=== PATIENT | male | born 1945 | race Caucasian/White ===

== ENCOUNTER → 2016-09-20 | Outpatient (CLI) | payer MEDICARE ==
--- NOTE | 2016-09-20 07:45 | US ---
EXAMINATION TYPE: US duplex aorta DATE OF EXAM: 09/20/2016 7:27 AM COMPARISON: NONE CLINICAL HISTORY: 70-year-old male Z13.6 Screening for Cardiovascular disease. TECHNIQUE: Multiple sonographic images of the abdominal aorta were obtained. FINDINGS: Abdominal Aorta: Proximal: 2.6cm transverse Mid: 2.3cm transverse Distal: 2.8cm transverse Right and left common iliac arteries: 1.2cm right transverse and 2.0 left transverse, respectively. Moderate to severe atherosclerotic calcifications throughout. IMPRESSION: 1. 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 Moderate to severe atherosclerotic calcifications throughout. 2. 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
[2016-09-20 08:18] LABS: Basophils % (A) 0 %; CHCM 33.6; Eosinophils # (A) 0.1 k/uL (0-0.7); Eosinophils % (A) 1 %; HCT 47.7 % (39.0-53.0); HDW 2.35; HGB 16.2 gm/dL (13.0-17.5); Luc # (Auto) 0.26; Luc % (Auto) 3; Lymphocytes # (A) 2.4 k/uL (1.0-4.8); Lymphocytes % (A) 29 %; MCH 35.5 pg (25.0-35.0); MCV 104.4 fL (80.0-100.0); Macrocytosis Slight; Mean Platelet Volume 6.8; Monocytes # (A) 0.6 k/uL (0-1.0); Monocytes % (A) 7 %; Neutrophils % (A) 60 %; RBC 4.57 m/uL (4.30-5.90); RDW 12.8 % (11.5-15.5); WBC 8.3 k/uL (3.8-10.6); WBC (Perox) 8.11
[2016-09-20 10:57] LABS: ALT 36 U/L (21-72); AST 40 U/L (17-59); Alkaline Phosphatase 68 U/L (38-126); Anion Gap 8 mmol/L; Blood Urea Nitrogen 18 mg/dL (9-20); Calcium 9.7 mg/dL (8.4-10.2); Carbon Dioxide 25 mmol/L (22-30); Chloride 108 mmol/L (98-107); Cholesterol 108 mg/dL (<200); Glucose 98 mg/dL (74-99); HDL Cholesterol 53 mg/dL (40-60); Non-African American GFR(MDRD) >60 (>60 ml/min/1.73 sqM); Potassium 4.4 mmol/L (3.5-5.1); Sodium 141 mmol/L (137-145); Total Bilirubin 0.8 mg/dL (0.2-1.3); Total Protein 7.5 g/dL (6.3-8.2); Triglycerides 48 mg/dL (<150)
[2016-09-20 11:45] LABS: Hepatitis C Virus IgG Index 0.05
[2016-09-20 13:33] LABS: Hepatitis C Virus IgG Ab Negative (Negative)
[2016-09-21 08:34] LABS: Free Kappa Lt Chain Qnt, Serum 2.84 mg/dL (0.33 - 1.94); Kappa/Lambda Light Chain Ratio 1.62 (0.26 - 1.65)
== END | disposition home or self-care (01) ==
LOC: RADUSWWP 07:10
PROVIDERS: ATTEND Internal Medicine
DX: I77.811 Abdominal aortic ectasia (principal); I70.0 Atherosclerosis of aorta; I72.3 Aneurysm of iliac artery; I10 Essential (primary) hypertension; R76.9 Abnormal immunological finding in serum, unspecified; E55.9 Vitamin D deficiency, unspecified; Z13.9 Encounter for screening, unspecified; Z12.5 Encounter for screening for malignant neoplasm of prostate
CPT/HCPCS: 80053; 80061; 82306; 83883; 84153; 84165; 85025; 86334; 86803; 93979

== ENCOUNTER → 2017-05-31 | Outpatient (CLI) | payer MEDICARE ==
[2017-05-31 09:51] LABS: Basophils # (A) 0.1 k/uL (0-0.2); Basophils % (A) 2 %; CH 33.7; CHCM 33.2; Eosinophils # (A) 0.1 k/uL (0-0.7); Eosinophils % (A) 2 %; HCT 48.2 % (39.0-53.0); HDW 2.28; HGB 16.1 gm/dL (13.0-17.5); Luc # (Auto) 0.19; Luc % (Auto) 3; Lymphocytes # (A) 1.9 k/uL (1.0-4.8); Lymphocytes % (A) 32 %; MCH 34.1 pg (25.0-35.0); MCHC 33.5 g/dL (31.0-37.0); MCV 101.9 fL (80.0-100.0); Macrocytosis Slight; Monocytes # (A) 0.6 k/uL (0-1.0); Monocytes % (A) 9 %; Neutrophils # (A) 3.1 k/uL (1.3-7.7); Neutrophils % (A) 51 %; RBC 4.73 m/uL (4.30-5.90); RDW 13.8 % (11.5-15.5); WBC (Perox) 5.61
[2017-05-31 10:04] LABS: ALT 32 U/L (21-72); AST 30 U/L (17-59); Alkaline Phosphatase 76 U/L (38-126); Anion Gap 7 mmol/L; Blood Urea Nitrogen 12 mg/dL (9-20); Calcium 9.7 mg/dL (8.4-10.2); Carbon Dioxide 28 mmol/L (22-30); Chloride 103 mmol/L (98-107); Cholesterol 118 mg/dL (<200); Glucose 106 mg/dL (74-99); HDL Cholesterol 55 mg/dL (40-60); Non-African American GFR(MDRD) >60 (>60 ml/min/1.73 sqM); Potassium 4.4 mmol/L (3.5-5.1); Sodium 138 mmol/L (137-145); Total Bilirubin 0.7 mg/dL (0.2-1.3); Total Protein 7.6 g/dL (6.3-8.2)
== END | disposition home or self-care (01) ==
LOC: LABWHC1 09:17
PROVIDERS: ATTEND Internal Medicine
DX: I10 Essential (primary) hypertension (principal)
CPT/HCPCS: 36415; 80053; 80061; 85025

== ENCOUNTER → 2018-08-10 | Outpatient (CLI) | payer MEDICARE ==
[2018-08-10 11:16] LABS: Basophils % (A) 0 %; Eosinophils # (A) 0.1 k/uL (0-0.7); Eosinophils % (A) 2 %; HCT 47.2 % (39.0-53.0); HGB 15.6 gm/dL (13.0-17.5); Lymphocytes # (A) 1.8 k/uL (1.0-4.8); Lymphocytes % (A) 26 %; MCH 34.2 pg (25.0-35.0); MCV 103.7 fL (80.0-100.0); Macrocytosis Slight; Mean Platelet Volume 6.5; Monocytes # (A) 0.5 k/uL (0-1.0); Monocytes % (A) 7 %; Neutrophils # (A) 4.1 k/uL (1.3-7.7); Neutrophils % (A) 61 %; Platelet Count 261 k/uL (150-450); RBC 4.55 m/uL (4.30-5.90); RDW 12.7 % (11.5-15.5); WBC 6.8 k/uL (3.8-10.6)
[2018-08-10 11:30] LABS: Appearance,Urine Clear (Clear); Bilirubin,Urine Negative (Negative); Blood,Urine Trace (Negative); Color,Urine Light Yellow; Glucose,Urine (UA) Negative (Negative); Ketones,Urine Negative (Negative); Leukocyte Esterase,Urine Negative (Negative); Mucus,Urine Rare /hpf; Nitrite,Urine Negative (Negative); Protein,Urine Negative (Negative); RBC,Urine 1 /hpf (0-5); Specific Gravity,Urine 1.006 (1.001-1.035); Squamous Epithelial Cell,Urine <1 /hpf (0-4); Urobilinogen,Urine <2.0 mg/dL (<2.0); WBC,Urine 2 /hpf (0-5)
[2018-08-10 17:13] LABS: ALT 25 U/L (10-49); AST 33 U/L (14-35); Albumin/Globulin Ratio 1.44 (1.60-3.17); Alkaline Phosphatase 74 U/L (41-126); Calcium 9.5 mg/dL (8.7-10.3); Carbon Dioxide 26.8 mmol/L (21.6-31.8); Chloride 104 mmol/L (96-109); Cholesterol 115 mg/dL (0-200); Globulin 2.7 g/dL (1.6-3.3); Glucose 91 mg/dL (70-110); Potassium 4.9 mmol/L (3.5-5.5); Sodium 139 mmol/L (135-145); Total Bilirubin 0.7 mg/dL (0.2-1.2); Total Protein 6.6 g/dL (6.2-8.2); Triglycerides <50.0 mg/dL (0.0-149.0); VLDL Calculation 9.98 mg/dL (5.00-40.00)
== END ==
LOC: LABWHC1 10:15
PROVIDERS: ATTEND Internal Medicine
DX: I10 Essential (primary) hypertension (principal); Z12.5 Encounter for screening for malignant neoplasm of prostate
CPT/HCPCS: 80061; 80053; 85025; 81001; 36415; G0103

== ENCOUNTER 2023-01-19 00:26 | Inpatient (IN) | payer MEDICARE ==
[2023-01-19] MEDS ORDERED: SODIUM CHLORIDE 0.9% 500 ML 500 ML IV STA (00:40)
[2023-01-19] MEDS ORDERED: MORPHINE SULFATE 4 MG/ML SYRINGE IVP STA (00:41)
--- NOTE | 2023-01-19 01:00 | ED ---
General Adult HPI - General Chief complaint: Abdominal Pain Stated complaint: Kidney Stone Time Seen by Provider: 01/19/23 00:28 Source: patient, RN notes reviewed, old records reviewed Mode of arrival: ambulatory Limitations: no limitations - History of Present Illness Initial comments: 77-year-old male with history of kidney stones presents for evaluation of bilateral flank pain and lower abdominal pain. Patient states he's had difficulty urinating and increased urinary frequency. He states she's had hematuria throughout the day today. No fever. No vomiting. No upper abdominal pain. His pain is all in the lower abdomen and bilateral flanks. - Related Data Home Medications Medication Instructions Recorded Confirmed Losartan-Hctz 50-12.5 mg [Hyzaar 1 tab PO DAILY 03/23/14 04/26/15 50-12.5] Montelukast [Singulair] 10 mg PO DAILY 03/23/14 04/26/15 Cholecalciferol [Vitamin D3 (25 1,000 unit PO DAILY 03/11/15 04/26/15 Mcg = 1000 Iu)] Cyanocobalamin [Vitamin B-12] 1,000 mcg PO DAILY 03/11/15 04/26/15 Multivitamin [Men's Multi-Vitamin] 1 tab PO DAILY 03/11/15 04/26/15 Clopidogrel [Plavix] 75 mg PO DAILY 04/26/15 04/26/15 Previous Rx's Medication Instructions Recorded Aspirin EC [Ecotrin] 325 mg PO DAILY #30 tablet. 03/12/15 Atorvastatin [Lipitor] 40 mg PO DAILY #30 tab 03/12/15 Metoprolol Tartrate [Lopressor] 12.5 mg PO BID #60 tab 03/12/15 Nicotine 21Mg/24Hr Patch [Habitrol] 1 patch TRANSDERM DAILY #30 patch 03/12/15 Nitroglycerin Sl Tabs [Nitrostat] 0.4 mg SUBLINGUAL Q5M PRN #25 tab 03/12/15 Tiotropium 18 Mcg/Puff [Spiriva] 1 puff INHALATION RT-DAILY #1 03/12/15 inhaler Allergies Allergy/AdvReac Type Severity Reaction Status Date / Time sulfamethoxazole Allergy Unknown Verified 01/19/23 00:31 [From Bactrim] trimethoprim [From Bactrim] Allergy Unknown Verified 01/19/23 00:31 Review of Systems ROS Statement: Those systems with pertinent positive or pertinent negative responses have been documented in the HPI. ROS Other: All systems not noted in ROS Statement are negative. Past Medical History Past Medical History: COPD, Hypertension Additional Past Medical History / Comment(s): scoliosis History of Any Multi-Drug Resistant Organisms: None Reported Past Surgical History: Appendectomy Additional Past Surgical History / Comment(s): eye surgery Past Psychological History: No Psychological Hx Reported Smoking Status: Heavy tobacco smoker Past Alcohol Use History: None Reported Past Drug Use History: Marijuana General Exam Limitations: no limitations General appearance: alert, in no apparent distress Head exam: Present: atraumatic, normocephalic Eye exam: Present: normal appearance, PERRL ENT exam: Present: normal exam Neck exam: Present: normal inspection. Absent: tenderness Respiratory exam: Present: decreased breath sounds. Absent: respiratory distress, rhonchi Cardiovascular Exam: Present: regular rate, normal rhythm GI/Abdominal exam: Present: soft, distended, tenderness. Absent: guarding, rebound Extremities exam: Present: normal inspection Neurological exam: Present: alert, oriented X3, CN II-XII intact. Absent: motor sensory deficit Skin exam: Present: warm, dry, intact. Absent: cyanosis, diaphoretic Course Vital Signs 01/19/23 01/19/23 01/19/23 00:28 02:12 02:21 Temperature 97.7 F Pulse Rate 95 79 82 Respiratory 34 H 18 Rate Blood Pressure 229/132 143/83 O2 Sat by Pulse 80 L 97 Oximetry 01/19/23 02:42 Temperature Pulse Rate 81 Respiratory Rate Blood Pressure O2 Sat by Pulse Oximetry Medical Decision Making - Medical Decision Making Was pt. sent in by a medical professional or institution (, PA, REACH LIFT TRUCK DRIVER, urgent care, hospital, or custodial...) When possible be specific @ -No Did you speak to anyone other than the patient for history (EMS, parent, family, police, friend...)? What history was obtained from this source @ -No Did you review nursing and triage notes (agree or disagree)? Why? @ -I reviewed and agree with nursing and triage notes Were old charts reviewed (outside hosp., previous admission, EMS record, old EKG, old radiological studies, urgent care reports/EKG's, custodial records)? Report findings @ -No old charts were reviewed Differential Diagnosis (chest pain, altered mental status, abdominal pain women, abdominal pain men, vaginal bleeding, weakness, fever, dyspnea, syncope, headache, dizziness, GI bleed, back pain, seizure, CVA, palpatations, mental health, musculoskeletal)? @ Differential Abdominal Pain Women: Appendicitis, Cholecystitis, diverticulosis, ischemic bowel, pancreatitis, hepatitis, UTI, gastroenteritis, AAA, incarcerated hernia, bowel obstruction, constipation, inflammatory bowel, hepatitis, peptic ulcer disease, splenic infarction, perforated viscus, vulvitis, ovarian torsion, PID, kidney stone, placenta abruption, this is not meant to be an all-inclusive list EKG interpreted by me (3pts min.). @ -As above X-rays interpreted by me (1pt min.). @ -None done CT interpreted by me (1pt min.). @ CT showing a distended bladder, severe right-sided hydronephrosis with likely bladder mass. U/S interpreted by me (1pt. min.). @ -None done What testing was considered but not performed or refused? (CT, X-rays, U/S, labs)? Why? @ -None What meds were considered but not given or refused? Why? @ -None Did you discuss the management of the patient with other professionals (professionals i.e. , PA, REACH LIFT TRUCK DRIVER, lab, RT, psych nurse, social work faculty member, dubbing machine operator, teacher, space officer, rn case management)? Give summary @ Sound Was smoking cessation discussed for >3mins.? @ -No Was critical care preformed (if so, how long)? @ -No Were there social determinants of health that impacted care today? How? (Homelessness, low income, unemployed, alcoholism, drug addiction, transportation, low edu. Level, literacy, decrease access to med. care, [facility], rehab)? @ -No Was there de-escalation of care discussed even if they declined (Discuss DNR or withdrawal of care, Hospice)? DNR status @ -No What co-morbidities impacted this encounter? (DM, HTN, Smoking, COPD, CAD, Cancer, CVA, ARF, Chemo, Hep., AIDS, mental health diagnosis, sleep apnea, morbid obesity)? @ -[COPD Was patient admitted / discharged? Hospital course, mention meds given and route, prescriptions, significant lab abnormalities, going to OR and other pertinent info. @ -[37-year-old male presenting with lower abdominal pain and bilateral flank pain. Patient has had the urge to urinate and has had hematuria throughout the day. He does report he's had intermittent hematuria for the past 3 years. Patient is unable to completely void and does have distended bladder on CT as well as severe hydronephrosis. Mackay catheter. Urinalysis is hemorrhagic with gross hematuria. He has a anemia of 9.7 with no recent for comparison but does has had significant drop in hemoglobin over the past several years. He has a mildly elevated BUN and creatinine. He will be placed in observation for hydration and urology consultation. Undiagnosed new problem with uncertain prognosis? @ -No Drug Therapy requiring intensive monitoring for toxicity (Heparin, Nitro, Insulin, Cardizem)? @ -No Were any procedures done? @ -No Diagnosis/symptom? @ -Hematuria, urinary retention, ANH Acute, or Chronic, or Acute on Chronic? @ Acute Uncomplicated (without systemic symptoms) or Complicated (systemic symptoms)? @ -default Side effects of treatment? @ -No Exacerbation, Progression, or Severe Exacerbation? @ -No Poses a threat to life or bodily function? How? (Chest pain, USA, ME, pneumonia, PE, COPD, DKA, ARF, appy, cholecystitis, CVA, Diverticulitis, Homicidal, Suicidal, threat to staff... and all critical care pts) @ -[Yes, bladder mass - Lab Data Result diagrams: 01/19/23 01:10 01/19/23 01:10 Lab Results 01/19/23 01/19/23 01/19/23 Range/Units 01:10 01:10 01:10 WBC 9.3 (3.8-10.6) k/uL RBC 3.86 L (4.30-5.90) m/uL Hgb 9.7 L (13.0-17.5) gm/dL Hct 31.0 L (39.0-53.0) % MCV 80.4 (80.0-100.0) fL MCH 25.1 (25.0-35.0) pg MCHC 31.2 (31.0-37.0) g/dL RDW 18.1 H (11.5-15.5) % Plt Count 342 (150-450) k/uL MPV 7.3 Neutrophils % 80 % Lymphocytes % 13 % Monocytes % 5 % Eosinophils % 1 % Basophils % 1 % Neutrophils # 7.4 (1.3-7.7) k/uL Lymphocytes # 1.2 (1.0-4.8) k/uL Monocytes # 0.4 (0-1.0) k/uL Eosinophils # 0.1 (0-0.7) k/uL Basophils # 0.1 (0-0.2) k/uL Hypochromasia Marked Anisocytosis Slight Microcytosis Slight PT 10.0 (9.0-12.0) sec INR 0.9 (<1.2) APTT 23.7 (22.0-30.0) sec Sodium 134 L (137-145) mmol/L Potassium 4.3 (3.5-5.1) mmol/L Chloride 102 (98-107) mmol/L Carbon Dioxide 21 L (22-30) mmol/L Anion Gap 11 mmol/L BUN 34 H (9-20) mg/dL Creatinine 1.49 H (0.66-1.25) mg/dL Est GFR (CKD-EPI)AfAm 53 (>60 ml/min/1.73 sqM) Est GFR (CKD-EPI)NonAf 45 (>60 ml/min/1.73 sqM) Glucose 129 H (74-99) mg/dL Plasma Lactic Acid Tera (0.7-2.0) mmol/L Calcium 9.3 (8.4-10.2) mg/dL Total Bilirubin 0.5 (0.2-1.3) mg/dL AST 33 (17-59) U/L ALT 21 (4-49) U/L Alkaline Phosphatase 89 (38-126) U/L Total Protein 8.1 (6.3-8.2) g/dL Albumin 4.2 (3.5-5.0) g/dL Amylase 91 (30-110) U/L Lipase 200 (23-300) U/L Urine Color Urine Appearance (Clear) Urine pH (5.0-8.0) Ur Specific [place] (1.001-1.035) Urine Protein (Negative) Urine Glucose (UA) (Negative) Urine Ketones (Negative) Urine Blood (Negative) Urine Nitrite (Negative) Urine Bilirubin (Negative) Urine Urobilinogen (<2.0) mg/dL Ur Leukocyte Esterase (Negative) Urine RBC (0-5) /hpf Urine WBC (0-5) /hpf 01/19/23 01/19/23 Range/Units 01:10 02:01 WBC (3.8-10.6) k/uL RBC (4.30-5.90) m/uL Hgb (13.0-17.5) gm/dL Hct (39.0-53.0) % MCV (80.0-100.0) fL MCH (25.0-35.0) pg MCHC (31.0-37.0) g/dL RDW (11.5-15.5) % Plt Count (150-450) k/uL MPV Neutrophils % % Lymphocytes % % Monocytes % % Eosinophils % % Basophils % % Neutrophils # (1.3-7.7) k/uL Lymphocytes # (1.0-4.8) k/uL Monocytes # (0-1.0) k/uL Eosinophils # (0-0.7) k/uL Basophils # (0-0.2) k/uL Hypochromasia Anisocytosis Microcytosis PT (9.0-12.0) sec INR (<1.2) APTT (22.0-30.0) sec Sodium (137-145) mmol/L Potassium (3.5-5.1) mmol/L Chloride (98-107) mmol/L Carbon Dioxide (22-30) mmol/L Anion Gap mmol/L BUN (9-20) mg/dL Creatinine (0.66-1.25) mg/dL Est GFR (CKD-EPI)AfAm (>60 ml/min/1.73 sqM) Est GFR (CKD-EPI)NonAf (>60 ml/min/1.73 sqM) Glucose (74-99) mg/dL Plasma Lactic Acid Tera 1.5 (0.7-2.0) mmol/L Calcium (8.4-10.2) mg/dL Total Bilirubin (0.2-1.3) mg/dL AST (17-59) U/L ALT (4-49) U/L Alkaline Phosphatase (38-126) U/L Total Protein (6.3-8.2) g/dL Albumin (3.5-5.0) g/dL Amylase (30-110) U/L Lipase (23-300) U/L Urine Color Red Urine Appearance Turbid (Clear) Urine pH 7.0 (5.0-8.0) Ur Specific [place] 1.020 (1.001-1.035) Urine Protein 2+ H (Negative) Urine Glucose (UA) Negative (Negative) Urine Ketones Negative (Negative) Urine Blood Large H (Negative) Urine Nitrite Negative (Negative) Urine Bilirubin Negative (Negative) Urine Urobilinogen <2.0 (<2.0) mg/dL Ur Leukocyte Esterase Small H (Negative) Urine RBC >182 H (0-5) /hpf Urine WBC 35 H (0-5) /hpf Disposition Clinical Impression: Urinary retention, Bladder mass, ANH (acute kidney injury), Hematuria Disposition: ADMITTED IP TO THIS HOSP Condition: Stable Is patient prescribed a controlled substance at d/c from ED?: No Referrals: None,Stated [REFERRING] - 1-2 days Time of Disposition: 03:34
[2023-01-19 01:25] LABS: Anisocytosis Slight; Basophils # (A) 0.1 k/uL (0-0.2); Basophils % (A) 1 %; Eosinophils # (A) 0.1 k/uL (0-0.7); Eosinophils % (A) 1 %; HGB 9.7 gm/dL (13.0-17.5); Hypochromasia Marked; Lymphocytes # (A) 1.2 k/uL (1.0-4.8); Lymphocytes % (A) 13 %; MCH 25.1 pg (25.0-35.0); MCHC 31.2 g/dL (31.0-37.0); MCV 80.4 fL (80.0-100.0); Mean Platelet Volume 7.3; Microcytosis Slight; Monocytes # (A) 0.4 k/uL (0-1.0); Monocytes % (A) 5 %; Neutrophils # (A) 7.4 k/uL (1.3-7.7); Neutrophils % (A) 80 %; Platelet Count 342 k/uL (150-450); RBC 3.86 m/uL (4.30-5.90); RDW 18.1 % (11.5-15.5); WBC 9.3 k/uL (3.8-10.6)
--- NOTE | 2023-01-19 01:29 | CT ---
EXAM: CT Abdomen and Pelvis Without Intravenous Contrast CLINICAL HISTORY: ITS.REASON CT Reason: abdominal pain TECHNIQUE: Axial computed tomography images of the abdomen and pelvis without intravenous contrast. CTDI is 6.5 mGy and DLP is 358.7 mGy-cm. This CT exam was performed using one or more of the following dose reduction techniques: automated exposure control, adjustment of the mA and/or kV according to patient size, and/or use of iterative reconstruction technique. COMPARISON: No relevant prior studies available. FINDINGS: Lung bases: Emphysema and scarring at the lung bases. ABDOMEN: Liver: Unremarkable. Gallbladder and bile ducts: Unremarkable. No calcified stones. No ductal dilation. Pancreas: Unremarkable. No ductal dilation. Spleen: Unremarkable. No splenomegaly. Adrenals: Unremarkable. No mass. Kidneys and ureters: Severe right-sided hydroureteronephrosis. This is secondary to an obstructing mass in the right side of the urinary bladder measuring 1.8 x 5.2 cm, highly concerning for bladder neoplasm. Urology evaluation required. Stomach and bowel: Unremarkable. No obstruction. No mucosal thickening. PELVIS: Appendix: No findings to suggest acute appendicitis. Bladder: Unremarkable. No stones. Reproductive: Unremarkable as visualized. ABDOMEN and PELVIS: Intraperitoneal space: Unremarkable. No free air. No significant fluid collection. Bones/joints: Degenerative changes of the spine. No acute fracture. No dislocation. Soft tissues: Unremarkable. Vasculature: Tortuous aorta which is aneurysmal measuring up to 4.2 cm. Atherosclerotic changes of the aorta. Lymph nodes: Unremarkable. No enlarged lymph nodes. IMPRESSION: Severe right-sided hydroureteronephrosis, secondary to an obstructing mass in the right side of the urinary bladder measuring 1.8 x 5.2 cm, highly concerning for bladder neoplasm. Urology evaluation required.
[2023-01-19 01:33] LABS: ALT 21 U/L (4-49); AST 33 U/L (17-59); African American GFR (CKD) 53 (>60 ml/min/1.73 sqM); Albumin 4.2 g/dL (3.5-5.0); Alkaline Phosphatase 89 U/L (38-126); Amylase 91 U/L (30-110); Anion Gap 11 mmol/L; Blood Urea Nitrogen 34 mg/dL (9-20); Calcium 9.3 mg/dL (8.4-10.2); Carbon Dioxide 21 mmol/L (22-30); Chloride 102 mmol/L (98-107); Glucose 129 mg/dL (74-99); INR 0.9 (<1.2); Lipase 200 U/L (23-300); Non-African American GFR(CKD) 45 (>60 ml/min/1.73 sqM); Partial Thromboplastin Time 23.7 sec (22.0-30.0); Potassium 4.3 mmol/L (3.5-5.1); Sodium 134 mmol/L (137-145); Total Bilirubin 0.5 mg/dL (0.2-1.3); Total Protein 8.1 g/dL (6.3-8.2)
[2023-01-19] MEDS ORDERED: IPRATROPIUM-ALBUTEROL 3 ML NEB INHALATION STA (02:05)
[2023-01-19] MEDS ORDERED: ALBUTEROL NEBULIZED 2.5 MG/3 ML INHALATION STA (02:05)
[2023-01-19] MEDS: SODIUM CHLORIDE 0.9% 1,000 ML IV SCH ×2 (02:53→17:13)
[2023-01-19 02:57] LABS: Appearance,Urine Turbid (Clear); Bilirubin,Urine Negative (Negative); Blood,Urine Large (Negative); Color,Urine Red; Glucose,Urine (UA) Negative (Negative); Ketones,Urine Negative (Negative); Leukocyte Esterase,Urine Small (Negative); Nitrite,Urine Negative (Negative); Protein,Urine 2+ (Negative); RBC,Urine >182 /hpf (0-5); Urobilinogen,Urine <2.0 mg/dL (<2.0); WBC,Urine 35 /hpf (0-5)
[2023-01-19] MEDS ORDERED: NALOXONE 0.4 MG/ML 1 ML VIAL IV PRN (03:44)
[2023-01-19] MEDS ORDERED: ACETAMINOPHEN TAB 325 MG TAB PO PRN (03:44)
[2023-01-19] MEDS ORDERED: HYDROmorphone 0.5 MG/0.5 ML SYRINGE IVP PRN (03:44)
--- NOTE | 2023-01-19 05:21 | P.HPIM ---
History of Present Illness H&P Date: 01/19/23 Chief Complaint: lower abd pain 77 year old male with PMHx of COPD , hypertension patient drove himself to the ED today. patient coming in with severe lower abd pain sudden onset, he also reports no urine output for the whole day, he also reports hematuria for the past 3 years off and on. patient seems to be indifferent for the fact he has been having hematuria for the past 3 years, he claims its occasional and never felt the need to see a doctor for it. he denies any fever, chills, nausea or vomiting, his pain was relieved after inserting a archer cath in in the ED he denies any GI bleeding , denies being on blood thinners. denies any recent urologic interventions she denies any fever, chills, cough, sore throat, chest pain , trouble breathing , nausea , vomiting, abd pain , changes in urinary or bowel habits. 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 admits to smoking , denies illicit drugs or heavy alcohol review of systems Pertinent positives as noted in HPI. All other systems were reviewed and are negative on exam Constitutional: No acute distress, conversant, pleasant Eyes: Anicteric sclerae, moist conjunctiva, Pupils equal round reactive to light ENMT: NC/AT Oropharynx clear, no erythema, or exudates Neck: Supple, no masses, or JVD No carotid bruits No thyromegaly Lungs: Clear to auscultation Clear to percussion Normal respiratory effort, no accessory muscle use Cardiovascular: Heart regular in rate and rhythm, No murmurs, gallops, or rubs No peripheral edema Abdominal: Soft Nontender, no guarding, rebound or rigidity Abdomen moving with respiration Normoactive bowel sounds No hepatomegaly, No splenomegaly No palpable mass No abdominal wall hernia noted archer cath in with gabby hematuria Extremities: No digital cyanosis No clubbing Pedal pulses intact and symmetrical Radial pulses intact and symmetrical No calf tenderness Psychiatric: Alert and oriented to person, place and time Appropriate affect fair judgement Neuro Muscles Strength 5/5 in all 4 extremities Sensation to light touch grossly present throughout Cranial nerves II-XII grossly intact Lymphatics: no palpable cervical or supraclavicular lymph nodes Past Medical History Past Medical History: COPD, Hypertension Additional Past Medical History / Comment(s): scoliosis History of Any Multi-Drug Resistant Organisms: None Reported Past Surgical History: Appendectomy Additional Past Surgical History / Comment(s): eye surgery Past Psychological History: No Psychological Hx Reported Smoking Status: Heavy tobacco smoker Past Alcohol Use History: None Reported Past Drug Use History: Marijuana Medications and Allergies Home Medications Medication Instructions Recorded Confirmed Type Losartan-Hctz 50-12.5 mg [Hyzaar 1 tab PO DAILY 03/23/14 04/26/15 History 50-12.5] Montelukast [Singulair] 10 mg PO DAILY 03/23/14 04/26/15 History Cholecalciferol [Vitamin D3 (25 1,000 unit PO DAILY 03/11/15 04/26/15 History Mcg = 1000 Iu)] Cyanocobalamin [Vitamin B-12] 1,000 mcg PO DAILY 03/11/15 04/26/15 History Multivitamin [Men's Multi-Vitamin] 1 tab PO DAILY 03/11/15 04/26/15 History Aspirin EC [Ecotrin] 325 mg PO DAILY #30 tablet.dr 03/12/15 04/26/15 Rx Atorvastatin [Lipitor] 40 mg PO DAILY #30 tab 03/12/15 04/26/15 Rx Metoprolol Tartrate [Lopressor] 12.5 mg PO BID #60 tab 03/12/15 04/26/15 Rx Nicotine 21Mg/24Hr Patch [Habitrol] 1 patch TRANSDERM DAILY #30 patch 03/12/15 04/26/15 Rx Nitroglycerin Sl Tabs [Nitrostat] 0.4 mg SUBLINGUAL Q5M PRN #25 tab 03/12/15 04/26/15 Rx Tiotropium 18 Mcg/Puff [Spiriva] 1 puff INHALATION RT-DAILY #1 03/12/15 04/26/15 Rx inhaler Clopidogrel [Plavix] 75 mg PO DAILY 04/26/15 04/26/15 History Allergies Allergy/AdvReac Type Severity Reaction Status Date / Time sulfamethoxazole Allergy Unknown Verified 01/19/23 00:31 [From Bactrim] trimethoprim [From Bactrim] Allergy Unknown Verified 01/19/23 00:31 Physical Exam Vitals: Vital Signs Temp Pulse Resp BP Pulse Ox 01/19/23 02:42 81 01/19/23 02:21 82 01/19/23 02:12 79 18 143/83 97 01/19/23 00:28 97.7 F 95 34 H 229/132 80 L Intake and Output 01/18/23 01/18/23 01/19/23 14:59 22:59 06:59 Output Total 800 Balance -800 Output: Urine 800 Coude 800 Other: Weight 65.771 kg Results CBC & Chem 7: 01/19/23 01:10 01/19/23 01:10 Labs: Abnormal Lab Results - Last 24 Hours (Table) 01/19/23 01/19/23 01/19/23 Range/Units 01:10 01:10 02:01 RBC 3.86 L (4.30-5.90) m/uL Hgb 9.7 L (13.0-17.5) gm/dL Hct 31.0 L (39.0-53.0) % RDW 18.1 H (11.5-15.5) % Sodium 134 L (137-145) mmol/L Carbon Dioxide 21 L (22-30) mmol/L BUN 34 H (9-20) mg/dL Creatinine 1.49 H (0.66-1.25) mg/dL Glucose 129 H (74-99) mg/dL Urine Protein 2+ H (Negative) Urine Blood Large H (Negative) Ur Leukocyte Esterase Small H (Negative) Urine RBC >182 H (0-5) /hpf Urine WBC 35 H (0-5) /hpf Assessment and Plan Assessment: 77 year old male with COPD , coming in for urinary retention , abd pain and he maturia , I discussed the case with ED doc , and I accepted the admission for hematuria with acute urinary retention , imaging showed bladder mass , await urlogy eval with anticipated length of stay > 2 midnights urinary retention , with gabby hematuria obstructive uropathy ANH anemia (compared to 2019 ) CT abd / pelvis showed large urinary bladder mass resulting in severe right hydronephrosis avoid nephrotoxic meds archer cath care gabby hematuria , monitor h&h transfuse if hgb <7 urology consult pain control with opiates IVF hydration with normal saline 100 cc per hour Hgb 9.7 BUN 34, Cr 1.49 chronic conditions COPD compensated , resume inhalers PRN duoneb Hypertension continue home meds full code DVT PPX mecahnical secondary to hematuria
[2023-01-19] MEDS: ATORVASTATIN 40 MG TAB PO SCH (08:12)
[2023-01-19] MEDS: METOPROLOL TARTRATE 12.5 MG TAB PO SCH ×2 (08:12→20:43)
[2023-01-19] MEDS ORDERED: MONTELUKAST 10 MG TAB PO SCH (09:00)
--- NOTE | 2023-01-19 10:38 | P.PN ---
Subjective Progress Note Date: 01/19/23 Hospital course: Patient is a very pleasant 77-year-old male with a past medical history of known coronary artery disease, COPD and continued nicotine dependence, hypertension, and cannabinoid use. He presented to the emergency department with a chief complaint of severe abdominal pain and urinary retention. Patient reported episodes of hematuria occurring over the past 3 years intermittently but reports sudden onset suprapubic lower abdominal pain and difficulty urinating and came to the emergency department for evaluation. Patient underwent full evaluation and was found to have urinary retention and a Mackay catheter was inserted resulting in resolution of urinary retention and return of dark red colored urine. Patient was found to have red turbid urine positive for protein, blood, and greater than 182 RBCs. Labs were completed and reviewed. CBC showing hemoglobin of 9.7. BMP revealing mild hyponatremia with sodium 134, hypocarbia with bicarb of 21, and acute kidney injury with BUN of 34, creatinine 1.49, and GFR 45. Liver profile was unremarkable. Amylase normal findings at 200. CT abdomen and pelvis reviewed showing severe right-sided hydronephrosis secondary to obstructing mass in the right side of the urinary bladder measuring 1.8 x 5.2 cm highly concerning for bladder neoplasm. Patient admitted under our services with consultation to urology. Physical exam: Vital signs reviewed and stable. General: Nontoxic, no distress and appears stated age. Derm: Skin warm and dry, normal coloration for ethnicity. Head: Atraumatic, normocephalic and symmetric. Eyes: EOMs intact, no lid lag, and anicteric sclera Mouth: no lip lesions, mucus membranes moist Cardiovascular: regular rate and rhythm with normal S1S2, no murmur, positive posterior tibial pulses bilaterally, and cap refill < 2 seconds. Lungs: Respirations even, regular, and unlabored on room air. Lungs CTA bilaterally, no rhonchi, no rales, no wheezing, and no accessory muscle usage. Abdominal: soft, nontender to palpation, no guarding, no appreciable organomegaly. Mackay catheter in place with continued return of dark red bloody urine. No suprapubic tenderness noted upon examination. Ext: ROM intact. No gross muscle atrophy, no edema, no contractures Neuro: Speech clear, face symmetrical and CN II-XII grossly intact with no noted focal neuro deficits Psych: Alert and oriented to person, place, time, and situation. Appropriate and pleasant affect. Assessment and Plan of Care: Urinary retention with hematuria Obstructing Bladder mass resulting in right-sided hydronephrosis Acute blood loss anemia secondary to hematuria Acute kidney injury -Continue Mackay catheter management. -CT abdomen and pelvis reviewed showing severe right-sided hydronephrosis secondary to obstructing mass in the right side of the urinary bladder measuring 1.8 x 5.2 cm highly concerning for bladder neoplasm. -Labs completed and reviewed. Hemoglobin 9.7. BMP showing acute kidney injury with Patient's last lab for comparison in system was drawn in 2019 and resulted at 15.6 at that time. -Will repeat morning CBC and BMP to monitor hemoglobin closely as well as renal function. -Hold aspirin and Plavix secondary to hematuria and likely need for surgical intervention secondary to obstructing bladder mass -Patient to remain nothing by mouth until cleared by urology, once urology c lears with no plans for surgical procedures patient's diet may be advanced to heart healthy diet. Hypertensive urgency -Patient presented with hypertensive urgency with blood pressure 229/132, heart rate 95, and respiratory rate of 34. Hypertensive urgency and tachypnea resolved after placement of Mackay catheter and resolution of urinary retention resulting and also resolution of suprapubic/abdominal pain. -Patient with history of hypertension and to continue daily medication regimen with metoprolol 12.5 mg twice daily. -Losartan/hydrochlorothiazide to be held secondary to acute kidney injury. COPD with continued nicotine dependence Coronary artery disease Hyperlipidemia -Recommend smoking cessation. Order placed for nicotine patch 21 mg daily. -Patient to continue with Ventolin inhaler as needed for shortness of breath and/or wheezing. -Order placed for scheduled nebulizers treatment with DuoNeb 4 times daily -Patient to continue cardiac medication regimen with atorvastatin 40 mg daily metoprolol 12.5 mg twice daily. -Aspirin to be held secondary to hematuria. -Losartan/hydrochlorothiazide to be held secondary to acute kidney injury. CODE STATUS: Full code DVT prophylaxis: SCDs Discussed with: Patient and RN Anticipated discharge date: Clinical course to determine Anticipated discharge place: Home Patient was seen independently by Nurse Pracitioner. This document was prepared using [employer] dictation software. Please allow for errors in tare worker, while rare they do occur. Miguel A Ziegler NP rendered care for this patient independently, reviewed the findings and plan as documented in the note above. I did not physically speak with or examine the patient on this date. Objective - Vital Signs Vital signs: Vital Signs Temp 97 F L 01/19/23 07:17 Pulse 85 01/19/23 08:00 Resp 18 01/19/23 08:00 BP 129/82 01/19/23 08:00 Pulse Ox 95 01/19/23 08:00 FiO2 Intake & Output 01/18/23 01/19/23 01/19/23 18:59 06:59 18:59 Output Total 800 900 Balance -800 -900 Weight 65.771 kg Output: Urine 800 900 Coude 800 900 - Labs CBC & Chem 7: 01/21/23 05:38 01/21/23 05:38 Labs: Abnormal Lab Results - Last 24 Hours (Table) 01/19/23 01/19/23 01/19/23 Range/Units 01:10 01:10 02:01 RBC 3.86 L (4.30-5.90) m/uL Hgb 9.7 L (13.0-17.5) gm/dL Hct 31.0 L (39.0-53.0) % RDW 18.1 H (11.5-15.5) % Sodium 134 L (137-145) mmol/L Carbon Dioxide 21 L (22-30) mmol/L BUN 34 H (9-20) mg/dL Creatinine 1.49 H (0.66-1.25) mg/dL Glucose 129 H (74-99) mg/dL Urine Protein 2+ H (Negative) Urine Blood Large H (Negative) Ur Leukocyte Esterase Small H (Negative) Urine RBC >182 H (0-5) /hpf Urine WBC 35 H (0-5) /hpf
[2023-01-19] MEDS: IPRATROPIUM 0.5 MG/2.5 ML NEBU INHALATION SCH ×4 (12:57→20:50)
[2023-01-19 16:00] LABS: Glucose,Whole Blood 87 mg/dL (70-110)
--- NOTE | 2023-01-19 17:33 | P.GSCN ---
History of Present Illness Consult date: 01/19/23 Reason for Consult: Gross hematuria, bladder mass, right-sided hydronephrosis History of present illness: This is a 77-year-old male that presented to the hospital with gross hematuria and urinary retention. He indicated he's been having ongoing gross hematuria intermittently for the past 3 years, has not seen anybody for his gross hematuri a. He noticed last night that he had worsening of his gross hematuria with clots, additionally his been having abdominal pain with difficulty voiding and that what promated him to present to the ER. In the ER he underwent a CT abdomen and pelvis that showed evidence of a bladder mass and evidence of right- sided hydronephrosis. Subsequently a Mackay catheter has been placed. Denies any previous surgeries. No family history of malignancies. His catheter is draining light red urine. He indicates that his abdominal pain has resolved. Patient is on Plavix and aspirin, he took his last Plavix dose yesterday. In the ER his hemoglobin was 9.7, he is hemodynamically stable. Review of Systems - Constitutional Denies fever, Denies weight loss - EENT Ears, nose, mouth and throat: Denies dysphagia - Cardiovascular Denies chest pain, Denies shortness of breath - Respiratory Denies cough, Denies 7 - Gastrointestinal Reports abdominal pain - Genitourinary Reports hematuria - Integumentary Denies rash, Denies unusual bruising - Neurological Denies headaches, Denies syncope Past Medical History Past Medical History: COPD, Hypertension Additional Past Medical History / Comment(s): scoliosis History of Any Multi-Drug Resistant Organisms: None Reported Past Surgical History: Appendectomy Additional Past Surgical History / Comment(s): eye surgery Past Psychological History: No Psychological Hx Reported Smoking Status: Heavy tobacco smoker Past Alcohol Use History: None Reported Past Drug Use History: Marijuana Medications and Allergies Home Medications Medication Instructions Recorded Confirmed Type Losartan-Hctz 50-12.5 mg [Hyzaar 1 tab PO DAILY 03/23/14 01/19/23 History 50-12.5] Atorvastatin [Lipitor] 40 mg PO DAILY #30 tab 03/12/15 01/19/23 Rx Metoprolol Tartrate [Lopressor] 12.5 mg PO BID #60 tab 03/12/15 01/19/23 Rx Albuterol Sulfate [Ventolin HFA] 2 puff INHALATION RT-Q4H PRN 01/19/23 01/19/23 History Aspirin EC [Ecotrin Low Dose] 81 mg PO DAILY 01/19/23 01/19/23 History Cholecalciferol [Vitamin D3 (25 25 mcg PO DAILY 01/19/23 01/19/23 History Mcg = 1000 Iu)] Cyanocobalamin (Vitamin B-12) 2,500 mcg PO DAILY 01/19/23 01/19/23 History [Vitamin B-12] Ipratropium-Albuterol Nebulize 3 ml INHALATION RT-QID 01/19/23 01/19/23 History [Duoneb 0.5 mg-3 mg/3 ml Soln] Multivit-Min/FA/Lycopen/Lutein 1 tab PO DAILY 01/19/23 01/19/23 History [Centrum Silver Tablet] traMADol HCl [Ultram] 50 mg PO Q6HR PRN 01/19/23 01/19/23 History Allergies Allergy/AdvReac Type Severity Reaction Status Date / Time sulfamethoxazole Allergy Rash/Hives Verified 01/19/23 07:15 [From Bactrim] trimethoprim [From Bactrim] Allergy Rash/Hives Verified 01/19/23 07:15 Surgical - Exam Vital Signs Temp Pulse Resp BP Pulse Ox 97.7 F 95 34 H 229/132 80 L 01/19/23 00:28 01/19/23 00:28 01/19/23 00:28 01/19/23 00:28 01/19/23 00:28 - General no distress, no pain - Eyes normal ocular movement, no pale - ENT normal nares, normal mucosa - Respiratory normal expansion, normal respiratory effort - Abdomen Abdomen: soft, non tender, no distended - Psychiatric oriented to time, oriented to person, oriented to place Results - Labs 01/19/23 01:10 01/19/23 01:10 Abnormal Lab Results - Last 24 Hours (Table) 01/19/23 01/19/23 01/19/23 Range/Units 01:10 01:10 02:01 RBC 3.86 L (4.30-5.90) m/uL Hgb 9.7 L (13.0-17.5) gm/dL Hct 31.0 L (39.0-53.0) % RDW 18.1 H (11.5-15.5) % Sodium 134 L (137-145) mmol/L Carbon Dioxide 21 L (22-30) mmol/L BUN 34 H (9-20) mg/dL Creatinine 1.49 H (0.66-1.25) mg/dL Glucose 129 H (74-99) mg/dL Urine Protein 2+ H (Negative) Urine Blood Large H (Negative) Ur Leukocyte Esterase Small H (Negative) Urine RBC >182 H (0-5) /hpf Urine WBC 35 H (0-5) /hpf Diabetes panel 01/19/23 Range/Units 01:10 Sodium 134 L (137-145) mmol/L Potassium 4.3 (3.5-5.1) mmol/L Chloride 102 (98-107) mmol/L Carbon Dioxide 21 L (22-30) mmol/L BUN 34 H (9-20) mg/dL Creatinine 1.49 H (0.66-1.25) mg/dL Glucose 129 H (74-99) mg/dL Calcium 9.3 (8.4-10.2) mg/dL AST 33 (17-59) U/L ALT 21 (4-49) U/L Alkaline Phosphatase 89 (38-126) U/L Total Protein 8.1 (6.3-8.2) g/dL Albumin 4.2 (3.5-5.0) g/dL Calcium panel 01/19/23 Range/Units 01:10 Calcium 9.3 (8.4-10.2) mg/dL Albumin 4.2 (3.5-5.0) g/dL Pituitary panel 01/19/23 Range/Units 01:10 Sodium 134 L (137-145) mmol/L Potassium 4.3 (3.5-5.1) mmol/L Chloride 102 (98-107) mmol/L Carbon Dioxide 21 L (22-30) mmol/L BUN 34 H (9-20) mg/dL Creatinine 1.49 H (0.66-1.25) mg/dL Glucose 129 H (74-99) mg/dL Calcium 9.3 (8.4-10.2) mg/dL Adrenal panel 01/19/23 Range/Units 01:10 Sodium 134 L (137-145) mmol/L Potassium 4.3 (3.5-5.1) mmol/L Chloride 102 (98-107) mmol/L Carbon Dioxide 21 L (22-30) mmol/L BUN 34 H (9-20) mg/dL Creatinine 1.49 H (0.66-1.25) mg/dL Glucose 129 H (74-99) mg/dL Calcium 9.3 (8.4-10.2) mg/dL Total Bilirubin 0.5 (0.2-1.3) mg/dL AST 33 (17-59) U/L ALT 21 (4-49) U/L Alkaline Phosphatase 89 (38-126) U/L Total Protein 8.1 (6.3-8.2) g/dL Albumin 4.2 (3.5-5.0) g/dL - Imaging CT scan - abdomen: image reviewed (Bladder mass along the right lateral wall, with evidence of hydronephrosis dilated ureter down to the bladder at the level of the mass) Assessment and Plan Assessment: 77-year-old male admitted with gross hematuria, hydronephrosis and a bladder mass. Discussed with him the finding s is highly concerning for bladder cancer, and his hydronephrosis secondary to the bladder mass. Discussed with him the next step would be to proceed with a transuretheral a resection of a bladder tumor. But given that he took his Plavix yesterday we will hold off on any resection at this time. His gross hematuria has been improving with the Mackay catheter. At this time he will be reassessed tomorrow, if hemoglobin continues to be stable and catheter is draining without any clots then we'll plan on arranging a transurethral resection of bladder tumor as an outpatient in 5-7 days. -Continue to hold aspirin and Plavix -We'll reassess tomorrow.
[2023-01-19] MEDS ORDERED: ALBUTEROL NEBULIZED 2.5 MG/3 ML INHALATION PRN (18:28)
[2023-01-19] MEDS: NICOTINE 21MG/24HR PATCH TRANSDERM SCH (20:43)
[2023-01-19] MEDS: IPRATROPIUM-ALBUTEROL 3 ML NEB INHALATION SCH (20:50)
[2023-01-20] MEDS: traMADol 50 MG TAB PO PRN ×2 (04:12→22:43)
[2023-01-20] MEDS: SODIUM CHLORIDE 0.9% 1,000 ML IV SCH ×2 (05:51→19:49)
[2023-01-20] MEDS: IPRATROPIUM-ALBUTEROL 3 ML NEB INHALATION SCH ×4 (08:03→20:50)
[2023-01-20] MEDS: IPRATROPIUM 0.5 MG/2.5 ML NEBU INHALATION SCH (08:03)
--- NOTE | 2023-01-20 08:56 | P.PN ---
Subjective Progress Note Date: 01/20/23 No acute overnight event, urine is light red this am, no issues with catheter clogging, denies any abdominal pain Objective - Vital Signs Vital signs: Vital Signs Temp 98.8 F 01/20/23 01:48 Pulse 79 01/20/23 01:48 Resp 20 01/20/23 01:48 BP 125/74 01/20/23 01:48 Pulse Ox 94 L 01/20/23 01:48 FiO2 Intake & Output 01/19/23 01/20/23 01/20/23 18:59 06:59 18:59 Output Total 1600 725 Balance -1600 -725 Weight 65.771 kg Output: Urine 1600 725 Coude 900 Other: Voiding Method Indwelling Catheter - Constitutional General appearance: Present: no acute distress - EENT Eyes: Present: normal appearance - Gastrointestinal General gastrointestinal: Present: soft. Absent: distended, tenderness - Labs CBC & Chem 7: 01/19/23 01:10 01/19/23 01:10 Assessment and Plan Assessment: 77-year-old male admitted with gross hematuria, hydronephrosis and a bladder mass. Discussed with him the finding s is highly concerning for bladder cancer, and his hydronephrosis secondary to the bladder mass. Discussed with him the next step would be to proceed with a transuretheral a resection of a bladder tumor. But given that he took his Plavix 01/18/23 we will hold off on any resection at this time. His gross hematuria has been improving with the Archer catheter. -Continue to hold aspirin and Plavix -Medical clearance for TURBT -Ok for discharge with the archer catheter , we will arrange for outpatient TURBT for next week, once patient has been off plavix for one week.
[2023-01-20] MEDS: METOPROLOL TARTRATE 12.5 MG TAB PO SCH ×2 (09:28→19:52)
[2023-01-20] MEDS: NICOTINE 21MG/24HR PATCH TRANSDERM SCH (09:28)
[2023-01-20] MEDS: ATORVASTATIN 40 MG TAB PO SCH (09:28)
[2023-01-20 10:57] LABS: HCT 27.4 % (39.6-50.0); HGB 8.3 d/dL (13.0-17.0); MCH 24.2 pg (27.0-32.0); MCHC 30.3 d/dL (32.0-37.0); MCV 79.9 FL (80.0-97.0); Mean Platelet Volume 9.8 FL (9.5-12.2); NRBC Per 100 WBC 0 X 10*3/uL (0.00-0.01); Platelet Count 343 X 10*3/uL (140-440); RBC 3.43 X 10*6/uL (4.40-5.60); WBC 12.22 X 10*3/uL (4.50-10.00)
[2023-01-20 11:02] LABS: ALT 15 U/L (10-49); AST 29 U/L (14-35); Albumin 3.5 d/dL (3.8-4.9); Albumin/Globulin Ratio 1.21 Ratio (1.60-3.17); Alkaline Phosphatase 69 U/L (41-126); BUN/Creat Ratio 19.58 Ratio (12.00-20.00); Blood Urea Nitrogen 23.5 mg/dL (9.0-27.0); Carbon Dioxide 23.3 mmol/L (21.6-31.8); Chloride 102 mmol/L (96-109); Globulin 2.9 d/dL (1.6-3.3); Glucose 109 mg/dL (70-110); Potassium 4.1 mmol/L (3.5-5.5); Sodium 133 mmol/L (135-145); Total Bilirubin 0.4 mg/dL (0.3-1.2); Total Protein 6.4 d/dL (6.2-8.2)
--- NOTE | 2023-01-20 17:48 | P.PN ---
Subjective Progress Note Date: 01/20/23 Hospital course: Patient is a very pleasant 77-year-old male with a past medical history of previously known nonobstructive coronary artery disease, COPD and continued nicotine dependence, hypertension, and cannabinoid use. He presented to the emergency department with a chief complaint of severe abdominal pain and urinary retention. Patient reported episodes of hematuria occurring over the past 3 years intermittently but reports sudden onset suprapubic lower abdominal pain and difficulty urinating and came to the emergency department for evaluation. Patient underwent full evaluation and was found to have urinary retention and a Mackay catheter was inserted resulting in resolution of urinary retention and return of dark red colored urine. Urinalysis showing red turbid urine positive for protein, blood, and greater than 182 RBCs. Labs were completed and reviewed. CBC showing hemoglobin of 9.7. BMP revealing mild hyponatremia with sodium 134, hypocarbia with bicarb of 21, and acute kidney injury with BUN of 34, creatinine 1.49, and GFR 45. Liver profile was unremarkable. Amylase normal findings at 200. 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 Patient was admitted under our services with consultation to urology. He underwent evaluation by urologist, recommending patient undergo TURP for bladder resection secondary to obstructing bladder mass. Patient last took aspirin on 01/18/23 but states he has not taken Plavix since 2020. Urologist recommending holding off on surgery until 5-7 days after last taking dual antiplatelet therapy. Physical exam: Patient seen and fully evaluated at bedside this morning. He again denies having any suprapubic pain or discomfort, nausea, or any other complaints at th is time. Vital signs reviewed and stable. General: Nontoxic, no distress and appears stated age. Derm: Skin warm and dry, normal coloration for ethnicity. Head: Atraumatic, normocephalic and symmetric. Eyes: EOMs intact, no lid lag, and anicteric sclera Mouth: no lip lesions, mucus membranes moist Cardiovascular: regular rate and rhythm with normal S1S2, no murmur, positive posterior tibial pulses bilaterally, and cap refill < 2 seconds. Lungs: Respirations even, regular, and unlabored on room air. Lungs CTA bilaterally, no rhonchi, no rales, no wheezing, and no accessory muscle usage. Abdominal: soft, nontender to palpation, no guarding, no appreciable organomegaly. Mackay catheter in place with light tan-colored urine and tubing in collection bag. No suprapubic tenderness noted upon examination. Ext: ROM intact. No gross muscle atrophy, no edema, no contractures Neuro: Speech clear, face symmetrical and CN II-XII grossly intact with no noted focal neuro deficits Psych: Alert and oriented to person, place, time, and situation. Appropriate and pleasant affect. Assessment and Plan of Care: Urinary retention with hematuria Obstructing Bladder mass resulting in right-sided hydronephrosis Acute blood loss anemia secondary to hematuria Acute kidney injury, resolved -Continue Mackay catheter management. Color of urinary output improving from dark red to light tan-colored. -Patient with worsening hemoglobin dropping down to 8.3. Bleeding has improved, No indication for transfusion at this time. -Will repeat morning CBC and BMP for continued close monitoring of hemoglobin and renal function. Will plan to transfuse if hemoglobin drops below 7. -Continue to Hold aspirin for planned TURP next week. Patient reports he has been off of Plavix since 2020. Presurgical clearance for TURP -METS score is > 4. Patient reports being active and denies any difficulties walking up stairs or greater than 2 blocks at a time. He reports previously undergoing anesthesia and denied having any complications and denies any known family history of complications from anesthesia. -NSQIP surgical risk calculator was completed. Patient is at an average risk of serious complications at 5.5% with average risk of 5.5%. Patient at average risk for cardiac complications with a 0.2% risk with average risk of 0.2% also. Patient is at an above average risk of renal failure of 0.3% with average risk of 0.2%. Patient had an above average risk of development of postsurgical pneumonia at 0.7% risk with the average risk being only 0.3%. Patient also at increased risk of at 0.3% with average risk of 0.2%. -Patient is at a slightly increased risk of overall surgical complications with biggest risk being development of postsurgical pneumonia secondary to COPD and daily bronchodilator dependent. . -Patient is at elevated risk for surgical complications, there are no absolute contraindications to undergo surgery at this time. Recommend obtaining presurgical EKG for baseline reference and we will review and if normal findings, from medical standpoint patient may proceed with planned TURP without further testing. Hypertensive urgency, resolved. Secondary to uncontrolled pain and urinary retention. -Patient presented with hypertensive urgency with blood pressure 229/132, heart rate 95, and respiratory rate of 34. Hypertensive urgency and tachypnea resolved shortly after placement of Mackay catheter and resolution of urinary retention and suprapubic/abdominal pain. -Patient does have history of hypertension but appears to be controlled on current medication regimen. Patient to continue daily medication regimen with metoprolol 12.5 mg twice daily. -Losartan/hydrochlorothiazide to continue to be held secondary to acute kidney injury. COPD with continued nicotine dependence Coronary artery disease Hyperlipidemia -Recommend smoking cessation. Order placed for nicotine patch 21 mg daily. -Patient to continue with Ventolin inhaler as needed for shortness of breath and/or wheezing. -Order placed for scheduled nebulizers treatment with DuoNeb 4 times daily -Patient to continue cardiac medication regimen with atorvastatin 40 mg daily metoprolol 12.5 mg twice daily. -Aspirin to be held secondary to hematuria. -Losartan/hydrochlorothiazide to be held secondary to acute kidney injury. CODE STATUS: Full code DVT prophylaxis: SCDs Discussed with: Patient, urologist and RN Anticipated discharge date: Clinical course to determine Anticipated discharge place: Home Patient was seen independently by Nurse Pracitioner. This document was prepared using [employer] dictation software. Please allow for errors in sizing end bander, while rare they do occur. Miguel A Ziegler NP rendered care for this patient independently, reviewed the findings and plan as documented in the note above. I did not physically speak with or examine the patient on this date. Objective - Vital Signs Vital signs: Vital Signs Temp 99.0 F 01/20/23 07:49 Pulse 83 01/20/23 08:17 Resp 19 01/20/23 07:49 BP 132/73 01/20/23 07:49 Pulse Ox 93 L 01/20/23 08:04 FiO2 Intake & Output 01/19/23 01/20/23 01/20/23 18:59 06:59 18:59 Output Total 1600 725 Balance -1600 -725 Weight 65.771 kg Output: Urine 1600 725 Coude 900 Other: Voiding Method Indwelling Catheter Indwelling Catheter - Labs CBC & Chem 7: 01/21/23 05:38 01/21/23 05:38
[2023-01-21 08:11] VITALS: BP 116/70; RESP 18; TEMP 98.5
[2023-01-21 08:33] LABS: HGB 8.2 d/dL (13.0-17.0); MCH 24.2 pg (27.0-32.0); MCHC 29.3 d/dL (32.0-37.0); MCV 82.6 FL (80.0-97.0); Mean Platelet Volume 10.1 FL (9.5-12.2); NRBC Per 100 WBC 0 X 10*3/uL (0.00-0.01); Platelet Count 343 X 10*3/uL (140-440); RBC 3.39 X 10*6/uL (4.40-5.60); RDW 19.2 % (11.5-14.5); WBC 10.51 X 10*3/uL (4.50-10.00)
[2023-01-21 08:38] LABS: ALT 14 U/L (10-49); AST 25 U/L (14-35); Albumin 3.3 d/dL (3.8-4.9); Albumin/Globulin Ratio 1.18 Ratio (1.60-3.17); Alkaline Phosphatase 63 U/L (41-126); BUN/Creat Ratio 15.15 Ratio (12.00-20.00); Blood Urea Nitrogen 19.7 mg/dL (9.0-27.0); Calcium 8.9 mg/dL (8.7-10.3); Carbon Dioxide 23.6 mmol/L (21.6-31.8); Chloride 106 mmol/L (96-109); Globulin 2.8 d/dL (1.6-3.3); Glucose 87 mg/dL (70-110); Magnesium 1.9 mg/dL (1.5-2.4); Potassium 4.2 mmol/L (3.5-5.5); Sodium 138 mmol/L (135-145); Total Bilirubin 0.3 mg/dL (0.3-1.2); Total Protein 6.1 d/dL (6.2-8.2)
[2023-01-21] MEDS: IPRATROPIUM-ALBUTEROL 3 ML NEB INHALATION SCH ×3 (08:38→15:10)
[2023-01-21] MEDS: NICOTINE 21MG/24HR PATCH TRANSDERM SCH (08:52)
[2023-01-21] MEDS: ATORVASTATIN 40 MG TAB PO SCH (08:52)
[2023-01-21] MEDS: METOPROLOL TARTRATE 12.5 MG TAB PO SCH (08:52)
[2023-01-21] MEDS: SODIUM CHLORIDE 0.9% 1,000 ML IV SCH (08:53)
[2023-01-21 10:27] VITALS: PULSE 88
[2023-01-21] MEDS: traMADol 50 MG TAB PO PRN (11:08)
--- NOTE | 2023-01-21 11:41 | P.DS ---
Providers Date of admission: 01/19/23 18:45 Expected date of discharge: 01/21/23 Attending physician: Myrtle Mckinney MD Consults: 01/19/23 03:44 Consult Physician Routine Consulting Provider: Keny Borrego Consult Reason/Comments: Hematuria, bladder mass Do you want consulting provider notified?: Yes Primary care physician: Maik Goss [facility] Hospital Course: Discharge Diagnosis: Urinary retention with hematuria Obstructing Bladder mass resulting in right-sided hydronephrosis Acute blood loss anemia secondary to hematuria Acute kidney injury, resolved Hypertensive urgency, resolved. Secondary to uncontrolled pain and urinary retention. COPD with continued nicotine dependence. Patient was found to be significantly hypoxic with ambulation. He was discharged home on home oxygen 3 L at all times. Patient pulse ox on room air at rest was 84% and with ambulation with 74%. Patient requires 3 L O2 to maintain SpO2 greater than 90%. Patient instructed it is of utmost importance to follow up outpatient with oyster shucker for PFTs and that he must wear oxygen at all times. Coronary artery disease Hyperlipidemia Hospital Course: Patient is a very pleasant 77-year-old male with a past medical history of previously known nonobstructive coronary artery disease, COPD and continued nicotine dependence, hypertension, and cannabinoid use. He presented to the emergency department with a chief complaint of severe abdominal pain and urinary retention. Patient reported episodes of hematuria occurring over the past 3 years intermittently but reports sudden onset suprapubic lower abdominal pain and difficulty urinating and came to the emergency department for evaluation. Patient underwent full evaluation and was found to have urinary retention and a Mackay catheter was inserted resulting in resolution of urinary retention and return of dark red colored urine. Urinalysis showing red turbid urine positive for protein, blood, and greater than 182 RBCs. Labs were completed and reviewed. CBC showing hemoglobin of 9.7. BMP revealing mild hyponatremia with sodium 134, hypocarbia with bicarb of 21, and acute kidney injury with BUN of 34, creatinine 1.49, and GFR 45. Liver profile was unremarkable. Amylase normal findings at 200. 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 Patient was admitted under our services with consultation to urology. He underwent evaluation by urologist, recommending patient undergo TURP for bladder resection secondary to obstructing bladder mass. Patient last took aspirin on 01/18/23 but states he has not taken Plavix since 2020. Patient monitored overnight. Hemoglobin stable at 8.2. Urine is becoming more clear daily and is a light tan-colored with no noted clots in collection bag her tubing this morning. Patient is free from any pain or complaints at this time. Urology recommending patient be discharged home with Mackay catheter and is scheduled for TURBT on 02/01/23. Medically, patient is stable at this time. He was found to be hypoxic on room air requiring oxygen supplementation. Patient reports he is known he has needed oxygen for a long time secondary to his COPD and continued nicotine use. Patient strongly encouraged on the importance of smoking cessation and risks associated with continued use. Patient was evaluated for oxygen and found to require 3 L to maintain SpO2 greater than 90%. Patient discharged home on 3 L O2 and will need to follow up outpatient with oyster shucker as we discussed.. Discharge instructions were reviewed with both patient and granddaughter at bedside. All questions answered at this time. Patient medically stable for discharge home. Physical exam: Vital signs reviewed and stable. General: Nontoxic, no distress and appears stated age. Derm: Skin warm and dry, normal coloration for ethnicity. Head: Atraumatic, normocephalic and symmetric. Eyes: EOMs intact, no lid lag, and anicteric sclera Mouth: no lip lesions, mucus membranes moist Cardiovascular: regular rate and rhythm with normal S1S2, no murmur, positive posterior tibial pulses bilaterally, and cap refill < 2 seconds. Lungs: Respirations even, regular, and unlabored on room air. Lungs CTA bilaterally, no rhonchi, no rales, no wheezing, and no accessory muscle usage. Abdominal: soft, nontender to palpation, no guarding, no appreciable organomegaly. Mackay catheter in place with light tan-colored urine and tubing in collection bag. No suprapubic tenderness noted upon examination. Ext: ROM intact. No gross muscle atrophy, no edema, no contractures Neuro: Speech clear, face symmetrical and CN II-XII grossly intact with no noted focal neuro deficits Psych: Alert and oriented to person, place, time, and situation. Appropriate and pleasant affect. A total of 35 minutes of time were spent preparing this complex discharge summary. Pt was discharged on 01/21/23. Patient was seen independently by Nurse Practitioner. This document was prepared using [employer] dictation software. Please allow for errors in auto body shop manager while rare they do occur. Miguel A Ziegler LOCAL SALES ASSOCIATE rendered care for this patient independently, reviewed the findings and plan as documented in the note above. I did not physically speak with or examine the patient on this date. Patient Condition at Discharge: Stable Plan - Discharge Summary Discharge Rx Participant: No New Discharge Prescriptions: New Nicotine 21Mg/24Hr Patch [Habitrol] 1 patch TRANSDERM DAILY 30 Days #30 patch Continue Losartan-Hctz 50-12.5 mg [Hyzaar 50-12.5] 1 tab PO DAILY Atorvastatin [Lipitor] 40 mg PO DAILY #30 tab Metoprolol Tartrate [Lopressor] 12.5 mg PO BID #60 tab Cyanocobalamin (Vitamin B-12) [Vitamin B-12] 2,500 mcg PO DAILY Ipratropium-Albuterol Nebulize [Duoneb 0.5 mg-3 mg/3 ml Soln] 3 ml INHALATION RT-QID traMADol HCl [Ultram] 50 mg PO Q6HR PRN PRN Reason: Pain Cholecalciferol [Vitamin D3 (25 Mcg = 1000 Iu)] 25 mcg PO DAILY Albuterol Sulfate [Ventolin HFA] 2 puff INHALATION RT-Q4H PRN PRN Reason: Shortness Of Breath Multivit-Min/FA/Lycopen/Lutein [Centrum Silver Tablet] 1 tab PO DAILY No Action Aspirin EC [Ecotrin Low Dose] 81 mg PO DAILY Discharge Medication List Losartan-Hctz 50-12.5 mg [Hyzaar 50-12.5] 1 tab PO DAILY 03/23/14 [History] Atorvastatin [Lipitor] 40 mg PO DAILY #30 tab 03/12/15 [Rx] Metoprolol Tartrate [Lopressor] 12.5 mg PO BID #60 tab 03/12/15 [Rx] Albuterol Sulfate [Ventolin HFA] 2 puff INHALATION RT-Q4H PRN 01/19/23 [History] Aspirin EC [Ecotrin Low Dose] 81 mg PO DAILY 01/19/23 [History] Cholecalciferol [Vitamin D3 (25 Mcg = 1000 Iu)] 25 mcg PO DAILY 01/19/23 [History] Cyanocobalamin (Vitamin B-12) [Vitamin B-12] 2,500 mcg PO DAILY 01/19/23 [History] Ipratropium-Albuterol Nebulize [Duoneb 0.5 mg-3 mg/3 ml Soln] 3 ml INHALATION RT-QID 01/19/23 [History] Multivit-Min/FA/Lycopen/Lutein [Centrum Silver Tablet] 1 tab PO DAILY 01/19/23 [History] traMADol HCl [Ultram] 50 mg PO Q6HR PRN 01/19/23 [History] Nicotine 21Mg/24Hr Patch [Habitrol] 1 patch TRANSDERM DAILY 30 Days #30 patch 01/21/23 [Rx] Follow up Appointment(s)/Referral(s): Damir Hernández [NON-STAFF] - 1 Week Keny Borrego MD [STAFF PHYSICIAN] - 1 Week (patient being scheduled for surgery) Maik Miranda MD [Primary Care Provider] - 02/03/23 9:00 am Nomi Mata DO [Doctor of Osteopathic Medicine] - 03/08/23 9:45 am Patient Instructions/Handouts: Mackay Catheter Placement and Care (DC), Using Oxygen at Home (DC), Urinary Leg Bag (GEN) Activity/Diet/Wound Care/Special Instructions: Activity: As tolerated. Take breaks as needed. Diet: Heart healthy and carb consistent diet. Avoid salts, or foods with hidden salts such as canned or boxed foods and frozen dinners. Extra salt makes your heart work harder and traps the fluid in your body for longer. Special Instructions: Take all of your medications as directed and remember to keep all of your doctor's appointments and follow-up as needed. As discussed, you are being discharged home on home oxygen secondary to your COPD. You will need to wear this oxygen as we discussed 24-7 until further evaluated by a oyster shucker. It is important and very strongly recommended that you stop smoking. You will need to follow up outpatient with Dr. Borrego next week to further discuss planned surgical intervention. Thank you for allowing us to participate in your care, it was truly a pleasure having you for our patient!!! Discharge Disposition: HOME SELF-CARE
--- NOTE | 2023-01-21 13:45 | P.PN ---
Subjective Progress Note Date: 01/21/23 urine is clearing up this morning, hemoglobin stable at 8.2 Objective - Vital Signs Vital signs: Vital Signs Temp 98.5 F 01/21/23 07:48 Pulse 88 01/21/23 10:10 Resp 18 01/21/23 07:48 BP 116/70 01/21/23 07:48 Pulse Ox 74 L 01/21/23 10:10 FiO2 Intake & Output 01/20/23 01/21/23 01/21/23 18:59 06:59 18:59 Intake Total 1800 Output Total 1500 1700 Balance -1500 100 Intake: Intake, IV Titration 1800 Amount Sodium Chloride 0.9% 1, 1800 000 ml @ 75 mls/hr IV . [id number] VISH Rx#:[id number] Output: Urine 1500 1700 Other: Voiding Method Indwelling Catheter Indwelling Catheter Indwelling Catheter # Bowel Movements 1 - Labs CBC & Chem 7: 01/21/23 05:38 01/21/23 05:38 Labs: Abnormal Lab Results - Last 24 Hours (Table) 01/21/23 01/21/23 Range/Units 05:38 05:38 WBC 10.51 H (4.50-10.00) X 10*3/uL RBC 3.39 L (4.40-5.60) X 10*6/uL Hgb 8.2 L (13.0-17.0) d/dL Hct 28.0 L (39.6-50.0) % MCH 24.2 L (27.0-32.0) pg MCHC 29.3 L (32.0-37.0) d/dL RDW 19.2 H (11.5-14.5) % Est GFR (CKD-EPI) 57 L (>=60) Total Protein 6.1 L (6.2-8.2) d/dL Albumin 3.3 L (3.8-4.9) d/dL Albumin/Globulin Ratio 1.18 L (1.60-3.17) Ratio Assessment and Plan Assessment: 77-year-old male admitted with gross hematuria, hydronephrosis and a bladder mass. gross hematuria, Hgb in stable -Medical clearance for TURBT -Ok for discharge with the archer catheter , he is scheduled for TURBT, on February 01
--- NOTE | 2023-01-26 11:30 | CDI ---
Documentation Clarification Form Date: 01/26/2023 11:13:19 AM From: Nora Love RN, CCDS Email: [email or web address] Admit Date: 01/19/2023 06:45:00 PM Patient Name: Nomi Peng Visit Number: [id number] Discharge Date: 01/21/2023 04:43:00 PM ATTENTION: The Clinical Documentation Specialists (CDI) and [facility] Coding Staff appreciate your assistance in clarifying documentation. Please respond to the clarification below the line at the bottom and electronically sign. The CDI & [facility] Coding staff will review the response and follow-up if needed. Please note: Queries are made part of the Legal Health Record. If you have any questions, please contact the author of this message via ITS. Dr. Sher Diggs The discharge summary indicates your patient was significantly hypoxic. Based on this information and the findings below, is there an additional diagnosis that is clinically appropriate for this patient? History/Risk Factors: COPD with nicotine dependence, HLD, HTN, hematuria. Admitted with urinary retention with gabby hematuria. Tobacco use: heavy tobacco smoker Home oxygen: discharged home on O2 3LNC Clinical Indicators: 01/20 IM: "Patient is at a slightly increased risk of overall surgical complications with biggest risk being development of postsurgical pneumonia secondary to COPD and daily bronchodilator dependence. Discharge summary: "Patient was found to be significantly hypoxic with ambulation. He was discharged home on home oxygen 3L at all times. Patients pox on room air at rest was 84% and with ambulation 74%. Patient requires 3 L O2 to maintain SpO2 greater than 90%. Patient instructed it is of utmost importance to follow up outpatient with physical science aide for PFTs and that he must wear oxygen at all times." Vital signs: 01/19 RR 34 Pulse oximetry: 01/19 80-96%; 01/20 93%; 01/21 at rest on room air 84%; 01/21 with exercise on room air 74% Lung/Breathing assessment: decreased breath sounds in the ED. Treatment: discharged home on home oxygen. Breathing tx: A/A 3ml QID during admission O2: room air to 1-3LNC Is there an additional diagnosis that is clinically appropriate for this patient? [ x ] Acute Hypoxic Respiratory Failure (pO2 <60 mm Hg or SpO2 <91% on room air) [ ] Acute on Chronic Respiratory Failure [ ] Other Diagnosis, please specify [ ] Unable to determine MTDD
== END 2023-01-21 16:43 | disposition home or self-care (01) | DRG 693 ==
LOC: EC 00:26 → 6NMEDSUR 03:44 → 5NMEDONC 06:43 → OBSVTOIN 18:45
PROVIDERS: ADMIT Internal Medicine; ATTEND Internal Medicine
DX: N13.39 Other hydronephrosis (principal); J96.01 Acute respiratory failure with hypoxia; D62 Acute posthemorrhagic anemia; R19.09 Other intra-abdominal and pelvic swelling, mass and lump; E78.5 Hyperlipidemia, unspecified; I16.0 Hypertensive urgency; I10 Essential (primary) hypertension; F17.210 Nicotine dependence, cigarettes, uncomplicated; J44.9 Chronic obstructive pulmonary disease, unspecified; I25.10 Atherosclerotic heart disease of native coronary artery without angina pectoris; M41.9 Scoliosis, unspecified; N17.9 Acute kidney failure, unspecified; N32.9 Bladder disorder, unspecified; R31.0 Gross hematuria; Z79.02 Long term (current) use of antithrombotics/antiplatelets; Z79.82 Long term (current) use of aspirin; Z79.899 Other long term (current) drug therapy; Z87.442 Personal history of urinary calculi; Z99.81 Dependence on supplemental oxygen; Z88.2 Allergy status to sulfonamides
CPT/HCPCS: 36415; 51702; 74176; 80053; 81001; 82150; 83605; 83690; 83735; 85025; 85027; 85610; 85730; 86850; 86870; 86880; 86900; 86901; 93005; 94640; 94760; 96374; 99285

== ENCOUNTER 2023-02-01 06:02 | Day surgery (SDC) | payer MEDICARE ==
--- NOTE | 2023-01-31 09:00 | P.HPIHPCON ---
History of Present Illness H&P Date: 01/31/23 Chief Complaint: Bladder mass, hydronephrosis This is a 77-year-old male with history of gross hematuria underwent a CT abdomen and pelvis that showed evidence of a large bladder mass, with evidence of right-sided hydronephrosis. Discussed with him given this finding I sagar mmend proceeding with a transurethral resection of bladder tumor, with a possible right-sided stent insertion. Discussed also do a left retrograde at the same setting to evaluate the left kidney. Discussed risk benefit of surgery detail. Aware of the risk which includes but not limited to bleeding, infection, bladder perforation. Discussed also with him the potential of not to be able to see the right ureteral orifice, and at that point, I will no be able to place a stent, and he might require nephrostomy tube if hydronephrosis persists postoperatively. He understood all the risk and agreed to proceed Consent for Procedure: I have explained the operation/procedure to the patient, including the risks, benefits, side effects, alternative therapies (including not receiving the proposed treatment or service), the likelihood of the patient achieving his/her goals, and potential recuperation problems for the procedure/sedation/analgesia, as well as any blood products, if indicated. I also explained to the patient the risks, benefits and side effects of the alternatives, as well as the risks related to not receiving the proposed procedure, care, treatment, or services. Past Medical History Past Medical History: COPD, Hyperlipidemia, Hypertension Additional Past Medical History / Comment(s): scoliosis, bloody urine ,admissinion for urine retention, mass in bladder, at time of assessment pt has archer catheter in place for urinary retention History of Any Multi-Drug Resistant Organisms: None Reported Past Surgical History: Appendectomy, Heart Catheterization With Stent Additional Past Surgical History / Comment(s): eye surgeryx5, Past Anesthesia/Blood Transfusion Reactions: Blood Transfusion Reaction Additional Past Anesthesia/Blood Transfusion Reaction / Comment(s): pt states he does not remeber what the raction was, only that they had to take a lot of samples. Date of Last Stent Placement:: [facility] Smoking Status: Current every day smoker Medications and Allergies Home Medications Medication Instructions Recorded Confirmed Type Losartan-Hctz 50-12.5 mg [Hyzaar 1 tab PO DAILY 03/23/14 01/25/23 History 50-12.5] Atorvastatin [Lipitor] 40 mg PO DAILY #30 tab 03/12/15 01/25/23 Rx Metoprolol Tartrate [Lopressor] 12.5 mg PO BID #60 tab 03/12/15 01/25/23 Rx Albuterol Sulfate [Ventolin HFA] 2 puff INHALATION RT-Q4H PRN 01/19/23 01/25/23 History Aspirin EC [Ecotrin Low Dose] 81 mg PO DAILY 01/19/23 01/25/23 History Cholecalciferol [Vitamin D3 (25 25 mcg PO DAILY 01/19/23 01/25/23 History Mcg = 1000 Iu)] Cyanocobalamin (Vitamin B-12) 2,500 mcg PO DAILY 01/19/23 01/25/23 History [Vitamin B-12] Ipratropium-Albuterol Nebulize 3 ml INHALATION RT-QID 01/19/23 01/25/23 History [Duoneb 0.5 mg-3 mg/3 ml Soln] Multivit-Min/FA/Lycopen/Lutein 1 tab PO DAILY 01/19/23 01/25/23 History [Centrum Silver Tablet] traMADol HCl [Ultram] 50 mg PO Q6HR PRN 01/19/23 01/25/23 History Nicotine 21Mg/24Hr Patch [Habitrol] 1 patch TRANSDERM DAILY 30 Days 01/21/23 01/25/23 Rx #30 patch Allergies Allergy/AdvReac Type Severity Reaction Status Date / Time sulfamethoxazole Allergy Rash/Hives Verified 01/25/23 10:18 [From Bactrim] trimethoprim [From Bactrim] Allergy Rash/Hives Verified 01/25/23 10:18 Surgical - Exam - General no distress, no pain - Eyes normal ocular movement, no pale - ENT normal nares, normal mucosa - Respiratory normal expansion, normal respiratory effort Assessment and Plan Assessment: OR for TURBT and bilateral retrograde, possible right stent insertion
[2023-02-01] MEDS ORDERED: ONDANSETRON 4 MG/2 ML VIAL IVP ONE (06:38)
[2023-02-01] MEDS ORDERED: LACTATED RINGERS 1,000 ML IV SCH (06:38)
[2023-02-01] MEDS ORDERED: DEXAMETHASONE SOD PHOSPHATE 4 MG/ML 1 ML VIAL IV ONE (06:38)
[2023-02-01] MEDS ORDERED: HYDROmorphone 0.5 MG/0.5 ML SYRINGE IVP PRN (06:38)
[2023-02-01 07:07] LABS: Anisocytosis Slight; Basophils % (A) 0 %; Eosinophils # (A) 0.4 k/uL (0-0.7); Eosinophils % (A) 3 %; HCT 31.3 % (39.0-53.0); HGB 9.4 gm/dL (13.0-17.5); Hypochromasia Marked; Lymphocytes # (A) 2.5 k/uL (1.0-4.8); Lymphocytes % (A) 23 %; MCH 24.9 pg (25.0-35.0); MCHC 30.2 g/dL (31.0-37.0); MCV 82.3 fL (80.0-100.0); Mean Platelet Volume 7.3; Microcytosis Slight; Monocytes # (A) 0.7 k/uL (0-1.0); Monocytes % (A) 6 %; Neutrophils % (A) 64 %; Platelet Count 424 k/uL (150-450); RDW 18.7 % (11.5-15.5); WBC 10.9 k/uL (3.8-10.6)
[2023-02-01] MEDS ORDERED: fentaNYL (PF) 50 MCG/ML 2 ML AMP ONE (07:28)
[2023-02-01] MEDS ORDERED: MIDAZOLAM 2 MG/2 ML VIAL ONE (07:28)
[2023-02-01] MEDS ORDERED: IOPAMIDOL-370 100ML BTL MISCELLANE ONE ×3 (08:05→08:26)
[2023-02-01 09:11] VITALS: TEMP 97.2
--- NOTE | 2023-02-01 09:17 | P.OP ---
Date of Procedure: 02/01/23 Preoperative Diagnosis: Bladder mass, hydronephrosis on the right Postoperative Diagnosis: Same Procedure(s) Performed: Cystoscopy, bilateral retrograde, right ureteral stent insertion Implants: 6-Emirati by 28 cm stent in the right ureter Anesthesia: YULIANA Surgeon: Keny Borrego Estimated Blood Loss (ml): 50 Pathology: other (Bladder mass) Condition: stable Disposition: PACU Indications for Procedure: This is a 77-year-old male with history of gross hematuria underwent a CT abdomen and pelvis that showed evidence of a large bladder mass, with evidence of right-sided hydronephrosis. Discussed with him given this finding I recommend proceeding with a transurethral resection of bladder tumor, with a possible right-sided stent insertion. Discussed also do a left retrograde at the same setting to evaluate the left kidney. Discussed risk benefit of surgery detail. Aware of the risk which includes but not limited to bleeding, infection, bladder perforation. Discussed also with him the potential of not to be able to see the right ureteral orifice, and at that point, I will no be able to place a stent, and he might require nephrostomy tube if hydronephrosis persists postoperatively. He understood all the risk and agreed to proceed Operative Findings: Large bladder mass involving the right side of the trigone extending into the lateral wall, total area of resection was 8 cm. Significant right hydroureteronephrosis, with a tortuous right ureter Description of Procedure: Patient brought to the operating room, spinal anesthesia was induced. He was prepped and draped in sterile fashion and placed in dorsal lithotomy position. Resectoscope fitted with 25-Emirati sheath was inserted per urethra, cystoscopy was performed which showed a large mass involving the right lateral wall, e xtending into the trigone, and was in close proximity to the left ureteral orifice but did not involve left ureteral orifice. Using the bipolar resectoscope loop the tumor was resected down to muscle, area of resection was fulgurated, total resection was 8 cm After resection the right ureteral orifice could be visualized and it was resected, given that tumor was covering the ureteral orifice. Fulguration was not used at the site of the ureteral orifice. At this time the tumor chips was irrigated out, there was no evidence of bleeding or bladder perforation. At this time a rigid cystoscope fitted with 22-Emirati sheath was inserted per urethra, left ureteral orifice was intubated with an open-ended catheter, retrograde pyelogram was performed on the left side which showed no filling defect or hydronephrosis, at this time the right ureteral orifice was intubated with an open-ended catheter, retrograde pyelogram was performed showed a significant tortuosity of the right ureter along the proximal and the distal portion of the ureter with significant hydroureteronephrosis all the way down to the UVJ, initially attempted to advance a sensor wire into the kidney but resistance was met at the proximal ureter at the point of tortuosity, at this point a an I switched to an angled glide I was able to direct the Glidewire into the kidney. At this time ureteral stent was passed over the wire, the proximal curl was visualized on fluoroscopy and the distal curl was visualized using cystoscope. The bladder was emptied at end of the case, 20-Emirati Mackay was placed with return of clear urine. Patient tolerated procedure well was taken to recovery in stable condition
--- NOTE | 2023-02-01 10:54 | FL ---
EXAMINATION TYPE: FL urography retrograde DATE OF EXAM: 02/01/2023 COMPARISON: NONE HISTORY: Bladder tumor TECHNIQUE: Fluoroscopy. FINDINGS: Fluoroscopic guidance was provided during procedure performed by Dr. Harrison. A total of 9 7 seconds of fluoroscopic time was utilized during the procedure and spot images was acquired. Total dose area product (DAP) in uGy*m?, mGy*cm? (or similar): 0.10398 . IMPRESSION: As Above.
[2023-02-01 13:12] VITALS: BP 130/77; PULSE 79; RESP 14
== END 2023-02-01 13:00 | disposition home or self-care (01) ==
LOC: OR 06:02
PROVIDERS: ATTEND Urology
DX: N13.30 Unspecified hydronephrosis (principal); I10 Essential (primary) hypertension; E78.5 Hyperlipidemia, unspecified; J44.9 Chronic obstructive pulmonary disease, unspecified; F17.200 Nicotine dependence, unspecified, uncomplicated; Z79.899 Other long term (current) drug therapy; Z79.51 Long term (current) use of inhaled steroids
CPT/HCPCS: 86900; 86901; 85025; 86850; 86870; 86880; 88307; 74420; 52332; C2625; C1758; C1769; J2250; J1100; J0690; J2405; J3010; Q9967

== ENCOUNTER → 2023-04-28 | Outpatient (CLI) | payer MEDICARE ==
[2023-04-28 16:25] LABS: BUN/Creat Ratio 28.69 Ratio (12.00-20.00); Blood Urea Nitrogen 37.3 mg/dL (9.0-27.0); Calcium 9.7 mg/dL (8.7-10.3); Carbon Dioxide 26.5 mmol/L (21.6-31.8); Chloride 102 mmol/L (96-109); Glucose 92 mg/dL (70-110); Potassium 3.9 mmol/L (3.5-5.5); Sodium 141 mmol/L (135-145); Total Protein 7.2 g/dL (6.2-8.2)
[2023-04-28 16:26] LABS: ALT 19 U/L (10-49); AST 28 U/L (14-35); Albumin 3.6 g/dL (3.8-4.9); Alkaline Phosphatase 72 U/L (41-126); Globulin 3.6 g/dL (1.6-3.3); Prealbumin 14.4 mg/dL (18.0-42.0); Total Bilirubin <0.2 mg/dL (0.3-1.2)
[2023-04-28 16:35] LABS: Basophils # (A) 0.06 X 10*3/uL (0.00-0.10); Basophils % (A) 0.7 %; Eosinophils # (A) 0.16 X 10*3/uL (0.04-0.35); Eosinophils % (A) 1.9 %; HGB 9.1 g/dL (13.0-17.0); Lymphocytes # (A) 1.81 X 10*3/uL (0.90-5.00); Lymphocytes % (A) 21.9 %; MCH 24.9 pg (27.0-32.0); MCHC 29.4 g/dL (32.0-37.0); MCV 84.9 FL (80.0-97.0); Mean Platelet Volume 9.5 FL (9.5-12.2); Monocytes # (A) 0.92 X 10*3/uL (0.20-1.00); Monocytes % (A) 11.1 %; NRBC Per 100 WBC 0 X 10*3/uL (0.00-0.01); Platelet Count 376 X 10*3/uL (140-440); RBC 3.65 X 10*6/uL (4.40-5.60); RDW 20.1 % (11.5-14.5); WBC 8.28 X 10*3/uL (4.50-10.00)
[2023-04-28 16:59] LABS: Erythrocyte Sedimentation Rate 54 mm/Hr (0-20)
== END | disposition home or self-care (01) ==
LOC: LABWHC1 10:02
PROVIDERS: ATTEND Family Medicine
DX: T31.0 Burns involving less than 10% of body surface (principal); T20.29XA Burn of second degree of multiple sites of head, face, and neck, initial encounter; T20.24XA Burn of second degree of nose (septum), initial encounter
CPT/HCPCS: 36415; 80053; 84134; 85025; 85652; 86140

== ENCOUNTER 2023-05-17 19:44 | Emergency (ER) | payer MEDICARE ==
--- NOTE | 2023-05-17 20:14 | ED ---
Male Urogenital HPI - General Chief complaint: Urogenital Stated complaint: Difficulty Urinating Time Seen by Provider: 05/17/23 19:57 Source: patient, RN notes reviewed Mode of arrival: ambulatory Limitations: no limitations - History of Present Illness Initial comments: This is a 77-year-old male who presents to the emergency department for urinary retention. States that yesterday he had a urinary stent removed with Dr. Borrego. Earlier this year he had gone through a long process of urinary symptoms and had been diagnosed with bladder cancer. All of this eventually lead to the stent. States that since having the stent removed yesterday, he has had blood mixed in with his urine and is also producing blood clots. Since about 1 PM today, he has been unable to produce any more urine. He does have mild abdominal discomfort associated with this. Triage did note that he had some shortness of breath, however he believes that this is related to the abdominal pressure from being unable to urinate. Patient does wear oxygen at baseline and his saturation is 100%. MD Complaint: other (Urinary retention) - Related Data Home Medications Medication Instructions Recorded Confirmed Losartan-Hctz 50-12.5 mg [Hyzaar 1 tab PO DAILY 03/23/14 01/25/23 50-12.5] Albuterol Sulfate [Ventolin HFA] 2 puff INHALATION RT-Q4H PRN 01/19/23 01/25/23 Aspirin EC [Ecotrin Low Dose] 81 mg PO DAILY 01/19/23 02/01/23 Cholecalciferol [Vitamin D3 (25 25 mcg PO DAILY 01/19/23 01/25/23 Mcg = 1000 Iu)] Cyanocobalamin (Vitamin B-12) 2,500 mcg PO DAILY 01/19/23 01/25/23 [Vitamin B-12] Ipratropium-Albuterol Nebulize 3 ml INHALATION RT-QID 01/19/23 01/25/23 [Duoneb 0.5 mg-3 mg/3 ml Soln] Multivit-Min/FA/Lycopen/Lutein 1 tab PO DAILY 01/19/23 02/01/23 [Centrum Silver Tablet] traMADol HCl [Ultram] 50 mg PO Q6HR PRN 01/19/23 01/25/23 Previous Rx's Medication Instructions Recorded Atorvastatin [Lipitor] 40 mg PO DAILY #30 tab 03/12/15 Metoprolol Tartrate [Lopressor] 12.5 mg PO BID #60 tab 03/12/15 Nicotine 21Mg/24Hr Patch [Habitrol] 1 patch TRANSDERM DAILY 30 Days 01/21/23 #30 patch Cephalexin [Keflex] 500 mg PO Q8HR #15 cap 02/01/23 Levofloxacin [Levaquin] 750 mg PO DAILY 5 Days #5 tab 05/17/23 Allergies Allergy/AdvReac Type Severity Reaction Status Date / Time sulfamethoxazole Allergy Rash/Hives Verified 05/17/23 19:50 [From Bactrim] trimethoprim [From Bactrim] Allergy Rash/Hives Verified 05/17/23 19:50 Review of Systems ROS Statement: Those systems with pertinent positive or pertinent negative responses have been documented in the HPI. ROS Other: All systems not noted in ROS Statement are negative. Past Medical History Past Medical History: COPD, Hyperlipidemia, Hypertension Additional Past Medical History / Comment(s): scoliosis, bloody urine ,admissinion for urine retention, mass in bladder, at time of assessment pt has archer catheter in place for urinary retention History of Any Multi-Drug Resistant Organisms: None Reported Past Surgical History: Appendectomy, Heart Catheterization With Stent Additional Past Surgical History / Comment(s): eye surgeryx5, Past Anesthesia/Blood Transfusion Reactions: Blood Transfusion Reaction Additional Past Anesthesia/Blood Transfusion Reaction / Comment(s): pt states he does not remeber what the raction was, only that they had to take a lot of samples. Date of Last Stent Placement:: [facility] Past Psychological History: No Psychological Hx Reported Smoking Status: Current every day smoker Past Alcohol Use History: None Reported Past Drug Use History: Marijuana General Exam Limitations: no limitations General appearance: alert, in no apparent distress Head exam: Present: atraumatic, normocephalic, normal inspection Respiratory exam: Present: normal lung sounds bilaterally, decreased breath sounds, prolonged expiratory. Absent: respiratory distress, wheezes, rales, rhonchi Cardiovascular Exam: Present: regular rate, normal rhythm, normal heart sounds. Absent: systolic murmur, diastolic murmur, rubs, gallop, clicks GI/Abdominal exam: Present: soft, tenderness (suprapubic), normal bowel sounds. Absent: distended, guarding, rebound, rigid Neurological exam: Present: alert, oriented X3, CN II-XII intact Psychiatric exam: Present: normal affect, normal mood Skin exam: Present: warm, dry, intact, normal color. Absent: rash Course Vital Signs 05/17/23 05/17/23 19:46 21:45 Temperature 98.0 F 98 F Pulse Rate 92 98 Respiratory 17 20 Rate Blood Pressure 173/85 140/95 O2 Sat by Pulse 95 100 Oximetry Medical Decision Making - Medical Decision Making This is a 77-year-old male who presents to the emergency department for urinary retention. Was pt. sent in by a medical professional or institution? @ -No Did you speak to anyone other than the patient for history? @ -No Did you review nursing and triage notes? @ -Yes, and I agree, it is accurate with regards to the patient's symptoms. Were old charts reviewed? @ -No Differential Diagnosis? @ -Differential Urinary Retention: Blood clot, UTI, ureteral calculus, neurological dysufnction, this is not meant to be an all-inclusive list. EKG interpreted by me (3pts min.)? @ -Not obtained X-rays interpreted by me (1pt min.)? @ -Not obtained CT interpreted by me (1pt min.)? @ -Not obtained U/S interpreted by me (1pt. min.)? @ -Not obtained What testing was considered but not performed? (CT, X-rays, U/S, labs)? Why? @ -None What meds were considered but not given? Why? @ -None Did you discuss the management of the patient with other professionals? @ -No Did you reconcile home meds? @ -No Was smoking cessation discussed for >3mins.? @ -No Was critical care preformed (if so, how long)? @ -No Were there social determinants of health that impacted care today? How? (Homelessness, low income, unemployed, alcoholism, drug addiction, transportation, low edu. Level, literacy, decrease access to med. care, [facility], rehab)? @ -No Was there de-escalation of care discussed even if they declined? (Discuss DNR or withdrawal of care, Hospice)? @ -No What co-morbidities impacted this encounter? (DM, HTN, Smoking, COPD, CAD, Cancer, CVA, Hep., AIDS, mental health diagnosis, sleep apnea, morbid obesity)? @ -COPD, bladder cancer Was patient admitted / discharged? @ -Discharged. Archer catheter inserted and 200 mL of urine was produced initially. Patient had significant symptomatic improvement afterwards. Urinalysis demonstrates a large amount of blood and could not be further characterized for evidence of infection. Urine sent for culture. Patient was likely unable to urinate due to blockage from a blood clot. Given the questionable infection, will start the patient on a course of antibiotics. Rx for Levofloxacin provided with dosing instructions reviewed. Initial dose a dministered in the emergency department. Patient discharged home with the Archer catheter in place. He is instructed to contact urology tomorrow morning for a follow-up appointment. Undiagnosed new problem with uncertain prognosis? @ -None Drug Therapy requiring intensive monitoring for toxicity (Heparin, Nitro, Insulin, Cardizem)? @ -None Were any procedures done? @ -None Diagnosis/symptom? @ -Urinary retention, hematuria Acute, or Chronic, or Acute on Chronic? @ -Acute Uncomplicated (without systemic symptoms) or Complicated (systemic symptoms)? @ -Uncomplicated Side effects of treatment? @ -None Exacerbation, Progression, or Severe Exacerbation] @ -Not applicable Poses a threat to life or bodily function? @ -No Return precautions reviewed in depth, the patient is instructed to return to the emergency department with any new, worsening, or concerning symptoms. Patient verbalized understanding. This case was discussed in detail with the attending ED physician, Dr. Guillaume. Presentation, findings, and treatment plan discussed in detail as well. - Lab Data Lab Results 05/17/23 Range/Units 20:43 Urine Color Dark Red Urine Appearance Turbid (Clear) Urine RBC >182 H (0-5) /hpf Disposition Clinical Impression: Urinary retention, Hematuria Disposition: HOME SELF-CARE Instructions (If sedation given, give patient instructions): Urinary Retention in Men (ED), Archer Catheter Placement and Care (ED), How to Change a Catheter Drainage Bag (DC) Additional Instructions: Return to the emergency department with any new, worsening, or concerning symptoms. Take the antibiotic as prescribed for [address] Borrego's office in the morning for a follow-up appointment and let them know that you were seen here for urinary retention and had a Archer catheter placed. Prescriptions: Levofloxacin [Levaquin] 750 mg PO DAILY 5 Days #5 tab Is patient prescribed a controlled substance at d/c from ED?: No Referrals: Maik Miranda MD [Primary Care Provider] - 1-2 days
[2023-05-17 21:08] LABS: RBC,Urine >182 /hpf (0-5)
[2023-05-17 21:11] LABS: Appearance,Urine Turbid (Clear); Color,Urine Dark Red
[2023-05-17] MEDS ORDERED: LEVOFLOXACIN 750 MG TAB PO STA (21:21)
[2023-05-17 21:53] VITALS: BP 140/95; PULSE 98; RESP 20; TEMP 98
== END 2023-05-17 21:50 | disposition home or self-care (01) ==
LOC: EC 19:44
DX: R33.9 Retention of urine, unspecified (principal); R31.9 Hematuria, unspecified; R10.30 Lower abdominal pain, unspecified; I10 Essential (primary) hypertension; J44.9 Chronic obstructive pulmonary disease, unspecified; F17.200 Nicotine dependence, unspecified, uncomplicated; F12.90 Cannabis use, unspecified, uncomplicated; Z88.1 Allergy status to other antibiotic agents; Z88.2 Allergy status to sulfonamides; Z90.49 Acquired absence of other specified parts of digestive tract; Z79.899 Other long term (current) drug therapy
CPT/HCPCS: 51702; 81001; 99283

== ENCOUNTER 2023-05-18 16:43 | Emergency (ER) | payer MEDICARE ==
[2023-05-18 17:01] VITALS: TEMP 97.6
--- NOTE | 2023-05-18 17:54 | ED ---
General Adult HPI - General Source: patient Mode of arrival: ambulatory Limitations: no limitations <Pardeep Bee - Last Filed: 05/18/23 17:57> - General Source: patient, RN notes reviewed, old records reviewed - History of Present Illness -: hour(s) (5) Location: pelvis (bladder fullness) Severity scale (1-10): 8 Quality: constant, other (pressure) Consistency: constant Improves with: none Associated Symptoms: other (hematuria in catheter and lege bag, urinating around catheter) <Gerry Carr - Last Filed: 05/19/23 00:03> <Christiano Guillaume - Last Filed: 05/19/23 03:11> - General Chief complaint: Urogenital Stated complaint: Cath Issues Time Seen by Provider: 05/18/23 17:54 - History of Present Illness Initial comments: 77-year-old male presenting to the ED with a chief complaint of urinary retention. Patient had a catheter placed yesterday. States initially was draining well however today reports it is no longer draining. Also notes that he is having some lower abdominal pain with this as well. (Pardeep Bee) 77-year-old male, alert and oriented 4 presents to the emergency room ambulatory with complaints of hematuria and inability to urinate/retention despite Archer catheter. was seen yesterday for the same. Last time he seen urine in the Archer catheter was around 1:00pm today. He did call urology this morning and is waiting a callback. Has had increased bladder fullness without drainage which is what brought him back to the ER today. Denies any fevers. No nausea vomiting or diarrhea. Did have a normal bowel movement today no blood. Patient is still smoking. 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 (Gerry Carr) - Related Data Home Medications Medication Instructions Recorded Confirmed Losartan-Hctz 50-12.5 mg [Hyzaar 1 tab PO DAILY 03/23/14 01/25/23 50-12.5] Albuterol Sulfate [Ventolin HFA] 2 puff INHALATION RT-Q4H PRN 01/19/23 01/25/23 Aspirin EC [Ecotrin Low Dose] 81 mg PO DAILY 01/19/23 02/01/23 Cholecalciferol [Vitamin D3 (25 25 mcg PO DAILY 01/19/23 01/25/23 Mcg = 1000 Iu)] Cyanocobalamin (Vitamin B-12) 2,500 mcg PO DAILY 01/19/23 01/25/23 [Vitamin B-12] Ipratropium-Albuterol Nebulize 3 ml INHALATION RT-QID 01/19/23 01/25/23 [Duoneb 0.5 mg-3 mg/3 ml Soln] Multivit-Min/FA/Lycopen/Lutein 1 tab PO DAILY 01/19/23 02/01/23 [Centrum Silver Tablet] traMADol HCl [Ultram] 50 mg PO Q6HR PRN 01/19/23 01/25/23 Previous Rx's Medication Instructions Recorded Atorvastatin [Lipitor] 40 mg PO DAILY #30 tab 03/12/15 Metoprolol Tartrate [Lopressor] 12.5 mg PO BID #60 tab 03/12/15 Nicotine 21Mg/24Hr Patch [Habitrol] 1 patch TRANSDERM DAILY 30 Days 01/21/23 #30 patch Cephalexin [Keflex] 500 mg PO Q8HR #15 cap 02/01/23 Levofloxacin [Levaquin] 750 mg PO DAILY 5 Days #5 tab 05/17/23 Allergies Allergy/AdvReac Type Severity Reaction Status Date / Time sulfamethoxazole Allergy Rash/Hives Verified 05/18/23 16:48 [From Bactrim] trimethoprim [From Bactrim] Allergy Rash/Hives Verified 05/18/23 16:48 Review of Systems ROS Other: All systems not noted in ROS Statement are negative. <Pardeep Bee - Last Filed: 05/18/23 17:57> ROS Other: All systems not noted in ROS Statement are negative. <Gerry Carr - Last Filed: 05/19/23 00:03> ROS Other: All systems not noted in ROS Statement are negative. <Christiano Guillaume - Last Filed: 05/19/23 03:11> ROS Statement: Those systems with pertinent positive or pertinent negative responses have been documented in the HPI. Past Medical History Past Medical History: COPD, Hyperlipidemia, Hypertension Additional Past Medical History / Comment(s): scoliosis, bloody urine ,a dmissinion for urine retention, mass in bladder, at time of assessment pt has archer catheter in place for urinary retention History of Any Multi-Drug Resistant Organisms: None Reported Past Surgical History: Appendectomy, Heart Catheterization With Stent Additional Past Surgical History / Comment(s): eye surgeryx5, Past Anesthesia/Blood Transfusion Reactions: Blood Transfusion Reaction Additional Past Anesthesia/Blood Transfusion Reaction / Comment(s): pt states he does not remeber what the raction was, only that they had to take a lot of samples. Date of Last Stent Placement:: [facility] Past Psychological History: No Psychological Hx Reported Smoking Status: Current every day smoker Past Alcohol Use History: None Reported Past Drug Use History: Marijuana <Pardeep Bee - Last Filed: 05/18/23 17:57> General Exam Limitations: no limitations General appearance: alert, in no apparent distress Eye exam: Present: normal appearance Extremities exam: Present: normal inspection Back exam: Present: normal inspection Neurological exam: Present: alert <Pardeep Bee - Last Filed: 05/18/23 17:57> Limitations: no limitations General appearance: alert, in no apparent distress Head exam: Present: atraumatic, normocephalic Eye exam: Present: normal appearance. Absent: scleral icterus, conjunctival injection, periorbital swelling Respiratory exam: Absent: respiratory distress, accessory muscle use Cardiovascular Exam: Present: regular rate, normal rhythm GI/Abdominal exam: Present: soft, other (bladder distention). Absent: distended, tenderness exam: Present: urethral discharge (hematuria), circumcision. Absent: testicular tenderness, scrotal swelling Extremities exam: Present: full ROM. Absent: tenderness, pedal edema Neurological exam: Present: alert, oriented X3 Psychiatric exam: Present: normal affect, normal mood Skin exam: Present: warm, dry, normal color. Absent: cyanosis, diaphoretic, petechiae, pallor <Gerry Carr - Last Filed: 05/19/23 00:03> Course Vital Signs 05/18/23 05/18/23 16:45 19:30 Temperature 97.6 F Pulse Rate 94 83 Respiratory 26 H 18 Rate Blood Pressure 184/97 157/96 O2 Sat by Pulse 92 L 94 L Oximetry Medical Decision Making <Pardeep Bee - Last Filed: 05/18/23 17:57> <Gerry Carr - Last Filed: 05/19/23 00:03> - Lab Data Result diagrams: 05/19/23 00:17 05/19/23 00:17 <Christiano Guillaume - Last Filed: 05/19/23 03:11> - Medical Decision Making Quicknote portion performed. Signed Pardeep Bee PA-C (Pardeep Bee) Was pt. sent in by a medical professional or institution (, PA, ORNAMENTAL IRON WORKER, urgent care, hospital, or long term...) When possible be specific @ -[No] Did you speak to anyone other than the patient for history (EMS, parent, family, police, friend...)? What history was obtained from this source @ -[No] Did you review nursing and triage notes (agree or disagree)? Why? @ -[I reviewed and agree with nursing and triage notes] Were old charts reviewed (outside hosp., previous admission, EMS record, old EKG, old radiological studies, urgent care reports/EKG's, long term records)? Report findings @ -Yes ER visit from yesterday was reviewed patient was prescribed antibiotics and directed to follow up with urology, PET scan was reviewed from 02/2023 showi ng no bladder mass Differential Diagnosis (chest pain, altered mental status, abdominal pain women, abdominal pain men, vaginal bleeding, weakness, fever, dyspnea, syncope, headache, dizziness, GI bleed, back pain, seizure, CVA, palpatations, mental health, musculoskeletal)? @ -Hematuria, urinary retention, urinary tract infection, catheter malfunction EKG interpreted by me (3pts min.). @ -n/a X-rays interpreted by me (1pt min.). @ -[None done] CT interpreted by me (1pt min.). @ -[None done] U/S interpreted by me (1pt. min.). @ -[None done] What testing was considered but not performed or refused? (CT, X-rays, U/S, labs)? Why? @ -[None] What meds were considered but not given or refused? Why? @ -[None] Did you discuss the management of the patient with other professionals (professionals i.e. , PA, ORNAMENTAL IRON WORKER, lab, RT, psych nurse, social service agency director, balcony worker, teacher, tax revenue officer, social work case manager)? Give summary @ -[No] Was smoking cessation discussed for >3mins.? @ -[No] Was critical care preformed (if so, how long)? @ -[No] Were there social determinants of health that impacted care today? How? (Homelessness, low income, unemployed, alcoholism, drug addiction, transportation, low edu. Level, literacy, decrease access to med. care, [place] [facility], rehab)? @ -[No] Was there de-escalation of care discussed even if they declined (Discuss DNR or withdrawal of care, Hospice)? DNR status @ -[No] What co-morbidities impacted this encounter? (DM, HTN, Smoking, COPD, CAD, Cancer, CVA, ARF, Chemo, Hep., AIDS, mental health diagnosis, sleep apnea, morbid obesity)? @ -Smoker, COPD, hypertension, Was patient admitted / discharged? Hospital course, mention meds given and route, prescriptions, significant lab abnormalities, going to OR and other pertinent info. @ - 77-year-old male, alert and oriented 4 presents to the emergency room ambulatory with complaints of hematuria and inability to urinate/retention despite Archer catheter. States was seen yesterday for the same. Last time he seen urine in the Archer catheter was around 1:00pm today. He did call urology this morning and is waiting a callback. Has had increased bladder fullness without drainage which is what brought him back to the ER today. Denies any fevers. No nausea vomiting or diarrhea. Did have a normal bowel movement today no blood. Patient is still smoking. 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 Upon arrival, bladder scan shows 668ml, nursing staff attempted irrigation without success therefore, catheter was changed and continuous irrigation performed. Labs were drawn and are pending at this time. Patient resting comfortably after Archer catheter was changed. Bladder irrigation being performed at this time continues with small clots. Case was signed out to Dr. Guillaume Undiagnosed new problem with uncertain prognosis? @ -[No] Drug Therapy requiring intensive monitoring for toxicity (Heparin, Nitro, Insulin, Cardizem)? @ -[No] Were any procedures done? @ -Continuous bladder irrigation Diagnosis/symptom? @ -Hematuria with urinary retention Acute, or Chronic, or Acute on Chronic? @ -Acute Uncomplicated (without systemic symptoms) or Complicated (systemic symptoms)? @ -Uncomplicated Side effects of treatment? @ -[No] Exacerbation, Progression, or Severe Exacerbation? @ -[No] Poses a threat to life or bodily function? How? (Chest pain, [place], [place], pneumonia, PE, COPD, DKA, ARF, appy, cholecystitis, CVA, Diverticulitis, Homicidal, Suicidal, threat to staff... and all critical care pts) @ -[No] (Gerry Carr) - Lab Data Lab Results 05/18/23 05/19/23 05/19/23 Range/Units 22:43 00:17 00:17 WBC 12.1 H (3.8-10.6) k/uL RBC 3.52 L (4.30-5.90) m/uL Hgb 9.3 L (13.0-17.5) gm/dL Hct 29.4 L (39.0-53.0) % MCV 83.6 (80.0-100.0) fL MCH 26.4 (25.0-35.0) pg MCHC 31.6 (31.0-37.0) g/dL RDW 18.7 H (11.5-15.5) % Plt Count 319 (150-450) k/uL MPV 8.1 Neutrophils % 84 % Lymphocytes % 8 % Monocytes % 6 % Eosinophils % 0 % Basophils % 0 % Neutrophils # 10.2 H (1.3-7.7) k/uL Lymphocytes # 0.9 L (1.0-4.8) k/uL Monocytes # 0.7 (0-1.0) k/uL Eosinophils # 0.0 (0-0.7) k/uL Basophils # 0.0 (0-0.2) k/uL Hypochromasia Marked Anisocytosis Slight Microcytosis Slight Sodium 136 L (137-145) mmol/L Potassium 4.2 (3.5-5.1) mmol/L Chloride 101 (98-107) mmol/L Carbon Dioxide 27 (22-30) mmol/L Anion Gap 8 mmol/L BUN 33 H (9-20) mg/dL Creatinine 1.66 H (0.66-1.25) mg/dL Est GFR (CKD-EPI)AfAm 46 (>60 ml/min/1.73 sqM) Est GFR (CKD-EPI)NonAf 40 (>60 ml/min/1.73 sqM) Glucose 118 H (74-99) mg/dL Calcium 9.6 (8.4-10.2) mg/dL Urine Color Red Urine Appearance Turbid (Clear) Urine RBC >182 H (0-5) /hpf Urine WBC 57 H (0-5) /hpf Disposition <Pardeep Bee - Last Filed: 05/18/23 17:57> Is patient prescribed a controlled substance at d/c from ED?: No <Gerry Carr - Last Filed: 05/19/23 00:03> Is patient prescribed a controlled substance at d/c from ED?: No <Christiano Guillaume - Last Filed: 05/19/23 03:11> Clinical Impression: Urinary retention, Hematuria Disposition: HOME SELF-CARE Condition: Fair Instructions (If sedation given, give patient instructions): Urinary Retention in Men (ED), Hematuria (ED) Referrals: Maik Miranda MD [Primary Care Provider] - 1-2 days
[2023-05-18] MEDS ORDERED: SODIUM CHLORIDE 0.9% IRRIGATIO 3,000 ML IRRIGATION ONE (21:30)
[2023-05-18 23:08] LABS: Appearance,Urine Turbid (Clear); Color,Urine Red
[2023-05-18 23:16] LABS: RBC,Urine >182 /hpf (0-5); WBC,Urine 57 /hpf (0-5)
[2023-05-19 00:23] LABS: Anisocytosis Slight; Basophils % (A) 0 %; Eosinophils % (A) 0 %; HCT 29.4 % (39.0-53.0); HGB 9.3 gm/dL (13.0-17.5); Hypochromasia Marked; Lymphocytes # (A) 0.9 k/uL (1.0-4.8); Lymphocytes % (A) 8 %; MCH 26.4 pg (25.0-35.0); MCHC 31.6 g/dL (31.0-37.0); MCV 83.6 fL (80.0-100.0); Mean Platelet Volume 8.1; Microcytosis Slight; Monocytes # (A) 0.7 k/uL (0-1.0); Monocytes % (A) 6 %; Neutrophils # (A) 10.2 k/uL (1.3-7.7); Neutrophils % (A) 84 %; Platelet Count 319 k/uL (150-450); RBC 3.52 m/uL (4.30-5.90); RDW 18.7 % (11.5-15.5); WBC 12.1 k/uL (3.8-10.6)
[2023-05-19 00:43] LABS: African American GFR (CKD) 46 (>60 ml/min/1.73 sqM); Anion Gap 8 mmol/L; Blood Urea Nitrogen 33 mg/dL (9-20); Calcium 9.6 mg/dL (8.4-10.2); Carbon Dioxide 27 mmol/L (22-30); Chloride 101 mmol/L (98-107); Glucose 118 mg/dL (74-99); Non-African American GFR(CKD) 40 (>60 ml/min/1.73 sqM); Potassium 4.2 mmol/L (3.5-5.1); Sodium 136 mmol/L (137-145)
[2023-05-19 04:40] VITALS: BP 131/71; PULSE 82; RESP 20
== END 2023-05-19 04:00 | disposition home or self-care (01) ==
LOC: EC 16:43
DX: R33.9 Retention of urine, unspecified (principal); R31.9 Hematuria, unspecified; J44.9 Chronic obstructive pulmonary disease, unspecified; I10 Essential (primary) hypertension; F17.200 Nicotine dependence, unspecified, uncomplicated; F12.90 Cannabis use, unspecified, uncomplicated; Z79.82 Long term (current) use of aspirin; Z79.899 Other long term (current) drug therapy; Z88.2 Allergy status to sulfonamides; Z88.8 Allergy status to other drugs, medicaments and biological substances
CPT/HCPCS: 36415; 51702; 51798; 80048; 81001; 85025; 99284

== ENCOUNTER 2023-05-25 23:13 | Inpatient (IN) | payer MEDICARE ==
[2023-05-25] MEDS ORDERED: DILTIAZEM DRIP BOLUS FROM BAG 1 MG SOLN IV ONE (23:36)
[2023-05-25] MEDS ORDERED: SODIUM CHLORIDE 0.9% 500 ML 500 ML IV ONE (23:36)
--- NOTE | 2023-05-25 23:40 | ED ---
General Adult HPI - General Chief complaint: Urogenital Stated complaint: Difficulty Breathing, Difficulty urinating Time Seen by Provider: 05/25/23 23:27 Source: patient, RN notes reviewed, old records reviewed Mode of arrival: wheelchair Limitations: no limitations - History of Present Illness Initial comments: 77 yo male history of COPD on 4 as of oxygen chronically presenting with increased dyspnea. Patient states he's had symptoms throughout the day today. He denies chest pain. Denies fever. Upon arrival the patient is noted to be in atrial fibrillation with RVR without prior history. Patient also had Archer catheter removed and has been unable to urinate since his catheter was removed earlier today. He has lower abdominal discomfort. - Related Data Home Medications Medication Instructions Recorded Confirmed Losartan-Hctz 50-12.5 mg [Hyzaar 1 tab PO DAILY 03/23/14 01/25/23 50-12.5] Albuterol Sulfate [Ventolin HFA] 2 puff INHALATION RT-Q4H PRN 01/19/23 01/25/23 Aspirin EC [Ecotrin Low Dose] 81 mg PO DAILY 01/19/23 02/01/23 Cholecalciferol [Vitamin D3 (25 25 mcg PO DAILY 01/19/23 01/25/23 Mcg = 1000 Iu)] Cyanocobalamin (Vitamin B-12) 2,500 mcg PO DAILY 01/19/23 01/25/23 [Vitamin B-12] Ipratropium-Albuterol Nebulize 3 ml INHALATION RT-QID 01/19/23 01/25/23 [Duoneb 0.5 mg-3 mg/3 ml Soln] Multivit-Min/FA/Lycopen/Lutein 1 tab PO DAILY 01/19/23 02/01/23 [Centrum Silver Tablet] traMADol HCl [Ultram] 50 mg PO Q6HR PRN 01/19/23 01/25/23 Previous Rx's Medication Instructions Recorded Atorvastatin [Lipitor] 40 mg PO DAILY #30 tab 03/12/15 Metoprolol Tartrate [Lopressor] 12.5 mg PO BID #60 tab 03/12/15 Nicotine 21Mg/24Hr Patch [Habitrol] 1 patch TRANSDERM DAILY 30 Days 01/21/23 #30 patch Cephalexin [Keflex] 500 mg PO Q8HR #15 cap 02/01/23 Levofloxacin [Levaquin] 750 mg PO DAILY 5 Days #5 tab 05/17/23 Allergies Allergy/AdvReac Type Severity Reaction Status Date / Time sulfamethoxazole Allergy Rash/Hives Verified 05/18/23 16:48 [From Bactrim] trimethoprim [From Bactrim] Allergy Rash/Hives Verified 05/18/23 16:48 Review of Systems ROS Statement: Those systems with pertinent positive or pertinent negative responses have been documented in the HPI. ROS Other: All systems not noted in ROS Statement are negative. Past Medical History Past Medical History: COPD, Hyperlipidemia, Hypertension Additional Past Medical History / Comment(s): scoliosis, bloody urine ,admissinion for urine retention, mass in bladder, at time of assessment pt has archer catheter in place for urinary retention History of Any Multi-Drug Resistant Organisms: None Reported Past Surgical History: Appendectomy, Heart Catheterization With Stent Additional Past Surgical History / Comment(s): eye surgeryx5, Past Anesthesia/Blood Transfusion Reactions: Blood Transfusion Reaction Additional Past Anesthesia/Blood Transfusion Reaction / Comment(s): pt states he does not remeber what the raction was, only that they had to take a lot of samples. Date of Last Stent Placement:: [facility] Past Psychological History: No Psychological Hx Reported Smoking Status: Current every day smoker Past Alcohol Use History: None Reported Past Drug Use History: Marijuana General Exam Limitations: no limitations General appearance: alert, in no apparent distress Head exam: Present: atraumatic, normocephalic Eye exam: Present: normal appearance, PERRL ENT exam: Present: normal exam Neck exam: Present: normal inspection Respiratory exam: Present: respiratory distress, decreased breath sounds Cardiovascular Exam: Present: tachycardia, irregular rhythm GI/Abdominal exam: Present: soft, distended. Absent: tenderness Extremities exam: Present: pedal edema Course Vital Signs 05/25/23 23:14 Temperature 99.2 F Pulse Rate 66 Respiratory 26 H Rate Blood Pressure 91/52 O2 Sat by Pulse 91 L Oximetry Medical Decision Making - Medical Decision Making Was pt. sent in by a medical professional or institution (, PA, BUFFING [employer] SET UP WORKER, urgent care, hospital, or care home...) When possible be specific @ -No Did you speak to anyone other than the patient for history (EMS, parent, family, police, friend...)? What history was obtained from this source @ -No Did you review nursing and triage notes (agree or disagree)? Why? @ -I reviewed and agree with nursing and triage notes Were old charts reviewed (outside hosp., previous admission, EMS record, old EKG, old radiological studies, urgent care reports/EKG's, care home records)? Report findings @ -No old charts were reviewed Differential Diagnosis (chest pain, altered mental status, abdominal pain women, abdominal pain men, vaginal bleeding, weakness, fever, dyspnea, syncope, headache, dizziness, GI bleed, back pain, seizure, CVA, palpatations, mental health, musculoskeletal)? @ -Differential Dyspnea: Coronary syndrome, arrhythmia, tamponade, asthma, COPD, pulmonary embolism, pneumonia, pneumothorax, pulmonary effusion, anaphylaxis, diabetic ketoacidosis, flailed chest, pulmonary contusion, diaphragmatic rupture, anemia, neuromuscular, this is not meant to be an all-inclusive list. EKG interpreted by me (3pts min.). @ -[Atrial fibrillation with RVR, right bundle branch block, rate of 143, QRS duration 122, QTC 371 X-rays interpreted by me (1pt min.). @ -6 x-ray negative for pneumothorax, showing hyperinflation consistent with COPD CT interpreted by me (1pt min.). @ -None done U/S interpreted by me (1pt. min.). @ -None done What testing was considered but not performed or refused? (CT, X-rays, U/S, labs)? Why? @ -None What meds were considered but not given or refused? Why? @ -None Did you discuss the management of the patient with other professionals (professionals i.e. , PA, BUFFING [employer] SET UP WORKER, lab, RT, psych nurse, social insurance specialist, mental health social worker, teacher, house officer, case checker)? Give summary @ -Dr. Mckinney Was smoking cessation discussed for >3mins.? @ -No Was critical care preformed (if so, how long)? @ Yes 35 minutes Were there social determinants of health that impacted care today? How? (Homelessness, low income, unemployed, alcoholism, drug addiction, transportation, low edu. Level, literacy, decrease access to med. care, fci, rehab)? @ -No Was there de-escalation of care discussed even if they declined (Discuss DNR or withdrawal of care, Hospice)? DNR status @ -No What co-morbidities impacted this encounter? (DM, HTN, Smoking, COPD, CAD, Cancer, CVA, ARF, Chemo, Hep., AIDS, mental health diagnosis, sleep apnea, morbid obesity)? @ -[Hypertension, COPD Was patient admitted / discharged? Hospital course, mention meds given and route, prescriptions, significant lab abnormalities, going to OR and other pertinent info. @ -[Patient admitted for new onset atrial fibrillation with RVR. He is started on Cardizem in the emergency department with improvement and rate. He has and elevated troponin which is likely related to demand. This will be treated with heparin awaiting serial cardiac enzymes. Patient will be continued on heparin and Cardizem. He's admitted to internal medicine with cardiology on consultation. Regarding urinary retention, Archer catheter is placed in the emergency department, urinalysis pending. Undiagnosed new problem with uncertain prognosis? @ -No Drug Therapy requiring intensive monitoring for toxicity (Heparin, Nitro, Insulin, Cardizem)? @ -No Were any procedures done? @ -No Diagnosis/symptom? @ New-onset atrial fibrillation with RVR Acute, or Chronic, or Acute on Chronic? @ -acute Uncomplicated (without systemic symptoms) or Complicated (systemic symptoms)? @ -Complicated Side effects of treatment? @ -No Exacerbation, Progression, or Severe Exacerbation? @ -No Poses a threat to life or bodily function? How? (Chest pain, USA, HI, pneumonia, PE, COPD, DKA, ARF, appy, cholecystitis, CVA, Diverticulitis, Homicidal, Suicidal, threat to staff... and all critical care pts) @ -Yes, ACS, arrhythmia - Lab Data Result diagrams: 05/25/23 23:25 05/25/23 23:25 Lab Results 05/25/23 05/25/23 05/25/23 Range/Units 23:25 23:25 23:25 WBC 20.2 H (3.8-10.6) k/uL RBC 3.15 L (4.30-5.90) m/uL Hgb 8.3 L (13.0-17.5) gm/dL Hct 26.7 L (39.0-53.0) % MCV 84.7 (80.0-100.0) fL MCH 26.3 (25.0-35.0) pg MCHC 31.0 (31.0-37.0) g/dL RDW 18.4 H (11.5-15.5) % Plt Count 385 (150-450) k/uL MPV 7.9 Neutrophils % 94 % Lymphocytes % 3 % Monocytes % 3 % Eosinophils % 0 % Basophils % 0 % Neutrophils # 19.0 H (1.3-7.7) k/uL Lymphocytes # 0.5 L (1.0-4.8) k/uL Monocytes # 0.5 (0-1.0) k/uL Eosinophils # 0.0 (0-0.7) k/uL Basophils # 0.0 (0-0.2) k/uL Hypochromasia Marked Anisocytosis Slight PT 10.9 (10.0-12.5) sec INR 1.0 (<1.2) APTT 22.3 (22.0-30.0) sec Sodium 136 L (137-145) mmol/L Potassium 4.2 (3.5-5.1) mmol/L Chloride 104 (98-107) mmol/L Carbon Dioxide 20 L (22-30) mmol/L Anion Gap 12 mmol/L BUN 32 H (9-20) mg/dL Creatinine 1.58 H (0.66-1.25) mg/dL Est GFR (CKD-EPI)AfAm 49 (>60 ml/min/1.73 sqM) Est GFR (CKD-EPI)NonAf 42 (>60 ml/min/1.73 sqM) Glucose 133 H (74-99) mg/dL Calcium 8.9 (8.4-10.2) mg/dL Magnesium 1.6 (1.6-2.3) mg/dL Total Bilirubin 0.6 (0.2-1.3) mg/dL AST 28 (17-59) U/L ALT 20 (4-49) U/L Alkaline Phosphatase 84 (38-126) U/L Troponin I (0.000-0.034) ng/mL NT-Pro-B Natriuret Pep 2380 pg/mL Total Protein 7.1 (6.3-8.2) g/dL Albumin 3.4 L (3.5-5.0) g/dL TSH 1.180 (0.465-4.680) mIU/L 05/25/ Range/Units 23:25 WBC (3.8-10.6) k/uL RBC (4.30-5.90) m/uL Hgb (13.0-17.5) gm/dL Hct (39.0-53.0) % MCV (80.0-100.0) fL MCH (25.0-35.0) pg MCHC (31.0-37.0) g/dL RDW (11.5-15.5) % Plt Count (150-450) k/uL MPV Neutrophils % % Lymphocytes % % Monocytes % % Eosinophils % % Basophils % % Neutrophils # (1.3-7.7) k/uL Lymphocytes # (1.0-4.8) k/uL Monocytes # (0-1.0) k/uL Eosinophils # (0-0.7) k/uL Basophils # (0-0.2) k/uL Hypochromasia Anisocytosis PT (10.0-12.5) sec INR (<1.2) APTT (22.0-30.0) sec Sodium (137-145) mmol/L Potassium (3.5-5.1) mmol/L Chloride (98-107) mmol/L Carbon Dioxide (22-30) mmol/L Anion Gap mmol/L BUN (9-20) mg/dL Creatinine (0.66-1.25) mg/dL Est GFR (CKD-EPI)AfAm (>60 ml/min/1.73 sqM) Est GFR (CKD-EPI)NonAf (>60 ml/min/1.73 sqM) Glucose (74-99) mg/dL Calcium (8.4-10.2) mg/dL Magnesium (1.6-2.3) mg/dL Total Bilirubin (0.2-1.3) mg/dL AST (17-59) U/L ALT (4-49) U/L Alkaline Phosphatase (38-126) U/L Troponin I 0.379 H* (0.000-0.034) ng/mL NT-Pro-B Natriuret Pep pg/mL Total Protein (6.3-8.2) g/dL Albumin (3.5-5.0) g/dL TSH (0.465-4.680) mIU/L Critical Care Time Critical Care Time: Yes Total Critical Care Time: 35 Disposition Clinical Impression: COPD (chronic obstructive pulmonary disease), Elevated troponin, Atrial fibrillation with RVR Disposition: ADMITTED IP TO THIS HOSP Condition: Stable Is patient prescribed a controlled substance at d/c from ED?: No Referrals: Maik Miranda MD [Primary Care Provider] - 1-2 days Time of Disposition: 01:48
[2023-05-25] MEDS ORDERED: DILTIAZEM 125 MG in SODIUM CHLORIDE 0.9% 100 ML IV SCH (23:45)
[2023-05-26 00:01] LABS: Anisocytosis Slight; Basophils % (A) 0 %; Eosinophils % (A) 0 %; HCT 26.7 % (39.0-53.0); HGB 8.3 gm/dL (13.0-17.5); Hypochromasia Marked; Lymphocytes # (A) 0.5 k/uL (1.0-4.8); Lymphocytes % (A) 3 %; MCH 26.3 pg (25.0-35.0); MCV 84.7 fL (80.0-100.0); Mean Platelet Volume 7.9; Monocytes # (A) 0.5 k/uL (0-1.0); Monocytes % (A) 3 %; Neutrophils % (A) 94 %; Platelet Count 385 k/uL (150-450); RBC 3.15 m/uL (4.30-5.90); RDW 18.4 % (11.5-15.5); WBC 20.2 k/uL (3.8-10.6)
[2023-05-26 00:28] LABS: Partial Thromboplastin Time 22.3 sec (22.0-30.0); Prothrombin Time 10.9 sec (10.0-12.5)
[2023-05-26] MEDS ORDERED: SODIUM CHLORIDE 0.9% 500 ML 500 ML IV ONE (00:49)
[2023-05-26 00:58] LABS: ALT 20 U/L (4-49); AST 28 U/L (17-59); African American GFR (CKD) 49 (>60 ml/min/1.73 sqM); Albumin 3.4 g/dL (3.5-5.0); Alkaline Phosphatase 84 U/L (38-126); Anion Gap 12 mmol/L; Blood Urea Nitrogen 32 mg/dL (9-20); Calcium 8.9 mg/dL (8.4-10.2); Carbon Dioxide 20 mmol/L (22-30); Chloride 104 mmol/L (98-107); Glucose 133 mg/dL (74-99); Magnesium 1.6 mg/dL (1.6-2.3); Non-African American GFR(CKD) 42 (>60 ml/min/1.73 sqM); Potassium 4.2 mmol/L (3.5-5.1); Sodium 136 mmol/L (137-145); Total Bilirubin 0.6 mg/dL (0.2-1.3); Total Protein 7.1 g/dL (6.3-8.2)
[2023-05-26 01:05] LABS: NT-Pro-B-Type Natriuretic Pept 2380 pg/mL
--- NOTE | 2023-05-26 01:36 | XR ---
EXAM: XR Chest, 2 Views CLINICAL HISTORY: dysrhythmia TECHNIQUE: Frontal and lateral views of the chest. COMPARISON: Chest 2 views dated 04/26/2015 FINDINGS: Lungs: The lungs are hyperexpanded, more prominent from the previous examination, with flattening of the hemidiaphragms. There are curvilinear changes at the left lung base. No definite focal airspace consolidation. Pleural space: Mild blunting the costophrenic margins is noted. No large pleural effusion or pneumothorax. Heart: The cardiac silhouette is stable and thought to be within normal limits, accounting for AP technique. Mediastinum: The mediastinal contours are appreciably altered. The trachea is midline. Bones/joints: Unremarkable. No acute fracture. IMPRESSION: The lungs are hyperexpanded, more prominent from the previous examination, with flattening of the hemidiaphragms. There are curvilinear changes at the left lung base, presumed subsegmental atelectasis or scarring. No definite focal airspace consolidation.
[2023-05-26] MEDS ORDERED: HEPARIN SODIUM 1,000 UN/ML (10ML VL) IV PRN (01:42)
[2023-05-26] MEDS ORDERED: HEPARIN SODIUM 1,000 UN/ML (10ML VL) IV ONE (01:42)
[2023-05-26] MEDS ORDERED: NALOXONE 0.4 MG/ML 1 ML VIAL IV PRN (01:43)
[2023-05-26] MEDS ORDERED: HEPARIN SOD,PORK IN 0.45% NACL 25,000 UNIT in 0.45% NACL 1 250ML.BAG IV SCH (01:45)
[2023-05-26 04:12] LABS: Appearance,Urine Cloudy (Clear); Color,Urine Dark Brown; Mucus,Urine Few /hpf; PH, Urine 6.5 (5.0-8.0); Protein,Urine 3+ (Negative); RBC,Urine >182 /hpf (0-5); WBC,Urine >182 /hpf (0-5)
[2023-05-26 04:13] LABS: Bilirubin,Urine 1+ (Negative); Blood,Urine Large (Negative); Glucose,Urine (UA) Negative (Negative); Ketones,Urine 3+ (Negative); Leukocyte Esterase,Urine Moderate (Negative); Nitrite,Urine Negative (Negative); Urobilinogen,Urine <2.0 mg/dL (<2.0)
[2023-05-26] MEDS: SODIUM CHLORIDE 0.9% 1,000 ML IV SCH ×2 (05:09→16:52)
--- NOTE | 2023-05-26 05:25 | P.HPIM ---
History of Present Illness H&P Date: 05/26/23 Chief Complaint: Urinary retention 77-year-old male with bladder cancer recurrent COPD on 4 L home oxygen Patient coming in due to urinary retention. He had removed his Archer catheter today at his doctor's office after which she felt urinate. He had a Archer catheter in since January 18 of this year after a diagnosis of bladder cancer and having blood clots in his urine he felt multiple attempts of discontinuing his Archer catheter however today it is doctor's office his doctor wanted to give it a try Archer catheter was discontinued however he was unable to urinate after which he decided to come the hospital for evaluation denies any fevers or chills he reports no more hematuria since last week. Denies any abdominal pain denies any nausea vomiting denies any fevers or chills He also reported associated shortness of breath with the urinary retention without any chest pain no changes in the character of his chronic cough. Denies any history of blood clots. Denies any cardiac history. However upon arrival to the ED was noted to be in A. fib with RVR Patient does admit to tobacco smoking denies any illicit drugs or heavy alcohol He was diagnosed with recurrent bladder cancer with plans for chemotherapy next week review of systems Pertinent positives as noted in HPI. All other systems were reviewed and are negative on exam Constitutional: No acute distress, conversant, pleasant Eyes: Anicteric sclerae, moist conjunctiva, Pupils equal round reactive to light ENMT: NC/AT Oropharynx clear, no erythema, or exudates Neck: Supple, no masses, or JVD No carotid bruits No thyromegaly Lungs: Clear to auscultation Clear to percussion Normal respiratory effort, no accessory muscle use Cardiovascular: Heart irregular in rate and rhythm, No murmurs, gallops, or rubs No peripheral edema Abdominal: Soft Nontender, no guarding, rebound or rigidity Abdomen moving with respiration Normoactive bowel sounds No hepatomegaly, No splenomegaly No palpable mass No abdominal wall hernia noted Archer cath in place with T-colored urine Extremities: No digital cyanosis No clubbing Pedal pulses intact and symmetrical Radial pulses intact and symmetrical No calf tenderness Psychiatric: Alert and oriented to person, place and time Appropriate affect fair judgement Neuro Muscles Strength 5/5 in all 4 extremities Sensation to light touch grossly present throughout Cranial nerves II-XII grossly intact Lymphatics: no palpable cervical or supraclavicular lymph nodes Past Medical History Past Medical History: COPD, Hyperlipidemia, Hypertension Additional Past Medical History / Comment(s): scoliosis, bloody urine ,admissinion for urine retention, mass in bladder, at time of assessment pt has archer catheter in place for urinary retention History of Any Multi-Drug Resistant Organisms: None Reported Past Surgical History: Appendectomy, Heart Catheterization With Stent Additional Past Surgical History / Comment(s): eye surgeryx5, Past Anesthesia/Blood Transfusion Reactions: Blood Transfusion Reaction Additional Past Anesthesia/Blood Transfusion Reaction / Comment(s): pt states he does not remeber what the raction was, only that they had to take a lot of samples. Date of Last Stent Placement:: [facility] Past Psychological History: No Psychological Hx Reported Smoking Status: Current every day smoker Past Alcohol Use History: None Reported Past Drug Use History: Marijuana Medications and Allergies Home Medications Medication Instructions Recorded Confirmed Type Losartan-Hctz 50-12.5 mg [Hyzaar 1 tab PO DAILY 03/23/14 01/25/23 History 50-12.5] Atorvastatin [Lipitor] 40 mg PO DAILY #30 tab 03/12/15 01/25/23 Rx Metoprolol Tartrate [Lopressor] 12.5 mg PO BID #60 tab 03/12/15 02/01/23 Rx Albuterol Sulfate [Ventolin HFA] 2 puff INHALATION RT-Q4H PRN 01/19/23 01/25/23 History Aspirin EC [Ecotrin Low Dose] 81 mg PO DAILY 01/19/23 02/01/23 History Cholecalciferol [Vitamin D3 (25 25 mcg PO DAILY 01/19/23 01/25/23 History Mcg = 1000 Iu)] Cyanocobalamin (Vitamin B-12) 2,500 mcg PO DAILY 01/19/23 01/25/23 History [Vitamin B-12] Ipratropium-Albuterol Nebulize 3 ml INHALATION RT-QID 01/19/23 01/25/23 History [Duoneb 0.5 mg-3 mg/3 ml Soln] Multivit-Min/FA/Lycopen/Lutein 1 tab PO DAILY 01/19/23 02/01/23 History [Centrum Silver Tablet] traMADol HCl [Ultram] 50 mg PO Q6HR PRN 01/19/23 01/25/23 History Nicotine 21Mg/24Hr Patch [Habitrol] 1 patch TRANSDERM DAILY 30 Days 01/21/23 02/01/23 Rx #30 patch Cephalexin [Keflex] 500 mg PO Q8HR #15 cap 02/01/23 Rx Levofloxacin [Levaquin] 750 mg PO DAILY 5 Days #5 tab 05/17/23 Rx Allergies Allergy/AdvReac Type Severity Reaction Status Date / Time sulfamethoxazole Allergy Rash/Hives Verified 05/18/23 16:48 [From Bactrim] trimethoprim [From Bactrim] Allergy Rash/Hives Verified 05/18/23 16:48 Physical Exam Vitals: Vital Signs Temp Pulse Resp BP Pulse Ox 05/26/23 03:18 92 05/26/23 03:00 104 H 19 112/72 05/26/23 02:00 116 H 32 H 95/60 05/26/23 01:00 117 H 25 H 86/61 05/26/23 00:30 114 H 9 L 86/61 05/25/23 23:14 99.2 F 66 26 H 91/52 91 L Intake and Output 05/25/23 05/25/23 05/26/23 14:59 22:59 06:59 Output Total 575 Balance -575 Output: Urine 575 Uretheral (Archer) 575 Other: Weight 64.41 kg Results CBC & Chem 7: 05/25/23 23:25 05/25/23 23:25 Labs: Abnormal Lab Results - Last 24 Hours (Table) 05/25/23 05/25/23 05/25/23 Range/Units 00:37 23:25 23:25 WBC 20.2 H (3.8-10.6) k/uL RBC 3.15 L (4.30-5.90) m/uL Hgb 8.3 L (13.0-17.5) gm/dL Hct 26.7 L (39.0-53.0) % RDW 18.4 H (11.5-15.5) % Neutrophils # 19.0 H (1.3-7.7) k/uL Lymphocytes # 0.5 L (1.0-4.8) k/uL Sodium 136 L (137-145) mmol/L Carbon Dioxide 20 L (22-30) mmol/L BUN 32 H (9-20) mg/dL Creatinine 1.58 H (0.66-1.25) mg/dL Glucose 133 H (74-99) mg/dL Troponin I (0.000-0.034) ng/mL Albumin 3.4 L (3.5-5.0) g/dL Urine Protein 3+ H (Negative) Urine Ketones 3+ H (Negative) Urine Blood Large H (Negative) Urine Bilirubin 1+ H (Negative) Ur Leukocyte Esterase Moderate H (Negative) Urine RBC >182 H (0-5) /hpf Urine WBC >182 H (0-5) /hpf Urine Mucus Few H (None) /hpf 05/25/23 Range/Units 23:25 WBC (3.8-10.6) k/uL RBC (4.30-5.90) m/uL Hgb (13.0-17.5) gm/dL Hct (39.0-53.0) % RDW (11.5-15.5) % Neutrophils # (1.3-7.7) k/uL Lymphocytes # (1.0-4.8) k/uL Sodium (137-145) mmol/L Carbon Dioxide (22-30) mmol/L BUN (9-20) mg/dL Creatinine (0.66-1.25) mg/dL Glucose (74-99) mg/dL Troponin I 0.379 H* (0.000-0.034) ng/mL Albumin (3.5-5.0) g/dL Urine Protein (Negative) Urine Ketones (Negative) Urine Blood (Negative) Urine Bilirubin (Negative) Ur Leukocyte Esterase (Negative) Urine RBC (0-5) /hpf Urine WBC (0-5) /hpf Urine Mucus (None) /hpf Assessment and Plan Assessment: 77-year-old male with recurrent bladder cancer, COPD on 4 L oxygen at home coming in with urinary retention and worsening shortness of breath denies any fevers or chills I discussed the case with the ED doctor and accepted the admission for A. fib with RVR and urinary retention with recurrent bladder cancer for urology evaluation with anticipated length of stay more than 2 midnights New onset A. fib with RVR Patient started on Cardizem drip Continue Heparin drip Echocardiogram TSH unremarkable 1.1 Cardiology consult Electrolytes magnesium 1.6 sodium 136 potassium 4.2 Replace magnesium follow-up levels ProBNP 2380 Elevated troponin 0.379 most likely type II, secondary to demand ischemia from A. fib with RVR Heparin drip for A. fib with RVR Check Echocardiogram Gentle IV fluid hydration normal saline 75 mL per hour Continue metoprolol 12.5 mg twice a day by mouth Acute kidney injury 32 creatinine 1.[address] with T-colored urine Negative nitrite positive for leukocyte esterase Urology consult Archer catheter reinserted Rocephin 1 g IV piggyback daily Leukocytosis white count of 20 no fever Check retroperitoneal ultrasound Hold losartan and diuretics secondary to a I Chronic anemia hemoglobin 8.3 stable around its baseline Denies GI bleeding Reports recurrent hematuria COPD compensated Chronic hypoxic respiratory failure Continue supplemental oxygen at home dose 4 L DuoNeb's when necessary and scheduled every 4 hours Continue home inhalers Hyperlipidemia Continue simvastatin 40 mg daily at bedtime Full code DVT prophylaxis on heparin drip for A. fib monitor for any overt bleeding monitor hemoglobin closely will discontinue if hemoglobin drops
[2023-05-26] MEDS ORDERED: IPRATROPIUM-ALBUTEROL 3 ML NEB INHALATION PRN (05:27)
[2023-05-26] MEDS: MAGNESIUM SULFATE-D5W PMX 1 GM in DEXTROSE/WATER 1 100ML.BAG IVPB SCH ×2 (05:46→06:47)
[2023-05-26] MEDS: IPRATROPIUM-ALBUTEROL 3 ML NEB INHALATION SCH ×4 (08:12→20:38)
--- NOTE | 2023-05-26 08:36 | US ---
EXAMINATION TYPE: US renals and bladder DATE OF EXAM: 05/26/2023 COMPARISON: CLINICAL INDICATION: Male, 77 years old with history of Obstructive uropathy; Hx right hydronephrosis with stent removal x 1 week ago. Hx bladder cancer with removal Jan 2023. Right flank pain. Bladd er Archer. Portable EC exam EXAM MEASUREMENTS: Right Kidney: 11.2 x 5.3 x 6.1 cm Left Kidney: 9.6 x 4.9 x 5.5 cm Right Kidney: Severe hydronephrosis with dilated ureter seen. Internal echoes were visualized in por tion of the hydronephrosis with the renal and ureter. Trace fluid seen adjacent to liver and right k idney. Left Kidney: Limited visualization due to bowel gas. 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 No masses are identified. The urinary bladder is anechoic. Bilateral u reteral jets are seen. IMPRESSION: 1. Severe right-sided hydronephrosis.
[2023-05-26 08:39] LABS: African American GFR (CKD) >90 (>60 ml/min/1.73 sqM); Anion Gap 6 mmol/L; Blood Urea Nitrogen 19 mg/dL (9-20); Carbon Dioxide 14 mmol/L (22-30); Chloride 106 mmol/L (98-107); Glucose 416 mg/dL (74-99); Non-African American GFR(CKD) >90 (>60 ml/min/1.73 sqM); Potassium 2.6 mmol/L (3.5-5.1); Sodium 126 mmol/L (137-145)
[2023-05-26] MEDS: METOPROLOL TARTRATE 25 MG TAB PO SCH ×2 (08:51→20:17)
[2023-05-26] MEDS: ATORVASTATIN 40 MG TAB PO SCH (08:51)
[2023-05-26] MEDS ORDERED: METOPROLOL TARTRATE 12.5 MG TAB PO SCH (09:00)
[2023-05-26] MEDS ORDERED: HEPARIN SODIUM 1,000 UN/ML (10ML VL) IV STA (09:07)
[2023-05-26 09:18] LABS: Anisocytosis Slight; Basophils % (A) 0 %; Eosinophils % (A) 0 %; HCT 20.6 % (39.0-53.0); Hypochromasia Marked; Lymphocytes # (A) 0.5 k/uL (1.0-4.8); Lymphocytes % (A) 4 %; MCH 26.5 pg (25.0-35.0); MCHC 29.9 g/dL (31.0-37.0); MCV 88.7 fL (80.0-100.0); Mean Platelet Volume 7.6; Monocytes # (A) 0.5 k/uL (0-1.0); Monocytes % (A) 3 %; Neutrophils # (A) 12.9 k/uL (1.3-7.7); Neutrophils % (A) 92 %; Platelet Count 297 k/uL (150-450); RBC 2.32 m/uL (4.30-5.90); RDW 18.5 % (11.5-15.5); WBC 14.1 k/uL (3.8-10.6)
[2023-05-26] MEDS ORDERED: POTASSIUM CHLORIDE ER 20 MEQ TAB.ER PO STA (09:22)
[2023-05-26 09:24] LABS: HGB 6.1 gm/dL (13.0-17.5)
[2023-05-26] MEDS ORDERED: CALCIUM GLUCONATE IN NACL 1 GM in SALINE 1 100ML.BAG IVPB ONE (09:24)
[2023-05-26] MEDS ORDERED: MAGNESIUM SULFATE-D5W PMX 1 GM in DEXTROSE/WATER 1 100ML.BAG IVPB SCH (09:30)
[2023-05-26 09:39] LABS: African American GFR (CKD) 89 (>60 ml/min/1.73 sqM); Anion Gap 8 mmol/L; Blood Urea Nitrogen 26 mg/dL (9-20); Calcium 6.6 mg/dL (8.4-10.2); Carbon Dioxide 18 mmol/L (22-30); Chloride 109 mmol/L (98-107); Glucose 120 mg/dL (74-99); Non-African American GFR(CKD) 77 (>60 ml/min/1.73 sqM); Sodium 135 mmol/L (137-145)
[2023-05-26] MEDS ORDERED: NITROGLYCERIN SL TABS 0.4 MG TAB SUBLINGUAL PRN (09:56)
[2023-05-26] MEDS ORDERED: POTASSIUM CHLORIDE 10 MEQ in WATER FOR INJECTION 1 100ML.BAG IVPB SCH (10:00)
[2023-05-26 10:01] LABS: Potassium 3.9 mmol/L (3.5-5.1)
[2023-05-26] MEDS ORDERED: FUROSEMIDE 10 MG/ML 4 ML VIAL IV STA (10:52)
[2023-05-26 11:03] LABS: Anisocytosis Slight; Basophils # (A) 0.1 k/uL (0-0.2); Basophils % (A) 1 %; Eosinophils % (A) 0 %; HCT 24.4 % (39.0-53.0); HGB 7.3 gm/dL (13.0-17.5); Hypochromasia Marked; Lymphocytes # (A) 0.4 k/uL (1.0-4.8); Lymphocytes % (A) 3 %; MCH 26.5 pg (25.0-35.0); MCV 88.5 fL (80.0-100.0); Mean Platelet Volume 7.6; Monocytes # (A) 0.4 k/uL (0-1.0); Monocytes % (A) 3 %; Neutrophils # (A) 13.4 k/uL (1.3-7.7); Neutrophils % (A) 93 %; Platelet Count 323 k/uL (150-450); RBC 2.75 m/uL (4.30-5.90); RDW 18.4 % (11.5-15.5); WBC 14.4 k/uL (3.8-10.6)
--- NOTE | 2023-05-26 11:53 | P.GSCN ---
History of Present Illness Consult date: 05/26/23 Reason for Consult: Bladder cancer, urinary retention History of present illness: This is a 77-year-old male that presented to the hosptial with Dyspnea and urinary retention. 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 Tumor involved the right posterior bladder wall and involved the ureteral orifice he also underwent stent placement at that time. Patient was recommended to undergo radiation therapy, he declined any further treatment for his bladder cancer. Stent was subsequently removed last week, developed urinary retention post-stent removal, at time of stent removal there was also evidence of tumor recurrence he refuses any further intervention for that. Archer catheter was removed yesterday, patient developed urinary retention subsequently a Archer catheter was placed in the ER. Ultrasound also showed evidence of right-sided hydronephrosis. He has been complaining of right flank pain, denies any gross hematuria dysuria. After Archer catheter removal he was unable to be. His creatinine is at 0.97 which is his baseline. He underwent a PET scan in February that showed no evidence of metastatic disease. At this time he is agreeable to proceed with radiation therapy Review of Systems - Constitutional Denies chills, Denies fever - EENT Ears, nose, mouth and throat: Denies dysphagia - Cardiovascular Reports dyspnea on exertion, Reports edema - Respiratory Reports cough, Reports dyspnea - Gastrointestinal Denies nausea, Denies vomiting - Genitourinary Reports flank pain Past Medical History Past Medical History: COPD, Hyperlipidemia, Hypertension Additional Past Medical History / Comment(s): scoliosis, bloody urine ,admissinion for urine retention, mass in bladder, at time of assessment pt has archer catheter in place for urinary retention History of Any Multi-Drug Resistant Organisms: None Reported Past Surgical History: Appendectomy, Heart Catheterization With Stent Additional Past Surgical History / Comment(s): eye surgeryx5, Past Anesthesia/Blood Transfusion Reactions: Blood Transfusion Reaction Additional Past Anesthesia/Blood Transfusion Reaction / Comm: pt states he does not remeber what the raction was, only that they had to take a lot of samples. Date of Last Stent Placement:: [facility] Past Psychological History: No Psychological Hx Reported Smoking Status: Current every day smoker Past Alcohol Use History: None Reported Past Drug Use History: Marijuana Medications and Allergies Home Medications Medication Instructions Recorded Confirmed Type Losartan-Hctz 50-12.5 mg [Hyzaar 1 tab PO DAILY 03/23/14 05/26/23 History 50-12.5] Atorvastatin [Lipitor] 40 mg PO DAILY #30 tab 03/12/15 05/26/23 Rx Metoprolol Tartrate [Lopressor] 12.5 mg PO BID #60 tab 03/12/15 05/26/23 Rx Albuterol Sulfate [Ventolin HFA] 2 puff INHALATION RT-Q4H PRN 01/19/23 05/26/23 History Aspirin EC [Ecotrin Low Dose] 81 mg PO DAILY 01/19/23 05/26/23 History Cholecalciferol [Vitamin D3 (25 25 mcg PO DAILY 01/19/23 05/26/23 History Mcg = 1000 Iu)] Cyanocobalamin (Vitamin B-12) 2,500 mcg PO DAILY 01/19/23 05/26/23 History [Vitamin B-12] Ipratropium-Albuterol Nebulize 3 ml INHALATION RT-QID 01/19/23 05/26/23 History [Duoneb 0.5 mg-3 mg/3 ml Soln] Multivit-Min/FA/Lycopen/Lutein 1 tab PO DAILY 01/19/23 05/26/23 History [Centrum Silver Tablet] traMADol HCl [Ultram] 50 mg PO Q6HR PRN 01/19/23 05/26/23 History Fluticasone/Umeclidin/Vilanter 1 puff INHALATION RT-DAILY 05/26/23 05/26/23 History [Trelegy Ellipta 100-62.5-25] Nicotine 21Mg/24Hr Patch [Habitrol] 1 patch TRANSDERM DAILY PRN 05/26/23 05/26/23 History Allergies Allergy/AdvReac Type Severity Reaction Status Date / Time sulfamethoxazole Allergy Rash/Hives Verified 05/26/23 07:34 [From Bactrim] trimethoprim [From Bactrim] Allergy Rash/Hives Verified 05/26/23 07:34 Surgical - Exam Vital Signs Temp Pulse Resp BP Pulse Ox 99.2 F 66 26 H 91/52 91 L 05/25/23 23:14 05/25/23 23:14 05/25/23 23:14 05/25/23 23:14 05/25/23 23:14 - General no distress, no pain - Eyes normal ocular movement, pale - ENT normal pinna, normal nares - Respiratory Labored breathing, normal respiratory rate - Abdomen Abdomen: soft, non tender, no distended - Psychiatric oriented to time, oriented to person, oriented to place Results - Labs 05/26/23 10:30 05/26/23 09:06 Abnormal Lab Results - Last 24 Hours (Table) 05/25/23 05/25/23 05/25/23 Range/Units 00:37 23:25 23:25 WBC 20.2 H (3.8-10.6) k/uL RBC 3.15 L (4.30-5.90) m/uL Hgb 8.3 L (13.0-17.5) gm/dL Hct 26.7 L (39.0-53.0) % MCHC (31.0-37.0) g/dL RDW 18.4 H (11.5-15.5) % Neutrophils # 19.0 H (1.3-7.7) k/uL Lymphocytes # 0.5 L (1.0-4.8) k/uL APTT (22.0-30.0) sec Sodium 136 L (137-145) mmol/L Potassium (3.5-5.1) mmol/L Chloride (98-107) mmol/L Carbon Dioxide 20 L (22-30) mmol/L BUN 32 H (9-20) mg/dL Creatinine 1.58 H (0.66-1.25) mg/dL Glucose 133 H (74-99) mg/dL Calcium (8.4-10.2) mg/dL Troponin I (0.000-0.034) ng/mL Albumin 3.4 L (3.5-5.0) g/dL Urine Protein 3+ H (Negative) Urine Ketones 3+ H (Negative) Urine Blood Large H (Negative) Urine Bilirubin 1+ H (Negative) Ur Leukocyte Esterase Moderate H (Negative) Urine RBC >182 H (0-5) /hpf Urine WBC >182 H (0-5) /hpf Urine Mucus Few H (None) /hpf 05/25/23 05/26/23 05/26/23 Range/Units 23:25 02:39 07:58 WBC (3.8-10.6) k/uL RBC (4.30-5.90) m/uL Hgb (13.0-17.5) gm/dL Hct (39.0-53.0) % MCHC (31.0-37.0) g/dL RDW (11.5-15.5) % Neutrophils # (1.3-7.7) k/uL Lymphocytes # (1.0-4.8) k/uL APTT 32.8 H (22.0-30.0) sec Sodium (137-145) mmol/L Potassium (3.5-5.1) mmol/L Chloride (98-107) mmol/L Carbon Dioxide (22-30) mmol/L BUN (9-20) mg/dL Creatinine (0.66-1.25) mg/dL Glucose (74-99) mg/dL Calcium (8.4-10.2) mg/dL Troponin I 0.379 H* 1.200 H* (0.000-0.034) ng/mL Albumin (3.5-5.0) g/dL Urine Protein (Negative) Urine Ketones (Negative) Urine Blood (Negative) Urine Bilirubin (Negative) Ur Leukocyte Esterase (Negative) Urine RBC (0-5) /hpf Urine WBC (0-5) /hpf Urine Mucus (None) /hpf 05/26/23 05/26/23 05/26/23 Range/Units 07:58 07:58 09:06 WBC 14.1 H (3.8-10.6) k/uL RBC 2.32 L (4.30-5.90) m/uL Hgb 6.1 L* D (13.0-17.5) gm/dL Hct 20.6 L (39.0-53.0) % MCHC 29.9 L (31.0-37.0) g/dL RDW 18.5 H (11.5-15.5) % Neutrophils # 12.9 H (1.3-7.7) k/uL Lymphocytes # 0.5 L (1.0-4.8) k/uL APTT (22.0-30.0) sec Sodium 126 L (137-145) mmol/L Potassium 2.6 L* (3.5-5.1) mmol/L Chloride (98-107) mmol/L Carbon Dioxide 14 L (22-30) mmol/L BUN (9-20) mg/dL Creatinine (0.66-1.25) mg/dL Glucose 416 H (74-99) mg/dL Calcium 5.0 L* (8.4-10.2) mg/dL Troponin I 1.670 H* (0.000-0.034) ng/mL Albumin (3.5-5.0) g/dL Urine Protein (Negative) Urine Ketones (Negative) Urine Blood (Negative) Urine Bilirubin (Negative) Ur Leukocyte Esterase (Negative) Urine RBC (0-5) /hpf Urine WBC (0-5) /hpf Urine Mucus (None) /hpf 05/26/23 05/26/23 Range/Units 09:06 10:30 WBC 14.4 H (3.8-10.6) k/uL RBC 2.75 L (4.30-5.90) m/uL Hgb 7.3 L (13.0-17.5) gm/dL Hct 24.4 L (39.0-53.0) % MCHC 30.0 L (31.0-37.0) g/dL RDW 18.4 H (11.5-15.5) % Neutrophils # 13.4 H (1.3-7.7) k/uL Lymphocytes # 0.4 L (1.0-4.8) k/uL APTT (22.0-30.0) sec Sodium 135 L (137-145) mmol/L Potassium (3.5-5.1) mmol/L Chloride 109 H (98-107) mmol/L Carbon Dioxide 18 L (22-30) mmol/L BUN 26 H (9-20) mg/dL Creatinine (0.66-1.25) mg/dL Glucose 120 H (74-99) mg/dL Calcium 6.6 L (8.4-10.2) mg/dL Troponin I (0.000-0.034) ng/mL Albumin (3.5-5.0) g/dL Urine Protein (Negative) Urine Ketones (Negative) Urine Blood (Negative) Urine Bilirubin (Negative) Ur Leukocyte Esterase (Negative) Urine RBC (0-5) /hpf Urine WBC (0-5) /hpf Urine Mucus (None) /hpf Diabetes panel 05/25/23 05/26/23 05/26/23 Range/Units 23:25 07:58 09:06 Sodium 136 L 126 L 135 L (137-145) mmol/L Potassium 4.2 2.6 L* 3.9 (3.5-5.1) mmol/L Chloride 104 106 109 H (98-107) mmol/L Carbon Dioxide 20 L 14 L 18 L (22-30) mmol/L BUN 32 H 19 26 H (9-20) mg/dL Creatinine 1.58 H 0.74 0.97 (0.66-1.25) mg/dL Glucose 133 H 416 H 120 H (74-99) mg/dL Calcium 8.9 5.0 L* 6.6 L (8.4-10.2) mg/dL AST 28 (17-59) U/L ALT 20 (4-49) U/L Alkaline Phosphatase 84 (38-126) U/L Total Protein 7.1 (6.3-8.2) g/dL Albumin 3.4 L (3.5-5.0) g/dL Thyroid panel 05/25/23 Range/Units 23:25 TSH 1.180 (0.465-4.680) mIU/L Calcium panel 05/25/23 05/26/23 05/26/23 Range/Units 23:25 07:58 09:06 Calcium 8.9 5.0 L* 6.6 L (8.4-10.2) mg/dL Albumin 3.4 L (3.5-5.0) g/dL Pituitary panel 05/25/23 05/26/23 05/26/23 Range/Units 23:25 07:58 09:06 Sodium 136 L 126 L 135 L (137-145) mmol/L Potassium 4.2 2.6 L* 3.9 (3.5-5.1) mmol/L Chloride 104 106 109 H (98-107) mmol/L Carbon Dioxide 20 L 14 L 18 L (22-30) mmol/L BUN 32 H 19 26 H (9-20) mg/dL Creatinine 1.58 H 0.74 0.97 (0.66-1.25) mg/dL Glucose 133 H 416 H 120 H (74-99) mg/dL Calcium 8.9 5.0 L* 6.6 L (8.4-10.2) mg/dL TSH 1.180 (0.465-4.680) mIU/L Adrenal panel 05/25/23 05/26/23 05/26/23 Range/Units 23:25 07:58 09:06 Sodium 136 L 126 L 135 L (137-145) mmol/L Potassium 4.2 2.6 L* 3.9 (3.5-5.1) mmol/L Chloride 104 106 109 H (98-107) mmol/L Carbon Dioxide 20 L 14 L 18 L (22-30) mmol/L BUN 32 H 19 26 H (9-20) mg/dL Creatinine 1.58 H 0.74 0.97 (0.66-1.25) mg/dL Glucose 133 H 416 H 120 H (74-99) mg/dL Calcium 8.9 5.0 L* 6.6 L (8.4-10.2) mg/dL Total Bilirubin 0.6 (0.2-1.3) mg/dL AST 28 (17-59) U/L ALT 20 (4-49) U/L Alkaline Phosphatase 84 (38-126) U/L Total Protein 7.1 (6.3-8.2) g/dL Albumin 3.4 L (3.5-5.0) g/dL Assessment and Plan Assessment: 77-year-old male with history of muscle invasive bladder cancer, multiple comorbidities oxygen-dependent not a surgical candidate. Was recommended to undergo radiation therapy which he declined but he is agreeable in proceeding at this evelia. Tumor involved the right posterior bladder wall. Initially had a stent at time of TURBT in January and subsequently was removed approximately a week ago. At time of stent removal there was evidence of tumor recurrence within the bladder. He has refused to undergo any further surgical intervention for that. His hydronephrosis is most likely secondary to obstruction of the ureter secondary to bladder tumor. He developed urinary retention post-stent removal, and has failed two trial of voids. Of note his troponins are trending upward. 1. Bladder Cancer -He has a follow-up set up with radiation oncology and she was advised to keep, 2. Urinary retention -continue flomax -Repeat trial of void prior to discharge 3.Hydronephrosis -Secondary to obstruction from bladder tumor, his creatinine is at baseline. might Require stent, But given the troponin elevation and dyspnea at this point we'll hold off any surgical intervention at this time. Given that he is minimally symptomatic from the hydronephrosis and his creatinine is at baseline
--- NOTE | 2023-05-26 13:50 | P.CRDCN ---
History of Present Illness History of present illness: HISTORY OF PRESENT ILLNESS: This is a 77-year-old male with a past medical history significant for bladder cancer, coronary artery disease with previous stenting, hypertension, hyperlipidemia, and nicotine dependence. Patient used to follow in the office with Dr. Stewart but has not been seen since 2019. We have been asked to see the patient in consultation for atrial fibrillation and elevated troponin. Patient examined at the bedside. Patient states he has been dealing with urinary retention and has had a catheter on a few separate occasions since having surge ry in February. He states that about a week ago his Archer catheter was removed. He was unable to urinate yesterday which prompted him to come to the emergency room. The patient reports right-sided chest pain this morning that is worse with deep inspiration and chest wall palpation. He reports shortness of breath with exertion. He states last night his shortness of breath got worse. The patient was found to be in A. fib with RVR. He was started on IV heparin and IV Cardizem. He subsequently converted to sinus mechanism. His hemoglobin on admission was 8.3 with subsequent lab draws of 6.1 and 7.3. * EKG reveals atrial fibrillation with RVR. Right bundle branch block. * Chest xray: The lungs are hyperexpanded. No definite focal airspace consolidation. * Laboratory data: WBC 20.2. BUN 32. Creatinine 1.58. ProBNP 2380. Troponin 0.379. 1.200. TSH 1.180. * Current home cardiac medications include metoprolol tartrate 12.5 milligrams twice a day, losartanhydrochlorothiazide 50 mg12.5 mg daily, aspirin 81 mg daily, and Lipitor 40 mg daily * Most recent echocardiogram obtained in 2015 revealed ejection fraction 55% with concentric LVH * Cardiac catheterization history: April 2015 with PCI of totally occluded RCA performed at [facility] [place] * Patient underwent Lexiscan stress test in March 2016 revealing ejection fraction 55%, small apical fixed defect, no reversible ischemia REVIEW OF SYSTEMS: At the time of my exam: CONSTITUTIONAL: Denies fever or chills. HEENT: Denies blurred vision, vision changes, or eye pain. Denies hemoptysis CARDIOVASCULAR: Denies chest pain. Denies orthopnea. Denies PND. Denies palpitations RESPIRATORY: Denies shortness of breath. GASTROINTESTINAL: Denies abdominal pain. Denies nausea or vomiting. HEMATOLOGIC: Denies bleeding disorders. GENITOURINARY: Denies any blood in urine. SKIN: Denies pruitis. Denies rash. PHYSICAL EXAM: VITAL SIGNS: Reviewed. GENERAL: Well-developed in no acute distress. HEENT: Head is normocephalic. Pupils are equal, round. Sclerae anicteric. Mucous membranes of the mouth are moist. Neck supple. No JVD or thyromegaly LUNGS: Respirations even and unlabored. Lungs essentially clear to auscultation bilaterally. HEART: Regular rate and rhythm. S1 and S2 heard. ABDOMEN: Soft. Nondistended. Nontender. EXTREMITIES: Normal range of motion. No clubbing or cyanosis. Peripheral pulses intact. No lower extremity edema NEUROLOGIC: Awake and alert. Oriented x 3. ASSESSMENT: Shortness of breath New onset atrial fibrillation with RVR, currently maintaining sinus mechanism Leukocytosis Non-STEMI Urinary retention Right-sided hydronephrosis Hematuria Acute anemia Acute kidney injury History of bladder cancer with previous stent placement in January Coronary artery disease with previous stenting COPD on home oxygen Hypertension Hyperlipidemia Nicotine dependence PLAN: Obtain 2-D echo to assess cardiac structure and function Discontinue IV heparin secondary to acute anemia Will add aspirin when anemia is stable Continue metoprolol and atorvastatin Urology has been consulted. Await recommendations Further recommend recognitions any patient's course Nurse practitioner note has been reviewed by physician. Signing provider agrees with the documented findings, assessment, and plan of care. Past Medical History Past Medical History: COPD, Hyperlipidemia, Hypertension Additional Past Medical History / Comment(s): scoliosis, bloody urine ,admissinion for urine retention, mass in bladder, at time of assessment pt has archer catheter in place for urinary retention History of Any Multi-Drug Resistant Organisms: None Reported Past Surgical History: Appendectomy, Heart Catheterization With Stent Additional Past Surgical History / Comment(s): eye surgeryx5, Past Anesthesia/Blood Transfusion Reactions: Blood Transfusion Reaction Additional Past Anesthesia/Blood Transfusion Reaction / Comment(s): pt states he does not remeber what the raction was, only that they had to take a lot of maikel ples. Date of Last Stent Placement:: [facility] Past Psychological History: No Psychological Hx Reported Smoking Status: Current every day smoker Past Alcohol Use History: None Reported Past Drug Use History: Marijuana Medications and Allergies Home Medications Medication Instructions Recorded Confirmed Type Losartan-Hctz 50-12.5 mg [Hyzaar 1 tab PO DAILY 03/23/14 05/26/23 History 50-12.5] Atorvastatin [Lipitor] 40 mg PO DAILY #30 tab 03/12/15 05/26/23 Rx Metoprolol Tartrate [Lopressor] 12.5 mg PO BID #60 tab 03/12/15 05/26/23 Rx Albuterol Sulfate [Ventolin HFA] 2 puff INHALATION RT-Q4H PRN 01/19/23 05/26/23 History Aspirin EC [Ecotrin Low Dose] 81 mg PO DAILY 01/19/23 05/26/23 History Cholecalciferol [Vitamin D3 (25 25 mcg PO DAILY 01/19/23 05/26/23 History Mcg = 1000 Iu)] Cyanocobalamin (Vitamin B-12) 2,500 mcg PO DAILY 01/19/23 05/26/23 History [Vitamin B-12] Ipratropium-Albuterol Nebulize 3 ml INHALATION RT-QID 01/19/23 05/26/23 History [Duoneb 0.5 mg-3 mg/3 ml Soln] Multivit-Min/FA/Lycopen/Lutein 1 tab PO DAILY 01/19/23 05/26/23 History [Centrum Silver Tablet] traMADol HCl [Ultram] 50 mg PO Q6HR PRN 01/19/23 05/26/23 History Fluticasone/Umeclidin/Vilanter 1 puff INHALATION RT-DAILY 05/26/23 05/26/23 History [Trelegy Ellipta 100-62.5-25] Nicotine 21Mg/24Hr Patch [Habitrol] 1 patch TRANSDERM DAILY PRN 05/26/23 05/26/23 History Allergies Allergy/AdvReac Type Severity Reaction Status Date / Time sulfamethoxazole Allergy Rash/Hives Verified 05/26/23 07:34 [From Bactrim] trimethoprim [From Bactrim] Allergy Rash/Hives Verified 05/26/23 07:34 Physical Exam Vitals: Vital Signs Temp Pulse Resp BP Pulse Ox 05/26/23 07:53 100 05/26/23 07:00 91 22 133/74 05/26/23 06:00 92 16 120/64 05/26/23 05:00 92 20 115/65 05/26/23 04:00 95 16 117/89 05/26/23 03:18 92 05/26/23 03:00 104 H 19 112/72 05/26/23 02:00 116 H 32 H 95/60 05/26/23 01:00 117 H 25 H 86/61 05/26/23 00:30 114 H 9 L 86/61 05/25/23 23:14 99.2 F 66 26 H 91/52 91 L Intake and Output 05/25/23 05/26/23 05/26/23 22:59 06:59 14:59 Output Total 575 Balance -575 Output: Urine 575 Uretheral (Archer) 575 Other: Weight 64.41 kg Results 05/26/23 10:30 05/26/23 09:06 Cardiac Enzymes 05/25/23 05/25/23 05/26/23 Range/Units 23:25 23:25 02:39 AST 28 (17-59) U/L Troponin I 0.379 H* 1.200 H* (0.000-0.034) ng/mL Coagulation 05/25/23 Range/Units 23:25 PT 10.9 (10.0-12.5) sec APTT 22.3 (22.0-30.0) sec CBC 05/25/23 Range/Units 23:25 WBC 20.2 H (3.8-10.6) k/uL RBC 3.15 L (4.30-5.90) m/uL Hgb 8.3 L (13.0-17.5) gm/dL Hct 26.7 L (39.0-53.0) % Plt Count 385 (150-450) k/uL Comprehensive Metabolic Panel 05/25/23 Range/Units 23:25 Sodium 136 L (137-145) mmol/L Potassium 4.2 (3.5-5.1) mmol/L Chloride 104 (98-107) mmol/L Carbon Dioxide 20 L (22-30) mmol/L BUN 32 H (9-20) mg/dL Creatinine 1.58 H (0.66-1.25) mg/dL Glucose 133 H (74-99) mg/dL Calcium 8.9 (8.4-10.2) mg/dL AST 28 (17-59) U/L ALT 20 (4-49) U/L Alkaline Phosphatase 84 (38-126) U/L Total Protein 7.1 (6.3-8.2) g/dL Albumin 3.4 L (3.5-5.0) g/dL Current Medications Generic Name Dose Route Start Last Admin Trade Name Freq PRN Reason Stop Dose Admin Albuterol/Ipratropium 3 ml 05/26/23 05:27 Ipratropium-Albuterol 3 Ml Neb INHALATION RT-QID PRN Shortness Of Breath Or Wheezing Albuterol/Ipratropium 3 ml 05/26/23 08:00 Ipratropium-Albuterol 3 Ml Neb INHALATION RT-QID VISH Atorvastatin Calcium 40 mg 05/26/23 09:00 Atorvastatin 40 Mg Tab PO DAILY VISH Heparin Sodium (Porcine) 0 unit 05/26/23 01:42 Heparin Sodium 1,000 Un/Ml (10ml Vl) IV PER PROTOCOL PRN Low PTT Protocol Diltiazem HCl 125 mg/ Sodium 125 mls @ 5 mls/hr 05/25/23 23:45 05/25/23 23:57 Chloride IV 5 mg/hr .Q24H VISH 5 mls/hr Administration 5 MG/HR Heparin Sodium/Sodium Chloride 250 mls @ 7.729 mls/hr 05/26/23 01:45 05/26/23 02:55 25,000 unit/ Sodium Chloride IV 12 units/kg/hr .Q24H VISH 7.729 mls/hr Administration Protocol 12 UNITS/KG/HR Sodium Chloride 1,000 mls @ 75 mls/hr 05/26/23 01:45 05/26/23 05:09 Saline 0.9% IV 75 mls/hr .[id number] VISH Administration Metoprolol Tartrate 12.5 mg 05/26/23 09:00 Metoprolol Tartrate 12.5 Mg Tab PO BID VISH Naloxone HCl 0.2 mg 05/26/23 01:43 Naloxone 0.4 Mg/Ml 1 Ml Vial IV Q2M PRN Opioid Reversal Intake and Output 05/25/23 05/26/23 05/26/23 22:59 06:59 14:59 Output Total 575 Balance -575 Output: Urine 575 Uretheral (Archer) 575 Other: Weight 64.41 kg 05/25/23 23:25 05/25/23 23:25
[2023-05-26] MEDS: traMADol 50 MG TAB PO PRN (16:51)
[2023-05-26] MEDS ORDERED: IPRATROPIUM-ALBUTEROL 3 ML NEB INHALATION SCH (20:00)
[2023-05-26 20:06] LABS: Anisocytosis Slight; HCT 24.4 % (39.0-53.0); HGB 7.5 gm/dL (13.0-17.5); Hypochromasia Marked; MCH 26.5 pg (25.0-35.0); MCHC 30.8 g/dL (31.0-37.0); Mean Platelet Volume 7.7; Platelet Count 371 k/uL (150-450); RBC 2.84 m/uL (4.30-5.90); RDW 18.6 % (11.5-15.5); WBC 12.8 k/uL (3.8-10.6)
[2023-05-26] MEDS: NICOTINE 21MG/24HR PATCH TRANSDERM SCH (21:06)
[2023-05-27] MEDS: SODIUM CHLORIDE 0.9% 1,000 ML IV SCH ×2 (04:17→18:52)
[2023-05-27] MEDS: traMADol 50 MG TAB PO PRN ×3 (04:24→19:57)
[2023-05-27] MEDS: IPRATROPIUM-ALBUTEROL 3 ML NEB INHALATION SCH ×4 (07:58→20:54)
[2023-05-27 08:44] LABS: Prothrombin Time 10.7 sec (10.0-12.5)
[2023-05-27] MEDS: METOPROLOL TARTRATE 25 MG TAB PO SCH ×2 (08:46→19:59)
[2023-05-27] MEDS: NICOTINE 21MG/24HR PATCH TRANSDERM SCH (08:46)
[2023-05-27] MEDS: ATORVASTATIN 40 MG TAB PO SCH (08:46)
[2023-05-27] MEDS: TAMSULOSIN 0.4 MG CAP.ER.24H PO SCH (08:46)
[2023-05-27 08:55] LABS: African American GFR (CKD) 62 (>60 ml/min/1.73 sqM); Anion Gap 6 mmol/L; Blood Urea Nitrogen 32 mg/dL (9-20); Carbon Dioxide 26 mmol/L (22-30); Chloride 102 mmol/L (98-107); Glucose 94 mg/dL (74-99); Non-African American GFR(CKD) 54 (>60 ml/min/1.73 sqM); Potassium 4.1 mmol/L (3.5-5.1); Sodium 134 mmol/L (137-145)
[2023-05-27 09:03] LABS: Anisocytosis Slight; Basophils % (A) 0 %; Eosinophils % (A) 0 %; HCT 22.5 % (39.0-53.0); Hypochromasia Marked; Lymphocytes # (A) 0.5 k/uL (1.0-4.8); Lymphocytes % (A) 6 %; MCH 26.3 pg (25.0-35.0); MCHC 30.7 g/dL (31.0-37.0); MCV 85.8 fL (80.0-100.0); Mean Platelet Volume 8.2; Monocytes # (A) 0.5 k/uL (0-1.0); Monocytes % (A) 6 %; Neutrophils % (A) 86 %; Platelet Count 330 k/uL (150-450); RBC 2.63 m/uL (4.30-5.90); RDW 18.3 % (11.5-15.5); WBC 9.3 k/uL (3.8-10.6)
[2023-05-27 09:07] LABS: HGB 6.9 gm/dL (13.0-17.5)
[2023-05-27] MEDS ORDERED: MORPHINE SULFATE 2 MG/ML SYRINGE IVP PRN (10:00)
--- NOTE | 2023-05-27 10:07 | CA ---
Transthoracic Echo Report Name: Nomi Peng Age: 77 Gender: M : 1945 Exam Date: 05/26/2023 11:52 Exam Location: [facility] Ht (in): 71 Wt (lb): 142 Ordering Physician: Nomi Raphael MD Attending/Referring Phys: [id number], [place] [employer] Officer Kieran Reyna Procedure CPT: Indications: A-fib, NSTEMI Cardiac Hx: Technical Quality: Fair Contrast 1: Total Dose (mL): Contrast 2: Total Dose (mL): MEASUREMENTS (Male / Female) Normal Values 2D ECHO LV Diastolic Diameter PLAX 3.4 cm 4.2 - 5.9 / 3.9 - 5.3 cm LV Systolic Diameter PLAX 2.3 cm IVS Diastolic Thickness 1.3 cm 0.6 - 1.0 / 0.6 - 0.9 cm LVPW Diastolic Thickness 1.5 cm 0.6 - 1.0 / 0.6 - 0.9 cm LV Relative Wall Thickness 0.8 RV Internal Dim ED PLAX 3.6 cm LVOT Diameter 2.1 cm Aortic Root Diameter 3.5 cm LA Systolic Diameter LX 3.2 cm 3.0 - 4.0 / 2.7 - 3.8 cm LV Diastolic Volume MOD BP 50.9 cm??? 67 - 155 / 56 - 104 cm??? LV Systolic Volume MOD BP 22.7 cm??? 22 - 58 / 19 - 49 cm??? LV Ejection Fraction MOD BP 55.3 % >= 55 % LV Cardiac Index MOD BP 1292.4 cm???/min???m??? LV Diastolic Volume MOD 4C 61.4 cm??? LV Systolic Volume MOD 4C 22.6 cm??? LV Ejection Fraction MOD 4C 63.2 % LV Cardiac Index MOD 4C 1779.7 cm???/min???m??? LV Diastolic Length 4C 8.0 cm LV Systolic Length 4C 6.4 cm LV Diastolic Volume MOD 2C 39.0 cm??? LV Systolic Volume MOD 2C 21.9 cm??? LV Ejection Fraction MOD 2C 43.7 % LV Cardiac Index MOD 2C 783.0 cm???/min???m??? LV Diastolic Length 2C 7.2 cm LV Systolic Length 2C 6.1 cm LA Volume 43.1 cm??? 18 - 58 / 22 - 52 cm??? LA Volume Index 24.1 cm???/m??? 16 - 28 cm???/m??? DOPPLER AV Peak Velocity 126.7 cm/s AV Peak Gradient 6.4 mmHg LVOT Peak Velocity 107.0 cm/s LVOT Peak Gradient 4.6 mmHg LVOT Velocity Time Integral 23.5 cm LVOT Stroke Volume 82.8 cm??? LVOT Stroke Volume Index 45.4 ml/m??? LVOT Cardiac Index 3799.2 cm???/min???m??? AV Area Cont Eq pk 3.0 cm??? MV Peak Velocity 97.2 cm/s MV Peak Gradient 3.8 mmHg MV Mean Velocity 51.6 cm/s MV Mean Gradient 1.3 mmHg MV Velocity Time Integral 35.5 cm Mitral E Point Velocity 84.8 cm/s Mitral A Point Velocity 64.0 cm/s Mitral E to A Ratio 1.3 MV Deceleration Time 182.1 ms MV E' Velocity 9.2 cm/s Mitral E to MV E' Ratio 9.2 TR Peak Velocity 184.3 cm/s TR Peak Gradient 13.6 mmHg Right Ventricular Systolic Press 21.1 mmHg FINDINGS Left Ventricle Normal LV size. Mild concentric LVH. Left ventricular ejection fraction is estimated at 55-60 %. No obvious regional wall motion abnormality Right Ventricle Mild right ventricular dilatation. RVSP=33mmHg. Right Atrium Mild right atrial dilatation. Left Atrium Normal left atrial size. Mitral Valve Structurally normal mitral valve. No mitral stenosis. No mitral regurgitation. Aortic Valve Aortic valve not well visualized. AV appears mildly calcified. No aortic stenosis. No aortic regurgitation. Tricuspid Valve Structurally normal tricuspid valve. Trace TR. Pulmonic Valve Pulmonic valve not well visualized. No pulmonic regurgitation. Pericardium Normal pericardium. Aorta Normal size aortic root. CONCLUSIONS No obvious regional wall motion abnormality. Left ventricular ejection fraction is estimated at 55-60 %. Mild concentric LVH. RVSP=33mmHg. Aortic sclerosis but no stenosis No other significant valvular dysfunction and no pericardial effusion Dilated IVC which is not collapsible with inspiration Previewed by: Dr Jose M Peng (Electronically Signed) Final Date: 27 May 2023 10:06
--- NOTE | 2023-05-27 12:42 | P.PN ---
Subjective Progress Note Date: 05/27/23 No acute overnight events, flank pain is improving, no gross hematuria this morning Objective - Vital Signs Vital signs: Vital Signs Temp 99.0 F 05/27/23 08:00 Pulse 96 05/27/23 11:26 Resp 18 05/27/23 08:00 BP 139/68 05/27/23 08:00 Pulse Ox 96 05/27/23 08:00 FiO2 Intake & Output 05/26/23 05/27/23 05/27/23 18:59 06:59 18:59 Intake Total 165.215 0 120 Output Total 2700 200 Balance -2534.785 -200 120 Weight 64.41 kg Intake: Intake, IV Titration 45.215 Amount Heparin Sod,Pork in 0.45% 45.215 NaCl 25,000 unit In 0.45 % NaCl 1 250ml.bag @ 12 UNITS/KG/HR 7.729 mls/hr IV .Q24H [facility] Rx#: [id number] Oral 120 0 120 Output: Urine 2700 200 Uretheral (Mackay) 600 - Labs CBC & Chem 7: 05/27/23 07:23 05/27/23 07:23 Labs: Abnormal Lab Results - Last 24 Hours (Table) 05/26/23 05/27/23 05/27/23 Range/Units 19:04 07:23 07:23 WBC 12.8 H (3.8-10.6) k/uL RBC 2.84 L 2.63 L (4.30-5.90) m/uL Hgb 7.5 L 6.9 L* (13.0-17.5) gm/dL Hct 24.4 L 22.5 L (39.0-53.0) % MCHC 30.8 L 30.7 L (31.0-37.0) g/dL RDW 18.6 H 18.3 H (11.5-15.5) % Neutrophils # 8.0 H (1.3-7.7) k/uL Lymphocytes # 0.5 L (1.0-4.8) k/uL Sodium 134 L (137-145) mmol/L BUN 32 H (9-20) mg/dL Creatinine 1.30 H (0.66-1.25) mg/dL Calcium 8.0 L (8.4-10.2) mg/dL Troponin I (0.000-0.034) ng/mL 05/27/23 Range/Units 07:23 WBC (3.8-10.6) k/uL RBC (4.30-5.90) m/uL Hgb (13.0-17.5) gm/dL Hct (39.0-53.0) % MCHC (31.0-37.0) g/dL RDW (11.5-15.5) % Neutrophils # (1.3-7.7) k/uL Lymphocytes # (1.0-4.8) k/uL Sodium (137-145) mmol/L BUN (9-20) mg/dL Creatinine (0.66-1.25) mg/dL Calcium (8.4-10.2) mg/dL Troponin I 1.160 H* (0.000-0.034) ng/mL Assessment and Plan Assessment: 77-year-old male with history of muscle invasive bladder cancer, multiple comorbidities oxygen-dependent not a surgical candidate. Was recommended to undergo radiation therapy which he declined but he is agreeable in proceeding at this time. Tumor involved the right posterior bladder wall. Initially had a stent at time of TURBT in January and subsequently was removed approximately a week ago. At time of stent removal there was evidence of tumor recurrence within the bladder. He has refused to undergo any further surgical intervention for that. His hydronephrosis is most likely secondary to obstruction of the ureter secondary to bladder tumor. He developed urinary retention post-stent r emoval, and has failed two trial of voids. Of note his troponins are trending upward. 1. Bladder Cancer -He has a follow-up set up with radiation oncology and He was advised to keep, -he is okay to continue aspirin from urology standpoint 2. Urinary retention -continue flomax -Repeat trial of void prior to discharge 3.Hydronephrosis -Secondary to obstruction from bladder tumor, his creatinine is at baseline. might Require stent, But given the troponin elevation and dyspnea at this point we'll hold off any surgical intervention at this time. Given that he is minimally symptomatic from the hydronephrosis and his creatinine is at baseline
--- NOTE | 2023-05-27 12:51 | P.PN ---
Subjective HISTORY OF PRESENT ILLNESS: This is a 77-year-old male with a past medical history significant for bladder cancer, coronary artery disease with previous stenting, hypertension, hyperlipidemia, and nicotine dependence. Patient used to follow in the office with Dr. Stewart but has not been seen since 2019. We have been asked to see the patient in consultation for atrial fibrillation and elevated troponin. Patient examined at the bedside. Patient states he has been dealing with urinary retention and has had a catheter on a few separate occasions since having surgery in February. He states that about a week ago his Mackay catheter was removed. He was unable to urinate yesterday which prompted him to come to the emergency room. The patient reports right-sided chest pain this morning that is worse with deep inspiration and chest wall palpation. He reports shortness of breath with exertion. He states last night his shortness of breath got worse. The patient was found to be in A. fib with RVR. He was started on IV heparin and IV Cardizem. He subsequently converted to sinus mechanism. His hemoglobin on admission was 8.3 with subsequent lab draws of 6.1 and 7.3. * EKG reveals atrial fibrillation with RVR. Right bundle branch block. * Chest xray: The lungs are hyperexpanded. No definite focal airspace con solidation. * Laboratory data: WBC 20.2. BUN 32. Creatinine 1.58. ProBNP 2380. Troponin 0.379. 1.200. TSH 1.180. * Current home cardiac medications include metoprolol tartrate 12.5 milligrams twice a day, losartanhydrochlorothiazide 50 mg12.5 mg daily, aspirin 81 mg daily, and Lipitor 40 mg daily * Most recent echocardiogram obtained in 2015 revealed ejection fraction 55% with concentric LVH * Cardiac catheterization history: April 2015 with PCI of totally occluded RCA performed at [facility] * Patient underwent Lexiscan stress test in March 2016 revealing ejection fraction 55%, small apical fixed defect, no reversible ischemia 05/27/2023 Patient examined this morning at the bedside. Patient denies chest pain or pressure. He currently denies shortness of breath. Patient's hemoglobin this morning is 6.9. He is to receive 1 unit RBC transfusion. Echo reveals EF 55-60% PHYSICAL EXAM: VITAL SIGNS: Reviewed. GENERAL: Well-developed in no acute distress. HEENT: Head is normocephalic. Pupils are equal, round. Sclerae anicteric. Mucous membranes of the mouth are moist. Neck supple. No JVD or thyromegaly LUNGS: Respirations even and unlabored. Lungs essentially clear to auscultation bilaterally. HEART: Regular rate and rhythm. S1 and S2 heard. ABDOMEN: Soft. Nondistended. Nontender. EXTREMITIES: Normal range of motion. No clubbing or cyanosis. Peripheral pulses intact. No lower extremity edema NEUROLOGIC: Awake and alert. Oriented x 3. ASSESSMENT: Shortness of breath New onset atrial fibrillation with RVR, currently maintaining sinus mechanism Leukocytosis Non-STEMI Urinary retention Right-sided hydronephrosis Hematuria Acute anemia Acute kidney injury History of bladder cancer with previous stent placement in January Coronary artery disease with previous stenting COPD on home oxygen Hypertension Hyperlipidemia Nicotine dependence PLAN: No anticoagulation at this time due to acute anemia Will add aspirin when anemia is stable Continue metoprolol and atorvastatin No plans for cardiac cath at this time Urology has been consulted. Appreciate recommendations Further recommend recognitions any patient's course Nurse practitioner note has been reviewed by physician. Signing provider agrees with the documented findings, assessment, and plan of care. Objective - Vital Signs Vital signs: Vital Signs Temp 98.3 F 05/26/23 20:00 Pulse 88 05/27/23 08:10 Resp 20 05/27/23 04:00 BP 125/65 05/27/23 04:00 Pulse Ox 97 05/27/23 04:00 FiO2 Intake & Output 05/26/23 05/27/23 05/27/23 18:59 06:59 18:59 Intake Total 165.215 0 Output Total 2700 200 Balance -2534.785 -200 Weight 64.41 kg Intake: Intake, IV Titration 45.215 Amount Heparin Sod,Pork in 0.45% 45.215 NaCl 25,000 unit In 0.45 % NaCl 1 250ml.bag @ 12 UNITS/KG/HR 7.729 mls/hr IV .Q24H [facility] Rx#: [id number] Oral 120 0 Output: Urine 2700 200 Uretheral (Mackay) 600 - Labs CBC & Chem 7: 05/27/23 07:23 05/27/23 07:23 Labs: Abnormal Lab Results - Last 24 Hours (Table) 05/26/23 05/26/23 05/26/23 Range/Units 09:06 09:06 10:30 WBC 14.1 H 14.4 H (3.8-10.6) k/uL RBC 2.32 L 2.75 L (4.30-5.90) m/uL Hgb 6.1 L* D 7.3 L (13.0-17.5) gm/dL Hct 20.6 L 24.4 L (39.0-53.0) % MCHC 29.9 L 30.0 L (31.0-37.0) g/dL RDW 18.5 H 18.4 H (11.5-15.5) % Neutrophils # 12.9 H 13.4 H (1.3-7.7) k/uL Lymphocytes # 0.5 L 0.4 L (1.0-4.8) k/uL Sodium 135 L (137-145) mmol/L Chloride 109 H (98-107) mmol/L Carbon Dioxide 18 L (22-30) mmol/L BUN 26 H (9-20) mg/dL Glucose 120 H (74-99) mg/dL Calcium 6.6 L (8.4-10.2) mg/dL 05/26/23 Range/Units 19:04 WBC 12.8 H (3.8-10.6) k/uL RBC 2.84 L (4.30-5.90) m/uL Hgb 7.5 L (13.0-17.5) gm/dL Hct 24.4 L (39.0-53.0) % MCHC 30.8 L (31.0-37.0) g/dL RDW 18.6 H (11.5-15.5) % Neutrophils # (1.3-7.7) k/uL Lymphocytes # (1.0-4.8) k/uL Sodium (137-145) mmol/L Chloride (98-107) mmol/L Carbon Dioxide (22-30) mmol/L BUN (9-20) mg/dL Glucose (74-99) mg/dL Calcium (8.4-10.2) mg/dL
--- NOTE | 2023-05-27 12:52 | P.PN ---
Subjective Progress Note Date: 05/27/23 77-year-old male with recurrent bladder cancer, COPD on 4 L home oxygen, CAD with stenting presents to he ED for lower abdominal discomfort and urinary retention. Diagnosed with obstructive bladder CA in January 2023, stented by Urology. Stent removed by Urology last week, developed urinary retention requiring Mackay catheter. Mackay catheter was removed by Urology 05/25 outpatient. Patient reports being unable to urinate since then, also complaining of right groin and flank pain which prompted him to come to the ED. In the ED, he underwent extensive evaluation. Found to be in A-Fib with RVR HR 140s, BP as low as 80s/60s. CBC WBC 20.2 Hg 8.3. Coag panel within normal limits. CMP Na 136, bicarb 20, BUN 32, Cr 1.58, glu 133. Troponin 0.379, 1.2, 1.67. Mag 1.6. TSH 1.18. BNP 2380. EKG A-Fib with RVR. UA moderate LE, 3+ protein, 3+ ketones, large blood. CXR findings of hyperinflated lungs. Renal US severe right hydronephrosis. He was started on a Cardizem and Heparin drip, given Rocephin, Mackay catheter inserted and admitted for further management. Initial repeat blood work came back grossly abnormal with WBC 14.1 Hg 6.1 Hct 20.6 and Na 126, K 2.6, bicarb 14, glu 416, Ca 5. Thought to be a lab error, this was repeated, WBC 14.4 Hg 7.3, Hct 24.4, Na 135, Cl 109, bicarb 18, BUN 26, glu 120, Ca 6.6. 05/27 Patient was seen and examined. He reports improved right flank pain but still persistent, rated 7/10. He reports feeling SOB. He is at baseline 4L NC. Currently rate controlled. Cardiology consulted, cardizem drip switched to Metoprolol 25 mg PO BID and heparin drip discontinued due to ongoing anemia. Urology recommends repeating voiding trial, continuing Flomax, holding stent pl acement for now given clinical condition. CBC Hg 6.9, Hct 22.5. BMP Na 134, BUN 32, Cr 1.3, Ca 8. Troponin 1.16. Echo EF 55-60% with mild concentric LVH. General: non toxic, no distress, appears at stated age Derm: warm, dry Head: atraumatic, normocephalic, symmetric Eyes: EOMI, no lid lag, anicteric sclera Cardiovascular: S1S2 reg, no murmur Lungs: Decreased BS bilateral, no rhonchi, no rales , no accessory muscle use Abdominal: soft, nontender to palpation, no guarding, no appreciable organo megaly, R CVA tenderness Ext: no gross muscle atrophy, no edema, no contractures Neuro: no focal neuro deficits Psych: Alert, oriented, appropriate affect Based on my assessment of this patient, this patient meets a high complexity level of care. Patient has an acute diagnosis of urinary retention complicated with sepsis, NSTEMI, A-Fib RVR, acute blood loss anemia that poses a threat to life or bodily function. Acute blood loss anemia: Due to hematuria. Transfuse 1 unit PRBC today. Telemetr y monitoring. Sepsis likely due to UTI: Tachycardia, hypotension, leukocytosis, + source of infection on admission. UA + LE. Obtain BCx and UCx. Obtain lactic acid. Continue Rocephin 1g IV QD. Continue NS at 75 cc/hr. NSTEMI: History of CAD with stenting. Heparin drip discontinued due to anemia. Echocardiogram with no regional wall motion abnormalities. Lipitor 40 mg PO QD. Metoprolol 25 mg PO BID. ASA when Hg stable. Cardiology on board. AFib with RVR: Resolved. Metoprolol as above. Consider anticoagulation when Hg is stable. Urinary retention with ANH due to bladder CA: Obstructive uropathy. Mackay catheter. Urology on board. Chronic respiratory failure due to COPD on 4L NC: Not in acute exacerbation. Supplemental O2 to maintain O2 sat > 92%. DuoNeb scheduled and PRN for SOB/wheezing. CODE STATUS: NO CODE but OK with intubation. DVT Prophylaxis: SCDs GI Prophylaxis: Designated medical POA if patient is not able to make medical decisions for themselves: I have reviewed the following compensation consultant notes: Cardiology, Urology note. I have reviewed the results of the following tests: CBC, BMP, Trop, Echo. I have ordered the following tests: BCx. UCx. Lactic acid. CBC, BMP. I have discussed the care of this patient with the following independent historian: Discussed with RN. I have independently interpreted the following test below: I have discussed the management of this patient with the following physician: Objective - Vital Signs Vital signs: Vital Signs Temp 98.3 F 05/26/23 20:00 Pulse 88 05/27/23 08:10 Resp 20 05/27/23 04:00 BP 125/65 05/27/23 04:00 Pulse Ox 97 05/27/23 04:00 FiO2 Intake & Output 05/26/23 05/27/23 05/27/23 18:59 06:59 18:59 Intake Total 165.215 0 Output Total 2700 200 Balance -2534.785 -200 Weight 64.41 kg Intake: Intake, IV Titration 45.215 Amount Heparin Sod,Pork in 0.45% 45.215 NaCl 25,000 unit In 0.45 % NaCl 1 250ml.bag @ 12 UNITS/KG/HR 7.729 mls/hr IV .Q24H [facility] Rx#: [id number] Oral 120 0 Output: Urine 2700 200 Uretheral (Mackay) 600 - Labs CBC & Chem 7: 05/27/23 07:23 05/27/23 07:23 Labs: Abnormal Lab Results - Last 24 Hours (Table) 05/26/23 05/26/23 05/26/23 Range/Units 09:06 10:30 19:04 WBC 14.4 H 12.8 H (3.8-10.6) k/uL RBC 2.75 L 2.84 L (4.30-5.90) m/uL Hgb 7.3 L 7.5 L (13.0-17.5) gm/dL Hct 24.4 L 24.4 L (39.0-53.0) % MCHC 30.0 L 30.8 L (31.0-37.0) g/dL RDW 18.4 H 18.6 H (11.5-15.5) % Neutrophils # 13.4 H (1.3-7.7) k/uL Lymphocytes # 0.4 L (1.0-4.8) k/uL Sodium 135 L (137-145) mmol/L Chloride 109 H (98-107) mmol/L Carbon Dioxide 18 L (22-30) mmol/L BUN 26 H (9-20) mg/dL Creatinine (0.66-1.25) mg/dL Glucose 120 H (74-99) mg/dL Calcium 6.6 L (8.4-10.2) mg/dL Troponin I (0.000-0.034) ng/mL 05/27/23 05/27/23 05/27/23 Range/Units 07:23 07:23 07:23 WBC (3.8-10.6) k/uL RBC 2.63 L (4.30-5.90) m/uL Hgb 6.9 L* (13.0-17.5) gm/dL Hct 22.5 L (39.0-53.0) % MCHC 30.7 L (31.0-37.0) g/dL RDW 18.3 H (11.5-15.5) % Neutrophils # 8.0 H (1.3-7.7) k/uL Lymphocytes # 0.5 L (1.0-4.8) k/uL Sodium 134 L (137-145) mmol/L Chloride (98-107) mmol/L Carbon Dioxide (22-30) mmol/L BUN 32 H (9-20) mg/dL Creatinine 1.30 H (0.66-1.25) mg/dL Glucose (74-99) mg/dL Calcium 8.0 L (8.4-10.2) mg/dL Troponin I 1.160 H* (0.000-0.034) ng/mL
[2023-05-27] MEDS ORDERED: AMIODARONE 360 MG in DEXTROSE 5% IN WATER 200 ML IV ONE ×2 (18:02)
[2023-05-27] MEDS ORDERED: DEXTROSE 5% IN WATER 100 ML with AMIODARONE 150 MG IV ONE (18:02)
[2023-05-27] MEDS: ACETAMINOPHEN TAB 325 MG TAB PO PRN (19:58)
[2023-05-27] MEDS: AMIODARONE 450 MG in DEXTROSE 5% IN WATER 250 ML IV SCH ×2 (23:33)
[2023-05-28] MEDS: traMADol 50 MG TAB PO PRN ×2 (04:10→16:17)
[2023-05-28] MEDS: SODIUM CHLORIDE 0.9% 1,000 ML IV SCH (06:28)
[2023-05-28] MEDS: TAMSULOSIN 0.4 MG CAP.ER.24H PO SCH (08:37)
[2023-05-28] MEDS: NICOTINE 21MG/24HR PATCH TRANSDERM SCH (08:37)
[2023-05-28] MEDS: ATORVASTATIN 40 MG TAB PO SCH (08:37)
[2023-05-28] MEDS: METOPROLOL TARTRATE 25 MG TAB PO SCH ×2 (08:37→20:04)
[2023-05-28 08:42] LABS: African American GFR (CKD) 79 (>60 ml/min/1.73 sqM); Anion Gap 7 mmol/L; Blood Urea Nitrogen 26 mg/dL (9-20); Calcium 8.1 mg/dL (8.4-10.2); Carbon Dioxide 21 mmol/L (22-30); Chloride 103 mmol/L (98-107); Glucose 108 mg/dL (74-99); Non-African American GFR(CKD) 68 (>60 ml/min/1.73 sqM); Potassium 4.4 mmol/L (3.5-5.1); Sodium 131 mmol/L (137-145)
[2023-05-28] MEDS: IPRATROPIUM-ALBUTEROL 3 ML NEB INHALATION SCH ×4 (08:51→21:38)
[2023-05-28 09:04] LABS: Anisocytosis Slight; HCT 24.1 % (39.0-53.0); HGB 7.2 gm/dL (13.0-17.5); Hypochromasia Marked; MCH 25.9 pg (25.0-35.0); MCHC 29.9 g/dL (31.0-37.0); MCV 86.3 fL (80.0-100.0); Mean Platelet Volume 8.3; Platelet Count 290 k/uL (150-450); RDW 18.3 % (11.5-15.5); WBC 12.1 k/uL (3.8-10.6)
[2023-05-28] MEDS ORDERED: NITROGLYCERIN SL TABS 0.4 MG TAB SUBLINGUAL PRN (10:55)
[2023-05-28] MEDS ORDERED: DILTIAZEM DRIP BOLUS FROM BAG 1 MG SOLN IV STA ×2 (10:57→11:43)
[2023-05-28] MEDS ORDERED: FUROSEMIDE 10 MG/ML 4 ML VIAL IV STA (10:58)
[2023-05-28] MEDS ORDERED: FUROSEMIDE 10 MG/ML 4 ML VIAL ONE (10:58)
[2023-05-28] MEDS ORDERED: DILTIAZEM 125 MG in SODIUM CHLORIDE 0.9% 100 ML IV SCH (11:00)
--- NOTE | 2023-05-28 11:05 | P.PN ---
Subjective HISTORY OF PRESENT ILLNESS: This is a 77-year-old male with a past medical history significant for bladder cancer, coronary artery disease with previous stenting, hypertension, hyperlipidemia, and nicotine dependence. Patient used to follow in the office with Dr. Stewart but has not been seen since 2019. We have been asked to see the patient in consultation for atrial fibrillation and elevated troponin. Patient examined at the bedside. Patient states he has been dealing with urinary retention and has had a catheter on a few separate occasions since having surgery in February. He states that about a week ago his Mackay catheter was removed. He was unable to urinate yesterday which prompted him to come to the emergency room. The patient reports right-sided chest pain this morning that is worse with deep inspiration and chest wall palpation. He reports shortness of breath with exertion. He states last night his shortness of breath got worse. The patient was found to be in A. fib with RVR. He was started on IV heparin and IV Cardizem. He subsequently converted to sinus mechanism. His hemoglobin on admission was 8.3 with subsequent lab draws of 6.1 and 7.3. * EKG reveals atrial fibrillation with RVR. Right bundle branch block. * Chest xray: The lungs are hyperexpanded. No definite focal airspace consolidation. * Laboratory data: WBC 20.2. BUN 32. Creatinine 1.58. ProBNP 2380. Troponin 0.379. 1.200. TSH 1.180. * Current home cardiac medications include metoprolol tartrate 12.5 milligrams twice a day, losartanhydrochlorothiazide 50 mg12.5 mg daily, aspirin 81 mg daily, and Lipitor 40 mg daily * Most recent echocardiogram obtained in 2015 revealed ejection fraction 55% with concentric LVH * Cardiac catheterization history: April 2015 with PCI of totally occluded RCA performed at [facility] * Patient underwent Lexiscan stress test in March 2016 revealing ejection fraction 55%, small apical fixed defect, no reversible ischemia 05/27/2023 Patient examined this morning at the bedside. Patient denies chest pain or pressure. He currently denies shortness of breath. Patient's hemoglobin this morning is 6.9. He is to receive 1 unit RBC transfusion. Echo reveals EF 55-60% 05/28 Patient wanted A. fib yesterday with RVR with heart rates in the 120s to 130s and was started on amiodarone drip. He was somewhat better controlled however over the last 2 hours has had increasing heart rates up to the 120s to 150s. Patient was seen with A team call for increasing respiratory distress, sitting up in bed on nonrebreather. He has not had any significant bleeding, hematochezia or melena. Hemoglobin stable at 7.2. He is off of any anticoagulation. Currently denies any chest pain or pressure however is sig nificantly short of breath with increased work of breathing. He was given nitroglycerin with some improvement in his respiratory distress. Patient tachycardic with heart rates in the 150s to 160s with additional increase in blood pressure 170/90 however also in distress. Overnight blood pressures were more in the 100-120 range systolic. After patient became more comfortable blood pressures down to 130/80. Previous echo shows preserved EF and we will give Cardizem bolus and drip. PHYSICAL EXAM: VITAL SIGNS: Reviewed. GENERAL: Well-developed in acute repsiratory distress HEENT: Head is normocephalic. Pupils are equal, round. Sclerae anicteric. Mucous membranes of the mouth are moist. Neck supple. No JVD or thyromegaly LUNGS: Respirations even and unlabored. Lungs mild crackles at bases HEART: Irrgularly irregular rate and rhythm. S1 and S2 heard. ABDOMEN: Soft. Nondistended. Nontender. EXTREMITIES: Normal range of motion. No clubbing or cyanosis. Peripheral pulses intact. No lower extremity edema NEUROLOGIC: Awake and alert. Oriented x 3. ASSESSMENT: Acute on chronic diastolic heart failure New onset atrial fibrillation with RVR, currently back in Afib with RVR, paroxys mal Leukocytosis Non-STEMI Urinary retention Right-sided hydronephrosis Hematuria Acute anemia Acute kidney injury History of bladder cancer with previous stent placement in January Coronary artery disease with previous stenting COPD on home oxygen Hypertension Hyperlipidemia Nicotine dependence PLAN: Patient with multiple complex medical problems. Unfortunately went into A. fib now with RVR and respiratory distress appears mainly related to heart failure from A. fib with RVR. Check stat chest x-ray and start Cardizem drip. Lasix IV 1. Continue with attempt at rhythm control with amiodarone. Would attempt to avoid any cardioversion given not able to tolerate anticoagulation at this point however may be considered if increasing distress. Not an ideal catheterization candidate with multiple issues including anemia. Continue with current regimen and monitor response. Objective - Vital Signs Vital signs: Vital Signs Temp 98.2 F 05/28/23 03:54 Pulse 136 H 05/28/23 09:08 Resp 16 05/28/23 08:00 BP 132/81 05/28/23 08:00 Pulse Ox 90 L 05/28/23 08:00 FiO2 Intake & Output 05/27/23 05/28/23 05/28/23 18:59 06:59 18:59 Intake Total 120 283 Output Total 300 Balance 120 -17 Intake: Oral 120 Blood Product 283 Rc Pheresis As-3 Unit 283 [id number] Output: Urine 300 - Labs CBC & Chem 7: 05/28/23 06:47 05/28/23 06:47 Labs: Abnormal Lab Results - Last 24 Hours (Table) 05/27/23 05/28/23 05/28/23 Range/Units 09:48 06:47 06:47 WBC 12.1 H (3.8-10.6) k/uL RBC 2.80 L (4.30-5.90) m/uL Hgb 7.2 L (13.0-17.5) gm/dL Hct 24.1 L (39.0-53.0) % MCHC 29.9 L (31.0-37.0) g/dL RDW 18.3 H (11.5-15.5) % Sodium 131 L (137-145) mmol/L Carbon Dioxide 21 L (22-30) mmol/L BUN 26 H (9-20) mg/dL Glucose 108 H (74-99) mg/dL Calcium 8.1 L (8.4-10.2) mg/dL Crossmatch See Detail
--- NOTE | 2023-05-28 11:45 | XR ---
EXAMINATION TYPE: XR chest 1V portable DATE OF EXAM: 05/28/2023 11:25 AM CLINICAL INDICATION:Male, 77 years old with history of re: SOB; [facility] COMPARISON: Chest radiographs from 05/26/2023 TECHNIQUE: XR chest 1V portable Frontal view of the chest. FINDINGS: Lungs/Pleura: Left lower lung airspace opacities are present. There is flattening of the diaphragm wi th increased lucency of the lungs. No evidence of pneumothorax, pleural effusion or focal consolidati on. Pulmonary vascularity: Unremarkable. Heart/mediastinum: Cardiomediastinal silhouette is unremarkable. Musculoskeletal: No acute osseous pathology. IMPRESSION: Left basilar airspace opacities superimposed on COPD.
[2023-05-28] MEDS: ACETAMINOPHEN TAB 325 MG TAB PO PRN (12:43)
--- NOTE | 2023-05-28 13:30 | P.PN ---
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 He presented to the emergency department on 05/25/23 secondary to reports of lower abdominal pain/discomfort radiating into right groin accompanied by urinary retention. Upon arrival to the emergency department patient underwent full evaluation. He was found to be tachycardic with a heart rate of 140s. EKG was completed showing atrial fibrillation with RVR at 143 bpm. Labs completed and reviewed. CBC showing severe leukocytosis with WBC count of 20.2 and normocytic anemia with hemoglobin of 8.3. BMP revealing acute kidney injury with BUN of 32, creatinine 1.58, and GFR 42. Magnesium was low at 1.6. Troponin elevated at 0.379 and proBNP 2380. Urinalysis positive for infection showing protein, ketones, blood, bilirubin, leukocytes and greater than 182 RBCs and greater than 182 WBCs. Patient was started on low intensity heparin infusion for treatment of NSTEMI, Cardizem infusion for treatment of A. fib RVR, and Rocephin for treatment of UTI with sepsis. Patient admitted under services with consultation to cardiology and urology. Troponins were trended resulting in 0.379, 1.200, and 1.670. Cardiology recommending to hold off on anticoagulation at this time secondary to acute on chronic anemia. Echocardiogram completed showing preserved EF of 55-60% with no significant valvular or structural abnormalities. Patient currently remains with uncontrolled A. fib RVR rates ranging between 150s to 200s. Patient currently on amiodarone infusion and Cardizem infusion. Physical exam: Vital signs reviewed and stable. General: Nontoxic, no distress and appears stated age. Derm: Skin warm and dry, normal coloration for ethnicity. Head: Atraumatic, normocephalic and symmetric. Eyes: EOMs intact, no lid lag, and anicteric sclera Mouth: no lip lesions, mucus membranes moist Cardiovascular: Irregularly irregular, no murmur, positive posterior tibial pulses bilaterally, and cap refill < 2 seconds. Lungs: Respirations even, regular, and unlabored on room air. Lungs diminished otherwise no rhonchi, no rales, no wheezing, and no accessory muscle usage. Abdominal: soft, nontender to palpation, no guarding, no appreciable organomegaly. Mackay catheter in place Ext: ROM intact. No gross muscle atrophy, no edema, no contractures Neuro: Speech clear, face symmetrical and CN II-XII grossly intact with no noted focal neuro deficits Psych: Alert and oriented to person, place, time, and situation. Appropriate and pleasant affect. Assessment and Plan of Care: New onset Atrial fibrillation with RVR Complicated UTI with Sepsis Acute on chronic respiratory failure with hypoxia, patient baseline 4 L O2 secondary to advanced COPD currently requiring 6 L O2 NSTEMI Urinary retention, recurrent obstructive bladder cancer Acute blood loss anemia secondary to hematuria, baseline hemoglobin between 8 and 9 -AFib with RVR: Patient currently again in A. fib RVR, with uncontrolled ventricular rates ranging between 150s to 200s. Patient is on amiodarone infusion at 0.5 mg/min in cardiology at bedside ordering for Cardizem bolus followed by infusion in addition to amiodarone. Patient also remains on metoprolol 25 mg twice daily. Anticoagulation remains on hold at this time as recommended by cardiology secondary to acute on chronic anemia. -Acute on chronic respiratory distress, likely multifactorial secondary to COPD and current RVR with possible mild exacerbation of diastolic heart failure. Patient was given sublingual nitro 0.4 mg 1 dose along with Lasix 40 mg IVP 1 dose. Chest x-ray completed revealing left basilar airspace opacities superimposed on COPD. Order placed for Covid PCR, influenza A, influenza B, and RSV. -Cardiology following, discussed plan of care with Dr. Leroy at bedside. -Urology following, reviewed documentation in chart. Urologist recommending repeating voiding trial prior to discharge and stated okay to continue aspirin from urology standpoint. -Sepsis likely due to UTI: Tachycardia, hypotension, leukocytosis, fever + source of infection on admission. Continue IV antibiotics with Rocephin 1 g daily. Blood cultures and urine cultures pending. Tylenol 650 mg every 4 hours as needed for pain/fever. Order placed for Covid PCR, influenza A, influenza B, and RSV. -NSTEMI: History of CAD with stenting. Heparin drip discontinued due to anemia. Echocardiogram with no regional wall motion abnormalities. Lipitor 40 mg PO QD. Metoprolol 25 mg PO BID. ASA when Hg stable. Cardiology on board. -Acute blood loss anemia: Due to hematuria. Status post 1 unit PRBCs. Hemoglobin stable at 7.2. -Urinary retention with ANH due to bladder CA: Obstructive uropathy. Mackay catheter. Urology on board. -Chronic respiratory failure due to COPD on 4L NC: Not in acute exacerbation. Supplemental O2 to maintain O2 sat > 92%. DuoNeb scheduled and PRN for SOB/wheezing. Data reviewed: -Vital signs completed and reviewed. Blood pressure 132/81, heart rate 139, respiratory rate 16, and SpO2 90% on 3 L. Temp 98.2F. -Morning labs reviewed. CBC showing leukocytosis with WBC count of 12.1 and stable anemia with hemoglobin of 7.2. BMP revealing hyponatremia with sodium of 131, hypocarbia with bicarbonate 21, an improvement of renal function with BUN d ecreasing from 32 down to 26 and creatinine decreasing from 1.3 down to 1.07 this morning. Magnesium stable at 1.8. *A-Team called on patient this morning at 10:49 a.m for acute on chronic respiratory failure with hypoxia and persistent uncontrolled RVR with rates up to 200's. Patient went from baseline 3 L of oxygen requiring placement on nonrebreather 15 L and heart rate was noted to be in 170s to 200s. Cardiology also called the bedside and started patient on Cardizem infusion in addition to amiodarone infusion. Ventricular rate decreasing 120s to 140s and patient weaned back off of nonrebreather mask and is now on 6 L O2 via nasal cannula with SpO2 of 93%. CODE STATUS: Full code DVT prophylaxis: SCDs Anticipated discharge date: Clinical course to determine Anticipated discharge place: Clinical course to determine Patient was seen independently by Nurse Pracitioner. This document was prepared using [employer] dictation software. Please allow for errors in supervisor lump room, while rare they do occur. Miguel A Ziegler NP rendered care for this patient independently, reviewed the findings and plan as documented in the note above. I did not physically speak with or examine the patient on this date. Objective - Vital Signs Vital signs: Vital Signs Temp 98.2 F 05/28/23 03:54 Pulse 75 05/28/23 03:54 Resp 20 05/28/23 03:54 BP 121/76 05/28/23 03:54 Pulse Ox 98 05/28/23 03:54 FiO2 Intake & Output 05/27/23 05/28/23 05/28/23 18:59 06:59 18:59 Intake Total 120 283 Output Total 300 Balance 120 -17 Intake: Oral 120 Blood Product 283 Rc Pheresis As-3 Unit 283 [id number] Output: Urine 300 - Labs CBC & Chem 7: 05/31/23 05:43 05/31/23 05:43 Labs: Abnormal Lab Results - Last 24 Hours (Table) 05/27/23 05/27/23 05/27/23 Range/Units 07:23 07:23 07:23 RBC 2.63 L (4.30-5.90) m/uL Hgb 6.9 L* (13.0-17.5) gm/dL Hct 22.5 L (39.0-53.0) % MCHC 30.7 L (31.0-37.0) g/dL RDW 18.3 H (11.5-15.5) % Neutrophils # 8.0 H (1.3-7.7) k/uL Lymphocytes # 0.5 L (1.0-4.8) k/uL Sodium 134 L (137-145) mmol/L BUN 32 H (9-20) mg/dL Creatinine 1.30 H (0.66-1.25) mg/dL Calcium 8.0 L (8.4-10.2) mg/dL Troponin I 1.160 H* (0.000-0.034) ng/mL Crossmatch 05/27/23 Range/Units 09:48 RBC (4.30-5.90) m/uL Hgb (13.0-17.5) gm/dL Hct (39.0-53.0) % MCHC (31.0-37.0) g/dL RDW (11.5-15.5) % Neutrophils # (1.3-7.7) k/uL Lymphocytes # (1.0-4.8) k/uL Sodium (137-145) mmol/L BUN (9-20) mg/dL Creatinine (0.66-1.25) mg/dL Calcium (8.4-10.2) mg/dL Troponin I (0.000-0.034) ng/mL Crossmatch See Detail
[2023-05-28] MEDS: AMIODARONE 450 MG in DEXTROSE 5% IN WATER 250 ML IV SCH ×2 (15:33)
[2023-05-28] MEDS: DILTIAZEM 125 MG in SODIUM CHLORIDE 0.9% 100 ML IV SCH (16:09)
[2023-05-29] MEDS: traMADol 50 MG TAB PO PRN ×3 (01:11→19:54)
[2023-05-29] MEDS: DILTIAZEM 125 MG in SODIUM CHLORIDE 0.9% 100 ML IV SCH ×3 (04:13→15:01)
[2023-05-29] MEDS: AMIODARONE 450 MG in DEXTROSE 5% IN WATER 250 ML IV SCH ×2 (04:17)
[2023-05-29] MEDS: NICOTINE 21MG/24HR PATCH TRANSDERM SCH (08:00)
[2023-05-29] MEDS: ATORVASTATIN 40 MG TAB PO SCH (08:00)
[2023-05-29] MEDS: METOPROLOL TARTRATE 25 MG TAB PO SCH ×2 (08:00→19:55)
[2023-05-29] MEDS: TAMSULOSIN 0.4 MG CAP.ER.24H PO SCH (08:00)
[2023-05-29] MEDS: IPRATROPIUM-ALBUTEROL 3 ML NEB INHALATION SCH ×4 (09:01→21:39)
[2023-05-29 11:53] LABS: Anisocytosis Slight; HCT 23.6 % (39.0-53.0); HGB 7.2 gm/dL (13.0-17.5); Hypochromasia Marked; MCH 26.1 pg (25.0-35.0); MCHC 30.7 g/dL (31.0-37.0); MCV 85.2 fL (80.0-100.0); Mean Platelet Volume 8.3; Platelet Count 260 k/uL (150-450); Poikilocytosis Slight; RBC 2.77 m/uL (4.30-5.90); WBC 12.4 k/uL (3.8-10.6)
[2023-05-29] MEDS: AMIODARONE 200 MG TAB PO SCH ×2 (12:00→19:55)
--- NOTE | 2023-05-29 12:14 | P.PN ---
Subjective Progress Note Date: 05/29/23 No acute overnight events, flank pain resolved, no gross hematuria this morning Objective - Vital Signs Vital signs: Vital Signs Temp 97.9 F 05/29/23 08:00 Pulse 77 05/29/23 12:00 Resp 16 05/29/23 12:00 BP 111/66 05/29/23 12:00 Pulse Ox 93 L 05/29/23 12:00 FiO2 Intake & Output 05/28/23 05/29/23 05/29/23 18:59 06:59 18:59 Intake Total 250 752.226 240 Output Total 1025 420 Balance -775 332.226 240 Intake: Intake, IV Titration 250 212.226 Amount Amiodarone 450 mg In 250 212.226 Dextrose 5% in Water 250 ml @ 0.5 MG/MIN 16.667 mls/hr IV .Q15H [facility] Rx#: [id number] Oral 0 540 240 Output: Urine 1025 420 - Constitutional General appearance: Present: no acute distress - Gastrointestinal General gastrointestinal: Present: soft. Absent: distended, tenderness - Psychiatric Psychiatric: Present: A&O x's 3 - Labs CBC & Chem 7: 05/29/23 11:18 05/28/23 06:47 Labs: Abnormal Lab Results - Last 24 Hours (Table) 05/29/23 Range/Units 11:18 WBC 12.4 H (3.8-10.6) k/uL RBC 2.77 L (4.30-5.90) m/uL Hgb 7.2 L (13.0-17.5) gm/dL Hct 23.6 L (39.0-53.0) % MCHC 30.7 L (31.0-37.0) g/dL RDW 18.0 H (11.5-15.5) % Microbiology - Last 24 Hours (Table) 05/27/23 14:54 Urine Culture - Final Urine,Catheterized 05/27/23 09:48 Blood Culture - Preliminary Blood Assessment and Plan Assessment: 77-year-old male with history of muscle invasive bladder cancer, multiple comorbidities oxygen-dependent not a surgical candidate. Was recommended to undergo radiation therapy which he declined but he is agreeable in proceeding at this time. Tumor involved the right posterior bladder wall. Initially had a stent at time of TURBT in January and subsequently was removed approximately a week ago. At time of stent removal there was evidence of tumor recurrence within the bladder. He has refused to undergo any further surgical intervention for that. His hydronephrosis is most likely secondary to obstruction of the ureter secondary to bladder tumor. He developed urinary retention post-stent removal, and has failed two trial of voids. 1. Bladder Cancer -He has a follow-up set up with radiation oncology and He was advised to keep, -he is okay to continue aspirin from urology standpoint 2. Urinary retention -continue flomax -Repeat trial of void prior to discharge 3.Hydronephrosis -Secondary to obstruction from bladder tumor, his creatinine is at baseline, he is now asymptomatic. Gven the troponin elevation and dyspnea at this point we'll hold off any surgical intervention at this time. Given that he is minimally symptomatic from the hydronephrosis and his creatinine is at baseline
--- NOTE | 2023-05-29 12:17 | P.PN ---
Subjective Progress Note Date: 05/29/23 HISTORY OF PRESENT ILLNESS: This is a 77-year-old male with a past medical history significant for bladder cancer, coronary artery disease with previous stenting, hypertension, hyperlipidemia, and nicotine dependence. Patient used to follow in the office with Dr. Stewart but has not been seen since 2018. We have been asked to see the patient in consultation for atrial fibrillation and elevated troponin. Patient examined at the bedside. Patient states he has been dealing with urinary retention and has had a catheter on a few separate occasions since having surgery in February. He states that about a week ago his Mackay catheter was removed. He was unable to urinate yesterday which prompted him to come to the emergency room. The patient reports right-sided chest pain this morning that is worse with deep inspiration and chest wall palpation. He reports shortness of breath with exertion. He states last night his shortness of breath got worse. The patient was found to be in A. fib with RVR. He was started on IV heparin and IV Cardizem. He subsequently converted to sinus mechanism. His hemoglobin on admission was 8.3 with subsequent lab draws of 6.1 and 7.3. * EKG reveals atrial fibrillation with RVR. Right bundle branch block. * Chest xray: The lungs are hyperexpanded. No definite focal airspace consolidation. * Laboratory data: WBC 20.2. BUN 32. Creatinine 1.58. ProBNP 2380. Troponin 0.379. 1.200. TSH 1.180. * Current home cardiac medications include metoprolol tartrate 12.5 milligrams twice a day, losartanhydrochlorothiazide 50 mg12.5 mg daily, aspirin 81 mg daily, and Lipitor 40 mg daily * Most recent echocardiogram obtained in 2015 revealed ejection fraction 55% with concentric LVH * Cardiac catheterization history: April 2015 with PCI of totally occluded RC A performed at [facility] * Patient underwent Lexiscan stress test in March 2016 revealing ejection fraction 55%, small apical fixed defect, no reversible ischemia 05/27/2023 Patient examined this morning at the bedside. Patient denies chest pain or pressure. He currently denies shortness of breath. Patient's hemoglobin this morning is 6.9. He is to receive 1 unit RBC transfusion. Echo reveals EF 55-60% 05/28 Patient went into A. fib yesterday with RVR with heart rates in the 120s to 130s and was started on amiodarone drip. He was somewhat better controlled however over the last 2 hours has had increasing heart rates up to the 120s to 150s. Patient was seen with A team call for increasing respiratory distress, sitting up in bed on nonrebreather. He has not had any significant bleeding, hematochezia or melena. Hemoglobin stable at 7.2. He is off of any anticoagulation. Currently denies any chest pain or pressure however is significantly short of breath with increased work of breathing. He was given nitroglycerin with some improvement in his respiratory distress. Patient tachyc ardic with heart rates in the 150s to 160s with additional increase in blood pressure 170/90 however also in distress. Overnight blood pressures were more in the 100-120 range systolic. After patient became more comfortable blood pressures down to 130/80. Previous echo shows preserved EF and we will give Cardizem bolus and drip. 05/29 Yesterday heart rate went up to 200 and patient was very symptomatic and atrial fibrillation.Patient converted into sinus rhythm last evening, heart rate 78, b lood pressure 107/63, pulse ox 92% on 6 L nasal cannula. Patient has been afebrile since 05/28 at 1200. Influenza A, influenza B, RSV, Covid 19 not detected. Chest x-ray reveals left basilar airspace opacities superimposed on COPD. EKG obtained on 05/28 at 1430 is sinus rhythm right bundle branch block. Amiodarone drip running. He is status post 1 dose of IV Lasix yesterday. Troponin from yesterday was 1.16. PHYSICAL EXAM: VITAL SIGNS: Reviewed. GENERAL: Well-developed in acute repsiratory distress HEENT: Head is normocephalic. Pupils are equal, round. Sclerae anicteric. Mucous membranes of the mouth are moist. Neck supple. No JVD or thyromegaly LUNGS: Respirations even and unlabored. Lungs mild crackles at bases HEART: Irrgularly irregular rate and rhythm. S1 and S2 heard. ABDOMEN: Soft. Nondistended. Nontender. EXTREMITIES: Normal range of motion. No clubbing or cyanosis. Peripheral pulses intact. No lower extremity edema NEUROLOGIC: Awake and alert. Oriented x 3. ASSESSMENT: Acute on chronic diastolic heart failure New onset atrial fibrillation with RVR, currently back in Afib with RVR, paroxysmal Leukocytosis and fever secondary to urinary tract infection on ceftriaxone Non-STEMI Urinary retention Right-sided hydronephrosis Hematuria Acute anemia Acute kidney injury History of bladder cancer with previous stent placement in January Coronary artery disease with previous stenting COPD on home oxygen Hypertension Hyperlipidemia Nicotine dependence PLAN: Patient with multiple complex medical problems. Unfortunately went into A. fib with RVR, started on amiodarone drip, and subsequently converted to sinus rhythm. Not an ideal catheterization candidate with multiple issues including anemia. Continue with current regimen with medical therapy and monitor response. Discontinue amiodarone drip and start oral amiodarone 400 mg twice daily. Iron studies ordered for anemia. Nurse practitioner note has been reviewed, I agree with the documented findings and plan of care. Patient was seen and examined. Objective - Vital Signs Vital signs: Vital Signs Temp 97.9 F 05/29/23 08:00 Pulse 88 05/29/23 09:15 Resp 28 H 05/29/23 08:00 BP 107/63 05/29/23 08:00 Pulse Ox 92 L 05/29/23 08:00 FiO2 Intake & Output 05/28/23 05/29/23 05/29/23 18:59 06:59 18:59 Intake Total 250 752.226 240 Output Total 1025 420 Balance -775 332.226 240 Intake: Intake, IV Titration 250 212.226 Amount Amiodarone 450 mg In 250 212.226 Dextrose 5% in Water 250 ml @ 0.5 MG/MIN 16.667 mls/hr IV .Q15H [facility] Rx#: [id number] Oral 0 540 240 Output: Urine 1025 420 - Labs CBC & Chem 7: 05/29/23 11:18 05/28/23 06:47 Labs: Microbiology - Last 24 Hours (Table) 05/27/23 14:54 Urine Culture - Final Urine,Catheterized 05/27/23 09:48 Blood Culture - Preliminary Blood
[2023-05-29 12:27] LABS: ALT 23 U/L (4-49); AST 43 U/L (17-59); African American GFR (CKD) 67 (>60 ml/min/1.73 sqM); Albumin 2.5 g/dL (3.5-5.0); Alkaline Phosphatase 67 U/L (38-126); Anion Gap 6 mmol/L; Blood Urea Nitrogen 30 mg/dL (9-20); Calcium 8.3 mg/dL (8.4-10.2); Carbon Dioxide 24 mmol/L (22-30); Chloride 101 mmol/L (98-107); Glucose 112 mg/dL (74-99); Magnesium 1.9 mg/dL (1.6-2.3); Non-African American GFR(CKD) 58 (>60 ml/min/1.73 sqM); Sodium 131 mmol/L (137-145); Total Bilirubin 0.3 mg/dL (0.2-1.3); Total Protein 5.7 g/dL (6.3-8.2)
--- NOTE | 2023-05-29 12:52 | P.PN ---
Subjective Progress Note Date: 05/29/23 Hospital course: Patient is a very pleasant 77-year-old male with a past medical history of recurrent obstructive bladder cancer status post stenting, COPD on 4 L home oxygen with continued nicotine dependence, CAD with stenting, hypertension, and hyperlipidemia. He presented to the emergency department on 05/25/23 secondary to reports of lower abdominal pain/discomfort radiating into right groin accompanied by urinary retention. Upon arrival to the emergency department patient underwent full evaluation. He was found to be tachycardic with a heart rate of 140s. EKG was completed showing atrial fibrillation with RVR at 143 bpm. Labs completed and reviewed. CBC showing severe leukocytosis with WBC count of 20.2 and normocytic anemia with hemoglobin of 8.3. BMP revealing acute kidney injury with BUN of 32, creatinine 1.58, and GFR 42. Magnesium was low at 1.6. Troponin elevated at 0.379 and proBNP 2380. Urinalysis positive for infection showing protein, ketones, blood, bilirubin, leukocytes and greater than 182 RBCs and greater than 182 WBCs. Patient was started on low intensity heparin infusion for treatment of NSTEMI, Cardizem infusion for treatment of A. fib RVR, and Rocephin for treatment of UTI with sepsis. Patient admitted under services with consultation to cardiology and urology. Troponins were trended resulting in 0.379, 1.200, and 1.670. Cardiology recommending to hold off on anticoagulation at this time secondary to acute on chronic anemia. Echocardiogram completed showing preserved EF of 55-60% with no significant valvular or structural abnormalities. Patient currently remains with uncontrolled A. fib RVR rates ranging between 150s to 200s. Patient was maintained on amiodarone infusion and Cardizem infusion. Patient converted and Cardizem infusion was discontinued. Amiodarone infusion and continued throughout the night and this morning patient was transitioned to oral amiodarone 400 mg twice daily. Physical exam: Patient seen and fully evaluated at bedside this morning. Patient reports feeling much better than he did yesterday. He reports continued mild shortness of breath otherwise denies having any chest pain, palpitations, dizziness/lightheadedness, nausea, or experiencing any numbness/tingling/weakness/swelling in his extremities. Patient has remained afebrile since experienced isolated elevated temp of 101.1F yesterday afternoon. He is converted to normal sinus rhythm. Vital signs reviewed and stable. General: Nontoxic, no distress and appears stated age. Derm: Skin warm and dry, normal coloration for ethnicity. Head: Atraumatic, normocephalic and symmetric. Eyes: EOMs intact, no lid lag, and anicteric sclera Mouth: no lip lesions, mucus membranes moist Cardiovascular: Irregularly irregular, no murmur, positive posterior tibial pulses bilaterally, and cap refill < 2 seconds. Lungs: Respirations even, regular, and unlabored on supplemental oxygen. Lungs diminished with soft expiratory wheeze, otherwise no rhonchi, no rales, no crackles. No accessory muscle usage. Abdominal: soft, nontender to palpation, no guarding, no appreciable organomegaly. Mackay catheter in place Ext: ROM intact. No gross muscle atrophy, no edema, no contractures Neuro: Speech clear, face symmetrical and CN II-XII grossly intact with no noted focal neuro deficits Psych: Alert and oriented to person, place, time, and situation. Appropriate and pleasant affect. Assessment and Plan of Care: New onset Atrial fibrillation with RVR Acute on chronic respiratory failure with hypoxia, patient baseline 4 L O2 secondary to advanced COPD currently requiring 6 L O2 NSTEMI -AFib with RVR. Converted and currently maintaining normal sinus rhythm. Patient started on oral amiodarone 400 mg twice a day. Cardiology recommending to continue holding off anticoagulation secondary to acute on chronic anemia. -Acute on chronic respiratory distress, likely multifactorial secondary to COPD and current RVR with possible mild exacerbation of mild exacerbation of orona tolic heart failure. -Influenza A, influenza B, RSV, and Covid PCR negative. -Cardiology following, reviewed documentation in chart. -NSTEMI: with history of CAD status post stenting. Heparin drip was discontinued due to acute blood loss anemia resulting from hematuria. Cardiology evaluating recommending medical managment at this time as patient is not an ideal cardiac catheterization candidate secondary to multiple issues including current acute blood loss anemia. -Echocardiogram completed showing preserved EF of 55-60% with no significant valvular or structural abnormalities. -Patient to continue daily medication regimen with amiodarone 400 mg twice daily, atorvastatin 40 mg daily, and metoprolol 25 mg twice daily. Complicated UTI with Sepsis Urinary retention, secondary to recurrent obstructive bladder cancer Acute blood loss anemia secondary to hematuria, baseline hemoglobin between 8 and 9 Acute kidney injury, resolved Hematuria, resolved -Patient to continue IV antibiotics with Rocephin day 3 of 5 -Urology evaluated in agreement with an cannulation of Mackay catheter at this time and recommending repeating voiding trial prior to discharge -Urine culture pending. -Blood cultures pending. -Acute blood loss anemia secondary to hematuria and patient is status post 1 unit of PRBCs with current hemoglobin stable at 7.2. -Urinary retention with ANH due to bladder CA: Obstructive uropathy. Mackay catheter. Urology on board. -Acute kidney injury resolved (initial renal function showing BUN of 32, creatinine 1.58, and GFR 42). Renal function showing BUN of 26, creatinine 1.07, and GFR of 68. -Continue Flomax 0.4 mg daily. . Lipitor 40 mg PO QD. Metoprolol 25 mg PO BID. ASA when Hg stable. Cardiology on board. -Acute blood loss anemia: Due to hematuria. Status post 1 unit PRBCs. Hemoglobin stable at 7.2. -Urinary retention with ANH due to bladder CA: Obstructive uropathy. Mackay catheter. Urology on board. -Chronic respiratory failure due to COPD on 4L NC: Not in acute exacerbation. Supplemental O2 to maintain O2 sat > 92%. DuoNeb scheduled and PRN for SOB/wheezing. Data and imaging reviewed: -Vital signs completed and reviewed. Blood pressure 107/63, heart rate 103, respiratory rate 28, temperature 97.9F, and SpO2 of 92% on 6 L O2. -Morning labs reviewed. CBC showing leukocytosis with WBC count of 12.4 and stable anemia with hemoglobin of 7.2. -Chest x-ray repeated 05/28/23 and upon following up with results, appears similar with flattening of diaphragm and hyperinflation of lungs consistent with COPD and radiology report also stating left basilar airspace opacities superimposed on COPD. CODE STATUS: Full code DVT prophylaxis: SCDs Anticipated discharge date: Clinical course to determine Anticipated discharge place: Clinical course to determine Patient was seen independently by Nurse Pracitioner. This document was prepared using [employer] dictation software. Please allow for errors in road roller operator, while rare they do occur. Miguel A Ziegler NP rendered care for this patient independently, reviewed the findings and plan as documented in the note above. I did not physically speak with or examine the patient on this date. Objective - Vital Signs Vital signs: Vital Signs Temp 98.8 F 05/29/23 04:00 Pulse 88 05/29/23 04:00 Resp 20 05/29/23 04:00 BP 104/68 05/29/23 04:00 Pulse Ox 97 05/29/23 04:00 FiO2 Intake & Output 05/28/23 05/29/23 05/29/23 18:59 06:59 18:59 Intake Total 250 752.226 Output Total 1025 420 Balance -775 332.226 Intake: Intake, IV Titration 250 212.226 Amount Amiodarone 450 mg In 250 212.226 Dextrose 5% in Water 250 ml @ 0.5 MG/MIN 16.667 mls/hr IV .Q15H [facility] Rx#: [id number] Oral 0 540 Output: Urine 1025 420 - Labs CBC & Chem 7: 05/31/23 05:43 05/31/23 05:43 Labs: Abnormal Lab Results - Last 24 Hours (Table) 05/28/23 05/28/23 Range/Units 06:47 06:47 WBC 12.1 H (3.8-10.6) k/uL RBC 2.80 L (4.30-5.90) m/uL Hgb 7.2 L (13.0-17.5) gm/dL Hct 24.1 L (39.0-53.0) % MCHC 29.9 L (31.0-37.0) g/dL RDW 18.3 H (11.5-15.5) % Sodium 131 L (137-145) mmol/L Carbon Dioxide 21 L (22-30) mmol/L BUN 26 H (9-20) mg/dL Glucose 108 H (74-99) mg/dL Calcium 8.1 L (8.4-10.2) mg/dL Microbiology - Last 24 Hours (Table) 05/27/23 14:54 Urine Culture - Final Urine,Catheterized 05/27/23 09:48 Blood Culture - Preliminary Blood
[2023-05-29 16:08] LABS: % Iron Saturation 2.67 (15.00-50.00); Ferritin 53.1 ng/mL (22.0-322.0)
[2023-05-30 06:52] LABS: Anisocytosis Slight; HGB 7.4 gm/dL (13.0-17.5); Hypochromasia Marked; MCH 25.8 pg (25.0-35.0); MCHC 30.9 g/dL (31.0-37.0); MCV 83.6 fL (80.0-100.0); Mean Platelet Volume 7.5; Platelet Count 299 k/uL (150-450); Poikilocytosis Slight; RBC 2.87 m/uL (4.30-5.90); RDW 18.2 % (11.5-15.5); WBC 14.1 k/uL (3.8-10.6)
[2023-05-30 07:10] LABS: ALT 25 U/L (4-49); AST 39 U/L (17-59); African American GFR (CKD) 68 (>60 ml/min/1.73 sqM); Albumin 2.7 g/dL (3.5-5.0); Alkaline Phosphatase 77 U/L (38-126); Anion Gap 8 mmol/L; Blood Urea Nitrogen 28 mg/dL (9-20); Calcium 8.5 mg/dL (8.4-10.2); Carbon Dioxide 23 mmol/L (22-30); Chloride 102 mmol/L (98-107); Glucose 107 mg/dL (74-99); Magnesium 1.8 mg/dL (1.6-2.3); Non-African American GFR(CKD) 59 (>60 ml/min/1.73 sqM); Potassium 3.9 mmol/L (3.5-5.1); Sodium 133 mmol/L (137-145); Total Bilirubin 0.4 mg/dL (0.2-1.3); Total Protein 6.1 g/dL (6.3-8.2)
[2023-05-30] MEDS: IPRATROPIUM-ALBUTEROL 3 ML NEB INHALATION SCH ×4 (08:30→20:58)
[2023-05-30] MEDS ORDERED: METOPROLOL TARTRATE 25 MG TAB PO STA ×2 (09:02→11:23)
[2023-05-30] MEDS: AMIODARONE 200 MG TAB PO SCH ×2 (09:12→21:00)
[2023-05-30] MEDS: ATORVASTATIN 40 MG TAB PO SCH (09:12)
[2023-05-30] MEDS: TAMSULOSIN 0.4 MG CAP.ER.24H PO SCH (09:12)
[2023-05-30] MEDS: NICOTINE 21MG/24HR PATCH TRANSDERM SCH (09:12)
--- NOTE | 2023-05-30 10:50 | P.PN ---
Subjective Progress Note Date: 05/30/23 Principal diagnosis: Hematuria, bladder cancer The patient is comfortable this morning. He denies hematuria and flank pain. His Mackay catheter is draining clear yellow urine. Objective - Vital Signs Vital signs: Vital Signs Temp 98.7 F 05/30/23 04:00 Pulse 98 05/30/23 04:00 Resp 18 05/30/23 04:00 BP 120/68 05/30/23 04:00 Pulse Ox 91 L 05/30/23 04:00 FiO2 Intake & Output 05/29/23 05/30/23 05/30/23 18:59 06:59 18:59 Intake Total 816 Output Total 300 400 Balance 516 -400 Intake: Intake, IV Titration 100 Amount cefTRIAXone 1 gm In 100 Sodium Chloride 0.9% 50 ml @ 100 mls/hr IVPB Q24HR [facility] Rx#:[id number] Oral 716 Output: Urine 300 400 Other: # Bowel Movements 2 1 - Constitutional General appearance: Present: average body habitus, no acute distress - Psychiatric Psychiatric: Present: A&O x's 3 - Labs CBC & Chem 7: 05/30/23 06:10 05/30/23 06:10 Labs: Abnormal Lab Results - Last 24 Hours (Table) 05/29/23 05/29/23 05/29/23 Range/Units 11:18 11:18 11:18 WBC 12.4 H (3.8-10.6) k/uL RBC 2.77 L (4.30-5.90) m/uL Hgb 7.2 L (13.0-17.5) gm/dL Hct 23.6 L (39.0-53.0) % MCHC 30.7 L (31.0-37.0) g/dL RDW 18.0 H (11.5-15.5) % Sodium 131 L (137-145) mmol/L BUN 30 H (9-20) mg/dL Glucose 112 H (74-99) mg/dL Calcium 8.3 L (8.4-10.2) mg/dL Iron 6 L (65-175) UG/DL TIBC 225 L (228-460) UG/DL % Saturation 2.67 L (15.00-50.00) Transferrin 161.0 L (204.0-354.0) mg/dL Total Protein 5.7 L (6.3-8.2) g/dL Albumin 2.5 L (3.5-5.0) g/dL 05/30/23 05/30/23 Range/Units 06:10 06:10 WBC 14.1 H (3.8-10.6) k/uL RBC 2.87 L (4.30-5.90) m/uL Hgb 7.4 L (13.0-17.5) gm/dL Hct 24.0 L (39.0-53.0) % MCHC 30.9 L (31.0-37.0) g/dL RDW 18.2 H (11.5-15.5) % Sodium 133 L (137-145) mmol/L BUN 28 H (9-20) mg/dL Glucose 107 H (74-99) mg/dL Calcium (8.4-10.2) mg/dL Iron (65-175) UG/DL TIBC (228-460) UG/DL % Saturation (15.00-50.00) Transferrin (204.0-354.0) mg/dL Total Protein 6.1 L (6.3-8.2) g/dL Albumin 2.7 L (3.5-5.0) g/dL Microbiology - Last 24 Hours (Table) 05/27/23 09:48 Blood Culture - Preliminary Blood Assessment and Plan (1) Malignant neoplasm of bladder, unspecified Current Visit: Yes Status: Acute Code(s): C67.9 - MALIGNANT NEOPLASM OF BLADDER, UNSPECIFIED SNOMED Code(s): 357269165 (2) Hematuria Current Visit: No Status: Acute Code(s): R31.9 - HEMATURIA, UNSPECIFIED SNOMED Code(s): 48816120 (3) Urinary retention Current Visit: No Status: Acute Code(s): R33.9 - RETENTION OF URINE, UNSPECIFIED SNOMED Code(s): 188347079 Plan: - Continue tamsulosin - Remove Mackay catheter prior to discharge for voiding trial - Patient to follow-up with Radiation Oncology upon discharge
--- NOTE | 2023-05-30 11:29 | P.PN ---
Subjective Progress Note Date: 05/30/23 HISTORY OF PRESENT ILLNESS: This is a 77-year-old male with a past medical history significant for bladder cancer, coronary artery disease with previous stenting, hypertension, hyperlipidemia, and nicotine dependence. Patient used to follow in the office with Dr. Stewart but has not been seen since 2018. We have been asked to see the patient in consultation for atrial fibrillation and elevated troponin. Patient examined at the bedside. Patient states he has been dealing with urinary retention and has had a catheter on a few separate occasions since having surgery in February. He states that about a week ago his Mackay catheter was removed. He was unable to urinate yesterday which prompted him to come to the emergency room. The patient reports right-sided chest pain this morning that is worse with deep inspiration and chest wall palpation. He reports shortness of breath with exertion. He states last night his shortness of breath got worse. The patient was found to be in A. fib with RVR. He was started on IV heparin and IV Cardizem. He subsequently converted to sinus mechanism. His hemoglobin on admission was 8.3 with subsequent lab draws of 6.1 and 7.3. * EKG reveals atrial fibrillation with RVR. Right bundle branch block. * Chest xray: The lungs are hyperexpanded. No definite focal airspace consolidation. * Laboratory data: WBC 20.2. BUN 32. Creatinine 1.58. ProBNP 2380. Troponin 0.379. 1.200. TSH 1.180. * Current home cardiac medications include metoprolol tartrate 12.5 milligrams twice a day, losartanhydrochlorothiazide 50 mg12.5 mg daily, aspirin 81 mg daily, and Lipitor 40 mg daily * Most recent echocardiogram obtained in 2015 revealed ejection fraction 55% with concentric LVH * Cardiac catheterization history: April 2015 with PCI of totally occluded RC A performed at [facility] * Patient underwent Lexiscan stress test in March 2016 revealing ejection fraction 55%, small apical fixed defect, no reversible ischemia 05/27/2023 Patient examined this morning at the bedside. Patient denies chest pain or pressure. He currently denies shortness of breath. Patient's hemoglobin this morning is 6.9. He is to receive 1 unit RBC transfusion. Echo reveals EF 55-60% 05/28 Patient went into A. fib yesterday with RVR with heart rates in the 120s to 130s and was started on amiodarone drip. He was somewhat better controlled however over the last 2 hours has had increasing heart rates up to the 120s to 150s. Patient was seen with A team call for increasing respiratory distress, sitting up in bed on nonrebreather. He has not had any significant bleeding, hematochezia or melena. Hemoglobin stable at 7.2. He is off of any anticoagulation. Currently denies any chest pain or pressure however is significantly short of breath with increased work of breathing. He was given nitroglycerin with some improvement in his respiratory distress. Patient tachyc ardic with heart rates in the 150s to 160s with additional increase in blood pressure 170/90 however also in distress. Overnight blood pressures were more in the 100-120 range systolic. After patient became more comfortable blood pressures down to 130/80. Previous echo shows preserved EF and we will give Cardizem bolus and drip. 05/29 Yesterday heart rate went up to 200 and patient was very symptomatic and atrial fibrillation.Patient converted into sinus rhythm last evening, heart rate 78, b lood pressure 107/63, pulse ox 92% on 6 L nasal cannula. Patient has been afebrile since 05/28 at 1200. Influenza A, influenza B, RSV, Covid 19 not detected. Chest x-ray reveals left basilar airspace opacities superimposed on COPD. EKG obtained on 05/28 at 1430 is sinus rhythm right bundle branch block. Amiodarone drip running. He is status post 1 dose of IV Lasix yesterday. Troponin from yesterday was 1.16. 05/30 The patient is complaining of increasing shortness of breath today. Heart rate 106, telemetry sinus rhythm, blood pressure 138/78, pulse ox 89% on 3 l nasal cannula increased to 5 L. Repeat blood work reveals WBC 14.1, hemoglobin 7.4. Sodium 133, potassium 3.9, BUN 28 creatinine 1.2. No accurate I&O, weights. Patient had Mackay catheter removed this morning. PHYSICAL EXAM: VITAL SIGNS: Reviewed. HEENT: Head is normocephalic. Pupils are equal, round. Sclerae anicteric. LUNGS: Respirations even and unlabored. Lungs mild crackles at bases HEART: Irrgularly irregular rate and rhythm. S1 and S2 heard. EXTREMITIES: No clubbing or cyanosis. Peripheral pulses intact. No lower extremity edema NEUROLOGIC: Awake and alert. Oriented x 3. ASSESSMENT: Acute on chronic diastolic heart failure New onset atrial fibrillation with RVR, paroxysmal Leukocytosis and fever secondary to urinary tract infection on ceftriaxone Non-STEMI Urinary retention Right-sided hydronephrosis Hematuria Acute anemia Acute kidney injury History of bladder cancer with previous stent placement in January Coronary artery disease with previous stenting COPD on home oxygen Hypertension Hyperlipidemia Nicotine dependence PLAN: Patient with multiple complex medical problems. Unfortunately went into A. fib with RVR, started on amiodarone drip, and subsequently converted to sinus rhyt hm. Not an ideal catheterization candidate with multiple issues including anemia. Continue with current regimen with medical therapy and monitor response. Continue patient on oral amiodarone 400 mg twice daily. Increase Lopressor to 50 mg twice daily Order pro-calcitonin Patient is not a good candidate for anticoagulation due to bladder cancer and anemia. Add consult for pulmonary medicine for COPD and pneumonia At the time of discharge, patient will follow with Dr. Leroy in 1-2 weeks in the office. Nurse practitioner note has been reviewed, I agree with the documented findings and plan of care. Patient was seen and examined. Objective - Vital Signs Vital signs: Vital Signs Temp 98.7 F 05/30/23 04:00 Pulse 98 05/30/23 04:00 Resp 18 05/30/23 04:00 BP 120/68 05/30/23 04:00 Pulse Ox 91 L 05/30/23 04:00 FiO2 Intake & Output 05/29/23 05/30/23 05/30/23 18:59 06:59 18:59 Intake Total 816 358 Output Total 300 400 175 Balance 516 -400 183 Intake: Intake, IV Titration 100 Amount cefTRIAXone 1 gm In 100 Sodium Chloride 0.9% 50 ml @ 100 mls/hr IVPB Q24HR [facility] Rx#:[id number] Oral 716 358 Output: Urine 300 400 175 Other: # Bowel Movements 2 1 1 - Labs CBC & Chem 7: 05/30/23 06:10 05/30/23 06:10 Labs: Abnormal Lab Results - Last 24 Hours (Table) 05/29/23 05/29/23 05/29/23 Range/Units 11:18 11:18 11:18 WBC 12.4 H (3.8-10.6) k/uL RBC 2.77 L (4.30-5.90) m/uL Hgb 7.2 L (13.0-17.5) gm/dL Hct 23.6 L (39.0-53.0) % MCHC 30.7 L (31.0-37.0) g/dL RDW 18.0 H (11.5-15.5) % Sodium 131 L (137-145) mmol/L BUN 30 H (9-20) mg/dL Glucose 112 H (74-99) mg/dL Calcium 8.3 L (8.4-10.2) mg/dL Iron 6 L (65-175) UG/DL TIBC 225 L (228-460) UG/DL % Saturation 2.67 L (15.00-50.00) Transferrin 161.0 L (204.0-354.0) mg/dL Total Protein 5.7 L (6.3-8.2) g/dL Albumin 2.5 L (3.5-5.0) g/dL 05/30/23 05/30/23 Range/Units 06:10 06:10 WBC 14.1 H (3.8-10.6) k/uL RBC 2.87 L (4.30-5.90) m/uL Hgb 7.4 L (13.0-17.5) gm/dL Hct 24.0 L (39.0-53.0) % MCHC 30.9 L (31.0-37.0) g/dL RDW 18.2 H (11.5-15.5) % Sodium 133 L (137-145) mmol/L BUN 28 H (9-20) mg/dL Glucose 107 H (74-99) mg/dL Calcium (8.4-10.2) mg/dL Iron (65-175) UG/DL TIBC (228-460) UG/DL % Saturation (15.00-50.00) Transferrin (204.0-354.0) mg/dL Total Protein 6.1 L (6.3-8.2) g/dL Albumin 2.7 L (3.5-5.0) g/dL Microbiology - Last 24 Hours (Table) 05/27/23 09:48 Blood Culture - Preliminary Blood
--- NOTE | 2023-05-30 12:54 | P.CNPUL ---
History of Present Illness Consult date: 05/30/23 Requesting physician: Sam Stewart Reason for consult: dyspnea, cough, COPD, hypoxemia, other Chief complaint: Shortness of breath. History of present illness: Pulmonary consult dated 05/30/2023. 77-year-old male who presented to the emergency department, on 05/25/2023. He apparently presented with complaints of shortness of breath, and difficulty urinating. The patient apparently was having issues throughout the day, and was seen in the emergency department, where he was found to have atrial fibrillation with RVR. The patient was admitted for that reason. While I was rounding christicharlotte dolan, the water treatment operator mentioned that they put in a consult for us on this patient, because he sees my partner in the office for COPD. The patient is chronically hypoxemic, and is use home O2 at 4 L/m. Currently, he's on 5 L. He's not receiving any IV fluids. His primary care physician is Dr. Miranda. The patient is a no code with instructions. He sitting up in the chair next to his bed. Most recent labs show white count 14.1, hemoglobin 7.4, hematocrit 24, and a platelet count 299,000. Sodium 133, potassium 3.9, chlorides 102, CO2 23, BUN 28, and creatinine 1.20. Albumin is 2.7. His chest x-ray shows some left basilar airspace disease or atelectasis. The patient tested negative for influenza A, and influenza B, RSV, and coronavirus. Review of Systems REVIEW OF SYSTEMS: CONSTITUTIONAL: [Negative.] NEUROLOGIC: [ Negative.] HEENT: [ Negative.] CARDIAC: Shortness of breath, atrial fibrillation. PULMONARY: Shortness of breath. GI: [Negative.] : [Negative.] RHEUMATOLOGIC: [ Negative.] IMMUNOLOGIC: [ Negative.] ENDOCRINE: [Negative. ] DERMATOLOGIC: [Negative.] Past Medical History Past Medical History: COPD, Hyperlipidemia, Hypertension Additional Past Medical History / Comment(s): scoliosis, bloody urine ,admissinion for urine retention, mass in bladder, at time of assessment pt has archer catheter in place for urinary retention History of Any Multi-Drug Resistant Organisms: None Reported Past Surgical History: Appendectomy, Heart Catheterization With Stent Additional Past Surgical History / Comment(s): eye surgeryx5, Past Anesthesia/Blood Transfusion Reactions: Blood Transfusion Reaction Additional Past Anesthesia/Blood Transfusion Reaction / Comment(s): pt states he does not remeber what the raction was, only that they had to take a lot of samples. Date of Last Stent Placement:: ann Smoking Status: Current every day smoker Medications and Allergies Home Medications Medication Instructions Recorded Confirmed Type Losartan-Hctz 50-12.5 mg [Hyzaar 1 tab PO DAILY 03/23/14 05/26/23 History 50-12.5] Atorvastatin [Lipitor] 40 mg PO DAILY #30 tab 03/12/15 05/26/23 Rx Metoprolol Tartrate [Lopressor] 12.5 mg PO BID #60 tab 03/12/15 05/26/23 Rx Albuterol Sulfate [Ventolin HFA] 2 puff INHALATION RT-Q4H PRN 01/19/23 05/26/23 History Aspirin EC [Ecotrin Low Dose] 81 mg PO DAILY 01/19/23 05/26/23 History Cholecalciferol [Vitamin D3 (25 25 mcg PO DAILY 01/19/23 05/26/23 History Mcg = 1000 Iu)] Cyanocobalamin (Vitamin B-12) 2,500 mcg PO DAILY 01/19/23 05/26/23 History [Vitamin B-12] Ipratropium-Albuterol Nebulize 3 ml INHALATION RT-QID 01/19/23 05/26/23 History [Duoneb 0.5 mg-3 mg/3 ml Soln] Multivit-Min/FA/Lycopen/Lutein 1 tab PO DAILY 01/19/23 05/26/23 History [Centrum Silver Tablet] traMADol HCl [Ultram] 50 mg PO Q6HR PRN 01/19/23 05/26/23 History Fluticasone/Umeclidin/Vilanter 1 puff INHALATION RT-DAILY 05/26/23 05/26/23 History [Trelegy Ellipta 100-62.5-25] Nicotine 21Mg/24Hr Patch [Habitrol] 1 patch TRANSDERM DAILY PRN 05/26/23 05/26/23 History Allergies Allergy/AdvReac Type Severity Reaction Status Date / Time sulfamethoxazole Allergy Rash/Hives Verified 05/26/23 07:34 [From Bactrim] trimethoprim [From Bactrim] Allergy Rash/Hives Verified 05/26/23 07:34 Physical Exam Osteopathic Statement: *. No significant issues noted on an osteopathic structural exam other than those noted in the History and Physical/Consult. Vitals: Vital Signs Temp Pulse Pulse Pulse Resp BP Pulse Ox 05/30/23 09:49 93 L 05/30/23 08:00 98.9 F 106 H 22 138/78 89 L 05/30/23 04:00 98.7 F 98 18 120/68 91 L 05/30/23 02:00 90 87 18 05/30/23 00:00 98.4 F 90 18 118/69 90 L 05/29/23 21:54 75 05/29/23 21:41 72 05/29/23 20:00 98.6 F 94 87 18 132/64 92 L 05/29/23 16:24 74 05/29/23 16:09 76 05/29/23 16:00 98.3 F 87 18 122/76 94 L 05/29/23 12:58 82 Intake and Output 05/29/23 05/30/23 05/30/23 22:59 06:59 14:59 Intake Total 118 358 Output Total 300 400 175 Balance -182 -400 183 Intake: Oral 118 358 Output: Urine 300 400 175 Other: # Bowel Movements 2 1 1 No acute distress, oriented 3. 5 L saturation is 93%. HEENT examination is grossly unremarkable. Mucous membranes are moist. No oral lesions. Neck supple. Full range of motion. No adenopathy thyromegaly or neck vein distention. Cardiovascular examination reveals regular rhythm rate. S1-S2 normal. No S3 or S4. No discernible murmur noted. Heart rate is 90 bpm. Lungs reveal mostly clear breath sounds. Minimal rhonchi. No wheezes or crackles. Saturations are 93% on 5 L. The patient uses oxygen at home, between 4 and 5 L. Abdomen soft bowel sounds are heard. No masses or tenderness. Extremities are intact. No cyanosis clubbing or edema. Skin is without rash or lesion. Neurologic examination is brief but nonfocal. Results - Laboratory Findings CBC and BMP: 05/30/23 06:10 05/30/23 06:10 PT/INR, D-dimer PT 10.7 sec (10.0-12.5) 05/27/23 07:23 INR 1.0 (<1.2) 05/27/23 07:23 Abnormal lab findings: Abnormal Labs 05/25/23 05/25/23 05/25/23 00:37 23:25 23:25 WBC 20.2 H RBC 3.15 L Hgb 8.3 L Hct 26.7 L MCHC RDW 18.4 H Neutrophils # 19.0 H Lymphocytes # 0.5 L APTT Sodium 136 L Potassium Chloride Carbon Dioxide 20 L BUN 32 H Creatinine 1.58 H Glucose 133 H Calcium Iron TIBC % Saturation Transferrin Troponin I Total Protein Albumin 3.4 L Urine Protein 3+ H Urine Ketones 3+ H Urine Blood Large H Urine Bilirubin 1+ H Ur Leukocyte Esterase Moderate H Urine RBC >182 H Urine WBC >182 H Urine Mucus Few H Crossmatch 05/25/23 05/26/23 05/26/23 23:25 02:39 07:58 WBC RBC Hgb Hct MCHC RDW Neutrophils # Lymphocytes # APTT 32.8 H Sodium Potassium Chloride Carbon Dioxide BUN Creatinine Glucose Calcium Iron TIBC % Saturation Transferrin Troponin I 0.379 H* 1.200 H* Total Protein Albumin Urine Protein Urine Ketones Urine Blood Urine Bilirubin Ur Leukocyte Esterase Urine RBC Urine WBC Urine Mucus Crossmatch 05/26/23 05/26/23 05/26/23 07:58 07:58 09:06 WBC 14.1 H RBC 2.32 L Hgb 6.1 L* D Hct 20.6 L MCHC 29.9 L RDW 18.5 H Neutrophils # 12.9 H Lymphocytes # 0.5 L APTT Sodium 126 L Potassium 2.6 L* Chloride Carbon Dioxide 14 L BUN Creatinine Glucose 416 H Calcium 5.0 L* Iron TIBC % Saturation Transferrin Troponin I 1.670 H* Total Protein Albumin Urine Protein Urine Ketones Urine Blood Urine Bilirubin Ur Leukocyte Esterase Urine RBC Urine WBC Urine Mucus Crossmatch 05/26/23 05/26/23 05/26/23 09:06 10:30 19:04 WBC 14.4 H 12.8 H RBC 2.75 L 2.84 L Hgb 7.3 L 7.5 L Hct 24.4 L 24.4 L MCHC 30.0 L 30.8 L RDW 18.4 H 18.6 H Neutrophils # 13.4 H Lymphocytes # 0.4 L APTT Sodium 135 L Potassium Chloride 109 H Carbon Dioxide 18 L BUN 26 H Creatinine Glucose 120 H Calcium 6.6 L Iron TIBC % Saturation Transferrin Troponin I Total Protein Albumin Urine Protein Urine Ketones Urine Blood Urine Bilirubin Ur Leukocyte Esterase Urine RBC Urine WBC Urine Mucus Crossmatch 05/27/23 05/27/23 05/27/23 07:23 07:23 07:23 WBC RBC 2.63 L Hgb 6.9 L* Hct 22.5 L MCHC 30.7 L RDW 18.3 H Neutrophils # 8.0 H Lymphocytes # 0.5 L APTT Sodium 134 L Potassium Chloride Carbon Dioxide BUN 32 H Creatinine 1.30 H Glucose Calcium 8.0 L Iron TIBC % Saturation Transferrin Troponin I 1.160 H* Total Protein Albumin Urine Protein Urine Ketones Urine Blood Urine Bilirubin Ur Leukocyte Esterase Urine RBC Urine WBC Urine Mucus Crossmatch 05/27/23 05/28/23 05/28/23 09:48 06:47 06:47 WBC 12.1 H RBC 2.80 L Hgb 7.2 L Hct 24.1 L MCHC 29.9 L RDW 18.3 H Neutrophils # Lymphocytes # APTT Sodium 131 L Potassium Chloride Carbon Dioxide 21 L BUN 26 H Creatinine Glucose 108 H Calcium 8.1 L Iron TIBC % Saturation Transferrin Troponin I Total Protein Albumin Urine Protein Urine Ketones Urine Blood Urine Bilirubin Ur Leukocyte Esterase Urine RBC Urine WBC Urine Mucus Crossmatch See Detail 05/29/23 05/29/23 05/29/23 11:18 11:18 11:18 WBC 12.4 H RBC 2.77 L Hgb 7.2 L Hct 23.6 L MCHC 30.7 L RDW 18.0 H Neutrophils # Lymphocytes # APTT Sodium 131 L Potassium Chloride Carbon Dioxide BUN 30 H Creatinine Glucose 112 H Calcium 8.3 L Iron 6 L TIBC 225 L % Saturation 2.67 L Transferrin 161.0 L Troponin I Total Protein 5.7 L Albumin 2.5 L Urine Protein Urine Ketones Urine Blood Urine Bilirubin Ur Leukocyte Esterase Urine RBC Urine WBC Urine Mucus Crossmatch 05/30/23 05/30/23 06:10 06:10 WBC 14.1 H RBC 2.87 L Hgb 7.4 L Hct 24.0 L MCHC 30.9 L RDW 18.2 H Neutrophils # Lymphocytes # APTT Sodium 133 L Potassium Chloride Carbon Dioxide BUN 28 H Creatinine Glucose 107 H Calcium Iron TIBC % Saturation Transferrin Troponin I Total Protein 6.1 L Albumin 2.7 L Urine Protein Urine Ketones Urine Blood Urine Bilirubin Ur Leukocyte Esterase Urine RBC Urine WBC Urine Mucus Crossmatch - Diagnostic Findings Chest x-ray: image reviewed Assessment and Plan Assessment: Shortness of breath, secondary to atrial fibrillation with rapid ventricular response. History of severe oxygen-dependent COPD. Chronic hypoxemic respiratory failure. History of hypertension. History of hyperlipidemia. Previous heart catheterization with stent placement. Prior history of heavy tobacco use. Multiple other medical problems and comorbidities. Plan: Plan dated 05/30/2023. Currently, patient is on appropriate medications, including updrafts. We did tell the patient, that he could have his home Trelegy inhaler, brought in, that he continues 1 puff once daily. Additional recommendations and suggestions are forthcoming. The patient is currently being followed by cardiology for his atrial fibrillation. Currently, the patient's on amiodarone 400 mg twice a day, and also beta magdalena, prescribed by cardiology for his atrial fibrillation. The patient's also receiving a nicotine patch. We will continue to follow, and make recommendations. Prognosis is guarded. We will continue to follow the patient, and make recommendations along the way. Prognosis is guarded. Time with Patient: Greater than 30
[2023-05-30] MEDS: METOPROLOL TARTRATE 25 MG TAB PO SCH (13:38)
--- NOTE | 2023-05-30 14:08 | P.PN ---
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 He presented to the emergency department on 05/25/23 secondary to reports of lower abdominal pain/discomfort radiating into right groin accompanied by urinary retention. Upon arrival to the emergency department patient underwent full evaluation. He was found to be tachycardic with a heart rate of 140s. EKG was completed showing atrial fibrillation with RVR at 143 bpm. Labs completed and reviewed. CBC showing severe leukocytosis with WBC count of 20.2 and normocytic anemia with hemoglobin of 8.3. BMP revealing acute kidney injury with BUN of 32, creatinine 1.58, and GFR 42. Magnesium was low at 1.6. Troponin elevated at 0.379 and proBNP 2380. Urinalysis positive for infection showing protein, ketones, blood, bilirubin, leukocytes and greater than 182 RBCs and greater than 182 WBCs. Patient was started on low intensity heparin infusion for treatment of NSTEMI, Cardizem infusion for treatment of A. fib RVR, and Rocephin for treatment of UTI with sepsis. Patient admitted under services with consultation to cardiology and urology. Troponins were trended resulting in 0.379, 1.200, and 1.670. Cardiology recommending to hold off on anticoagulation at this time secondary to acute on chronic anemia. Echocardiogram completed showing preserved EF of 55-60% with no significant valvular or structural abnormalities. Patient currently remains with uncontrolled A. fib RVR rates ranging between 150s to 200s. Patient was maintained on amiodarone infusion and Cardizem infusion. Patient converted and Cardizem infusion was discontinued. Amiodarone infusion continued throughout the night and on 05/29/23 patient was transitioned to oral amiodarone 400 mg twice daily. He continues to maintain sinus mechanism. Patient also remains on 6 L O2 via nasal cannula with baseline O2 4 L. Physical exam: Patient seen and fully evaluated at bedside this morning. Patient sitting up in a chair and reports feeling much better this morning. He reports continued shortness of breath worsening with exertion but otherwise denies any chest pain, palpitations, dizziness, lightheadedness, or experiencing any focal numbness/tingling/weakness/swelling. We will attempt to titrate down oxygen, patient otherwise appears to be doing well. Anticipate discharge home with homecare including COPD Navigator program and palliative care likely within the next 48 hours. Vital signs reviewed and stable. General: Nontoxic, no distress and appears stated age. Derm: Skin warm and dry, normal coloration for ethnicity. Head: Atraumatic, normocephalic and symmetric. Eyes: EOMs intact, no lid lag, and anicteric sclera Mouth: no lip lesions, mucus membranes moist Cardiovascular: Irregularly irregular, no murmur, positive posterior tibial pulses bilaterally, and cap refill < 2 seconds. Lungs: Respirations even, regular, and unlabored on supplemental oxygen. Lungs diminished with soft expiratory wheeze, otherwise no rhonchi, no rales, no crac kles. No accessory muscle usage. Abdominal: soft, nontender to palpation, no guarding, no appreciable organomegaly. Mackay catheter in place Ext: ROM intact. No gross muscle atrophy, no edema, no contractures Neuro: Speech clear, face symmetrical and CN II-XII grossly intact with no noted focal neuro deficits Psych: Alert and oriented to person, place, time, and situation. Appropriate and pleasant affect. Assessment and Plan of Care: New onset Atrial fibrillation with RVR Acute on chronic respiratory failure with hypoxia, patient baseline 4 L O2 secondary to advanced COPD currently requiring 6 L O2 NSTEMI -AFib with RVR. Converted and currently maintaining normal sinus rhythm. Patient started on oral amiodarone 400 mg twice a day. Cardiology recommending to continue holding off anticoagulation secondary to acute on chronic anemia. -Acute on chronic respiratory distress, likely multifactorial secondary to COPD and current RVR with possible mild exacerbation of mild exacerbation of diastolic heart failure. Baseline oxygen 4 L at all times currently requiring 6 L. -Influenza A, influenza B, RSV, and Covid PCR negative. -Cardiology following, reviewed documentation in chart. -NSTEMI: with history of CAD status post stenting. Heparin drip was discontinued due to acute blood loss anemia resulting from hematuria. Cardiology evaluated and recommending medical managment at this time stating patient is not an ideal cardiac catheterization candidate secondary to multiple issues including current acute blood loss anemia. -Echocardiogram completed showing preserved EF of 55-60% with no significant valvular or structural abnormalities. -Patient to continue daily medication regimen with amiodarone 400 mg twice daily, atorvastatin 40 mg daily, and metoprolol 25 mg twice daily. UTI with Sepsis Urinary retention, secondary to recurrent obstructive bladder cancer Acute blood loss anemia secondary to hematuria, baseline hemoglobin between 8 and 9 Acute kidney injury, resolved Hematuria, resolved -Patient completed 5 day course of IV antibiotics with Rocephin and on 05/30/23. -Urinary retention with ANH due to bladder CA: Obstructive uropathy. Mackay catheter was placed. Urology following. -Urology evaluated and recommending removing Mackay catheter and repeating voiding trial prior to discharge -Urine culture negative -Blood cultures showing no growth to date -Acute blood loss anemia secondary to hematuria and patient is status post 1 unit of PRBCs with current hemoglobin stable at 7.4. -Urinary retention with ANH due to bladder CA: Obstructive uropathy. Mackay catheter. Urology on board. -Acute kidney injury resolved. Renal function stable with BUN of 28, creatinine 1.20, and GFR 59 -Continue Flomax 0.4 mg daily. Data and imaging reviewed: -Vital signs completed and reviewed. Patient remains on 6 L O2 with SpO2 of 91%, blood pressure 120/68, heart rate 98, respiratory rate 18, and temp 98.7F. -Morning labs reviewed. CBC showing leukocytosis with WBC count of 14.1 and persistent normocytic anemia with hemoglobin of 7.4. BMP revealing hyponatremia with sodium of 133 and elevated BUN of 20 with blood glucose of 107. Magnesium normal findings at 1.8. Liver profile unremarkable. CODE STATUS: Full code DVT prophylaxis: SCDs Anticipated discharge date: Likely within the next [address]: Home with home care and palliative care Patient was seen independently by Nurse Pracitioner. This document was prepared using [employer] dictation software. Please allow for errors in finishing room operator, while rare they do occur. Miguel A Ziegler NP rendered care for this patient independently, reviewed the findings and plan as documented in the note above. I did not physically speak with or examine the patient on this date. Objective - Vital Signs Vital signs: Vital Signs Temp 98.7 F 05/30/23 04:00 Pulse 98 05/30/23 04:00 Resp 18 05/30/23 04:00 BP 120/68 05/30/23 04:00 Pulse Ox 91 L 05/30/23 04:00 FiO2 Intake & Output 05/29/23 05/30/23 05/30/23 18:59 06:59 18:59 Intake Total 816 Output Total 300 400 Balance 516 -400 Intake: Intake, IV Titration 100 Amount cefTRIAXone 1 gm In 100 Sodium Chloride 0.9% 50 ml @ 100 mls/hr IVPB Q24HR VISH Rx#:[id number] Oral 716 Output: Urine 300 400 Other: # Bowel Movements 2 1 - Labs CBC & Chem 7: 05/31/23 05:43 05/31/23 05:43 Labs: Abnormal Lab Results - Last 24 Hours (Table) 05/29/23 05/29/23 05/29/23 Range/Units 11:18 11:18 11:18 WBC 12.4 H (3.8-10.6) k/uL RBC 2.77 L (4.30-5.90) m/uL Hgb 7.2 L (13.0-17.5) gm/dL Hct 23.6 L (39.0-53.0) % MCHC 30.7 L (31.0-37.0) g/dL RDW 18.0 H (11.5-15.5) % Sodium 131 L (137-145) mmol/L BUN 30 H (9-20) mg/dL Glucose 112 H (74-99) mg/dL Calcium 8.3 L (8.4-10.2) mg/dL Iron 6 L (65-175) UG/DL TIBC 225 L (228-460) UG/DL % Saturation 2.67 L (15.00-50.00) Transferrin 161.0 L (204.0-354.0) mg/dL Total Protein 5.7 L (6.3-8.2) g/dL Albumin 2.5 L (3.5-5.0) g/dL 05/30/23 05/30/23 Range/Units 06:10 06:10 WBC 14.1 H (3.8-10.6) k/uL RBC 2.87 L (4.30-5.90) m/uL Hgb 7.4 L (13.0-17.5) gm/dL Hct 24.0 L (39.0-53.0) % MCHC 30.9 L (31.0-37.0) g/dL RDW 18.2 H (11.5-15.5) % Sodium 133 L (137-145) mmol/L BUN 28 H (9-20) mg/dL Glucose 107 H (74-99) mg/dL Calcium (8.4-10.2) mg/dL Iron (65-175) UG/DL TIBC (228-460) UG/DL % Saturation (15.00-50.00) Transferrin (204.0-354.0) mg/dL Total Protein 6.1 L (6.3-8.2) g/dL Albumin 2.7 L (3.5-5.0) g/dL Microbiology - Last 24 Hours (Table) 05/27/23 09:48 Blood Culture - Preliminary Blood
[2023-05-30] MEDS: DILTIAZEM 125 MG in SODIUM CHLORIDE 0.9% 100 ML IV SCH (14:49)
[2023-05-30 18:24] LABS: Glucose,Whole Blood 138 mg/dL (70-110)
[2023-05-30 18:59] LABS: Anisocytosis Slight; HCT 25.4 % (39.0-53.0); HGB 7.8 gm/dL (13.0-17.5); Hypochromasia Marked; MCHC 30.7 g/dL (31.0-37.0); MCV 84.7 fL (80.0-100.0); Mean Platelet Volume 8.4; Platelet Count 316 k/uL (150-450); Poikilocytosis Slight; RDW 18.2 % (11.5-15.5); WBC 15.1 k/uL (3.8-10.6)
[2023-05-30 19:00] LABS: ALT 28 U/L (4-49); AST 45 U/L (17-59); African American GFR (CKD) 68 (>60 ml/min/1.73 sqM); Albumin 2.8 g/dL (3.5-5.0); Alkaline Phosphatase 87 U/L (38-126); Anion Gap 7 mmol/L; Blood Urea Nitrogen 26 mg/dL (9-20); Calcium 8.5 mg/dL (8.4-10.2); Carbon Dioxide 23 mmol/L (22-30); Chloride 104 mmol/L (98-107); Glucose 119 mg/dL (74-99); Magnesium 1.9 mg/dL (1.6-2.3); Non-African American GFR(CKD) 58 (>60 ml/min/1.73 sqM); Potassium 3.8 mmol/L (3.5-5.1); Sodium 134 mmol/L (137-145); Total Bilirubin 0.4 mg/dL (0.2-1.3); Total Protein 6.2 g/dL (6.3-8.2)
[2023-05-30] MEDS: METOPROLOL TARTRATE 50 MG TAB PO SCH (21:00)
[2023-05-30] MEDS: traMADol 50 MG TAB PO PRN (21:03)
[2023-05-30 21:04] LABS: Allen Test Performed? Yes
[2023-05-30 21:05] LABS: ABG PCO2 32 mmHg (35-45); ABG PH 7.52 (7.35-7.45)
[2023-05-30 21:08] LABS: ABG Base Excess 3.2 mmol/L; ABG HCO3 26 mmol/L (21-25); ABG PO2 58 mmHg (83-108); ABG TCO2 27 mmol/L (19-24)
[2023-05-31] MEDS ORDERED: QUEtiapine 50 MG TAB PO STA (01:10)
[2023-05-31] MEDS ORDERED: LORazepam 2 MG/ML INJ IV STA ×2 (01:50→14:09)
[2023-05-31 06:39] LABS: Anisocytosis Slight; Hypochromasia Marked; MCH 25.9 pg (25.0-35.0); MCHC 30.5 g/dL (31.0-37.0); MCV 84.9 fL (80.0-100.0); Mean Platelet Volume 9.1; Platelet Count 269 k/uL (150-450); Poikilocytosis Slight; RBC 2.71 m/uL (4.30-5.90); RDW 18.2 % (11.5-15.5); WBC 12.6 k/uL (3.8-10.6)
[2023-05-31 07:02] LABS: ALT 27 U/L (4-49); AST 38 U/L (17-59); African American GFR (CKD) 65 (>60 ml/min/1.73 sqM); Albumin 2.5 g/dL (3.5-5.0); Alkaline Phosphatase 77 U/L (38-126); Anion Gap 7 mmol/L; Blood Urea Nitrogen 25 mg/dL (9-20); Calcium 8.4 mg/dL (8.4-10.2); Carbon Dioxide 23 mmol/L (22-30); Chloride 105 mmol/L (98-107); Glucose 113 mg/dL (74-99); Magnesium 1.9 mg/dL (1.6-2.3); Non-African American GFR(CKD) 56 (>60 ml/min/1.73 sqM); Potassium 3.7 mmol/L (3.5-5.1); Sodium 135 mmol/L (137-145); Total Bilirubin 0.5 mg/dL (0.2-1.3); Total Protein 5.8 g/dL (6.3-8.2)
[2023-05-31] MEDS ORDERED: SYMBICORT 80-4.5 MCG INHALER INHALATION SCH (08:00)
[2023-05-31] MEDS: AMIODARONE 200 MG TAB PO SCH ×2 (08:46→21:03)
[2023-05-31] MEDS: METOPROLOL TARTRATE 50 MG TAB PO SCH ×2 (08:46→21:03)
[2023-05-31] MEDS: TAMSULOSIN 0.4 MG CAP.ER.24H PO SCH (08:46)
[2023-05-31] MEDS: ATORVASTATIN 40 MG TAB PO SCH (08:46)
[2023-05-31] MEDS: AZITHROMYCIN 500 MG in SODIUM CHLORIDE 0.9% 250 ML IVPB SCH (08:47)
[2023-05-31 09:35] VITALS: BMI 19.8
[2023-05-31] MEDS: IPRATROPIUM-ALBUTEROL 3 ML NEB INHALATION SCH ×4 (09:52→21:28)
[2023-05-31] MEDS: SYMBICORT 160-4.5 MCG INHALER INHALATION SCH ×2 (09:52→21:28)
--- NOTE | 2023-05-31 09:52 | P.PN ---
Subjective Progress Note Date: 05/31/23 HISTORY OF PRESENT ILLNESS: This is a 77-year-old male with a past medical history significant for bladder cancer, coronary artery disease with previous stenting, hypertension, hyperlipidemia, and nicotine dependence. Patient used to follow in the office with Dr. Stewart but has not been seen since 2018. We have been asked to see the patient in consultation for atrial fibrillation and elevated troponin. Patient examined at the bedside. Patient states he has been dealing with urinary retention and has had a catheter on a few separate occasions since having surgery in February. He states that about a week ago his Mackay catheter was removed. He was unable to urinate yesterday which prompted him to come to the emergency room. The patient reports right-sided chest pain this morning that is worse with deep inspiration and chest wall palpation. He reports shortness of breath with exertion. He states last night his shortness of breath got worse. The patient was found to be in A. fib with RVR. He was started on IV heparin and IV Cardizem. He subsequently converted to sinus mechanism. His hemoglobin on admission was 8.3 with subsequent lab draws of 6.1 and 7.3. * EKG reveals atrial fibrillation with RVR. Right bundle branch block. * Chest xray: The lungs are hyperexpanded. No definite focal airspace consolidation. * Laboratory data: WBC 20.2. BUN 32. Creatinine 1.58. ProBNP 2380. Troponin 0.379. 1.200. TSH 1.180. * Current home cardiac medications include metoprolol tartrate 12.5 milligrams twice a day, losartanhydrochlorothiazide 50 mg12.5 mg daily, aspirin 81 mg daily, and Lipitor 40 mg daily * Most recent echocardiogram obtained in 2015 revealed ejection fraction 55% with concentric LVH * Cardiac catheterization history: April 2015 with PCI of totally occluded RC A performed at [facility] [place] * Patient underwent Lexiscan stress test in March 2016 revealing ejection fraction 55%, small apical fixed defect, no reversible ischemia 05/27/2023 Patient examined this morning at the bedside. Patient denies chest pain or pressure. He currently denies shortness of breath. Patient's hemoglobin this morning is 6.9. He is to receive 1 unit RBC transfusion. Echo reveals EF 55-60% 05/28 Patient went into A. fib yesterday with RVR with heart rates in the 120s to 130s and was started on amiodarone drip. He was somewhat better controlled however over the last 2 hours has had increasing heart rates up to the 120s to 150s. Patient was seen with A team call for increasing respiratory distress, sitting up in bed on nonrebreather. He has not had any significant bleeding, hematochezia or melena. Hemoglobin stable at 7.2. He is off of any anticoagulation. Currently denies any chest pain or pressure however is significantly short of breath with increased work of breathing. He was given nitroglycerin with some improvement in his respiratory distress. Patient tachyc ardic with heart rates in the 150s to 160s with additional increase in blood pressure 170/90 however also in distress. Overnight blood pressures were more in the 100-120 range systolic. After patient became more comfortable blood pressures down to 130/80. Previous echo shows preserved EF and we will give Cardizem bolus and drip. 05/29 Yesterday heart rate went up to 200 and patient was very symptomatic and atrial fibrillation.Patient converted into sinus rhythm last evening, heart rate 78, b lood pressure 107/63, pulse ox 92% on 6 L nasal cannula. Patient has been afebrile since 05/28 at 1200. Influenza A, influenza B, RSV, Covid 19 not detected. Chest x-ray reveals left basilar airspace opacities superimposed on COPD. EKG obtained on 05/28 at 1430 is sinus rhythm right bundle branch block. Amiodarone drip running. He is status post 1 dose of IV Lasix yesterday. Troponin from yesterday was 1.16. 05/30 The patient is complaining of increasing shortness of breath today. Heart rate 106, telemetry sinus rhythm, blood pressure 138/78, pulse ox 89% on 3 l nasal cannula increased to 5 L. Repeat blood work reveals WBC 14.1, hemoglobin 7.4. Sodium 133, potassium 3.9, BUN 28 creatinine 1.2. No accurate I&O, weights. Patient had Mcakay catheter removed this morning. 05/31 Yesterday, Lopressor was increased to 50 mg twice daily and we will request a consult with pulmonary medicine for COPD and possible pneumonia. Repeat blood work today reveals hemoglobin of 7, WBC 12.6, BUN 25 creatinine 1.25. Telemetry is sinus rhythm. Heart rate in the 70s and 80s, blood pressure 1 09/65, pulse ox 90% on 6 L nasal cannula. Telemetry is sinus rhythm. Plan is for hospice evaluation. PHYSICAL EXAM: VITAL SIGNS: Reviewed. HEENT: Head is normocephalic. Pupils are equal, round. Sclerae anicteric. LUNGS: Respirations even and unlabored. Lungs mild crackles at bases HEART: Regularly irregular rate and rhythm. S1 and S2 heard. EXTREMITIES: No clubbing or cyanosis. Peripheral pulses intact. No lower extremity edema NEUROLOGIC: Awake and alert. Oriented x 3. ASSESSMENT: Acute on chronic diastolic heart failure New onset atrial fibrillation with RVR, paroxysmal, currently in sinus rhythm Leukocytosis and fever secondary to urinary tract infection on ceftriaxone Non-STEMI Urinary retention Right-sided hydronephrosis Hematuria Acute anemia Acute kidney injury History of bladder cancer with previous stent placement in January Coronary artery disease with previous stenting COPD and chronic hypoxic respiratory failure on home oxygen Hypertension Hyperlipidemia Nicotine dependence PLAN: Continue with current regimen with medical therapy and monitor response. Continue patient on oral amiodarone decreased to 200 mg twice daily. Tinea Lopressor to 50 mg twice daily Patient is not a good candidate for anticoagulation due to bladder cancer and anemia. Cardiology will sign off this case and follow on an as-needed basis. Please reconsult for any new concerns. Patient may follow-up in the office in one to 2 weeks. Nurse practitioner note has been reviewed, I agree with the documented findings and plan of care. Patient was seen and examined. Objective - Vital Signs Vital signs: Vital Signs Temp 99.3 F 05/31/23 04:00 Pulse 73 05/31/23 04:00 Resp 18 05/31/23 04:00 BP 109/65 05/31/23 04:00 Pulse Ox 98 05/31/23 04:00 FiO2 Intake & Output 05/30/23 05/31/23 05/31/23 18:59 06:59 18:59 Intake Total 598 Output Total 325 200 Balance 273 -200 Intake: Oral 598 Output: Urine 325 200 Other: Voiding Method Urinal # Voids 1 # Bowel Movements 1 - Labs CBC & Chem 7: 05/31/23 05:43 05/31/23 05:43 Labs: Abnormal Lab Results - Last 24 Hours (Table) 05/30/23 05/30/23 05/30/23 Range/Units 06:10 18:22 18:33 WBC 15.1 H (3.8-10.6) k/uL RBC 3.00 L (4.30-5.90) m/uL Hgb 7.8 L (13.0-17.5) gm/dL Hct 25.4 L (39.0-53.0) % MCHC 30.7 L (31.0-37.0) g/dL RDW 18.2 H (11.5-15.5) % ABG pH (7.35-7.45) ABG pCO2 (35-45) mmHg ABG pO2 (83-108) mmHg ABG HCO3 (21-25) mmol/L ABG Total CO2 (19-24) mmol/L ABG O2 Saturation (94-97) % Sodium (137-145) mmol/L BUN (9-20) mg/dL Glucose (74-99) mg/dL POC Glucose (mg/dL) 138 H (70-110) mg/dL Total Protein (6.3-8.2) g/dL Albumin (3.5-5.0) g/dL Procalcitonin 1.13 H (0.02-0.09) ng/mL 05/30/23 05/30/23 05/31/23 Range/Units 18:33 21:00 05:43 WBC 12.6 H (3.8-10.6) k/uL RBC 2.71 L (4.30-5.90) m/uL Hgb 7.0 L (13.0-17.5) gm/dL Hct 23.0 L (39.0-53.0) % MCHC 30.5 L (31.0-37.0) g/dL RDW 18.2 H (11.5-15.5) % ABG pH 7.52 H (7.35-7.45) ABG pCO2 32 L (35-45) mmHg ABG pO2 58 L* (83-108) mmHg ABG HCO3 26 H (21-25) mmol/L ABG Total CO2 27 H (19-24) mmol/L ABG O2 Saturation 93.0 L (94-97) % Sodium 134 L (137-145) mmol/L BUN 26 H (9-20) mg/dL Glucose 119 H (74-99) mg/dL POC Glucose (mg/dL) (70-110) mg/dL Total Protein 6.2 L (6.3-8.2) g/dL Albumin 2.8 L (3.5-5.0) g/dL Procalcitonin (0.02-0.09) ng/mL 05/31/23 Range/Units 05:43 WBC (3.8-10.6) k/uL RBC (4.30-5.90) m/uL Hgb (13.0-17.5) gm/dL Hct (39.0-53.0) % MCHC (31.0-37.0) g/dL RDW (11.5-15.5) % ABG pH (7.35-7.45) ABG pCO2 (35-45) mmHg ABG pO2 (83-108) mmHg ABG HCO3 (21-25) mmol/L ABG Total CO2 (19-24) mmol/L ABG O2 Saturation (94-97) % Sodium 135 L (137-145) mmol/L BUN 25 H (9-20) mg/dL Glucose 113 H (74-99) mg/dL POC Glucose (mg/dL) (70-110) mg/dL Total Protein 5.8 L (6.3-8.2) g/dL Albumin 2.5 L (3.5-5.0) g/dL Procalcitonin (0.02-0.09) ng/mL Microbiology - Last 24 Hours (Table) 05/27/23 09:48 Blood Culture - Preliminary Blood
--- NOTE | 2023-05-31 11:31 | P.PN ---
Subjective Progress Note Date: 05/31/23 Principal diagnosis: Respiratory failure. Pulmonary consult dated 05/30/2023. 77-year-old male who presented to the emergency department, on 05/25/2023. He apparently presented with complaints of shortness of breath, and difficulty urinating. The patient apparently was having issues throughout the day, and was seen in the emergency department, where he was found to have atrial fibrillation with RVR. The patient was admitted for that reason. While I was rounding today, the cubing machine tender mentioned that they put in a consult for us on this patient, because he sees my partner in the office for COPD. The patient is chronically hypoxemic, and is use home O2 at 4 L/m. Currently, he's on 5 L. He's not receiving any IV fluids. His primary care physician is Dr. Miranda. The patient is a no code with instructions. He sitting up in the chair next to his bed. Most recent labs show white count 14.1, hemoglobin 7.4, hematocrit 24, and a platelet count 299,000. Sodium 133, potassium 3.9, chlorides 102, CO2 23, BUN 28, and creatinine 1.20. Albumin is 2.7. His chest x-ray shows some left basilar airspace disease or atelectasis. The patient tested negative for infl uenza A, and influenza B, RSV, and coronavirus. Progress note dated 05/31/2023. 77-year-old male admitted with a diagnosis of shortness of breath, difficulty urinating. The patient was found to have atrial fibrillation and rapid ventricular response the patient does have severe COPD, and chronic hypoxemic respiratory failure. He typically uses home oxygen at 4-5 L/m. The patient has some issues with oxygenation last night, and his FiO2 requirements were increased. Currently he is getting saline at 10 mL an hour, he is on oxygen at 4 L by nasal cannula. The patient is a DO NOT RESUSCITATE, with instructions. Labs include white count 12.6, hemoglobin 7, hematocrit 23, and platelet count 269,000. Blood gases from yesterday show pO2 of 58, pCO2 32, and a pH is 7.52. That was on 36% FiO2. Sodium 135, potassium 3.7, chlorides 105, CO2 23, BUN 25, creatinine 1.25. Albumin is 2.5. Objective - Vital Signs Vital signs: Vital Signs Temp 98.0 F 05/31/23 08:00 Pulse 78 05/31/23 09:52 Resp 20 05/31/23 08:00 BP 128/67 05/31/23 08:00 Pulse Ox 96 05/31/23 09:52 FiO2 Intake & Output 05/30/23 05/31/23 05/31/23 18:59 06:59 18:59 Intake Total 598 120 Output Total 325 200 500 Balance 273 -200 -380 Weight 64.41 kg Intake: Oral 598 120 Output: Urine 325 200 500 Other: Voiding Method Urinal Urinal # Voids 1 # Bowel Movements 1 - Exam No acute distress, somnolent, but does arouse. Currently on nasal O2 at 4 L. HEENT examination is grossly unremarkable. Neck supple. Full range of motion. No adenopathy thyromegaly or neck vein distention. Cardiovascular examination reveals regular rhythm rate. S1-S2 normal. No S3 or S4. No discernible murmur noted. Heart rate 78 bpm. Heart sounds are distant. Lungs reveal scattered bilateral rhonchi. Breath sounds are equal but diminished throughout. No crackles. No wheezes. Saturations are in the low to mid 90s. Abdomen soft bowel sounds are heard. No masses or tenderness. Extremities are intact. No cyanosis clubbing or edema. Skin is without rash or lesion. Neurologic examination reveals the patient to be lethargic and somnolent. - Labs CBC & Chem 7: 05/31/23 05:43 05/31/23 05:43 Labs: Abnormal Lab Results - Last 24 Hours (Table) 05/30/23 05/30/23 05/30/23 Range/Units 06:10 18:22 18:33 WBC 15.1 H (3.8-10.6) k/uL RBC 3.00 L (4.30-5.90) m/uL Hgb 7.8 L (13.0-17.5) gm/dL Hct 25.4 L (39.0-53.0) % MCHC 30.7 L (31.0-37.0) g/dL RDW 18.2 H (11.5-15.5) % ABG pH (7.35-7.45) ABG pCO2 (35-45) mmHg ABG pO2 (83-108) mmHg ABG HCO3 (21-25) mmol/L ABG Total CO2 (19-24) mmol/L ABG O2 Saturation (94-97) % Sodium (137-145) mmol/L BUN (9-20) mg/dL Glucose (74-99) mg/dL POC Glucose (mg/dL) 138 H (70-110) mg/dL Total Protein (6.3-8.2) g/dL Albumin (3.5-5.0) g/dL Procalcitonin 1.13 H (0.02-0.09) ng/mL 05/30/23 05/30/23 05/31/23 Range/Units 18:33 21:00 05:43 WBC 12.6 H (3.8-10.6) k/uL RBC 2.71 L (4.30-5.90) m/uL Hgb 7.0 L (13.0-17.5) gm/dL Hct 23.0 L (39.0-53.0) % MCHC 30.5 L (31.0-37.0) g/dL RDW 18.2 H (11.5-15.5) % ABG pH 7.52 H (7.35-7.45) ABG pCO2 32 L (35-45) mmHg ABG pO2 58 L* (83-108) mmHg ABG HCO3 26 H (21-25) mmol/L ABG Total CO2 27 H (19-24) mmol/L ABG O2 Saturation 93.0 L (94-97) % Sodium 134 L (137-145) mmol/L BUN 26 H (9-20) mg/dL Glucose 119 H (74-99) mg/dL POC Glucose (mg/dL) (70-110) mg/dL Total Protein 6.2 L (6.3-8.2) g/dL Albumin 2.8 L (3.5-5.0) g/dL Procalcitonin (0.02-0.09) ng/mL 05/31/23 Range/Units 05:43 WBC (3.8-10.6) k/uL RBC (4.30-5.90) m/uL Hgb (13.0-17.5) gm/dL Hct (39.0-53.0) % MCHC (31.0-37.0) g/dL RDW (11.5-15.5) % ABG pH (7.35-7.45) ABG pCO2 (35-45) mmHg ABG pO2 (83-108) mmHg ABG HCO3 (21-25) mmol/L ABG Total CO2 (19-24) mmol/L ABG O2 Saturation (94-97) % Sodium 135 L (137-145) mmol/L BUN 25 H (9-20) mg/dL Glucose 113 H (74-99) mg/dL POC Glucose (mg/dL) (70-110) mg/dL Total Protein 5.8 L (6.3-8.2) g/dL Albumin 2.5 L (3.5-5.0) g/dL Procalcitonin (0.02-0.09) ng/mL Microbiology - Last 24 Hours (Table) 05/27/23 09:48 Blood Culture - Preliminary Blood Assessment and Plan Assessment: Shortness of breath, secondary to atrial fibrillation with rapid ventricular response. History of severe oxygen-dependent COPD. Chronic hypoxemic respiratory failure. History of hypertension. History of hyperlipidemia. Previous heart catheterization with stent placement. Prior history of heavy tobacco use. Multiple other medical problems and comorbidities. Plan: Plan dated 05/30/2023. Currently, patient is on appropriate medications, including updrafts. We did tell the patient, that he could have his home Trelegy inhaler, brought in, that he continues 1 puff once daily. Additional recommendations and suggestions are forthcoming. The patient is currently being followed by cardiology for his atrial fibrillation. Currently, the patient's on amiodarone 400 mg twice a day, and also beta magdalena, prescribed by cardiology for his atrial fibrillation. The patient's also receiving a nicotine patch. We will continue to follow, and make recommendations. Prognosis is guarded. We will continue to follow the patient, and make recommendations along the way. Prognosis is guarded. Plan dated 05/31/2023. The patient is again seen today in room 355. Currently, the patient's on 4 L of oxygen. He is getting saline at 10 mL an hour. He is very lethargic and somnolent. He is a DO NOT RESUSCITATE with instructions. Labs, x-rays, and medications are reviewed. A blood gas from yesterday showed mild hypoxemic respiratory failure, with a combined respiratory and metabolic alkalosis. A brain CT was ordered but not interpreted as yet. We will continue to follow the patient, make recommendations along. The patient's overall prognosis remains very guarded. Time with Patient: Less than 30
[2023-05-31] MEDS: NICOTINE 21MG/24HR PATCH TRANSDERM SCH (12:19)
--- NOTE | 2023-05-31 12:55 | CT ---
EXAMINATION TYPE: CT brain wo con DATE OF EXAM: 05/31/2023 COMPARISON: None HISTORY: altered mental status CT DLP: 1340.9 mGycm Automated exposure control for dose reduction was used. FINDINGS: Exam limited due to motion with no obvious midline shift, mass effect or acute hemorrhage. Mild hypoattenuation in the white matter compatible with remote ischemic change. Orbital surgery note d. There is moderate generalized degenerative change. Calvarium is intact. Craniocervical junction ma intained. Intracranial atherosclerotic changes. IMPRESSION: DEGENERATIVE AND REMOTE ISCHEMIC WHITE MATTER CHANGE. NO ACUTE HEMORRHAGE OR MASS EFFECT.
--- NOTE | 2023-05-31 14:15 | P.PN ---
Subjective Progress Note Date: 05/31/23 Hospital course: Patient is a very pleasant 77-year-old male with a past medical history of recurrent obstructive bladder cancer status post stenting, COPD on 4 L home oxygen with continued nicotine dependence, CAD with stenting, hypertension, and hyperlipidemia. He presented to the emergency department on 05/25/23 secondary to reports of lower abdominal pain/discomfort radiating into right groin accompanied by urinary retention. Upon arrival to the emergency department patient underwent full evaluation. He was found to be tachycardic with a heart rate of 140s. EKG was completed showing atrial fibrillation with RVR at 143 bpm. Labs completed and reviewed. CBC showing severe leukocytosis with WBC count of 20.2 and normocytic anemia with hemoglobin of 8.3. BMP revealing acute kidney injury with BUN of 32, creatinine 1.58, and GFR 42. Magnesium was low at 1.6. Troponin elevated at 0.379 and proBNP 2380. Urinalysis positive for infection showing protein, ketones, blood, bilirubin, leukocytes and greater than 182 RBCs and greater than 182 WBCs. Patient was started on low intensity heparin infusion for treatment of NSTEMI, Cardizem infusion for treatment of A. fib RVR, and Rocephin for treatment of UTI with sepsis. Patient admitted under services with consultation to cardiology and urology. Troponins were trended resulting in 0.379, 1.200, and 1.670. Cardiology recommending to hold off on anticoagulation at this time secondary to acute on chronic anemia. Echocardiogram completed showing preserved EF of 55-60% with no significant valvular or structural abnormalities. Patient currently remains with uncontrolled A. fib RVR rates ranging between 150s to 200s. Patient was maintained on amiodarone infusion and Cardizem infusion. Patient converted and Cardizem infusion was discontinued. Amiodarone infusion continued throughout the night and on 05/29/23 patient was transitioned to oral amiodarone 400 mg twice daily. He continues to maintain sinus mechanism. Patient also remains on 6 L O2 via nasal cannula with baseline O2 4 L. On the evening of 05/30/23 receive notification from RN that patient was found without oxygen and SpO2 of 84%. Patient was confused at this time. Patient immediately placed back on high flow oxygen increasing SpO2 greater than 90%. Orders placed for a stat ABG showing respiratory alkalosis with pH of 7.52, pCO2 of 32, PaO2 58, bicarb 26, total CO2 27, and O2 sat of 93. Physical exam: Patient seen and fully evaluated at bedside this morning. He remains confused this morning and is alert to person only. Patient currently calm and cooperative when asked what year it is used as 1979 when asked where he is at patient states I'm here. Vital signs reviewed and stable. General: Nontoxic, no distress and appears stated age. Derm: Skin warm and dry, normal coloration for ethnicity. Head: Atraumatic, normocephalic and symmetric. Eyes: EOMs intact, no lid lag, and anicteric sclera Mouth: no lip lesions, mucus membranes moist Cardiovascular: Irregularly irregular, no murmur, positive posterior tibial pulses bilaterally, and cap refill < 2 seconds. Lungs: Respirations even, regular, and unlabored on supplemental oxygen. Lungs diminished with soft expiratory wheeze, otherwise no rhonchi, no rales, no crackles. No accessory muscle usage. Abdominal: soft, nontender to palpation, no guarding, no appreciable organomegaly. Mackay catheter in place Ext: ROM intact. No gross muscle atrophy, no edema, no contractures Neuro: Speech clear, face symmetrical and CN II-XII grossly intact with no noted focal neuro deficits Psych: Alert and oriented to person, place, time, and situation. Appropriate and pleasant affect. Assessment and Plan of Care: Metabolic encephalopathy, unclear etiology possibly hospital associated delirium vs infectious etiology vs medication effect Acute on chronic respiratory failure with hypoxia, patient baseline 4 L O2 secondary to advanced COPD currently requiring 6 L O2 -On the evening of 05/30/23 receive notification from RN that patient was found without oxygen and SpO2 of 84%. Patient was confused at this time. Patient immediately placed back on high flow oxygen increasing SpO2 greater than 90%. -Orders placed for a stat ABG showing respiratory alkalosis with pH of 7.52, pCO2 of 32, PaO2 58, bicarb 26, total CO2 27, and O2 sat of 93. -Pulmonology following, placed order for pro-calcitonin which resulted elevated at 1.13 and they started patient back on IV antibiotics with azithromycin 500 mg daily and Rocephin 2 g daily. -Oxygenation improving, however mentation did not improve. Patient remains a lert to person only confused to place, time, and situation. Speech is clear and patient showing no focal neurological deficits. -Order placed for CT head as patient is admitted with new onset A. fib RVR and is not anticoagulated secondary to acute blood loss anemia. -Order placed for B12 and folate levels and ammonia level. -Order also placed for amiodarone level to ensure it is not toxic and greater than 2.5. -Neuro checks to continued every 4 hours. -Fall precautions in place. -Consulted neurology and discussed current symptoms and concerns at this time with neurologist. New onset Atrial fibrillation with RVR, currently maintaining sinus mechanism NSTEMI -AFib with RVR. Converted and currently maintaining normal sinus rhythm. Patient started on oral amiodarone 400 mg twice a day. Cardiology recommending to continue holding off anticoagulation secondary to acute on chronic anemia. -Influenza A, influenza B, RSV, and Covid PCR negative. -NSTEMI: with history of CAD status post stenting. Heparin drip was discontinued due to acute blood loss anemia resulting from hematuria. -Cardiology evaluated and recommending medical managment at this time stating patient is not an ideal cardiac catheterization candidate secondary to multiple issues including current acute blood loss anemia. -Echocardiogram completed showing preserved EF of 55-60% with no significant valvular or structural abnormalities. -Patient to continue daily medication regimen with amiodarone 400 mg twice daily, atorvastatin 40 mg daily, and metoprolol 25 mg twice daily. UTI with Sepsis, present upon arrival Urinary retention, secondary to recurrent obstructive bladder cancer Acute blood loss anemia secondary to hematuria, baseline hemoglobin between 8 and 9 Acute kidney injury, resolved Hematuria, resolved -Patient completed 5 day course of IV antibiotics with Rocephin and on 05/30/23. -Urinary retention with ANH due to bladder CA: Obstructive uropathy. Mackay catheter was placed. Urology following. -Urology evaluated and recommending removing Mackay catheter and repeating voiding trial prior to discharge -Urine culture negative -Blood cultures showing no growth to date -Acute blood loss anemia secondary to hematuria and patient is status post 1 unit of PRBCs with current hemoglobin stable at 7.0. -Urinary retention with ANH due to bladder CA: Obstructive uropathy. Mackay catheter. Urology on board. -Acute kidney injury resolved. Renal function stable with BUN of 25, creatinine 1.25, GFR 56. -Continue Flomax 0.4 mg daily. Data and imaging reviewed: -Vital signs completed and reviewed. Patient remains on 6 L O2 with SpO2 92%. Blood pressure 128/67, heart rate 82, respiratory rate 20, and temp 98.0F. -Morning labs reviewed. CBC showing WBC count of 12.6, hemoglobin is 7.0, and platelet count 269. BMP showing prerenal azotemia with BUN of 25 otherwise normal findings. Glucose 113. Magnesium normal findings at 1.9. Liver profile unremarkable. CODE STATUS: Full code DVT prophylaxis: SCDs Anticipated discharge date: Clinical course to determine Anticipated discharge place: Home with home care and palliative care Patient was seen independently by Nurse Pracitioner. This document was prepared using [employer] dictation software. Please allow for errors in infertility medical assistant, while rare they do occur. Miguel A Ziegler MORTICIAN INVESTIGATOR rendered care for this patient independently, reviewed the findings and plan as documented in the note above. I did not physically speak with or examine the patient on this date. Objective - Vital Signs Vital signs: Vital Signs Temp 99.3 F 05/31/23 04:00 Pulse 73 05/31/23 04:00 Resp 18 05/31/23 04:00 BP 109/65 05/31/23 04:00 Pulse Ox 98 05/31/23 04:00 FiO2 Intake & Output 05/30/23 05/31/23 05/31/23 18:59 06:59 18:59 Intake Total 598 Output Total 325 200 Balance 273 -200 Intake: Oral 598 Output: Urine 325 200 Other: Voiding Method Urinal # Voids 1 # Bowel Movements 1 - Labs CBC & Chem 7: 05/31/23 05:43 05/31/23 05:43 Labs: Abnormal Lab Results - Last 24 Hours (Table) 05/30/23 05/30/23 05/30/23 Range/Units 06:10 18:22 18:33 WBC 15.1 H (3.8-10.6) k/uL RBC 3.00 L (4.30-5.90) m/uL Hgb 7.8 L (13.0-17.5) gm/dL Hct 25.4 L (39.0-53.0) % MCHC 30.7 L (31.0-37.0) g/dL RDW 18.2 H (11.5-15.5) % ABG pH (7.35-7.45) ABG pCO2 (35-45) mmHg ABG pO2 (83-108) mmHg ABG HCO3 (21-25) mmol/L ABG Total CO2 (19-24) mmol/L ABG O2 Saturation (94-97) % Sodium (137-145) mmol/L BUN (9-20) mg/dL Glucose (74-99) mg/dL POC Glucose (mg/dL) 138 H (70-110) mg/dL Total Protein (6.3-8.2) g/dL Albumin (3.5-5.0) g/dL Procalcitonin 1.13 H (0.02-0.09) ng/mL 05/30/23 05/30/23 05/31/23 Range/Units 18:33 21:00 05:43 WBC 12.6 H (3.8-10.6) k/uL RBC 2.71 L (4.30-5.90) m/uL Hgb 7.0 L (13.0-17.5) gm/dL Hct 23.0 L (39.0-53.0) % MCHC 30.5 L (31.0-37.0) g/dL RDW 18.2 H (11.5-15.5) % ABG pH 7.52 H (7.35-7.45) ABG pCO2 32 L (35-45) mmHg ABG pO2 58 L* (83-108) mmHg ABG HCO3 26 H (21-25) mmol/L ABG Total CO2 27 H (19-24) mmol/L ABG O2 Saturation 93.0 L (94-97) % Sodium 134 L (137-145) mmol/L BUN 26 H (9-20) mg/dL Glucose 119 H (74-99) mg/dL POC Glucose (mg/dL) (70-110) mg/dL Total Protein 6.2 L (6.3-8.2) g/dL Albumin 2.8 L (3.5-5.0) g/dL Procalcitonin (0.02-0.09) ng/mL 05/31/23 Range/Units 05:43 WBC (3.8-10.6) k/uL RBC (4.30-5.90) m/uL Hgb (13.0-17.5) gm/dL Hct (39.0-53.0) % MCHC (31.0-37.0) g/dL RDW (11.5-15.5) % ABG pH (7.35-7.45) ABG pCO2 (35-45) mmHg ABG pO2 (83-108) mmHg ABG HCO3 (21-25) mmol/L ABG Total CO2 (19-24) mmol/L ABG O2 Saturation (94-97) % Sodium 135 L (137-145) mmol/L BUN 25 H (9-20) mg/dL Glucose 113 H (74-99) mg/dL POC Glucose (mg/dL) (70-110) mg/dL Total Protein 5.8 L (6.3-8.2) g/dL Albumin 2.5 L (3.5-5.0) g/dL Procalcitonin (0.02-0.09) ng/mL Microbiology - Last 24 Hours (Table) 05/27/23 09:48 Blood Culture - Preliminary Blood
--- NOTE | 2023-05-31 15:37 | P.PN ---
Subjective Progress Note Date: 05/31/23 Principal diagnosis: Hematuria, bladder cancer, urinary retention The patient is restless today. He failed a voiding trial today, as he experienced a strong urge to void but was able to void only a small amount. The Mackay catheter was replaced, draining approximately 500 mL of urine. The catheter is now draining clear yellow urine. The patient is currently sedated and resting comfortably. Objective - Vital Signs Vital signs: Vital Signs Temp 98.0 F 05/31/23 08:00 Pulse 82 05/31/23 13:24 Resp 20 05/31/23 08:00 BP 128/67 05/31/23 08:00 Pulse Ox 96 05/31/23 09:52 FiO2 Intake & Output 05/30/23 05/31/23 05/31/23 18:59 06:59 18:59 Intake Total 598 120 Output Total 325 200 500 Balance 273 -200 -380 Weight 64.41 kg Intake: Oral 598 120 Output: Urine 325 200 500 Other: Voiding Method Urinal Urinal # Voids 1 # Bowel Movements 1 - Constitutional General appearance: Present: average body habitus, no acute distress - Labs CBC & Chem 7: 05/31/23 05:43 05/31/23 05:43 Labs: Abnormal Lab Results - Last 24 Hours (Table) 05/30/23 05/30/23 05/30/23 Range/Units 06:10 18:22 18:33 WBC 15.1 H (3.8-10.6) k/uL RBC 3.00 L (4.30-5.90) m/uL Hgb 7.8 L (13.0-17.5) gm/dL Hct 25.4 L (39.0-53.0) % MCHC 30.7 L (31.0-37.0) g/dL RDW 18.2 H (11.5-15.5) % ABG pH (7.35-7.45) ABG pCO2 (35-45) mmHg ABG pO2 (83-108) mmHg ABG HCO3 (21-25) mmol/L ABG Total CO2 (19-24) mmol/L ABG O2 Saturation (94-97) % Sodium (137-145) mmol/L BUN (9-20) mg/dL Glucose (74-99) mg/dL POC Glucose (mg/dL) 138 H (70-110) mg/dL Total Protein (6.3-8.2) g/dL Albumin (3.5-5.0) g/dL Procalcitonin 1.13 H (0.02-0.09) ng/mL 05/30/23 05/30/23 05/31/23 Range/Units 18:33 21:00 05:43 WBC 12.6 H (3.8-10.6) k/uL RBC 2.71 L (4.30-5.90) m/uL Hgb 7.0 L (13.0-17.5) gm/dL Hct 23.0 L (39.0-53.0) % MCHC 30.5 L (31.0-37.0) g/dL RDW 18.2 H (11.5-15.5) % ABG pH 7.52 H (7.35-7.45) ABG pCO2 32 L (35-45) mmHg ABG pO2 58 L* (83-108) mmHg ABG HCO3 26 H (21-25) mmol/L ABG Total CO2 27 H (19-24) mmol/L ABG O2 Saturation 93.0 L (94-97) % Sodium 134 L (137-145) mmol/L BUN 26 H (9-20) mg/dL Glucose 119 H (74-99) mg/dL POC Glucose (mg/dL) (70-110) mg/dL Total Protein 6.2 L (6.3-8.2) g/dL Albumin 2.8 L (3.5-5.0) g/dL Procalcitonin (0.02-0.09) ng/mL 05/31/23 Range/Units 05:43 WBC (3.8-10.6) k/uL RBC (4.30-5.90) m/uL Hgb (13.0-17.5) gm/dL Hct (39.0-53.0) % MCHC (31.0-37.0) g/dL RDW (11.5-15.5) % ABG pH (7.35-7.45) ABG pCO2 (35-45) mmHg ABG pO2 (83-108) mmHg ABG HCO3 (21-25) mmol/L ABG Total CO2 (19-24) mmol/L ABG O2 Saturation (94-97) % Sodium 135 L (137-145) mmol/L BUN 25 H (9-20) mg/dL Glucose 113 H (74-99) mg/dL POC Glucose (mg/dL) (70-110) mg/dL Total Protein 5.8 L (6.3-8.2) g/dL Albumin 2.5 L (3.5-5.0) g/dL Procalcitonin (0.02-0.09) ng/mL Microbiology - Last 24 Hours (Table) 05/27/23 09:48 Blood Culture - Preliminary Blood Assessment and Plan Assessment: Urine and blood cultures are negative. The urine is currently clear, and hemoglobin level is stable. (1) Malignant neoplasm of bladder, unspecified Current Visit: Yes Status: Acute Code(s): C67.9 - MALIGNANT NEOPLASM OF BLADDER, UNSPECIFIED SNOMED Code(s): 774999171 (2) Hematuria Current Visit: No Status: Acute Code(s): R31.9 - HEMATURIA, UNSPECIFIED SNOMED Code(s): 56461510 (3) Urinary retention Current Visit: No Status: Acute Code(s): R33.9 - RETENTION OF URINE, UNSPECIFIED SNOMED Code(s): 047371447 Plan: - Discharge home with Mackay catheter - Follow-up with Dr. Borrego 1-2 weeks - Patient to follow-up with Radiation Oncology upon discharge
--- NOTE | 2023-05-31 16:09 | P.CNNES ---
History of Present Illness Consult date: 05/31/23 Requesting physician: Miguel A Ziegler Reason for Consult: acute confusion, unclear etiology History of Present Illness: This is a 77-year-old gentleman who presented emergency department on 05/25/2023 for lower abdominal pain radiating to the groin region on the right side with urinary retention. Neurologist consulted for confusion of unknown etiology. History is obtained from the primary team. As stated earlier the patient presented that because of abdominal pain with urinary retention. He was found to be tachycardic with a heart rate of 140s and the EKG showed atrial for ablation with RVR. He had the somewhat elevated troponin. Was felt possible the urine analysis was positive for underlying the infection but the urine culture was negative. Was felt the patient was in non-STEMI. The patient was started on Cardizem for the treatment of A. fib and was started on Rocephin for the UTI with sepsis. Anticoagulation was held due to his acute on chronic anemia by cardiology team. Patient was maintained on [place] and confusion and Cardizem infusion. Seems the patient was the confused agitated restless as a result the patient was given the Ativan just prior to me developing the patient. Was also hypoxic on 05/30/2023. Patient had a CT of the head today which reported as degenerative and remote ischemic white matter changes. No acute hemorrhage or mass effect. She reviewed the CT and I agree there is no acute or subacute ischemia and there is no bleeding. Patient initial white blood cell was 20,000 and is trending down a got normal by 12:15 but now it's slightly trending up. During this admission the temperature was normal but had a T-max of 102.4 on 05/27/2023. Then the next T-max was 101. 1 on 1216 and no further fevers. TSH is 1.180. Motor level is less than 9. Review of Systems Limited but the prone positive and negative as per HPI. Past Medical History Past Medical History: COPD, Hyperlipidemia, Hypertension Additional Past Medical History / Comment(s): scoliosis, bloody urine ,admiss inion for urine retention, mass in bladder, at time of assessment pt has archer catheter in place for urinary retention History of Any Multi-Drug Resistant Organisms: None Reported Past Surgical History: Appendectomy, Heart Catheterization With Stent Additional Past Surgical History / Comment(s): eye surgeryx5, Past Anesthesia/Blood Transfusion Reactions: Blood Transfusion Reaction Additional Past Anesthesia/Blood Transfusion Reaction / Comment(s): pt states he does not remeber what the raction was, only that they had to take a lot of samples. Date of Last Stent Placement:: count includes the [facility] Smoking Status: Current every day smoker Medications and Allergies Home Medications Medication Instructions Recorded Confirmed Type Losartan-Hctz 50-12.5 mg [Hyzaar 1 tab PO DAILY 03/23/14 05/26/23 History 50-12.5] Atorvastatin [Lipitor] 40 mg PO DAILY #30 tab 03/12/15 05/26/23 Rx Metoprolol Tartrate [Lopressor] 12.5 mg PO BID #60 tab 03/12/15 05/26/23 Rx Albuterol Sulfate [Ventolin HFA] 2 puff INHALATION RT-Q4H PRN 01/19/23 05/26/23 History Aspirin EC [Ecotrin Low Dose] 81 mg PO DAILY 01/19/23 05/26/23 History Cholecalciferol [Vitamin D3 (25 25 mcg PO DAILY 01/19/23 05/26/23 History Mcg = 1000 Iu)] Cyanocobalamin (Vitamin B-12) 2,500 mcg PO DAILY 01/19/23 05/26/23 History [Vitamin B-12] Ipratropium-Albuterol Nebulize 3 ml INHALATION RT-QID 01/19/23 05/26/23 History [Duoneb 0.5 mg-3 mg/3 ml Soln] Multivit-Min/FA/Lycopen/Lutein 1 tab PO DAILY 01/19/23 05/26/23 History [Centrum Silver Tablet] traMADol HCl [Ultram] 50 mg PO Q6HR PRN 01/19/23 05/26/23 History Fluticasone/Umeclidin/Vilanter 1 puff INHALATION RT-DAILY 05/26/23 05/26/23 History [Trelegy Ellipta 100-62.5-25] Nicotine 21Mg/24Hr Patch [Habitrol] 1 patch TRANSDERM DAILY PRN 05/26/23 05/26/23 History Allergies Allergy/AdvReac Type Severity Reaction Status Date / Time sulfamethoxazole Allergy Rash/Hives Verified 05/26/23 07:34 [From Bactrim] trimethoprim [From Bactrim] Allergy Rash/Hives Verified 05/26/23 07:34 Physical Examination - Vital Signs Vital Signs: Vital Signs Temp Pulse Pulse Resp BP BP Pulse Ox 05/31/23 14:00 82 20 05/31/23 13:24 82 05/31/23 13:14 82 05/31/23 12:00 99.6 F 74 20 110/63 93 L 05/31/23 10:02 78 05/31/23 09:52 78 96 05/31/23 08:00 98.0 F 82 20 128/67 92 L 05/31/23 04:00 99.3 F 73 18 109/65 98 05/31/23 02:00 88 20 05/31/23 01:00 20 94 L 05/31/23 00:00 98.3 F 88 20 137/72 96 05/30/23 21:08 91 05/30/23 20:59 94 L 05/30/23 20:58 92 05/30/23 20:00 98.9 F 92 20 117/45 94 L 05/30/23 16:00 98.9 F 80 20 124/58 96 Intake and Output 05/31/23 05/31/23 05/31/23 06:59 14:59 22:59 Intake Total 120 Output Total 500 Balance -380 Intake: Oral 120 Output: Urine 500 Other: Voiding Method Urinal Indwelling Catheter # Voids 1 Weight 64.41 kg General: Does not appear in acute distress. HENT: Supple neck. Neuro: Very limited since patient was given Ativan 1mg just few minutes prior to my examination. Patient stupor. She is resisting opening eyes. No facial weakness. Patient does withdrawal with painful stimuli throughout. Results - Laboratory Findings CBC and BMP: 05/31/23 05:43 05/31/23 05:43 Abnormal Lab Findings: Abnormal Labs 05/25/23 05/25/23 05/25/23 00:37 23:25 23:25 WBC 20.2 H RBC 3.15 L Hgb 8.3 L Hct 26.7 L MCHC RDW 18.4 H Neutrophils # 19.0 H Lymphocytes # 0.5 L APTT ABG pH ABG pCO2 ABG pO2 ABG HCO3 ABG Total CO2 ABG O2 Saturation Sodium 136 L Potassium Chloride Carbon Dioxide 20 L BUN 32 H Creatinine 1.58 H Glucose 133 H POC Glucose (mg/dL) Calcium Iron TIBC % Saturation Transferrin Troponin I Total Protein Albumin 3.4 L Procalcitonin Urine Protein 3+ H Urine Ketones 3+ H Urine Blood Large H Urine Bilirubin 1+ H Ur Leukocyte Esterase Moderate H Urine RBC >182 H Urine WBC >182 H Urine Mucus Few H Crossmatch 05/25/23 05/26/23 05/26/23 23:25 02:39 07:58 WBC RBC Hgb Hct MCHC RDW Neutrophils # Lymphocytes # APTT 32.8 H ABG pH ABG pCO2 ABG pO2 ABG HCO3 ABG Total CO2 ABG O2 Saturation Sodium Potassium Chloride Carbon Dioxide BUN Creatinine Glucose POC Glucose (mg/dL) Calcium Iron TIBC % Saturation Transferrin Troponin I 0.379 H* 1.200 H* Total Protein Albumin Procalcitonin Urine Protein Urine Ketones Urine Blood Urine Bilirubin Ur Leukocyte Esterase Urine RBC Urine WBC Urine Mucus Crossmatch 05/26/23 05/26/23 05/26/23 07:58 07:58 09:06 WBC 14.1 H RBC 2.32 L Hgb 6.1 L* D Hct 20.6 L MCHC 29.9 L RDW 18.5 H Neutrophils # 12.9 H Lymphocytes # 0.5 L APTT ABG pH ABG pCO2 ABG pO2 ABG HCO3 ABG Total CO2 ABG O2 Saturation Sodium 126 L Potassium 2.6 L* Chloride Carbon Dioxide 14 L BUN Creatinine Glucose 416 H POC Glucose (mg/dL) Calcium 5.0 L* Iron TIBC % Saturation Transferrin Troponin I 1.670 H* Total Protein Albumin Procalcitonin Urine Protein Urine Ketones Urine Blood Urine Bilirubin Ur Leukocyte Esterase Urine RBC Urine WBC Urine Mucus Crossmatch 05/26/23 05/26/23 05/26/23 09:06 10:30 19:04 WBC 14.4 H 12.8 H RBC 2.75 L 2.84 L Hgb 7.3 L 7.5 L Hct 24.4 L 24.4 L MCHC 30.0 L 30.8 L RDW 18.4 H 18.6 H Neutrophils # 13.4 H Lymphocytes # 0.4 L APTT ABG pH ABG pCO2 ABG pO2 ABG HCO3 ABG Total CO2 ABG O2 Saturation Sodium 135 L Potassium Chloride 109 H Carbon Dioxide 18 L BUN 26 H Creatinine Glucose 120 H POC Glucose (mg/dL) Calcium 6.6 L Iron TIBC % Saturation Transferrin Troponin I Total Protein Albumin Procalcitonin Urine Protein Urine Ketones Urine Blood Urine Bilirubin Ur Leukocyte Esterase Urine RBC Urine WBC Urine Mucus Crossmatch 05/27/23 05/27/23 05/27/23 07:23 07:23 07:23 WBC RBC 2.63 L Hgb 6.9 L* Hct 22.5 L MCHC 30.7 L RDW 18.3 H Neutrophils # 8.0 H Lymphocytes # 0.5 L APTT ABG pH ABG pCO2 ABG pO2 ABG HCO3 ABG Total CO2 ABG O2 Saturation Sodium 134 L Potassium Chloride Carbon Dioxide BUN 32 H Creatinine 1.30 H Glucose POC Glucose (mg/dL) Calcium 8.0 L Iron TIBC % Saturation Transferrin Troponin I 1.160 H* Total Protein Albumin Procalcitonin Urine Protein Urine Ketones Urine Blood Urine Bilirubin Ur Leukocyte Esterase Urine RBC Urine WBC Urine Mucus Crossmatch 05/27/23 05/28/23 05/28/23 09:48 06:47 06:47 WBC 12.1 H RBC 2.80 L Hgb 7.2 L Hct 24.1 L MCHC 29.9 L RDW 18.3 H Neutrophils # Lymphocytes # APTT ABG pH ABG pCO2 ABG pO2 ABG HCO3 ABG Total CO2 ABG O2 Saturation Sodium 131 L Potassium Chloride Carbon Dioxide 21 L BUN 26 H Creatinine Glucose 108 H POC Glucose (mg/dL) Calcium 8.1 L Iron TIBC % Saturation Transferrin Troponin I Total Protein Albumin Procalcitonin Urine Protein Urine Ketones Urine Blood Urine Bilirubin Ur Leukocyte Esterase Urine RBC Urine WBC Urine Mucus Crossmatch See Detail 05/29/23 05/29/23 05/29/23 11:18 11:18 11:18 WBC 12.4 H RBC 2.77 L Hgb 7.2 L Hct 23.6 L MCHC 30.7 L RDW 18.0 H Neutrophils # Lymphocytes # APTT ABG pH ABG pCO2 ABG pO2 ABG HCO3 ABG Total CO2 ABG O2 Saturation Sodium 131 L Potassium Chloride Carbon Dioxide BUN 30 H Creatinine Glucose 112 H POC Glucose (mg/dL) Calcium 8.3 L Iron 6 L TIBC 225 L % Saturation 2.67 L Transferrin 161.0 L Troponin I Total Protein 5.7 L Albumin 2.5 L Procalcitonin Urine Protein Urine Ketones Urine Blood Urine Bilirubin Ur Leukocyte Esterase Urine RBC Urine WBC Urine Mucus Crossmatch 05/30/23 05/30/23 05/30/23 06:10 06:10 06:10 WBC 14.1 H RBC 2.87 L Hgb 7.4 L Hct 24.0 L MCHC 30.9 L RDW 18.2 H Neutrophils # Lymphocytes # APTT ABG pH ABG pCO2 ABG pO2 ABG HCO3 ABG Total CO2 ABG O2 Saturation Sodium 133 L Potassium Chloride Carbon Dioxide BUN 28 H Creatinine Glucose 107 H POC Glucose (mg/dL) Calcium Iron TIBC % Saturation Transferrin Troponin I Total Protein 6.1 L Albumin 2.7 L Procalcitonin 1.13 H Urine Protein Urine Ketones Urine Blood Urine Bilirubin Ur Leukocyte Esterase Urine RBC Urine WBC Urine Mucus Crossmatch 05/30/23 05/30/23 05/30/23 18:22 18:33 18:33 WBC 15.1 H RBC 3.00 L Hgb 7.8 L Hct 25.4 L MCHC 30.7 L RDW 18.2 H Neutrophils # Lymphocytes # APTT ABG pH ABG pCO2 ABG pO2 ABG HCO3 ABG Total CO2 ABG O2 Saturation Sodium 134 L Potassium Chloride Carbon Dioxide BUN 26 H Creatinine Glucose 119 H POC Glucose (mg/dL) 138 H Calcium Iron TIBC % Saturation Transferrin Troponin I Total Protein 6.2 L Albumin 2.8 L Procalcitonin Urine Protein Urine Ketones Urine Blood Urine Bilirubin Ur Leukocyte Esterase Urine RBC Urine WBC Urine Mucus Crossmatch 05/30/23 05/31/23 05/31/23 21:00 05:43 05:43 WBC 12.6 H RBC 2.71 L Hgb 7.0 L Hct 23.0 L MCHC 30.5 L RDW 18.2 H Neutrophils # Lymphocytes # APTT ABG pH 7.52 H ABG pCO2 32 L ABG pO2 58 L* ABG HCO3 26 H ABG Total CO2 27 H ABG O2 Saturation 93.0 L Sodium 135 L Potassium Chloride Carbon Dioxide BUN 25 H Creatinine Glucose 113 H POC Glucose (mg/dL) Calcium Iron TIBC % Saturation Transferrin Troponin I Total Protein 5.8 L Albumin 2.5 L Procalcitonin Urine Protein Urine Ketones Urine Blood Urine Bilirubin Ur Leukocyte Esterase Urine RBC Urine WBC Urine Mucus Crossmatch Assessment and Plan Assessment: This is a 77-year-old gentleman who presents because of abdominal pain with radiation of the right going with urinary retention. Was felt the patient had the urosepsis and the was being treated with ceftriaxone. During his hospital visit the patient EKG showed A. fib and was being managed with amiodarone Cardizem. He has a non-STEMI. No anticoagulation because of acute on chronic anemia. During this hospital visit the patient has altered mental status and had hypoxia and ABG as low as 58. Since his confusion started last night. Altered mental status seems due to multifactorial: Hypoxic encephalopathy possibly medication induced on amiodarone Cardizem and ceftriaxone as well as today received Ativan because of his agitation and irritability. Rule out underlying stroke not seen on CT of the head especially with the A. fib Plan: Ordered MRI of the brain without I ordered routine EEG B12 and folate is ordered and is pending Pulmonology is on board Neurology is consulted Possible avoid benzo sedation or narcotics as much as possible. We'll defer the rest of the medical measure the primary team I discussed with the primary team CRTT Thank you for the consultation Time with Patient: Greater than 30
[2023-05-31] MEDS: ACETAMINOPHEN TAB 325 MG TAB PO PRN (21:02)
[2023-06-01 09:13] LABS: Anisocytosis Slight; Basophils % (A) 0 %; Eosinophils # (A) 0.1 k/uL (0-0.7); Eosinophils % (A) 1 %; HCT 20.4 % (39.0-53.0); Hypochromasia Marked; Lymphocytes # (A) 0.8 k/uL (1.0-4.8); Lymphocytes % (A) 8 %; MCH 28.3 pg (25.0-35.0); MCHC 33.1 g/dL (31.0-37.0); MCV 85.4 fL (80.0-100.0); Mean Platelet Volume 8.5; Monocytes # (A) 0.6 k/uL (0-1.0); Monocytes % (A) 5 %; Neutrophils # (A) 9.1 k/uL (1.3-7.7); Neutrophils % (A) 83 %; Platelet Count 314 k/uL (150-450); Poikilocytosis Slight; RBC 2.39 m/uL (4.30-5.90); RDW 18.1 % (11.5-15.5)
[2023-06-01 09:17] LABS: HGB 6.8 gm/dL (13.0-17.5)
[2023-06-01 09:28] LABS: African American GFR (CKD) 68 (>60 ml/min/1.73 sqM); Anion Gap 5 mmol/L; Blood Urea Nitrogen 20 mg/dL (9-20); Calcium 8.3 mg/dL (8.4-10.2); Carbon Dioxide 25 mmol/L (22-30); Chloride 107 mmol/L (98-107); Glucose 85 mg/dL (74-99); Non-African American GFR(CKD) 58 (>60 ml/min/1.73 sqM); Potassium 3.8 mmol/L (3.5-5.1); Sodium 137 mmol/L (137-145)
[2023-06-01] MEDS: IPRATROPIUM-ALBUTEROL 3 ML NEB INHALATION SCH ×4 (09:40→21:21)
[2023-06-01] MEDS: SYMBICORT 160-4.5 MCG INHALER INHALATION SCH ×2 (09:40→21:21)
[2023-06-01] MEDS: ATORVASTATIN 40 MG TAB PO SCH (09:41)
[2023-06-01] MEDS: TAMSULOSIN 0.4 MG CAP.ER.24H PO SCH (09:41)
[2023-06-01] MEDS: METOPROLOL TARTRATE 50 MG TAB PO SCH ×2 (09:41→20:18)
[2023-06-01] MEDS: AMIODARONE 200 MG TAB PO SCH ×2 (09:41→20:18)
[2023-06-01] MEDS: NICOTINE 21MG/24HR PATCH TRANSDERM SCH (09:42)
[2023-06-01] MEDS: AZITHROMYCIN 500 MG in SODIUM CHLORIDE 0.9% 250 ML IVPB SCH (09:42)
--- NOTE | 2023-06-01 10:15 | XR ---
EXAMINATION TYPE: XR chest 1V portable DATE OF EXAM: 06/01/2023 COMPARISON: 05/28/2023 HISTORY: Shortness of breath TECHNIQUE: Frontal and lateral views of the chest are obtained. FINDINGS: Scattered senescent parenchymal changes noted. Hyperinflation compatible with COPD. Patchy basilar infiltrates and/or atelectasis with small effusions. Correlate for pneumonia. Heart size is stable. Mediastinal structures are stable and grossly unremarkable. No evidence for hilar prominence. Degenerative changes dorsal spine. IMPRESSION: 1.Patchy basilar infiltrates and/or atelectasis with small effusions. Correlate for pneumonia.
--- NOTE | 2023-06-01 10:28 | US ---
EXAMINATION TYPE: US venous doppler duplex UE RT DATE OF EXAM: 06/01/2023 COMPARISON: NONE CLINICAL INDICATION: Male, 77 years old with history of r/o DVT, erythema; R/O DVT, erythema SIDE PERFORMED: Right Arm Right Arm: *Internal echoes seen within right basilic vein at the forearm level below the elbow. Basi lic vein does not appear to compress or show color flow at this level. No evidence of DVT. Ulnar and radial veins appear to stay separate through the upper arm, they appear to branch from axi llary vein. 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
--- NOTE | 2023-06-01 10:29 | P.PN ---
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 He presented to the emergency department on 05/25/23 secondary to reports of lower abdominal pain/discomfort radiating into right groin accompanied by urinary retention. Upon arrival to the emergency department [place] underwent full evaluation. He was found to be tachycardic with a heart rate of 140s. EKG was completed showing atrial fibrillation with RVR at 143 bpm. Labs completed and reviewed. CBC showing severe leukocytosis with WBC count of 20.2 and normocytic anemia with hemoglobin of 8.3. BMP revealing acute kidney injury with BUN of 32, creatinine 1.58, and GFR 42. Magnesium was low at 1.6. Troponin elevated at 0.379 and proBNP 2380. Urinalysis positive for infection showing protein, ketones, blood, bilirubin, leukocytes and greater than 182 RBCs and greater than 182 WBCs. Patient was started on low intensity heparin infusion for treatment of NSTEMI, Cardizem infusion for treatment of A. fib RVR, and Rocephin for treatment of UTI with sepsis. Patient admitted under services with consultation to cardiology and urology. Troponins were trended resulting in 0.379, 1.200, and 1.670. Cardiology recommending to hold off on anticoagulation at this time secondary to acute on chronic anemia. Echocardiogram completed showing preserved EF of 55-60% with no significant valvular or structural abnormalities. Patient currently remains with uncontrolled A. fib RVR rates ranging between 150s to 200s. Patient was maintained on amiodarone infusion and Cardizem infusion. Patient converted and Cardizem infusion was discontinued. Amiodarone infusion continued throughout the night and on 05/29/23 patient was transitioned to oral amiodarone 400 mg twice daily. He continues to maintain sinus mechanism. Patient also remains on 6 L O2 via nasal cannula with baseline O2 4 L. On the evening of 05/30/23 receive notification from RN that patient was found without oxygen and SpO2 of 84%. Patient was confused at this time. Patient immediately placed back on high flow oxygen increasing SpO2 greater than 90%. Orders placed for a stat ABG showing respiratory alkalosis with pH of 7.52, pCO2 of 32, PaO2 58, bicarb 26, total CO2 27, and O2 sat of 93. Subjective: Pt appears to be tachypneic with accessory muscle use. C/o pain in his RUE. Denies f/c. Physical exam: Gen: awake, alert HEENT: normocephalic, atraumatic, good hearing acuity, moist mucous membranes Resp: Tachypneic, with costal retraction, diminished breath sounds on the right, crackles in the bases bilaterally, diffuse wheezing CVS: good distal perfusion x 4, GI: soft, NTTP, ND : no SPT, no CVAT, archer catheter is present MSK: no pitting edema, no clubbing Neuro: non-focal, moving all extremities Psych: cooperative, euthymic mood Assessment and Plan of Care: Metabolic encephalopathy, unclear etiology possibly hospital associated delirium vs infectious etiology vs medication effect Acute on chronic respiratory failure with hypoxia, patient baseline 4 L O2 secondary to advanced COPD currently requiring 6 L O2 Community acquired pneumonia -Pulmonology following, -CXR ordered, reviewed, and personally interpreted 06/01 - bilateral pleural effusions, left retrocardiac opacity c/w pneumonia -BNP added to prior labs -US RUE ordered to r/o DVT -Neurology following, -MRI of the brain was ordered -CTH reviewed 06/01 - degenerative and remote ischemia with white matter change -Order placed for B12, level >3600; folate level, 17.7 and ammonia level, <9; all reviewed 06/01 -Order also placed for amiodarone level to ensure it is not toxic and greater than 2.5. -Neuro checks to continued every 4 hours. -Fall precautions in place. Paroxysmal Atrial fibrillation with RVR NSTEMI -Cardiology recs appreciated -Amiodarone 400mg BID --> 200mg BID -Metoprolol 50mg BID -medical managment for NSTEMI, patient is not an ideal cardiac catheterization candidate secondary to multiple issues including current acute blood loss anemia -holding anti-platelet, heparin at this time due to ABLA -Atorvastatin 40mg daily -metoprolol as above -Echocardiogram completed showing preserved EF of 55-60% with no significant valvular or structural abnormalities. UTI with Sepsis, present upon arrival Urinary retention, secondary to recurrent obstructive bladder cancer -Urology following -On abx as above -Archer catheter is present, with plan for TOV prior to discharge -Continue flomax daily Acute blood loss anemia secondary to hematuria, baseline hemoglobin between 8 and 9 Hematuria, resolved -Acute blood loss anemia secondary to hematuria -s/p 1U PRBC on 05/27 -ordered 1U PRBC on 06/01 for Hgb of 6.8 CODE STATUS: Full code DVT prophylaxis: SCDs Anticipated discharge date: Clinical course to determine Anticipated discharge place: Home with home care and palliative care Objective - Vital Signs Vital signs: Vital Signs Temp 98.2 F 06/01/23 03:40 Pulse 80 06/01/23 09:50 Resp 22 06/01/23 09:50 BP 117/66 06/01/23 03:40 Pulse Ox 94 L 06/01/23 09:40 FiO2 Intake & Output 05/31/23 06/01/23 06/01/23 18:59 06:59 18:59 Intake Total 120 10 180 Output Total 750 500 Balance -630 -490 180 Weight 64.41 kg Intake: IV 10 Invasive Line 4 10 Oral 120 180 Output: Urine 750 500 Other: Voiding Method Indwelling Catheter Indwelling Catheter - Labs CBC & Chem 7: 06/01/23 08:06 06/01/23 08:06 Labs: Abnormal Lab Results - Last 24 Hours (Table) 05/30/23 06/01/23 06/01/23 Range/Units 06:10 08:06 08:06 WBC 11.0 H (3.8-10.6) k/uL RBC 2.39 L (4.30-5.90) m/uL Hgb 6.8 L* (13.0-17.5) gm/dL Hct 20.4 L (39.0-53.0) % RDW 18.1 H (11.5-15.5) % Neutrophils # 9.1 H (1.3-7.7) k/uL Lymphocytes # 0.8 L (1.0-4.8) k/uL Calcium 8.3 L (8.4-10.2) mg/dL Vitamin B12 >3600.0 H (200.0-944.0) pg/mL
--- NOTE | 2023-06-01 10:45 | P.PN ---
Subjective Progress Note Date: 06/01/23 Principal diagnosis: Respiratory failure. Pulmonary consult dated 05/30/2023. 77-year-old male who presented to the emergency department, on 05/25/2023. He apparently presented with complaints of shortness of breath, and difficulty urinating. The patient apparently was having issues throughout the day, and was seen in the emergency department, where he was found to have atrial fibrillation with RVR. The patient was admitted for that reason. While I was rounding today, the lead installer mentioned that they put in a consult for us on this patient, because he sees my partner in the office for COPD. The patient is chronically hypoxemic, and is use home O2 at 4 L/m. Currently, he's on 5 L. He's not receiving any IV fluids. His primary care physician is Dr. Miranda. The patient is a no code with instructions. He sitting up in the chair next to his bed. Most recent labs show white count 14.1, hemoglobin 7.4, hematocrit 24, and a platelet count 299,000. Sodium 133, potassium 3.9, chlorides 102, CO2 23, BUN 28, and creatinine 1.20. Albumin is 2.7. His chest x-ray shows some left basilar airspace disease or atelectasis. The patient tested negative for infl uenza A, and influenza B, RSV, and coronavirus. Progress note dated 05/31/2023. 77-year-old male admitted with a diagnosis of shortness of breath, difficulty urinating. The patient was found to have atrial fibrillation and rapid ventricular response the patient does have severe COPD, and chronic hypoxemic respiratory failure. He typically uses home oxygen at 4-5 L/m. The patient has some issues with oxygenation last night, and his FiO2 requirements were increased. Currently he is getting saline at 10 mL an hour, he is on oxygen at 4 L by nasal cannula. The patient is a DO NOT RESUSCITATE, with instructions. Labs include white count 12.6, hemoglobin 7, hematocrit 23, and platelet count 269,000. Blood gases from yesterday show pO2 of 58, pCO2 32, and a pH is 7.52. That was on 36% FiO2. Sodium 135, potassium 3.7, chlorides 105, CO2 23, BUN 25, creatinine 1.25. Albumin is 2.5. Progress note dated 06/01/2023. 77-year-old male, seen today in room 355. The patient remains on oxygen at 5 L. The patient is not receiving any IV fluids. Clinically, the patient feels like he is improving. I attempted to have a discussion with him about CODE STATUS, and whether or not he should be on life support. I don't know that he truly understood the conversation, but he states that he would give it some thought, and the nurse will call family members as well. White count 11, hemoglobin 6.8, hematocrit 20.4, and platelet count 314,000. Sodium 137, potassium 3.8, chlorides 107, CO2 25, BUN 20, and the creatinine is 1.21. Calcium is 8.3. Superficial clot is seen in the right upper extremity. No evidence of DVT. Chest x-rays consistent with bilateral lateral basilar patchy airspace opacities. The patient continues on azithromycin and Rocephin. Objective - Vital Signs Vital signs: Vital Signs Temp 98.2 F 06/01/23 08:00 Pulse 80 06/01/23 09:50 Resp 22 06/01/23 09:50 BP 133/71 06/01/23 08:00 Pulse Ox 94 L 06/01/23 09:40 FiO2 Intake & Output 05/31/23 06/01/23 06/01/23 18:59 06:59 18:59 Intake Total 120 10 180 Output Total 750 500 Balance -630 -490 180 Weight 64.41 kg Intake: IV 10 Invasive Line 4 10 Oral 120 180 Output: Urine 750 500 Other: Voiding Method Indwelling Catheter Indwelling Catheter Indwelling Catheter - Exam No acute distress, awake and alert. Currently on nasal O2 at 5 L. HEENT examination is grossly unremarkable. Neck supple. Full range of motion. No adenopathy thyromegaly or neck vein distention. Cardiovascular examination reveals regular rhythm rate. S1-S2 normal. No S3 or S4. No discernible murmur noted. Heart rate 80 bpm. Heart sounds are distant. Lungs reveal scattered bilateral rhonchi. Breath sounds are equal but diminished throughout. No crackles. No wheezes. Saturation is 94% on 5 L. Abdomen soft bowel sounds are heard. No masses or tenderness. Extremities are intact. No cyanosis clubbing or edema. Skin is without rash or lesion. Neurologic examination reveals the patient to be awake and alert. - Labs CBC & Chem 7: 06/01/23 08:06 06/01/23 08:06 Labs: Abnormal Lab Results - Last 24 Hours (Table) 05/30/23 06/01/23 06/01/23 Range/Units 06:10 08:06 08:06 WBC 11.0 H (3.8-10.6) k/uL RBC 2.39 L (4.30-5.90) m/uL Hgb 6.8 L* (13.0-17.5) gm/dL Hct 20.4 L (39.0-53.0) % RDW 18.1 H (11.5-15.5) % Neutrophils # 9.1 H (1.3-7.7) k/uL Lymphocytes # 0.8 L (1.0-4.8) k/uL Calcium 8.3 L (8.4-10.2) mg/dL Vitamin B12 >3600.0 H (200.0-944.0) pg/mL Assessment and Plan Assessment: Shortness of breath, secondary to atrial fibrillation with rapid ventricular response. History of severe oxygen-dependent COPD, complicated by pneumonia. Chronic hypoxemic respiratory failure. History of hypertension. History of hyperlipidemia. Previous heart catheterization with stent placement. Prior history of heavy tobacco use. Multiple other medical problems and comorbidities. Plan: Plan dated 05/30/2023. Currently, patient is on appropriate medications, including updrafts. We did t ell the patient, that he could have his home Trelegy inhaler, brought in, that he continues 1 puff once daily. Additional recommendations and suggestions are forthcoming. The patient is currently being followed by cardiology for his atrial fibrillation. Currently, the patient's on amiodarone 400 mg twice a day, and also beta magdalena, prescribed by cardiology for his atrial fibrillation. The patient's also receiving a nicotine patch. We will continue to follow, and make recommendations. Prognosis is guarded. We will continue to follow the patient, and make recommendations along the way. Prognosis is guarded. Plan dated 05/31/2023. The patient is again seen today in room 355. Currently, the patient's on 4 L of oxygen. He is getting saline at 10 mL an hour. He is very lethargic and somnolent. He is a DO NOT RESUSCITATE with instructions. Labs, x-rays, and medications are reviewed. A blood gas from yesterday showed mild hypoxemic respiratory failure, with a combined respiratory and metabolic alkalosis. A brain CT was ordered but not interpreted as yet. We will continue to follow the patient, make recommendations along. The patient's overall prognosis remains very guarded. Plan dated 06/01/2023. The patient is seen today in room 355. He continues on oxygen at 5 L. He continues on antibiotics for presumed bibasilar pneumonia. The patient has severe COPD. I attempted to have a conversation with the patient about going on mechanical ventilation. The patient is undecided. He apparently is agreeable to intubation and mechanical ventilation, but no CPR. The nurse is going to call to the family, about CODE STATUS. Additional recommendations and suggestions are forthcoming. Prognosis is guarded. We will continue to follow the patient, and make recommendations along the way. Time with Patient: Less than 30
[2023-06-01] MEDS: traMADol 50 MG TAB PO PRN ×2 (14:42→20:17)
[2023-06-01] MEDS: FUROSEMIDE 10 MG/ML 4 ML VIAL IV SCH (14:45)
--- NOTE | 2023-06-01 15:07 | P.PN ---
Subjective Progress Note Date: 06/01/23 I am following-up with patient and his mentation is improved compared to yesterday. He denies of focal weakness, numbness, visual disturbance. Objective - Vital Signs Vital signs: Vital Signs Temp 98.2 F 06/01/23 08:00 Pulse 88 06/01/23 12:57 Resp 22 06/01/23 12:57 BP 132/61 06/01/23 12:00 Pulse Ox 91 L 06/01/23 12:00 FiO2 Intake & Output 05/31/23 06/01/23 06/01/23 18:59 06:59 18:59 Intake Total 120 10 180 Output Total 750 500 800 Balance -630 -490 -620 Weight 64.41 kg Intake: IV 10 Invasive Line 4 10 Oral 120 180 Output: Urine 750 500 800 Uretheral ([place]) 300 Other: Voiding Method Indwelling Catheter Indwelling Catheter Indwelling Catheter - Exam General: Lying in bed and is not in acute distress. Neuro: The patient is awake, alert, oriented to self, time and he stated he is in the hospital. He is following simple commands. Pupils are round, equal and reactive to light. Pupils are 3mm. Visual morrison are full to confrontation. No facial weakness. No dysarthria. Motor: Lifting all extremities above gravity equally. Sensation: Normal to touch throughout. Some of the work-up during this hospital visit consisted of: TSH is 1.180. Ammonia level is less than 9. Vitamin B12: >3600 Serum folate: 17.7 CT of the head today which reported as degenerative and remote ischemic white matter changes. No acute hemorrhage or mass effect. I reviewed the CT and I agree there is no acute or subacute ischemia and there is no bleeding. - Labs CBC & Chem 7: 06/01/23 08:06 06/01/23 08:06 Labs: Abnormal Lab Results - Last 24 Hours (Table) 05/30/23 06/01/23 06/01/23 Range/Units 06:10 08:06 08:06 WBC 11.0 H (3.8-10.6) k/uL RBC 2.39 L (4.30-5.90) m/uL Hgb 6.8 L* (13.0-17.5) gm/dL Hct 20.4 L (39.0-53.0) % RDW 18.1 H (11.5-15.5) % Neutrophils # 9.1 H (1.3-7.7) k/uL Lymphocytes # 0.8 L (1.0-4.8) k/uL Calcium 8.3 L (8.4-10.2) mg/dL Vitamin B12 >3600.0 H (200.0-944.0) pg/mL Crossmatch 06/01/23 Range/Units 09:55 WBC (3.8-10.6) k/uL RBC (4.30-5.90) m/uL Hgb (13.0-17.5) gm/dL Hct (39.0-53.0) % RDW (11.5-15.5) % Neutrophils # (1.3-7.7) k/uL Lymphocytes # (1.0-4.8) k/uL Calcium (8.4-10.2) mg/dL Vitamin B12 (200.0-944.0) pg/mL Crossmatch See Detail Assessment and Plan Assessment: This is a 77-year-old gentleman who presents because of abdominal pain with radiation of the right going with urinary retention. Was felt the patient had the urosepsis and the was being treated with ceftriaxone. During his hospital visit the patient EKG showed A. fib and was being managed with amiodarone Cardizem. He has a non-STEMI. No anticoagulation because of acute on chronic anemia. During this hospital visit the patient has altered mental status and had hypoxia and ABG as low as 58. Since his confusion started last night. Altered mental status seems due to multifactorial: Hypoxic encephalopathy possibly medication induced on amiodarone Cardizem and ceftriaxone as well as today received Ativan because of his agitation and irritability--mentation better today compared tod yesterday. Plan: Pending MRI of the brain without to assess if any acute or subacute stroke especially with new onset atrial fibrillation. Patient had episode of confusion which improved today. I doubt this is stroke. Routine EEG is completed and pending report. Pulmonology is on board Possible avoid benzo sedation or narcotics as much as possible. We'll defer the rest of the medical measure the primary team Time with Patient: Less than 30
--- NOTE | 2023-06-01 17:33 | P.PN ---
Progress Note - Text Progress Note Date: 06/01/23 I spent 40 minutes of [id number] time with patient's son and grandson as well as patient, all named Nomi about patient's multiple serious issues including: End-stage COPD, non-ST elevation SD, new onset paroxysmal atrial fibrillation, community-acquired pneumonia with sepsis. In our discussion, we discussed CODE STATUS, palliative care, hospice. Overall, patient understands his poor prognosis given his severe COPD. He understands that this is a progressive disease and is likely to get worse with time not better. Given the situation, patient and his grandson who is DURABLE POWER OF [employer] agree the patient should be DO NOT RESUSCITATE/DO NOT INTUBATE. Patient does not want to consider hospice at this time, but is open to palliative care consultation the outpatient setting. For now, would like to continue full treatment COPD exacerbation, non- ST elevation SD, paroxysmal atrial fibrillation, and community acquired pneumonia. Patient and grandson agree that if patient requires elective/emergent intubation, they like to be quickly notified and may consider transitioning to inpatient hospice as opposed to proceeding with intubation.
--- NOTE | 2023-06-02 02:08 | EEG ---
ELECTROENCEPHALOGRAM REPORT CLINICAL HISTORY: This is a 77-year-old gentleman with altered mental status. The video EEG is obtained to evaluate for seizure epileptiform activity. RELEVANT MEDICATION: Ativan. EEG TYPE: A routine 21-channel EEG with video using the 10/20 electrode placement system. DESCRIPTION: The patient is predominantly in a drowsy state. A brief awake state is obtained. During awake state, the background consists of [id number] voltage of 9 hertz activity. There is no physiological stage 2 sleep architecture. There is no focal slowing. Interictal and ictal is none. ACTIVATION PROCEDURE: Photic stimulation and hyperventilation are not performed. CLINICAL INTERPRETATION: This is a normal routine EEG. There is no focal slowing, epileptiform discharge, or seizure on the EEG. A normal routine EEG does not rule out underlying epilepsy. Clinical correlation is recommended. RADHA / LASHAUN: [id number] / MTDD
[2023-06-02] MEDS: SYMBICORT 160-4.5 MCG INHALER INHALATION SCH ×2 (08:10→22:16)
[2023-06-02] MEDS: IPRATROPIUM-ALBUTEROL 3 ML NEB INHALATION SCH ×4 (08:10→22:16)
[2023-06-02 08:23] LABS: Anisocytosis Slight; Basophils % (A) 0 %; Eosinophils # (A) 0.2 k/uL (0-0.7); Eosinophils % (A) 2 %; HCT 21.2 % (39.0-53.0); Hypochromasia Marked; Lymphocytes # (A) 1.4 k/uL (1.0-4.8); Lymphocytes % (A) 13 %; MCH 25.7 pg (25.0-35.0); MCHC 30.3 g/dL (31.0-37.0); MCV 84.7 fL (80.0-100.0); Mean Platelet Volume 8.4; Monocytes # (A) 0.9 k/uL (0-1.0); Monocytes % (A) 8 %; Neutrophils # (A) 8.3 k/uL (1.3-7.7); Neutrophils % (A) 74 %; Platelet Count 345 k/uL (150-450); Poikilocytosis Slight; RDW 18.1 % (11.5-15.5); WBC 11.3 k/uL (3.8-10.6)
[2023-06-02 08:28] LABS: HGB 6.4 gm/dL (13.0-17.5)
[2023-06-02 08:31] LABS: African American GFR (CKD) 64 (>60 ml/min/1.73 sqM); Anion Gap 7 mmol/L; Blood Urea Nitrogen 22 mg/dL (9-20); Calcium 8.2 mg/dL (8.4-10.2); Carbon Dioxide 26 mmol/L (22-30); Chloride 101 mmol/L (98-107); Glucose 104 mg/dL (74-99); Magnesium 1.9 mg/dL (1.6-2.3); Non-African American GFR(CKD) 55 (>60 ml/min/1.73 sqM); Potassium 3.6 mmol/L (3.5-5.1); Sodium 134 mmol/L (137-145)
[2023-06-02] MEDS: NICOTINE 21MG/24HR PATCH TRANSDERM SCH (09:55)
[2023-06-02] MEDS: FUROSEMIDE 10 MG/ML 4 ML VIAL IV SCH (09:55)
[2023-06-02] MEDS: TAMSULOSIN 0.4 MG CAP.ER.24H PO SCH (09:56)
[2023-06-02] MEDS: AMIODARONE 200 MG TAB PO SCH ×2 (09:56→20:00)
[2023-06-02] MEDS: ATORVASTATIN 40 MG TAB PO SCH (09:56)
[2023-06-02] MEDS: METOPROLOL TARTRATE 50 MG TAB PO SCH ×2 (09:56→20:00)
[2023-06-02] MEDS: AZITHROMYCIN 500 MG in SODIUM CHLORIDE 0.9% 250 ML IVPB SCH (10:31)
[2023-06-02 10:36] LABS: INR 1.1 (<1.2)
[2023-06-02 10:37] LABS: Prothrombin Time 11.4 sec (10.0-12.5)
[2023-06-02 12:23] LABS: Appearance,Urine Clear (Clear); Bacteria,Urine Occasional /hpf; Bilirubin,Urine Negative (Negative); Blood,Urine Large (Negative); Budding Yeast,Urine Occasional /hpf; Calcium Oxalate Crystals,Urine Occasional /hpf; Color,Urine Colorless; Glucose,Urine (UA) Negative (Negative); Hyaline Casts,Urine 3 /lpf (0-2); Ketones,Urine Negative (Negative); Leukocyte Esterase,Urine Large (Negative); Mucus,Urine Rare /hpf; Nitrite,Urine Negative (Negative); PH, Urine 5.5 (5.0-8.0); Protein,Urine Trace (Negative); RBC,Urine 135 /hpf (0-5); Specific Gravity,Urine 1.007 (1.001-1.035); Squamous Epithelial Cell,Urine 1 /hpf (0-4); Urobilinogen,Urine <2.0 mg/dL (<2.0); WBC,Urine 59 /hpf (0-5)
[2023-06-02] MEDS: traMADol 50 MG TAB PO PRN (12:24)
--- NOTE | 2023-06-02 12:24 | P.PN ---
Subjective Progress Note Date: 06/02/23 I am following-up with patient and he was sitting in a recliner chair and he feels he is doing drastically better. Denies of any focal weakness, speech difficulty, visual disturbance. He has worsening of anemia and he is pending to have transfusion today. Objective - Vital Signs Vital signs: Vital Signs Temp 98.2 F 06/02/23 08:40 Pulse 84 06/02/23 11:34 Resp 19 06/02/23 08:40 BP 113/65 06/02/23 08:40 Pulse Ox 88 L 06/02/23 08:40 FiO2 Intake & Output 06/01/23 06/02/23 06/02/23 18:59 06:59 18:59 Intake Total 180 120 Output Total 2000 800 Balance -1820 -800 120 Weight 74 kg Intake: Oral 180 120 Output: Urine 1999 800 Uretheral ([place]) 300 Other: Voiding Method Indwelling Catheter Indwelling Catheter - Exam General: Sitting in a recliner chair and is not in acute distress. Neuro: The patient is awake, alert, oriented to self, time and he stated he is in the hospital. He is following simple commands. Pupils are round, equal and reactive to light. Pupils are 3mm. Visual morrison are full to confrontation. No facial weakness. No dysarthria. Motor:Strength is 5/5 throughout. Sensation: Normal to touch throughout. Some of the work-up during this hospital visit consisted of: TSH is 1.180. Ammonia level is less than 9. Vitamin B12: >3600 Serum folate: 17.7 CT of the head today which reported as degenerative and remote ischemic white matter changes. No acute hemorrhage or mass effect. I reviewed the CT and I agree there is no acute or subacute ischemia and there is no bleeding. Routine EEG: Normal. - Labs CBC & Chem 7: 06/02/23 07:33 06/02/23 07:33 Labs: Abnormal Lab Results - Last 24 Hours (Table) 06/01/23 06/01/23 06/02/23 Range/Units 09:55 14:45 07:33 WBC 11.3 H (3.8-10.6) k/uL RBC 2.50 L (4.30-5.90) m/uL Hgb 6.4 L* (13.0-17.5) gm/dL Hct 21.2 L (39.0-53.0) % MCHC 30.3 L (31.0-37.0) g/dL RDW 18.1 H (11.5-15.5) % Neutrophils # 8.3 H (1.3-7.7) k/uL Sodium (137-145) mmol/L BUN (9-20) mg/dL Creatinine (0.66-1.25) mg/dL Glucose (74-99) mg/dL Calcium (8.4-10.2) mg/dL Crossmatch See Detail See Detail Blood Bank Comment Sent to [facility] A 06/02/23 Range/Units 07:33 WBC (3.8-10.6) k/uL RBC (4.30-5.90) m/uL Hgb (13.0-17.5) gm/dL Hct (39.0-53.0) % MCHC (31.0-37.0) g/dL RDW (11.5-15.5) % Neutrophils # (1.3-7.7) k/uL Sodium 134 L (137-145) mmol/L BUN 22 H (9-20) mg/dL Creatinine 1.27 H (0.66-1.25) mg/dL Glucose 104 H (74-99) mg/dL Calcium 8.2 L (8.4-10.2) mg/dL Crossmatch Blood Bank Comment Microbiology - Last 24 Hours (Table) 05/27/23 09:48 Blood Culture - Final Blood Assessment and Plan Assessment: This is a 77-year-old gentleman who presents because of abdominal pain with radiation of the right going with urinary retention. Was felt the patient had the urosepsis and the was being treated with ceftriaxone. During his hospital visit the patient EKG showed A. fib and was being managed with amiodarone Cardizem. He has a non-STEMI. No anticoagulation because of acute on chronic anemia. During this hospital visit the patient has altered mental status and had hypoxia and ABG as low as 58. Since his confusion started last night. Altered mental status seems due to multifactorial: Hypoxic encephalopathy possibly medication induced on amiodarone,Cardizem and ceftriaxone as well as today received Ativan because of his agitation and irritability--mentation better last two days. New onset A-fib NSTEMI Acute anemia Hematuria Plan: Pending MRI of the brain without to assess if any acute or subacute stroke especially with new onset atrial fibrillation. CT head and EEG are normal. He pending to have blood transfusion today. Pulmonology is on board If Possible avoid benzo sedation or narcotics as much as possible. We'll defer the rest of the medical measure the primary team The plan is discussed with patient and his nurse. Dr. Edwards will resume neurology service tomorrow A.M. Time with Patient: Less than 30
--- NOTE | 2023-06-02 14:08 | P.PN ---
Subjective Progress Note Date: 06/02/23 Principal diagnosis: Respiratory failure. Pulmonary consult dated 05/30/2023. 77-year-old male who presented to the emergency department, on 05/25/2023. He apparently presented with complaints of shortness of breath, and difficulty urinating. The patient apparently was having issues throughout the day, and was seen in the emergency department, where he was found to have atrial fibrillation with RVR. The patient was admitted for that reason. While I was rounding today, the helmet hat brim cutter mentioned that they put in a consult for us on this patient, because he sees my partner in the office for COPD. The patient is chronically hypoxemic, and is use home O2 at 4 L/m. Currently, he's on 5 L. He's not receiving any IV fluids. His primary care physician is Dr. Miranda. The patient is a no code with instructions. He sitting up in the chair next to his bed. Most recent labs show white count 14.1, hemoglobin 7.4, hematocrit 24, and a platelet count 299,000. Sodium 133, potassium 3.9, chlorides 102, CO2 23, BUN 28, and creatinine 1.20. Albumin is 2.7. His chest x-ray shows some left basilar airspace disease or atelectasis. The patient tested negative for infl uenza A, and influenza B, RSV, and coronavirus. Progress note dated 05/31/2023. 77-year-old male admitted with a diagnosis of shortness of breath, difficulty urinating. The patient was found to have atrial fibrillation and rapid ventricular response the patient does have severe COPD, and chronic hypoxemic respiratory failure. He typically uses home oxygen at 4-5 L/m. The patient has some issues with oxygenation last night, and his FiO2 requirements were increased. Currently he is getting saline at 10 mL an hour, he is on oxygen at 4 L by nasal cannula. The patient is a DO NOT RESUSCITATE, with instructions. Labs include white count 12.6, hemoglobin 7, hematocrit 23, and platelet count 269,000. Blood gases from yesterday show pO2 of 58, pCO2 32, and a pH is 7.52. That was on 36% FiO2. Sodium 135, potassium 3.7, chlorides 105, CO2 23, BUN 25, creatinine 1.25. Albumin is 2.5. Progress note dated 06/01/2023. 77-year-old male, seen today in room 355. The patient remains on oxygen at 5 L. The patient is not receiving any IV fluids. Clinically, the patient feels like he is improving. I attempted to have a discussion with him about CODE STATUS, and whether or not he should be on life support. I don't know that he truly understood the conversation, but he states that he would give it some thought, and the nurse will call family members as well. White count 11, hemoglobin 6.8, hematocrit 20.4, and platelet count 314,000. Sodium 137, potassium 3.8, chlorides 107, CO2 25, BUN 20, and the creatinine is 1.21. Calcium is 8.3. Superficial clot is seen in the right upper extremity. No evidence of DVT. Chest x-rays consistent with bilateral lateral basilar patchy airspace opacities. The patient continues on azithromycin and Rocephin. Progress note dated 06/02/2023. 77-year-old male with history of severe COPD. He has chronic hypoxemic respiratory failure he uses oxygen at home between 4-5 L/m. Currently, not receiving any IV fluids. The patient continues on Rocephin. He is much more awake and alert today than he has been over the last couple of days. Currently, the patient's white count 11.3, he will 6.4, hematocrit 21.2, and platelet count 345,000. Coag studies are normal. Sodium 134, potassium 3.6, chlorides 101, CO2 26, B1 22, and creatinine 1.27. The patient's calcium is 8.2. LDH is 219. Urine suggest the possibility of a urinary tract infection. The patient continues on Rocephin. Objective - Vital Signs Vital signs: Vital Signs Temp 98.1 F 06/02/23 13:51 Pulse 65 06/02/23 13:51 Resp 19 06/02/23 13:51 BP 100/63 06/02/23 13:51 Pulse Ox 98 06/02/23 13:51 FiO2 Intake & Output 06/01/23 06/02/23 06/02/23 18:59 06:59 18:59 Intake Total 180 120 Output Total 1999 800 500 Balance -2039 -800 380 Weight 74 kg Intake: Oral 180 120 Blood Product 0 Unit 0 Output: Urine 2000 800 500 Uretheral (Mackay) 300 Other: Voiding Method Indwelling Catheter Indwelling Catheter - Exam No acute distress, awake and alert. Currently on nasal O2 at 5 L. HEENT examination is grossly unremarkable. Neck supple. Full range of motion. No adenopathy thyromegaly or neck vein distention. Cardiovascular examination reveals regular rhythm rate. S1-S2 normal. No S3 or S4. No discernible murmur noted. Heart rate 65 bpm. Heart sounds are distant. Lungs reveal scattered bilateral rhonchi. Breath sounds are equal but dimin ished throughout. No crackles. No wheezes. Saturation is 92 % on 5 L. Abdomen soft bowel sounds are heard. No masses or tenderness. Extremities are intact. No cyanosis clubbing or edema. Skin is without rash or lesion. Neurologic examination reveals the patient to be awake and alert. - Labs CBC & Chem 7: 06/02/23 07:33 06/02/23 07:33 Labs: Abnormal Lab Results - Last 24 Hours (Table) 06/01/23 06/01/23 06/02/23 Range/Units 09:55 14:45 07:33 WBC 11.3 H (3.8-10.6) k/uL RBC 2.50 L (4.30-5.90) m/uL Hgb 6.4 L* (13.0-17.5) gm/dL Hct 21.2 L (39.0-53.0) % MCHC 30.3 L (31.0-37.0) g/dL RDW 18.1 H (11.5-15.5) % Neutrophils # 8.3 H (1.3-7.7) k/uL Sodium (137-145) mmol/L BUN (9-20) mg/dL Creatinine (0.66-1.25) mg/dL Glucose (74-99) mg/dL Calcium (8.4-10.2) mg/dL Urine Protein (Negative) Urine Blood (Negative) Ur Leukocyte Esterase (Negative) Urine RBC (0-5) /hpf Urine WBC (0-5) /hpf Calcium Oxalate Crystal (None) /hpf Urine Bacteria (None) /hpf Hyaline Casts (0-2) /lpf Urine Mucus (None) /hpf Urine Yeast (Budding) (None) /hpf Crossmatch See Detail See Detail Blood [facility] 06/02/23 06/02/23 Range/Units 07:33 11:24 WBC (3.8-10.6) k/uL RBC (4.30-5.90) m/uL Hgb (13.0-17.5) gm/dL Hct (39.0-53.0) % MCHC (31.0-37.0) g/dL RDW (11.5-15.5) % Neutrophils # (1.3-7.7) k/uL Sodium 134 L (137-145) mmol/L BUN 22 H (9-20) mg/dL Creatinine 1.27 H (0.66-1.25) mg/dL Glucose 104 H (74-99) mg/dL Calcium 8.2 L (8.4-10.2) mg/dL Urine Protein Trace H (Negative) Urine Blood Large H (Negative) Ur Leukocyte Esterase Large H (Negative) Urine RBC 135 H (0-5) /hpf Urine WBC 59 H (0-5) /hpf Calcium Oxalate Crystal Occasional H (None) /hpf Urine Bacteria Occasional H (None) /hpf Hyaline Casts 3 H (0-2) /lpf Urine Mucus Rare H (None) /hpf Urine Yeast (Budding) Occasional H (None) /hpf Crossmatch Blood Bank Comment Microbiology - Last 24 Hours (Table) 05/27/23 09:48 Blood Culture - Final Blood Assessment and Plan Assessment: Shortness of breath, secondary to atrial fibrillation with rapid ventricular response. History of severe oxygen-dependent COPD, complicated by pneumonia. Chronic hypoxemic respiratory failure. History of hypertension. History of hyperlipidemia. Previous heart catheterization with stent placement. Prior history of heavy tobacco use. Multiple other medical problems and comorbidities. Plan: Plan dated 05/30/2023. Currently, patient is on appropriate medications, including updrafts. We did tell the patient, that he could have his home Trelegy inhaler, brought in, that he continues 1 puff once daily. Additional recommendations and suggestions are forthcoming. The patient is currently being followed by cardiology for his atrial fibrillation. Currently, the patient's on amiodarone 400 mg twice a day, and also beta magdalena, prescribed by cardiology for his atrial fibrillation. The patient's also receiving a nicotine patch. We will continue to follow, and make recommendations. Prognosis is guarded. We will continue to follow the patient, and make recommendations along the way. Prognosis is guarded. Plan dated 05/31/2023. The patient is again seen today in room 355. Currently, the patient's on 4 L of oxygen. He is getting saline at 10 mL an hour. He is very lethargic and somnolent. He is a DO NOT RESUSCITATE with instructions. Labs, x-rays, and medications are reviewed. A blood gas from yesterday showed mild hypoxemic respiratory failure, with a combined respiratory and metabolic alkalosis. A brain CT was ordered but not interpreted as yet. We will continue to follow the patient, make recommendations along. The patient's overall prognosis remains very guarded. Plan dated 06/01/2023. The patient is seen today in room 355. He continues on oxygen at 5 L. He continues on antibiotics for presumed bibasilar pneumonia. The patient has severe COPD. I attempted to have a conversation with the patient about going on mechanical ventilation. The patient is undecided. He apparently is agreeable to intubation and mechanical ventilation, but no CPR. The nurse is going to call to the family, about CODE STATUS. Additional recommendations and suggestions are forthcoming. Prognosis is guarded. We will continue to follow the patient, and make recommendations along the way. Plan dated 06/02/2023. The patient is seen today in room 355. He continues on oxygen at 5 L. He is feeling better. The patient is much more awake and alert than he has been over the last couple of days. The patient is a DO NOT RESUSCITATE patient. Labs, x- rays, and medications are reviewed. The patient's overall prognosis remains very guarded. We will continue to follow and make recommendations along the way. Time with Patient: Less than 30
--- NOTE | 2023-06-02 17:40 | MR ---
EXAMINATION TYPE: MR brain wo con DATE OF EXAM: 06/02/2023 5:24 PM CLINICAL INDICATION:Male, 77 years old with history of ams. unknown etiology r/o stroke;, AMS now re solved, unknown etiology r/o stroke COMPARISON: 05/31/2023.. TECHNIQUE: Multi planar, multi sequence imaging was performed through the brain including: T1, T2, In version recovery, Diffusion weighted imaging, and gradient echo imaging. No gadolinium was given. FINDINGS: Mild cerebral atrophy with proportional dilation of ventricular system. Scattered foci of high T2 s ignal intensity are seen within the periventricular white matter. Midline structures show no abnormal ity. Diffusion-weighted imaging shows no evidence of restricted diffusion. The susceptibility weighte d images do not reveal any evidence for micro-hemorrhage. The bone marrow signal is within normal limits. Paranasal sinuses and mastoid air cells: Mild paranasal sinus disease. Trace right mastoid air cell h igh T2 signal. Visualized orbits: Orbital contents are intact. IMPRESSION: 1. No evidence of intracranial mass or acute/subacute infarct. 2. Nonspecific white matter changes, likely secondary to small vessel ischemic disease. 3. Trace right mastoid air cell effusion.
--- NOTE | 2023-06-02 18:17 | P.PN ---
Subjective Progress Note Date: 06/02/23 Hospital course: Patient is a very pleasant 77-year-old male with a past medical history of recurrent obstructive bladder cancer status post stenting, COPD on 4 L home oxygen with continued nicotine dependence, CAD with stenting, hypertension, and hyperlipidemia. He presented to the emergency department on 05/25/23 secondary to reports of lower abdominal pain/discomfort radiating into right groin accompanied by urinary retention. Upon arrival to the emergency department patient underwent full evaluation. He was found to be tachycardic with a heart rate of 140s. EKG was completed showing atrial fibrillation with RVR at 143 bpm. Labs completed and reviewed. CBC showing severe leukocytosis with WBC count of 20.2 and normocytic anemia with hemoglobin of 8.3. BMP revealing acute kidney injury with BUN of 32, creatinine 1.58, and GFR 42. Magnesium was low at 1.6. Troponin elevated at 0.379 and proBNP 2380. Urinalysis positive for infection showing protein, ketones, blood, bilirubin, leukocytes and greater than 182 RBCs and greater than 182 WBCs. Patient was started on low intensity heparin infusion for treatment of NSTEMI, Cardizem infusion for treatment of A. fib RVR, and Rocephin for treatment of UTI with sepsis. Patient admitted under services with consultation to cardiology and urology. Troponins were trended resulting in 0.379, 1.200, and 1.670. Cardiology recommending to hold off on anticoagulation at this time secondary to acute on chronic anemia. Echocardiogram completed showing preserved EF of 55-60% with no significant valvular or structural abnormalities. Patient currently remains with uncontrolled A. fib RVR rates ranging between 150s to 200s. Patient was maintained on amiodarone infusion and Cardizem infusion. Patient converted and Cardizem infusion was discontinued. Amiodarone infusion continued throughout the night and on 05/29/23 patient was transitioned to oral amiodarone 400 mg twice daily. He continues to maintain sinus mechanism. Patient also remains on 6 L O2 via nasal cannula with baseline O2 4 L. On the evening of 05/30/23 receive notification from RN that patient was found without oxygen and SpO2 of 84%. Patient was confused at this time. Patient immediately placed back on high flow oxygen increasing SpO2 greater than 90%. Orders placed for a stat ABG showing respiratory alkalosis with pH of 7.52, pCO2 of 32, PaO2 58, bicarb 26, total CO2 27, and O2 sat of 93. Physical exam: Patient seen and fully evaluated at bedside this morning. He remains confused this morning and is alert to person only. Patient currently calm and cooperative when asked what year it is used as 1979 when asked where he is at patient states I'm here. Vital signs reviewed and stable. General: Nontoxic, no distress and appears stated age. Derm: Skin warm and dry, normal coloration for ethnicity. Head: Atraumatic, normocephalic and symmetric. Eyes: EOMs intact, no lid lag, and anicteric sclera Mouth: no lip lesions, mucus membranes moist Cardiovascular: Irregularly irregular, no murmur, positive posterior tibial pulses bilaterally, and cap refill < 2 seconds. Lungs: Respirations even, regular, and unlabored on supplemental oxygen. Lungs diminished with soft expiratory wheeze, otherwise no rhonchi, no rales, no crackles. No accessory muscle usage. Abdominal: soft, nontender to palpation, no guarding, no appreciable organomegaly. Mackay catheter in place Ext: ROM intact. No gross muscle atrophy, no edema, no contractures Neuro: Speech clear, face symmetrical and CN II-XII grossly intact with no noted focal neuro deficits Psych: Alert and oriented to person, place, time, and situation. Appropriate and pleasant affect. Assessment and Plan of Care: Acute on chronic blood loss anemia, suspect hematuria however unclear etiology -Order placed for hemolysis panel including haptoglobin, ESR, reticulocyte count, coagulation profile and LDH. -Will repeat urinalysis -Hemoglobin 6.4, order placed for transfusion of 1 unit PRBCs. -Patient needing antibody identification to receive transfusion, awaiting blood from blood bank. -Patient to remain on continuous telemetry monitoring. -Order placed for occult stool. Metabolic encephalopathy, unclear etiology possibly hospital associated delirium vs infectious etiology vs medication effect. Resolved. Acute on chronic respiratory failure with hypoxia, patient baseline 4 L O2 secondary to advanced COPD currently requiring 6 L O2 Community acquired pneumonia -Pulmonology following, -CXR ordered, reviewed, showing bilateral pleural effusions, left retrocardiac opacity c/w pneumonia. Patient was started back on IV antibiotics with Rocephin and azithromycin. -BNP 4400 -US RUE ruled out DVT and superior vein thrombosis suggested without DVT -Neurology following, discussed plan of care awaiting MRI brain to be completed. -Order also placed for amiodarone level to ensure it is not toxic and greater than 2.5. -Neuro checks to continued every 4 hours. -Fall precautions in place. Paroxysmal Atrial fibrillation with RVR NSTEMI -Cardiology recs appreciated -Amiodarone 400mg BID --> 200mg BID -Metoprolol 50mg BID -medical managment for NSTEMI, patient is not an ideal cardiac catheterization candidate secondary to multiple issues including current acute blood loss anemia -holding anti-platelet, heparin at this time due to ABLA -Atorvastatin 40mg daily -metoprolol as above -Echocardiogram completed showing preserved EF of 55-60% with no significant valvular or structural abnormalities. UTI with Sepsis, present upon arrival Urinary retention, secondary to recurrent obstructive bladder cancer -Urology following -On abx as above -Mackay catheter is present, with plan for TOV prior to discharge -Continue flomax daily Acute blood loss anemia secondary to hematuria, baseline hemoglobin between 8 and 9 Hematuria, resolved -Acute blood loss anemia secondary to hematuria -s/p 1U PRBC on 05/27 -ordered 1U PRBC on 06/01 for Hgb of 6.8 Data and imaging reviewed: -Vital signs current blood pressure 113/65, heart rate 85, respiratory rate 19, temp 98.2F, and SpO2 of 90% on 5 L O2 via nasal cannula. -Morning labs reviewed. CBC showing worsening acute blood loss anemia with hemoglobin of 6.4. BMP revealing hypernatremia with sodium 134, elevated BUN of 22, creatinine 1.27, and GFR 55. CODE STATUS: Full code DVT prophylaxis: SCDs Anticipated discharge date: Clinical course to determine Anticipated discharge place: Home with home care and palliative care Patient was seen independently by Nurse Pracitioner. This document was prepared using [employer] dictation software. Please allow for errors in associate designer, while rare they do occur I reviewed the documentation as provided by the JACOB above, who is the original author of this note. I agree with the documented assessment and plan, with the following changes: Consider de-escalating Lasix in the next 24-48 hours Objective - Vital Signs Vital signs: Vital Signs Temp 98.7 F 06/02/23 04:00 Pulse 77 06/02/23 04:00 Resp 22 06/02/23 04:00 BP 105/65 06/02/23 04:00 Pulse Ox 92 L 06/02/23 04:00 FiO2 Intake & Output 06/01/23 06/02/23 06/02/23 18:59 06:59 18:59 Intake Total 180 Output Total 1999 800 Balance -1820 -800 Weight 74 kg Intake: Oral 180 Output: Urine 1999 800 Uretheral (Mackay) 300 Other: Voiding Method Indwelling Catheter - Labs CBC & Chem 7: 06/02/23 07:33 06/02/23 07:33 Labs: Abnormal Lab Results - Last 24 Hours (Table) 06/01/23 06/01/23 06/01/23 Range/Units 08:06 08:06 09:55 WBC 11.0 H (3.8-10.6) k/uL RBC 2.39 L (4.30-5.90) m/uL Hgb 6.8 L* (13.0-17.5) gm/dL Hct 20.4 L (39.0-53.0) % RDW 18.1 H (11.5-15.5) % Neutrophils # 9.1 H (1.3-7.7) k/uL Lymphocytes # 0.8 L (1.0-4.8) k/uL Calcium 8.3 L (8.4-10.2) mg/dL Crossmatch See Detail 06/01/23 Range/Units 14:45 WBC (3.8-10.6) k/uL RBC (4.30-5.90) m/uL Hgb (13.0-17.5) gm/dL Hct (39.0-53.0) % RDW (11.5-15.5) % Neutrophils # (1.3-7.7) k/uL Lymphocytes # (1.0-4.8) k/uL Calcium (8.4-10.2) mg/dL Crossmatch See Detail Microbiology - Last 24 Hours (Table) 05/27/23 09:48 Blood Culture - Final Blood
[2023-06-03] MEDS: traMADol 50 MG TAB PO PRN ×2 (01:58→08:53)
[2023-06-03] MEDS: IPRATROPIUM-ALBUTEROL 3 ML NEB INHALATION SCH ×3 (07:48→14:55)
[2023-06-03] MEDS: SYMBICORT 160-4.5 MCG INHALER INHALATION SCH (07:49)
[2023-06-03] MEDS: FUROSEMIDE 10 MG/ML 4 ML VIAL IV SCH (08:44)
[2023-06-03] MEDS: METOPROLOL TARTRATE 50 MG TAB PO SCH (08:45)
[2023-06-03] MEDS: NICOTINE 21MG/24HR PATCH TRANSDERM SCH (08:45)
[2023-06-03] MEDS: AMIODARONE 200 MG TAB PO SCH (08:45)
[2023-06-03] MEDS: TAMSULOSIN 0.4 MG CAP.ER.24H PO SCH (08:45)
[2023-06-03] MEDS: ATORVASTATIN 40 MG TAB PO SCH (08:45)
[2023-06-03 09:41] LABS: Anisocytosis Slight; HCT 27.6 % (39.0-53.0); Hypochromasia Marked; MCH 27.3 pg (25.0-35.0); MCHC 32.2 g/dL (31.0-37.0); Mean Platelet Volume 9.8; Platelet Count 291 k/uL (150-450); Poikilocytosis Slight; RBC 3.25 m/uL (4.30-5.90); RDW 17.7 % (11.5-15.5); WBC 10.3 k/uL (3.8-10.6)
[2023-06-03 10:03] LABS: HGB 8.9 gm/dL (13.0-17.5)
[2023-06-03 10:30] VITALS: TEMP 97.6
[2023-06-03 11:48] VITALS: BP 100/65; RESP 18
--- NOTE | 2023-06-03 13:16 | P.PN ---
Subjective Progress Note Date: 06/03/23 Principal diagnosis: Respiratory failure. Pulmonary consult dated 05/30/2023. 77-year-old male who presented to the emergency department, on 05/25/2023. He apparently presented with complaints of shortness of breath, and difficulty urinating. The patient apparently was having issues throughout the day, and was seen in the emergency department, where he was found to have atrial fibrillation with RVR. The patient was admitted for that reason. While I was rounding today, the physical metallurgist mentioned that they put in a consult for us on this patient, because he sees my partner in the office for COPD. The patient is chronically hypoxemic, and is use home O2 at 4 L/m. Currently, he's on 5 L. He's not receiving any IV fluids. His primary care physician is Dr. Miranda. The patient is a no code with instructions. He sitting up in the chair next to his bed. Most recent labs show white count 14.1, hemoglobin 7.4, hematocrit 24, and a platelet count 299,000. Sodium 133, potassium 3.9, chlorides 102, CO2 23, BUN 28, and creatinine 1.20. Albumin is 2.7. His chest x-ray shows some left basilar airspace disease or atelectasis. The patient tested negative for infl uenza A, and influenza B, RSV, and coronavirus. Progress note dated 05/31/2023. 77-year-old male admitted with a diagnosis of shortness of breath, difficulty urinating. The patient was found to have atrial fibrillation and rapid ventricular response the patient does have severe COPD, and chronic hypoxemic respiratory failure. He typically uses home oxygen at 4-5 L/m. The patient has some issues with oxygenation last night, and his FiO2 requirements were increased. Currently he is getting saline at 10 mL an hour, he is on oxygen at 4 L by nasal cannula. The patient is a DO NOT RESUSCITATE, with instructions. Labs include white count 12.6, hemoglobin 7, hematocrit 23, and platelet count 269,000. Blood gases from yesterday show pO2 of 58, pCO2 32, and a pH is 7.52. That was on 36% FiO2. Sodium 135, potassium 3.7, chlorides 105, CO2 23, BUN 25, creatinine 1.25. Albumin is 2.5. Progress note dated 06/01/2023. 77-year-old male, seen today in room 355. The patient remains on oxygen at 5 L. The patient is not receiving any IV fluids. Clinically, the patient feels like he is improving. I attempted to have a discussion with him about CODE STATUS, and whether or not he should be on life support. I don't know that he truly understood the conversation, but he states that he would give it some thought, and the nurse will call family members as well. White count 11, hemoglobin 6.8, hematocrit 20.4, and platelet count 314,000. Sodium 137, potassium 3.8, chlorides 107, CO2 25, BUN 20, and the creatinine is 1.21. Calcium is 8.3. Superficial clot is seen in the right upper extremity. No evidence of DVT. Chest x-rays consistent with bilateral lateral basilar patchy airspace opacities. The patient continues on azithromycin and Rocephin. Progress note dated 06/02/2023. 77-year-old male with history of severe COPD. He has chronic hypoxemic respiratory failure he uses oxygen at home between 4-5 L/m. Currently, not receiving any IV fluids. The patient continues on Rocephin. He is much more awake and alert today than he has been over the last couple of days. Currently, the patient's white count 11.3, he will 6.4, hematocrit 21.2, and platelet count 345,000. Coag studies are normal. Sodium 134, potassium 3.6, chlorides 101, CO2 26, B1 22, and creatinine 1.27. The patient's calcium is 8.2. LDH is 219. Urine suggest the possibility of a urinary tract infection. The patient continues on Rocephin. Progress note dated 06/03/2023. 77-year-old male with history of severe COPD, and chronic hypoxemic respiratory failure. The patient uses home oxygen at between 4-5 L/m. Currently, the patient is seen in room 355. He is getting saline at 20 mL an hour. He is on 4 L of oxygen. He had a brain MRI yesterday, which was okay. We are going to discontinue the Rocephin, and place the patient on doxycycline 100 mg twice a day for a additional 7 days. Currently labs include a white count of 10.3, hemoglobin 8.9, hematocrit 27.6, and a platelet count was 291,000. No additional labs from today. Objective - Vital Signs Vital signs: Vital Signs Temp 97.6 F 06/03/23 08:51 Pulse 72 06/03/23 11:43 Resp 18 06/03/23 11:43 BP 100/65 06/03/23 11:43 Pulse Ox 95 06/03/23 11:43 FiO2 Intake & Output 06/02/23 06/03/23 06/03/23 18:59 06:59 18:59 Intake Total 1303 826 490 Output Total 1100 400 800 Balance 203 426 -310 Intake: IV 10 Invasive Line 5 10 Oral 1020 540 480 Blood Product 283 286 Rc Pheresis 2 As3 Unit 0 286 [id number] Rc Pheresis 2 As3 Unit 283 [id number] Output: Urine 1100 400 800 Other: Voiding Method Indwelling Catheter Indwelling Catheter Indwelling Catheter - Exam No acute distress, awake and alert. Currently on nasal O2 at 4 L. HEENT examination is grossly unremarkable. Neck supple. Full range of motion. No adenopathy thyromegaly or neck vein distention. Cardiovascular examination reveals regular rhythm rate. S1-S2 normal. No S3 or S4. No discernible murmur noted. Heart rate 88 bpm. Heart sounds are distant. Lungs reveal scattered bilateral rhonchi. Breath sounds are equal but diminished throughout. No crackles. No wheezes. Saturation is 95% on 4 L. Abdomen soft bowel sounds are heard. No masses or tenderness. Extremities are intact. No cyanosis clubbing or edema. Skin is without rash or lesion. Neurologic examination reveals the patient to be awake and alert. - Labs CBC & Chem 7: 06/03/23 09:03 06/02/23 07:33 Labs: Abnormal Lab Results - Last 24 Hours (Table) 06/01/23 06/02/23 06/02/23 Range/Units 14:45 09:43 09:43 RBC (4.30-5.90) m/uL Hgb (13.0-17.5) gm/dL Hct (39.0-53.0) % RDW (11.5-15.5) % ESR 93 H (0-20) mm/Hr Haptoglobin 352.0 H (31.2-198.0) mg/dL Crossmatch See Detail Blood Bank Comment Sent to [facility] 06/03/23 Range/Units 09:03 RBC 3.25 L (4.30-5.90) m/uL Hgb 8.9 L D (13.0-17.5) gm/dL Hct 27.6 L (39.0-53.0) % RDW 17.7 H (11.5-15.5) % ESR (0-20) mm/Hr Haptoglobin (31.2-198.0) mg/dL Crossmatch Blood Bank Comment Assessment and Plan Assessment: Shortness of breath, secondary to atrial fibrillation with rapid ventricular response. History of severe oxygen-dependent COPD, complicated by pneumonia. Chronic hypoxemic respiratory failure. History of hypertension. History of hyperlipidemia. Previous heart catheterization with stent placement. Prior history of heavy tobacco use. Multiple other medical problems and comorbidities. Plan: Plan dated 05/30/2023. Currently, patient is on appropriate medications, including updrafts. We did tell the patient, that he could have his home Trelegy inhaler, brought in, that he continues 1 puff once daily. Additional recommendations and suggestions are forthcoming. The patient is currently being followed by cardiology for his atrial fibrillation. Currently, the patient's on amiodarone 400 mg twice a day, and also beta magdalena, prescribed by cardiology for his atrial fibrillation. The patient's also receiving a nicotine patch. We will continue to follow, and make recommendations. Prognosis is guarded. We will continue to follow the patient, and make recommendations along the way. Prognosis is guarded. Plan dated 05/31/2023. The patient is again seen today in room 355. Currently, the patient's on 4 L of oxygen. He is getting saline at 10 mL an hour. He is very lethargic and s omnolent. He is a DO NOT RESUSCITATE with instructions. Labs, x-rays, and medications are reviewed. A blood gas from yesterday showed mild hypoxemic respiratory failure, with a combined respiratory and metabolic alkalosis. A brain CT was ordered but not interpreted as yet. We will continue to follow the patient, make recommendations along. The patient's overall prognosis remains very guarded. Plan dated 06/01/2023. The patient is seen today in room 355. He continues on oxygen at 5 L. He continues on antibiotics for presumed bibasilar pneumonia. The patient has severe COPD. I attempted to have a conversation with the patient about going on mechanical ventilation. The patient is undecided. He apparently is agreeable to intubation and mechanical ventilation, but no CPR. The nurse is going to call to the family, about CODE STATUS. Additional recommendations and suggestions are forthcoming. Prognosis is guarded. We will continue to follow the patient, and make recommendations along the way. Plan dated 06/02/2023. The patient is seen today in room 355. He continues on oxygen at 5 L. He is feeling better. The patient is much more awake and alert than he has been over the last couple of days. The patient is a DO NOT RESUSCITATE patient. Labs, x- rays, and medications are reviewed. The patient's overall prognosis remains very guarded. We will continue to follow and make recommendations along the way. Plan dated 06/03/2023. The patient is seen today in room 355. He continues on oxygen use. This is what he uses at home. The patient is receiving saline at 20 mL an hour. We will discontinue the patient's Rocephin, in favor of doxycycline, 100 mg twice a day, the next 7 days. The brain MRI from yesterday, did not show any acute abnormalities. Labs, x-rays, and medications are reviewed. Clinically, the patient is doing much better, and could be considered for possible discharge. We will leave that up to the primary service. His pulmonary status in my opinion, is back to baseline. Time with Patient: Less than 30
--- NOTE | 2023-06-03 14:50 | P.DS ---
Providers Date of admission: 05/26/23 01:43 Expected date of discharge: 06/03/23 Attending physician: Myrtle Mckinney MD Consults: 05/26/23 01:43 Consult Physician Routine Consulting Provider: Jose M Peng Consult Reason/Comments: A-fib, trop elevated Do you want consulting provider notified?: Yes 05/26/23 05:24 Consult Physician Routine Consulting Provider: Keny Borrego Consult Reason/Comments: Urinary retention Do you want consulting provider notified?: Yes, Notify in am 05/30/23 09:06 Consult Physician Routine Consulting Provider: Nomi Mata Consult Reason/Comments: copd, pn Do you want consulting provider notified?: Yes 05/31/23 14:08 Consult Physician Routine Consulting Provider: Yan Mata Consult Reason/Comments: acute confusion, unclear etiology Do you want consulting provider notified?: Yes Primary care physician: Maik Ana Paula [facility] Course: Discharge Diagnosis: Acute on chronic blood loss anemia, suspect hematuria however unclear etiology. Patient status post transfusion of 3 units of PRBCs. Patient had no further episodes of hematuria or noted bleeding. Hemoglobin is stable at 8.9. Holding off on anticoagulation and aspirin until repeat lab work and follow-up with maintenance helper. Patient discharged with prescription for repeat CBC to be completed and 3 days with results to be sent to PCP, maintenance helper, manager internship, and urologist for follow-up and management. Metabolic encephalopathy, unclear etiology possibly hospital associated delirium vs infectious etiology vs medication effect. Resolved. Acute on chronic respiratory failure with hypoxia. Resolved patient maintaining SpO2 on baseline 4 L O2. Community acquired pneumonia. Received IV antibiotics with azithromycin and Rocephin and being discharged home on an additional 7 days of doxycycline 100 mg twice daily. Patient to follow up outpatient with manager internship in 1 week. Patient discharged home with COPD Navigator program, home care, and palliative care. Paroxysmal Atrial fibrillation with RVR. Converted and currently maintaining normal sinus mechanism. Holding off on anticoagulation and aspirin until repeat lab work and follow-up with maintenance helper. Patient discharged home with amiodarone 200 mg twice daily and metoprolol 50 mg twice daily NSTEMI. Continue amiodarone 200 mg twice daily, metoprolol 50 mg twice daily, and Lasix 20 mg daily. UTI with Sepsis, present upon arrival. Urinary retention, secondary to recurrent obstructive bladder cancer. Patient discharged home on Flomax 0.4 mg daily, Mackay catheter in place, patient to follow up outpatient with urology on discharge. Hematuria, resolved Hospital Course: Patient is a very pleasant 77-year-old male with a past medical history of recurrent obstructive bladder cancer status post stenting, COPD on 4 L home oxygen with continued nicotine dependence, CAD with stenting, hypertension, and hyperlipidemia. He presented to the emergency department on 05/25/23 secondary to reports of lower abdominal pain/discomfort radiating into right groin accompanied by urinary retention. Upon arrival to the emergency department patient underwent full evaluation. He was found to be tachycardic with a heart rate of 140s. EKG was completed showing atrial fibrillation with RVR at 143 bpm. Labs completed and reviewed. CBC showing severe leukocytosis with WBC count of 20.2 and normocytic anemia with hemoglobin of 8.3. BMP revealing acute kidney injury with BUN of 32, creatinine 1.58, and GFR 42. Magnesium was low at 1.6. Troponin elevated at 0.379 and proBNP 2380. Urinalysis positive for infection showing protein, ketones, blood, bilirubin, leukocytes and greater than 182 RBCs and greater than 182 WBCs. Patient was started on low intensity heparin infusion for treatment of NSTEMI, Cardizem infusion for treatment of A. fib RVR, and Rocephin for treatment of UTI with sepsis. Patient admitted under services with consultation to cardiology and urology. Troponins were trended resulting in 0.379, 1.200, and 1.670. Cardiology recommending to hold off on anticoagulation at this time secondary to acute on chronic anemia. Echocardiogram completed showing preserved EF of 55-60% with no significant valvular or structural abnormalities. Patient currently remains with uncont rolled A. fib RVR rates ranging between 150s to 200s. Patient was maintained on amiodarone infusion and Cardizem infusion. Patient converted and Cardizem infusion was discontinued. Amiodarone infusion continued throughout the night and on 05/29/23 patient was transitioned to oral amiodarone 400 mg twice daily. He continues to maintain sinus mechanism. Patient also remains on 6 L O2 via nasal cannula with baseline O2 4 L. On the evening of 05/30/23 receive notification from RN that patient was found without oxygen and SpO2 of 84%. Patient was confused at this time. Patient immediately placed back on high flow oxygen increasing SpO2 greater than 90%. Orders placed for a stat ABG showing respiratory alkalosis with pH of 7.52, pCO2 of 32, PaO2 58, bicarb 26, total CO2 27, and O2 sat of 93. Patient started back on antibiotics with azithromycin and Rocephin. Repeat chest x-ray completed revealing patchy bibasilar infiltrates and small effusions consistent with pneumonia. Patient's episode of metabolic encephalopathy spontaneously resolving without intervention. Patient back to baseline mentation. CT head was completed negative for acute intercranial process. MRI brain negative for acute intracranial process. Patient cleared by cardiology, pulmonology, and neurology for discharge. Medically, patient is back to baseline mentation and oxygen needs. Patient medically stable for discharge home with home care, palliative care and COPD Navigator program. Physical exam: Vital signs reviewed and stable. General: Nontoxic, no distress and appears stated age. Derm: Skin warm and dry, normal coloration for ethnicity. Head: Atraumatic, normocephalic and symmetric. Eyes: EOMs intact, no lid lag, and anicteric sclera Mouth: no lip lesions, mucus membranes moist Cardiovascular: Irregularly irregular, no murmur, positive posterior tibial pulses bilaterally, and cap refill < 2 seconds. Lungs: Respirations even, regular, and unlabored on supplemental oxygen. Lungs diminished with soft expiratory wheeze, otherwise no rhonchi, no rales, no crackles. No accessory muscle usage. Abdominal: soft, nontender to palpation, no guarding, no appreciable organomegaly. Mackay catheter in place Ext: ROM intact. No gross muscle atrophy, no edema, no contractures Neuro: Speech clear, face symmetrical and CN II-XII grossly intact with no noted focal neuro deficits Psych: Alert and oriented to person, place, time, and situation. Appropriate and pleasant affect. A total of 41 minutes of time were spent preparing this complex discharge summary. Pt was discharged on 06/03/23 at 2:38 PM. Patient was seen independently by Nurse Practitioner. This document was prepared using [employer] dictation software. Please allow for errors in reference librarian while rare they do occur. I reviewed the documentation as provided by the JACOB above, who is the original author of this note. I agree with the documented assessment and plan, with the following changes: none Patient Condition at Discharge: Stable Plan - Discharge Summary Discharge Rx Participant: No New Discharge Prescriptions: New Amiodarone [Cordarone] 200 mg PO BID 30 Days #60 tab Tamsulosin [Flomax] 0.4 mg PO PC-BRKFST 30 Days #30 cap Metoprolol Tartrate [Lopressor] 50 mg PO BID 30 Days #60 tab Doxycycline [Vibramycin] 100 mg PO BID 7 Days #14 cap Budesonide-Formot 160-4.5 Mcg [Symbicort 160-4.5 Mcg Inhaler] 2 puff IN HALATION RT-BID 30 Days #1 each Furosemide [Lasix] 20 mg PO DAILY 30 Days #30 tab Continue Atorvastatin [Lipitor] 40 mg PO DAILY #30 tab Cyanocobalamin (Vitamin B-12) [Vitamin B-12] 2,500 mcg PO DAILY Ipratropium-Albuterol Nebulize [Duoneb 0.5 mg-3 mg/3 ml Soln] 3 ml INHALATION RT-QID traMADol HCl [Ultram] 50 mg PO Q6HR PRN PRN Reason: Pain Nicotine 21Mg/24Hr Patch [Habitrol] 1 patch TRANSDERM DAILY PRN PRN Reason: Nicotine Cravings Albuterol Sulfate [Ventolin HFA] 2 puff INHALATION RT-Q4H PRN 30 Days #1 each PRN Reason: Shortness Of Breath Cholecalciferol [Vitamin D3 (25 Mcg = 1000 Iu)] 25 mcg PO DAILY Multivit-Min/FA/Lycopen/Lutein [Centrum Silver Tablet] 1 tab PO DAILY Fluticasone/Umeclidin/Vilanter [Trelegy Ellipta 100-62.5-25] 1 puff INHALATION RT-DAILY Discontinued Losartan-Hctz 50-12.5 mg [Hyzaar 50-12.5] 1 tab PO DAILY Metoprolol Tartrate [Lopressor] 12.5 mg PO BID #60 tab Aspirin EC [Ecotrin Low Dose] 81 mg PO DAILY Discharge Medication List Atorvastatin [Lipitor] 40 mg PO DAILY #30 tab 03/12/15 [Rx] Cholecalciferol [Vitamin D3 (25 Mcg = 1000 Iu)] 25 mcg PO DAILY 01/19/23 [History] Cyanocobalamin (Vitamin B-12) [Vitamin B-12] 2,500 mcg PO DAILY 01/19/23 [History] Ipratropium-Albuterol Nebulize [Duoneb 0.5 mg-3 mg/3 ml Soln] 3 ml INHALATION RT-QID 01/19/23 [History] Multivit-Min/FA/Lycopen/Lutein [Centrum Silver Tablet] 1 tab PO DAILY 01/19/23 [History] traMADol HCl [Ultram] 50 mg PO Q6HR PRN 01/19/23 [History] Fluticasone/Umeclidin/Vilanter [Trelegy Ellipta 100-62.5-25] 1 puff INHALATION RT-DAILY 05/26/23 [History] Nicotine 21Mg/24Hr Patch [Habitrol] 1 patch TRANSDERM DAILY PRN 05/26/23 [History] Albuterol Sulfate [Ventolin HFA] 2 puff INHALATION RT-Q4H PRN 30 Days #1 each 06/03/23 [Rx] Amiodarone [Cordarone] 200 mg PO BID 30 Days #60 tab 06/03/23 [Rx] Budesonide-Formot 160-4.5 Mcg [Symbicort 160-4.5 Mcg Inhaler] 2 puff INHALATION RT-BID 30 Days #1 each 06/03/23 [Rx] Doxycycline [Vibramycin] 100 mg PO BID 7 Days #14 cap 06/03/23 [Rx] Furosemide [Lasix] 20 mg PO DAILY 30 Days #30 tab 06/03/23 [Rx] Metoprolol Tartrate [Lopressor] 50 mg PO BID 30 Days #60 tab 06/03/23 [Rx] Tamsulosin [Flomax] 0.4 mg PO PC-BRKFST 30 Days #30 cap 06/03/23 [Rx] Follow up Appointment(s)/Referral(s): Timothy Leroy DO [STAFF PHYSICIAN] - 1 Week Keny Borrego MD [STAFF PHYSICIAN] - 06/09/23 10:20 am Maik Miranda MD [Primary Care Provider] - 06/14/23 8:15 am Nomi Mata DO [Doctor of Osteopathic Medicine] - 06/28/23 3:15 pm Ambulatory/Diagnostic Orders: Complete Blood Count w/diff [LAB.AMB] Time Frame: 3 Days, Location: None Selected Patient Instructions/Handouts: A-fib (Atrial Fibrillation) (IP), Mackay Catheter Placement and Care (GEN), COPD (Chronic Obstructive Pulmonary Disease) (IP), How to Change a Catheter Drainage Bag (GEN) Activity/Diet/Wound Care/Special Instructions: Activity: As tolerated. Take breaks as needed. Diet: Heart healthy and carb consistent diet. Avoid salts, or foods with hidden salts such as canned or boxed foods and frozen dinners. Extra salt makes your heart work harder and traps the fluid in your body for longer. Special Instructions: Take all of your medications as directed and remember to keep all of your doctor's appointments and follow-up as needed. You are being discharged home with home and palliative care as we discussed for assistance and close monitoring/management of your adcanced COPD. Aspirin and anticoagulants continue to be held at this time until repeat lab work is completed and you have followed up with your maintenance helper and discussed their recommendations further. It is also highly recommended that he follow-up with your urologist in 1 week and have repeat hemoglobin levels drawn in 3 days, these results should be sent to her PCP for follow-up and management. Wishing you and your family a very Merry and Blessed holiday season and a happy new year!!! Thank you for allowing us to participate in your care, it was truly a pleasure having you for our patient!!! Discharge Disposition: HOME WITH HOME HEALTH SERVICES
[2023-06-03 15:02] LABS: ALT 24 U/L (4-49); AST 26 U/L (17-59); African American GFR (CKD) 69 (>60 ml/min/1.73 sqM); Albumin 2.4 g/dL (3.5-5.0); Alkaline Phosphatase 75 U/L (38-126); Anion Gap 8 mmol/L; Blood Urea Nitrogen 21 mg/dL (9-20); Carbon Dioxide 26 mmol/L (22-30); Chloride 100 mmol/L (98-107); Glucose 97 mg/dL (74-99); Magnesium 1.7 mg/dL (1.6-2.3); Non-African American GFR(CKD) 60 (>60 ml/min/1.73 sqM); Potassium 3.6 mmol/L (3.5-5.1); Sodium 134 mmol/L (137-145); Total Bilirubin 0.6 mg/dL (0.2-1.3); Total Protein 5.9 g/dL (6.3-8.2)
[2023-06-03 15:28] VITALS: PULSE 88
[2023-06-03] MEDS ORDERED: DOXYCYCLINE 100 MG CAP PO SCH (21:00)
== END 2023-06-03 16:20 | disposition home health service (06) | DRG 871 ==
LOC: EC 23:13 → 3SCARD 05-26 01:43
PROVIDERS: ADMIT Internal Medicine; ATTEND Internal Medicine
PROC: 3E0F7SF Introduction of Other Gas into Respiratory Tract, Via Natural or Artificial Opening (ICD-10-PCS; principal; 2023-05-26)
PROC: 4A10X4Z Monitoring of Central Nervous Electrical Activity, External Approach (ICD-10-PCS; 2023-06-01)
DX: A41.9 Sepsis, unspecified organism (principal); G93.41 Metabolic encephalopathy; I21.4 Non-ST elevation (NSTEMI) myocardial infarction; I50.33 Acute on chronic diastolic (congestive) heart failure; J18.9 Pneumonia, unspecified organism; J96.21 Acute and chronic respiratory failure with hypoxia; J96.11 Chronic respiratory failure with hypoxia; N17.9 Acute kidney failure, unspecified; N13.6 Pyonephrosis; D62 Acute posthemorrhagic anemia; J44.0 Chronic obstructive pulmonary disease with (acute) lower respiratory infection; E87.3 Alkalosis; G93.1 Anoxic brain damage, not elsewhere classified; J44.1 Chronic obstructive pulmonary disease with (acute) exacerbation; F05 Delirium due to known physiological condition; Z20.822 Contact with and (suspected) exposure to COVID-19; R39.198 Other difficulties with micturition; I48.91 Unspecified atrial fibrillation; E78.5 Hyperlipidemia, unspecified; I11.0 Hypertensive heart disease with heart failure; I95.9 Hypotension, unspecified; F17.210 Nicotine dependence, cigarettes, uncomplicated; Z71.9 Counseling, unspecified; R31.0 Gross hematuria; Z66 Do not resuscitate; Z99.81 Dependence on supplemental oxygen; C67.9 Malignant neoplasm of bladder, unspecified; I25.10 Atherosclerotic heart disease of native coronary artery without angina pectoris; I45.10 Unspecified right bundle-branch block; I48.0 Paroxysmal atrial fibrillation; J98.4 Other disorders of lung; R33.8 Other retention of urine; M41.9 Scoliosis, unspecified; Z51.5 Encounter for palliative care; Z79.82 Long term (current) use of aspirin; Z79.899 Other long term (current) drug therapy; Z95.5 Presence of coronary angioplasty implant and graft; Z85.51 Personal history of malignant neoplasm of bladder; X58.XXXA Exposure to other specified factors, initial encounter; T46.2X5A Adverse effect of other antidysrhythmic drugs, initial encounter; T46.1X5A Adverse effect of calcium-channel blockers, initial encounter; T36.1X5A Adverse effect of cephalosporins and other beta-lactam antibiotics, initial encounter; Z88.1 Allergy status to other antibiotic agents; Z88.2 Allergy status to sulfonamides
CPT/HCPCS: 36415; 36600; 70450; 70551; 71045; 71046; 76770; 80048; 80053; 80151; 81001; 82140; 82607; 82728; 82746; 82805; 83010; 83540; 83550; 83605; 83615; 83735; 83880; 84145; 84443; 84484; 85025; 85027; 85045; 85610; 85652; 85730; 86850; 86870; 86880; 86900; 86901; 86902; 86920; 87040; 87086; 87636; 93005; 93306; 94640; 94760; 95816; 96361; 96365; 96366; 96367; 96368; 96375; 99291

== ENCOUNTER → 2023-07-22 | Outpatient (CLI) | payer MEDICARE ==
[2023-07-22 18:36] LABS: Basophils # (A) 0.02 X 10*3/uL (0.00-0.10); Basophils % (A) 0.2 %; Eosinophils # (A) 0.06 X 10*3/uL (0.04-0.35); Eosinophils % (A) 0.5 %; HCT 33.5 % (39.6-50.0); HGB 9.7 g/dL (13.0-17.0); Lymphocytes # (A) 1.07 X 10*3/uL (0.90-5.00); Lymphocytes % (A) 9.4 %; MCH 26.3 pg (27.0-32.0); MCV 90.8 FL (80.0-97.0); Mean Platelet Volume 10.6 FL (9.5-12.2); Monocytes # (A) 0.69 X 10*3/uL (0.20-1.00); Monocytes % (A) 6.1 %; NRBC Per 100 WBC 0 X 10*3/uL (0.00-0.01); Neutrophils # (A) 9.51 X 10*3/uL (1.80-7.70); Neutrophils % (A) 83.4 %; Platelet Count 339 X 10*3/uL (140-440); RBC 3.69 X 10*6/uL (4.40-5.60); RDW 18.3 % (11.5-14.5); WBC 11.39 X 10*3/uL (4.50-10.00)
[2023-07-22 18:53] LABS: Blood Urea Nitrogen 34.8 mg/dL (9.0-27.0); Calcium 10.1 mg/dL (8.7-10.3); Carbon Dioxide 35.6 mmol/L (21.6-31.8); Chloride 100 mmol/L (96-109); Glucose 105 mg/dL (70-110); Potassium 3.9 mmol/L (3.5-5.5); Sodium 146 mmol/L (135-145)
[2023-07-22 20:35] LABS: Appearance,Urine Cloudy (Clear); Bilirubin,Urine Negative (Negative); Blood,Urine Large (Negative); Color,Urine Yellow (Yellow); Ketones,Urine Negative (Negative); Nitrite,Urine Positive (Negative); Specific Gravity,Urine 1.013 (1.001-1.030); Urobilinogen,Urine 0.2 E.U./DL
[2023-07-22 20:43] LABS: Bacteria,Urine 3+ (None Seen)
== END | disposition home or self-care (01) ==
LOC: LABPAT 13:34
PROVIDERS: ATTEND Urology
DX: Z01.812 Encounter for preprocedural laboratory examination (principal); C67.9 Malignant neoplasm of bladder, unspecified
CPT/HCPCS: 36415; 80048; 81001; 85025; 87077; 87086; 87186

== ENCOUNTER 2023-07-26 06:36 | Day surgery (SDC) | payer MEDICARE ==
[2023-07-22 12:37] VITALS: BMI 19.8
[~2023-07-26 06:36] MED LIST: DEXAMETHASONE SOD PHOSPHATE 4 MG/ML 1 ML VIAL IV ONE; LACTATED RINGERS 1,000 ML IV SCH; LIDOCAINE 1% (10MG/ML) FOR IV START INTRADERMA PRN; ONDANSETRON 4 MG/2 ML VIAL IVP ONE
[2023-07-26] MEDS ORDERED: HYDROmorphone 0.5 MG/0.5 ML SYRINGE IVP PRN (07:00)
[2023-07-26] MEDS ORDERED: METOCLOPRAMIDE 5 MG/ML 2 ML VIAL IVP PRN (07:00)
[2023-07-26] MEDS: LACTATED RINGERS 1,000 ML IV ONE (07:48)
--- NOTE | 2023-07-26 07:54 | P.HPIHPCON ---
History of Present Illness H&P Date: 07/26/23 Chief Complaint: Gross hematuria, bladder cancer This is a 77-year-old male with history of muscle invasive bladder cancer. Patient has multiple comorbidities and is not deemed a surgical candidate for a radical cystectomy. He was recommended to undergo radiation postoperatively, he declined to proceed with that. He is now having recurrent gross hematuria repeat cystoscopy demonstrated evidence of recurrent tumor. Discussed with him at this time I recommend proceeding with reresection, at this time he is agreeable to proceed with radiation following resection. Discussed the risk of surgery which includes but not limited to bleeding, infection, bladder perforation. Discussed with him that there is potential he will still have residual tumor even after the TURBT with a goal of this is for local control. Of note he also has right-sided hydronephrosis given, discussed with him potential placing a right stent if I'm to visualize the ureteral orifice at time of TURBT Consent for Procedure: I have explained the operation/procedure to the patient, including the risks, benefits, side effects, alternative therapies (including not receiving the proposed treatment or service), the likelihood of the patient achieving his/her goals, and potential recuperation problems for the procedure/sedation/analgesia, as well as any blood products, if indicated. I also explained to the patient the risks, benefits and side effects of the alternatives, as well as the risks related to not receiving the proposed procedure, care, treatment, or services. Past Medical History Past Medical History: Cancer, COPD, Hyperlipidemia, Hypertension, Musculoskeletal Disorder Additional Past Medical History / Comment(s): Scoliosis, varicose veins. History of Any Multi-Drug Resistant Organisms: None Reported Past Surgical History: Appendectomy, Heart Catheterization With Stent Additional Past Surgical History / Comment(s): Eye surgery X5. Past Anesthesia/Blood Transfusion Reactions: No Reported Reaction Additional Past Anesthesia/Blood Transfusion Reaction / Comment(s): Patient states had blood transfusion in May 2023 with no problem. Date of Last Stent Placement:: Unknown Past Psychological History: No Psychological Hx Reported Smoking Status: Current every day smoker Past Alcohol Use History: None Reported Additional Past Alcohol Use History / Comment(s): Smokes 3-4 cigarettes per day, has been a smoker since 19. Past Drug Use History: Marijuana Additional Drug Use History / Comment(s): Marijuana use daily. Aware to refrain for 24 hours prior to procedure. - Past Family History Father Family Medical History: No Reported History Medications and Allergies Home Medications Medication Instructions Recorded Confirmed Type RX: Cholecalciferol [Vitamin D3 25 mcg PO DAILY 01/19/23 07/26/23 History (25 Mcg = 1000 Iu)] RX: Cyanocobalamin (Vitamin B-12) 2,500 mcg PO DAILY 01/19/23 07/26/23 History [Vitamin B-12] RX: Ipratropium-Albuterol Nebulize 3 ml INHALATION QID 01/19/23 07/26/23 History [Duoneb 0.5 mg-3 mg/3 ml Soln] RX: Multivit-Min/FA/Lycopen/Lutein 1 tab PO DAILY 01/19/23 07/26/23 History [Centrum Silver Tablet] RX: Fluticasone/Umeclidin/Vilanter 1 puff INHALATION QAM 05/26/23 07/26/23 History [Trelegy Ellipta 100-62.5-25] RX: Metoprolol Tartrate [Lopressor] 50 mg PO BID 30 Days #60 tab 06/03/23 07/26/23 Rx RX: Tamsulosin [Flomax] 0.4 mg PO PC-BRKFST 30 Days #30 cap 06/03/23 07/26/23 Rx Furosemide [Lasix] 20 mg PO BID 07/22/23 07/26/23 History RX: Albuterol Sulfate [Ventolin 2 puff INHALATION Q4H PRN 07/22/23 07/26/23 History HFA] RX: Amiodarone [Cordarone] 200 mg PO QAM 07/22/23 07/26/23 History RX: Budesonide-Formot 160-4.5 Mcg 2 puff INHALATION BID 07/22/23 07/26/23 History [Symbicort 160-4.5 Mcg Inhaler] predniSONE [Deltasone] 20 mg PO DAILY 07/22/23 07/26/23 History Allergies Allergy/AdvReac Type Severity Reaction Status Date / Time sulfamethoxazole Allergy Rash/Hives Verified 07/26/23 07:50 [From Bactrim] trimethoprim [From Bactrim] Allergy Rash/Hives Verified 07/26/23 07:50 Surgical - Exam Vital Signs Temp Pulse Resp BP Pulse Ox 98.0 F 68 18 128/76 97 07/26/23 07:46 07/26/23 07:46 07/26/23 07:46 07/26/23 07:46 07/26/23 07:46 - General no distress, no pain - ENT normal nares, normal mucosa - Respiratory normal expansion, normal respiratory effort - Abdomen Abdomen: soft, non tender - Psychiatric oriented to time, oriented to person, oriented to place Assessment and Plan Assessment: OR for TURBT possible right stent
[2023-07-26] MEDS ORDERED: fentaNYL (PF) 50 MCG/ML 2 ML AMP ONE (08:15)
[2023-07-26] MEDS ORDERED: PROPOFOL 10 MG/ML 20 ML VIAL IV ONE (08:15)
[2023-07-26] MEDS ORDERED: MIDAZOLAM 2 MG/2 ML VIAL ONE (08:15)
[2023-07-26] MEDS: IOHEXOL 350 MG/ML 100 ML in EMPTY BAG 1 BAG IRRIGATION ONE (09:37)
[2023-07-26 10:37] VITALS: TEMP 97
--- NOTE | 2023-07-26 10:40 | P.OP ---
Date of Procedure: 07/26/23 Preoperative Diagnosis: Bladder cancer, right sided hydronephrosis Postoperative Diagnosis: Same Procedure(s) Performed: TURBT (large), right RP, and stent insertion Implants: 6 Fr X 26 cm stent in the right ureter Anesthesia: YULIANA Surgeon: Keny Borrego Estimated Blood Loss (ml): 25 Pathology: other (Bladder mass, right renal pelvis urine culture) Condition: stable Disposition: PACU Indications for Procedure: This is a 77-year-old male with history of muscle invasive bladder cancer. Patient has multiple comorbidities and is not deemed a surgical candidate for a radical cystectomy. He was recommended to undergo radiation postoperatively, he declined to proceed with that. He is now having recurrent gross hematuria repeat cystoscopy demonstrated evidence of recurrent tumor. Discussed with him at this time I recommend proceeding with reresection, at this time he is agreeable to proceed with radiation following resection. Discussed the risk of surgery which includes but not limited to bleeding, infection, bladder perforation. Discussed with him that there is potential he will still have residual tumor even after the TURBT with a goal of this is for local control. Of note he also has right-sided hydronephrosis given, discussed with him potential placing a right stent if I'm to visualize the ureteral orifice at time of TURBT Operative Findings: Large tumor occupying the right lateral wall completely covering the right side of the trigone, also an additional tumor along the left lateral wall. Tumor on the right side measured 8 cm, tumor on the left side measured 5 cm. No involvement of the left ureteral orifice Description of Procedure: Patient brought to the operating room, general anesthesia was induced. He was prepped and draped in sterile fashion and placed in dorsolithotomy position. Resectoscope fitted with a 25 [place]an sheath was inserted per urethra, cystoscopy was performed which showed a large papillary tumor occupying the entire right lateral wall, covering the trigone. An additional tumor along the left lateral wall. I was not able to visualize the right ureteral orifice, the left ureter orifice was visualized and was away from the tumors. Using the bipolar resectoscope the tumors were resected down to muscle. Of note there was evidence of tumor extending beyond the muscle, the tumor along the left side was also resected down to muscle, I was not able to completely resect the tumor given to patient's obturator reflex. I attempted to resect the tumor with a decompressed bladder, but it was still noticed that the patient had an ulcerated reflux patient is on oxygen and muscle relaxant could not be administered given his respiratory status, additionally patient has a known history of muscle invasive bladder cancer. Thus given this finding and the concern for potential bladder perforation decision was made to resect the tumor further. I did resect the majority tumor over the left lateral wall but there was some residual tumor which I fulgurated. There was no evidence of bladder perforation or evidence of bleeding when I was done with the resection. Patient abdomen was soft in end of resection. Following the resection I was able to visualize the right ureteral opening. At this time the resectoscope was withdrawn and a 22 [place]an cystoscope was advanced per urethra, the right ureter orifice was visualized and intubated with an open-ended catheter, retrograde pyelogram was performed which showed significant dilation of the ureter from the level of the bladder and all the way up to the kidney, at this point the catheter was further advanced into the proximal ureter at this point a significant amount of cloudy urine was obtained which was drained and sent to culture. At this time a sensor wire was advanced through the ureteral catheter and the catheter was removed with the wire in place. Next a ureteral stent was passed over the wire, the proximal curl was visualized on fluoroscopy and the distal curl was visualized using the cystoscope. There was a significant hydronephrotic drip that was noticed. The patient was awakened from anesthesia and taken to recovery in stable condition. Total area of resection was greater than 10 cm
[2023-07-26 12:06] VITALS: BP 123/76; PULSE 70; RESP 20
--- NOTE | 2023-07-26 14:34 | FL ---
EXAMINATION TYPE: FL urography retrograde Intraoperative/procedural fluoroscopic services were provid ed. Total fluoroscopy time is 2 minutes 40 seconds with a total of 15 submitted images to PACS. Pleas e see the operative/procedural note for further details. DAP: 1.09 mGym2
== END 2023-07-26 12:45 | disposition home or self-care (01) ==
LOC: OR 06:36
PROVIDERS: ATTEND Urology
DX: C67.9 Malignant neoplasm of bladder, unspecified (principal); N13.30 Unspecified hydronephrosis; J44.9 Chronic obstructive pulmonary disease, unspecified; E78.5 Hyperlipidemia, unspecified; I10 Essential (primary) hypertension; I25.10 Atherosclerotic heart disease of native coronary artery without angina pectoris; M41.9 Scoliosis, unspecified; M79.9 Soft tissue disorder, unspecified; F17.210 Nicotine dependence, cigarettes, uncomplicated; F12.90 Cannabis use, unspecified, uncomplicated; Z79.51 Long term (current) use of inhaled steroids; Z79.899 Other long term (current) drug therapy; Z88.2 Allergy status to sulfonamides; Z95.5 Presence of coronary angioplasty implant and graft; Z98.890 Other specified postprocedural states
CPT/HCPCS: 52240; 52332; 86900; 86901; 88305; 86850; 86870; 86880; 88307; 87070; 87205; 87075; 87077; 87186; 74420; C2625; C1769 ×2; C1758; J2250; J0690; J3010; J2704; Q9967

== ENCOUNTER 2024-03-31 18:07 | Inpatient (IN) | payer MEDICARE ==
--- NOTE | 2024-03-31 18:36 | ED ---
General Adult HPI - General Chief complaint: Shortness of Breath Stated complaint: NICOLE Time Seen by Provider: 03/31/24 18:23 Source: patient, EMS Limitations: no limitations - History of Present Illness Initial comments: Patient presents to the ED by ambulance for evaluation. Patient states that he has COPD and is on 5 L of home O2. Patient states that he has been having incre asing dyspnea since about 10 AM this morning. Patient also reports having increasing bilateral lower extremity edema for the past several weeks. Patient states that he has been giving himself home albuterol neb treatments with minimal/temporary relief. Patient states that he has a history of bladder cancer and has fairly consistent hematuria. Patient denies having any pain, fever or chills, headache, focal numbness/weakness/neuro deficit, chest pain or pressure, cough or cold symptoms, palpitations, dizziness, abdominal pain, nausea/vomiting/diarrhea, bloody or melanotic stool, dysuria, urinary frequency, decreased urine output, leg or calf pain, or any other symptoms or complaints. - Related Data Home Medications Medication Instructions Recorded Confirmed Ipratropium-Albuterol Nebulize 3 ml INHALATION RT-QID 01/19/23 03/31/24 [Duoneb 0.5 mg-3 mg/3 ml Soln] Fluticasone/Umeclidin/Vilanter 1 puff INHALATION RT-DAILY 05/26/23 03/31/24 [Trelegy Ellipta 100-62.5-25] Albuterol Sulfate [Ventolin HFA] 2 puff INHALATION RT-Q4H PRN 07/22/23 03/31/24 Amiodarone [Cordarone] 200 mg PO DAILY 07/22/23 03/31/24 Furosemide [Lasix] 20 mg PO BID 07/22/23 03/31/24 Atorvastatin [Lipitor] 40 mg PO DAILY 03/31/24 03/31/24 traMADol HCL 50 mg PO Q6H PRN 03/31/24 03/31/24 Previous Rx's Medication Instructions Recorded Metoprolol Tartrate [Lopressor] 50 mg PO BID 30 Days #60 tab 06/03/23 Tamsulosin [Flomax] 0.4 mg PO PC-BRKFST 30 Days #30 cap 06/03/23 Allergies Allergy/AdvReac Type Severity Reaction Status Date / Time sulfamethoxazole Allergy Rash/Hives Verified 03/31/24 18:40 [From Bactrim] trimethoprim [From Bactrim] Allergy Rash/Hives Verified 03/31/24 18:40 Review of Systems ROS Statement: Those systems with pertinent positive or pertinent negative responses have been documented in the HPI. ROS Other: All systems not noted in ROS Statement are negative. Past Medical History Past Medical History: Cancer, COPD, Hyperlipidemia, Hypertension, Musculoskeletal Disorder Additional Past Medical History / Comment(s): Scoliosis, varicose veins. History of Any Multi-Drug Resistant Organisms: None Reported Past Surgical History: Appendectomy, Heart Catheterization With Stent Additional Past Surgical History / Comment(s): Eye surgery X5. Past Anesthesia/Blood Transfusion Reactions: No Reported Reaction Additional Past Anesthesia/Blood Transfusion Reaction / Comment(s): Patient states had blood transfusion in May 2023 with no problem. Date of Last Stent Placement:: Unknown Past Psychological History: No Psychological Hx Reported Smoking Status: Current every day smoker Past Alcohol Use History: None Reported Past Drug Use History: Marijuana - Past Family History Father Family Medical History: No Reported History General Exam Limitations: no limitations General appearance: alert Head exam: Present: atraumatic Eye exam: Present: normal appearance ENT exam: Present: mucous membranes dry Neck exam: Present: other (Trachea is in midline) Respiratory exam: Present: respiratory distress, wheezes, prolonged expiratory. Absent: rales, rhonchi, stridor Cardiovascular Exam: Present: normal rhythm, tachycardia, normal heart sounds, other (Normal radial pulses bilaterally) GI/Abdominal exam: Present: soft. Absent: distended, tenderness, guarding Rectal exam: Present: normal rectal tone, other (Brown-colored stool was noted on rectal examination and sent for Hemoccult testing). Absent: tenderness Extremities exam: Present: other (3+ bilateral pedal edema; negative Homans' sign bilaterally). Absent: tenderness, calf tenderness Neurological exam: Present: alert, oriented X3. Absent: motor sensory deficit Skin exam: Present: warm, dry, intact, pallor Course Vital Signs 03/31/24 03/31/24 03/31/24 18:08 18:12 18:46 Temperature 99.5 F 98.5 F Pulse Rate 109 H 97 Respiratory 24 24 19 Rate Blood Pressure 129/70 117/106 O2 Sat by Pulse 94 L 99 Oximetry 03/31/24 03/31/24 20:29 20:43 Temperature Pulse Rate 90 91 Respiratory Rate Blood Pressure O2 Sat by Pulse Oximetry - Reevaluation(s) Reevaluation #1: 03/31/24 20:28 Case, H&P, test results and ED management thus far were discussed with Dr. Higgins. He accepts hospital admission. He agrees with urology consultation. He request to order a VQ scan for the morning given the patient's elevated D-dimer. He has no further recommendations at this time. 03/31/24 20:32 Case, H&P and test results were discussed with Dr. Hobbs (urology). He agrees to see the patient in consultation. He has no further recommendations at this time. 03/31/24 20:36 Patient denies development of any new symptoms while in the ED. Patient remains hemodynamically stable. Patient and son are aware the patient's test results, and they both agree with hospital admission at this time. EKG Findings - EKG Comments: EKG Findings:: ED physician interpretation (interpreted by me): Sinus tachycardia, ventricular rate of 100 bpm, no ectopy, normal RI interval, right bundle branch block (seen on 05/26/2023 EKG as well), QRS duration of 140 ms, normal QT interval, rightward axis, no ST elevation Medical Decision Making - Medical Decision Making Was pt. sent in by a medical professional or institution (, PA, DIRECTOR CORPORATE SECURITY, urgent care, hospital, or [facility]...) When possible be specific @ -No Did you speak to anyone other than the patient for history (EMS, parent, family, police, friend...)? What history was obtained from this source @ -No Did you review nursing and triage notes (agree or disagree)? Why? @ -I reviewed and agree with nursing and triage notes Were old charts reviewed (outside hosp., previous admission, EMS record, old EKG, old radiological studies, urgent care reports/EKG's, [facility] records)? Report findings @ -No old charts were reviewed Differential Diagnosis (chest pain, altered mental status, abdominal pain women, abdominal pain men, vaginal bleeding, weakness, fever, dyspnea, syncope, headache, dizziness, GI bleed, back pain, seizure, CVA, palpatations, mental health, musculoskeletal)? @ -Differential Dyspnea: Coronary syndrome, arrhythmia, tamponade, asthma, COPD, pulmonary embolism, pneumonia, pneumothorax, pleural effusion, hematuria, cancer, anemia, neuromuscular, this is not meant to be an all-inclusive list. EKG interpreted by me (3pts min.). @ -As above X-rays interpreted by me (1pt min.). @ -Chest x-ray was reviewed myself and shows findings of COPD, as well as left lower lobe airspace opacity. I agree with the radiologist's interpretation as above. CT interpreted by me (1pt min.). @ -None done U/S interpreted by me (1pt. min.). @ -None done What testing was considered but not performed or refused? (CT, X-rays, U/S, labs)? Why? @ -None What meds were considered but not given or refused? Why? @ -None Did you discuss the management of the patient with other professionals (professionals i.e. , PA, DIRECTOR CORPORATE SECURITY, lab, RT, psych nurse, social media content manager, it infrastructure manager, teacher, senior loan officer, casework specialist)? Give summary @ -As above. Was smoking cessation discussed for >3mins.? @ -No Was critical care preformed (if so, how long)? @ -Yes, 40 minutes. Were there social determinants of health that impacted care today? How? (Homelessness, low income, unemployed, alcoholism, drug addiction, transporta tion, low edu. Level, literacy, decrease access to med. care, assisted, rehab)? @ -No Was there de-escalation of care discussed even if they declined (Discuss DNR or withdrawal of care, Hospice)? DNR status @ -No What co-morbidities impacted this encounter? (DM, HTN, Smoking, COPD, CAD, Cancer, CVA, ARF, Chemo, Hep., AIDS, mental health diagnosis, sleep apnea, morbid obesity)? @ -Bladder cancer Was patient admitted / discharged? Hospital course, mention meds given and route, prescriptions, significant lab abnormalities, going to OR and other pertinent info. @ -Patient was somewhat tachycardic on arrival to the ED, but he is now hemodynamically stable with a normal blood pressure and heart rate. Patient's stool Hemoccult is negative. Patient reports having chronic hematuria, I suspect may be contributing to his anemia. Transfusion has been ordered. Patient has also been treated with IV fluids in the ED. Patient's D-dimer is elevated, but I suspect that the patient's anemia is likely the etiology of his dyspnea, and given the patient's creatinine is elevated, cannot perform a CT a ngio chest at this time. A VQ scan has been ordered for the morning per Dr. Higgins's request. Given the patient's left lower lobe airspace opacity on chest x-ray and leukocytosis, patient has also been treated for possible pneumonia with IV ceftriaxone and IV azithromycin. Patient's UA shows hematuria and possible UTI (also covered by IV ceftriaxone). Will admit the patient to the hospital. Urology has been consulted and contacted. Dr. Higgins has accepted hospital admission. Patient and son feel comfortable with this plan. Undiagnosed new problem with uncertain prognosis? @ -No Drug Therapy requiring intensive monitoring for toxicity (Heparin, Nitro, Insulin, Cardizem)? @ -No Were any procedures done? @ -No Diagnosis/symptom? @ -Anemia Acute, or Chronic, or Acute on Chronic? @ -Default Uncomplicated (without systemic symptoms) or Complicated (systemic symptoms)? @ -Default Side effects of treatment? @ -No Exacerbation, Progression, or Severe Exacerbation? @ -No Poses a threat to life or bodily function? How? (Chest pain, [place], AR, pneumonia, PE, COPD, DKA, ARF, appy, cholecystitis, CVA, Diverticulitis, Homicidal, Suicidal, threat to staff... and all critical care pts) @ -Yes, possibly. Diagnosis/symptom? @ -Dyspnea Acute, or Chronic, or Acute on Chronic? @ -Acute on chronic Uncomplicated (without systemic symptoms) or Complicated (systemic symptoms)? @ -Default Side effects of treatment? @ -None Exacerbation, Progression, or Severe Exacerbation] @ -No Poses a threat to life or bodily function? @ -No Diagnosis/symptom? @ -Renal insufficiency Acute, or Chronic, or Acute on Chronic? @ -Default Uncomplicated (without systemic symptoms) or Complicated (systemic symptoms)? @ -Default Side effects of treatment? @ -None Exacerbation, Progression, or Severe Exacerbation] @ -No Poses a threat to life or bodily function? @ -No Diagnosis/symptom? @ -Possible pneumonia Acute, or Chronic, or Acute on Chronic? @ -Default Uncomplicated (without systemic symptoms) or Complicated (systemic symptoms)? @ -Default Side effects of treatment? @ -None Exacerbation, Progression, or Severe Exacerbation] @ -No Poses a threat to life or bodily function? @ -No Diagnosis/symptom? @ -Possible UTI Acute, or Chronic, or Acute on Chronic? @ -Default Uncomplicated (without systemic symptoms) or Complicated (systemic symptoms)? @ -Default Side effects of treatment? @ -None Exacerbation, Progression, or Severe Exacerbation] @ -No Poses a threat to life or bodily function? @ -No - Lab Data Result diagrams: 03/31/24 18:51 03/31/24 18:51 Lab Results 03/31/24 03/31/24 03/31/24 Range/Units 18:51 18:51 18:51 WBC 15.3 H (3.8-10.6) k/uL RBC 1.89 L (4.30-5.90) m/uL Hgb 4.3 L* (13.0-17.5) gm/dL Hct 14.4 L* (39.0-53.0) % MCV 76.5 L (80.0-100.0) fL MCH 22.8 L (25.0-35.0) pg MCHC 29.8 L (31.0-37.0) g/dL RDW 17.7 H (11.5-15.5) % Plt Count 459 H (150-450) k/uL MPV 7.1 Hypochromasia Marked Poikilocytosis Slight Anisocytosis Slight Microcytosis Slight PT 12.3 (10.0-12.5) sec INR 1.2 H (<1.2) APTT 24.7 (22.0-30.0) sec D-Dimer 4.68 H (<0.60) mg/L FEU Sodium 139 (137-145) mmol/L Potassium 3.7 (3.5-5.1) mmol/L Chloride 106 (98-107) mmol/L Carbon Dioxide 26 (22-30) mmol/L Anion Gap 7 mmol/L BUN 54 H (9-20) mg/dL Creatinine 2.59 H (0.66-1.25) mg/dL Est GFR (CKD-EPI)AfAm 27 (>60 ml/min/1.73 sqM) Est GFR (CKD-EPI)NonAf 23 (>60 ml/min/1.73 sqM) Glucose 136 H (74-99) mg/dL Plasma Lactic Acid Tera (0.7-2.0) mmol/L Calcium 8.3 L (8.4-10.2) mg/dL Total Bilirubin 0.4 (0.2-1.3) mg/dL AST 26 (17-59) U/L ALT 21 (4-49) U/L Alkaline Phosphatase 114 (38-126) U/L Troponin I (0.000-0.034) ng/mL NT-Pro-B Natriuret Pep 3650 pg/mL Total Protein 6.4 (6.3-8.2) g/dL Albumin 2.5 L (3.5-5.0) g/dL Urine Color Urine Appearance (Clear) Urine pH (5.0-8.0) Ur Specific [place] (1.001-1.035) Urine Protein (Negative) Urine Glucose (UA) (Negative) Urine Ketones (Negative) Urine Blood (Negative) Urine Nitrite (Negative) Urine Bilirubin (Negative) Urine Urobilinogen (<2.0) mg/dL Ur Leukocyte Esterase (Negative) Urine RBC (0-5) /hpf Urine WBC (0-5) /hpf Urine Bacteria (None) /hpf Urine Mucus (None) /hpf Urine Yeast (Budding) (None) /hpf Stool Occult Blood (Negative) Influenza Type A (PCR) (Not Detectd) Influenza Type B (PCR) (Not Detectd) RSV (PCR) (Not Detectd) SARS-CoV-2 (PCR) (Not Detectd) 03/31/24 03/31/24 03/31/24 Range/Units 18:51 18:51 18:51 WBC (3.8-10.6) k/uL RBC (4.30-5.90) m/uL Hgb (13.0-17.5) gm/dL Hct (39.0-53.0) % MCV (80.0-100.0) fL MCH (25.0-35.0) pg MCHC (31.0-37.0) g/dL RDW (11.5-15.5) % Plt Count (150-450) k/uL MPV Hypochromasia Poikilocytosis Anisocytosis Microcytosis PT (10.0-12.5) sec INR (<1.2) APTT (22.0-30.0) sec D-Dimer (<0.60) mg/L FEU Sodium (137-145) mmol/L Potassium (3.5-5.1) mmol/L Chloride (98-107) mmol/L Carbon Dioxide (22-30) mmol/L Anion Gap mmol/L BUN (9-20) mg/dL Creatinine (0.66-1.25) mg/dL Est GFR (CKD-EPI)AfAm (>60 ml/min/1.73 sqM) Est GFR (CKD-EPI)NonAf (>60 ml/min/1.73 sqM) Glucose (74-99) mg/dL Plasma Lactic Acid Tera 2.8 H* (0.7-2.0) mmol/L Calcium (8.4-10.2) mg/dL Total Bilirubin (0.2-1.3) mg/dL AST (17-59) U/L ALT (4-49) U/L Alkaline Phosphatase (38-126) U/L Troponin I <0.012 (0.000-0.034) ng/mL NT-Pro-B Natriuret Pep pg/mL Total Protein (6.3-8.2) g/dL Albumin (3.5-5.0) g/dL Urine Color Urine Appearance (Clear) Urine pH (5.0-8.0) Ur Specific [place] (1.001-1.035) Urine Protein (Negative) Urine Glucose (UA) (Negative) Urine Ketones (Negative) Urine Blood (Negative) Urine Nitrite (Negative) Urine Bilirubin (Negative) Urine Urobilinogen (<2.0) mg/dL Ur Leukocyte Esterase (Negative) Urine RBC (0-5) /hpf Urine WBC (0-5) /hpf Urine Bacteria (None) /hpf Urine Mucus (None) /hpf Urine Yeast (Budding) (None) /hpf Stool Occult Blood (Negative) Influenza Type A (PCR) Not Detected (Not Detectd) Influenza Type B (PCR) Not Detected (Not Detectd) RSV (PCR) Not Detected (Not Detectd) SARS-CoV-2 (PCR) Not Detected (Not Detectd) 03/31/24 03/31/24 Range/Units 19:56 20:06 WBC (3.8-10.6) k/uL RBC (4.30-5.90) m/uL Hgb (13.0-17.5) gm/dL Hct (39.0-53.0) % MCV (80.0-100.0) fL MCH (25.0-35.0) pg MCHC (31.0-37.0) g/dL RDW (11.5-15.5) % Plt Count (150-450) k/uL MPV Hypochromasia Poikilocytosis Anisocytosis Microcytosis PT (10.0-12.5) sec INR (<1.2) APTT (22.0-30.0) sec D-Dimer (<0.60) mg/L FEU Sodium (137-145) mmol/L Potassium (3.5-5.1) mmol/L Chloride (98-107) mmol/L Carbon Dioxide (22-30) mmol/L Anion Gap mmol/L BUN (9-20) mg/dL Creatinine (0.66-1.25) mg/dL Est GFR (CKD-EPI)AfAm (>60 ml/min/1.73 sqM) Est GFR (CKD-EPI)NonAf (>60 ml/min/1.73 sqM) Glucose (74-99) mg/dL Plasma Lactic Acid Tera (0.7-2.0) mmol/L Calcium (8.4-10.2) mg/dL Total Bilirubin (0.2-1.3) mg/dL AST (17-59) U/L ALT (4-49) U/L Alkaline Phosphatase (38-126) U/L Troponin I (0.000-0.034) ng/mL NT-Pro-B Natriuret Pep pg/mL Total Protein (6.3-8.2) g/dL Albumin (3.5-5.0) g/dL Urine Color Light Red Urine Appearance Cloudy (Clear) Urine pH 5.5 (5.0-8.0) Ur Specific [place] 1.010 (1.001-1.035) Urine Protein 1+ H (Negative) Urine Glucose (UA) Negative (Negative) Urine Ketones Negative (Negative) Urine Blood Large H (Negative) Urine Nitrite Negative (Negative) Urine Bilirubin Negative (Negative) Urine Urobilinogen <2.0 (<2.0) mg/dL Ur Leukocyte Esterase Moderate H (Negative) Urine RBC 70 H (0-5) /hpf Urine WBC 13 H (0-5) /hpf Urine Bacteria Rare H (None) /hpf Urine Mucus Rare H (None) /hpf Urine Yeast (Budding) Rare H (None) /hpf Stool Occult Blood Negative (Negative) Influenza Type A (PCR) (Not Detectd) Influenza Type B (PCR) (Not Detectd) RSV (PCR) (Not Detectd) SARS-CoV-2 (PCR) (Not Detectd) - Radiology Data Chest x-ray: 1. Left lower lobe airspace opacities correlate for pneumonia. 2. COPD, chronic changes without acute pulmonary process. No significant change from prior. Critical Care Time Critical Care Time: Yes Total Critical Care Time: 40 Disposition Clinical Impression: Renal insufficiency, Anemia, Dyspnea, Hematuria Narrative: Possible pneumonia, possible UTI Disposition: ADMITTED IP TO THIS HOSP Condition: Stable Is patient prescribed a controlled substance at d/c from ED?: No Time of Disposition: 20:39
[2024-03-31 19:24] LABS: Anisocytosis Slight; Basophils % (A) 0 %; Eosinophils % (A) 0 %; Hypochromasia Marked; Lymphocytes # (A) 0.4 k/uL (1.0-4.8); Lymphocytes % (A) 3 %; MCH 22.8 pg (25.0-35.0); MCHC 29.8 g/dL (31.0-37.0); MCV 76.5 fL (80.0-100.0); Mean Platelet Volume 7.1; Microcytosis Slight; Monocytes # (A) 0.6 k/uL (0-1.0); Monocytes % (A) 4 %; Neutrophils % (A) 92 %; Platelet Count 459 k/uL (150-450); Poikilocytosis Slight; RBC 1.89 m/uL (4.30-5.90); RDW 17.7 % (11.5-15.5); WBC 15.3 k/uL (3.8-10.6)
[2024-03-31 19:41] LABS: HCT 14.4 % (39.0-53.0); HGB 4.3 gm/dL (13.0-17.5)
[2024-03-31] MEDS: methylPREDNISolone SOD SUCCI 125 MG/2 ML VIAL IV STA (19:41)
[2024-03-31 19:43] LABS: ALT 21 U/L (4-49); AST 26 U/L (17-59); African American GFR (CKD) 27 (>60 ml/min/1.73 sqM); Albumin 2.5 g/dL (3.5-5.0); Alkaline Phosphatase 114 U/L (38-126); Anion Gap 7 mmol/L; Blood Urea Nitrogen 54 mg/dL (9-20); Calcium 8.3 mg/dL (8.4-10.2); Carbon Dioxide 26 mmol/L (22-30); Chloride 106 mmol/L (98-107); Glucose 136 mg/dL (74-99); Non-African American GFR(CKD) 23 (>60 ml/min/1.73 sqM); Potassium 3.7 mmol/L (3.5-5.1); Sodium 139 mmol/L (137-145); Total Bilirubin 0.4 mg/dL (0.2-1.3); Total Protein 6.4 g/dL (6.3-8.2)
[2024-03-31 19:51] LABS: NT-Pro-B-Type Natriuretic Pept 3650 pg/mL
[2024-03-31 19:55] LABS: INR 1.2 (<1.2)
[2024-03-31 19:56] LABS: Partial Thromboplastin Time 24.7 sec (22.0-30.0); Prothrombin Time 12.3 sec (10.0-12.5)
--- NOTE | 2024-03-31 20:03 | XR ---
EXAMINATION TYPE: XR chest 1V portable DATE OF EXAM: 03/31/2024 7:38 PM CLINICAL INDICATION: Male, 78 years old with history of dyspnea; COMPARISON: Chest radiographs from 06/01/2023 TECHNIQUE: XR chest 1V portable Frontal view of the chest. FINDINGS: Lungs/Pleura: Airspace opacities projecting the heart suggested. Prominent interstitial lung markings are seen scattered throughout the lungs. No evidence of focal consolidation, pneumothorax or pleural effusion. Pulmonary vascularity: Unremarkable. Heart/mediastinum: Cardiomediastinal silhouette is unremarkable. Musculoskeletal: No acute osseous pathology. IMPRESSION: 1. Left lower lobe airspace opacities correlate for pneumonia. 2. COPD, Chronic changes without acute pulmonary process. No significant change from prior. [facility], , 03/31/2024 8:01 PM
[2024-03-31] MEDS: SODIUM CHLORIDE 0.9% 500 ML 500 ML IV ONE (20:06)
[2024-03-31] MEDS: IPRATROPIUM-ALBUTEROL 3 ML NEB INHALATION STA (20:29)
[2024-03-31] MEDS ORDERED: NALOXONE 0.4 MG/ML 1 ML VIAL IV PRN (20:37)
[2024-03-31 20:42] LABS: Appearance,Urine Cloudy (Clear); Bacteria,Urine Rare /hpf; Bilirubin,Urine Negative (Negative); Blood,Urine Large (Negative); Budding Yeast,Urine Rare /hpf; Color,Urine Light Red; Glucose,Urine (UA) Negative (Negative); Ketones,Urine Negative (Negative); Leukocyte Esterase,Urine Moderate (Negative); Mucus,Urine Rare /hpf; Nitrite,Urine Negative (Negative); PH, Urine 5.5 (5.0-8.0); Protein,Urine 1+ (Negative); RBC,Urine 70 /hpf (0-5); Urobilinogen,Urine <2.0 mg/dL (<2.0); WBC,Urine 13 /hpf (0-5)
[2024-03-31] MEDS: cefTRIAXone IN SWFI 1,000 MG/10 ML SYRINGE IVP STA (21:14)
[2024-03-31] MEDS: AZITHROMYCIN 500 MG in SODIUM CHLORIDE 0.9% 250 ML IVPB STA (21:19)
[2024-03-31] MEDS: SODIUM CHLORIDE 0.9% 1,000 ML IV SCH (21:22)
[2024-03-31 22:00] LABS: ALT 19 U/L (4-49); AST 25 U/L (17-59); African American GFR (CKD) 26 (>60 ml/min/1.73 sqM); Albumin 2.5 g/dL (3.5-5.0); Alkaline Phosphatase 112 U/L (38-126); Anion Gap 8 mmol/L; Blood Urea Nitrogen 53 mg/dL (9-20); Calcium 8.2 mg/dL (8.4-10.2); Carbon Dioxide 24 mmol/L (22-30); Chloride 107 mmol/L (98-107); Glucose 141 mg/dL (74-99); Non-African American GFR(CKD) 22 (>60 ml/min/1.73 sqM); Potassium 3.9 mmol/L (3.5-5.1); Sodium 139 mmol/L (137-145); Total Bilirubin 0.5 mg/dL (0.2-1.3); Total Protein 6.3 g/dL (6.3-8.2)
--- NOTE | 2024-03-31 22:03 | P.HPIM ---
History of Present Illness H&P Date: 03/31/24 Patient is a 78-year-old male with COPD (5 L nasal cannula at home. Managed by Dr. Harrison), A-fib (not on anticoagulation due to hematuria), hypertension, hyperlipidemia, bladder cancer (patient previously saw Oncology, refused chemotherapy, s/p TURBT 07/2023, has not followed up, not undergo any treatments at this time), who came in for shortness of breath. Patient reported that he has been short of breath for about 3 days but has been managed with home inhalers and nebulizer treatments. However today around 10 AM, patient noted inability to breathe despite finishing a treatment of his inhalers and so he sought care in the ED. He noted some associated dry mouth, subjective fever, chills, and palpitations. He also reported that his leg swelling was worse than usual and that he was exposed to his great grandchildren who had bronchitis a few days ago. Patient also reported that he has gabby hematuria due to his bladder cancer for the past year. He denied chest pain, dizziness, leg pain, nausea or vomiting, diarrhea, chills, focal weakness, visual changes, facial asymmetry, tremors, loss of consciousness, or recent travel. In the ED, EKG showed sinus rhythm with a rate of 100. Prolonged QRS at 155 MS no ectopy no ST-T changes. Chest x-ray showed left lower lobe opacities and COPD changes that were noted from prior chest x-rays. WBC 15.3, hemoglobin 4.3, hematocrit 14.4, MCV 76.5, platelet 149, PT 12.3, INR 1.2, PTT 24.7, D-dimer 4.68, sodium 139, potassium 3.7, chloride 106, bicarb 26, BUN 54, creatinine 2.59, glucose 136, lactic acid 2.8, calcium 8.3, troponin less than 0.0 12, BNP 3650, albumin 2.5. Urinalysis showed large amount of blood, moderate leukocyte esterase +1 protein, 70 urine RBC, WBC 13. Negative for influenza, RSV, and COVID-19 On admission, patient afebrile at 99.5 pulse rate tachycardic at 109 respiratory rate elevated at 24 blood pressure 129/70 oxygen saturation 94% on 6 L nasal cannula ED documentation reviewed. Agree to admit this patient for microcytic anemia and ANH. Review of systems: Pertinent positives and negatives as discussed in HPI, a complete review of systems was performed and all other systems are negative. Family history: Mother known to have hypertension. Father known to have hypertension Social history: Tobacco: Current smoker. Smokes 10 sticks per day for the last 15 years. Alcohol: Denies alcohol use Recreational drugs: Current marijuana use Travel: Denies recent travel Occupation: Retired Physical examination: Vital signs reviewed General: frail, no distress, appears older than stated age, on nasal cannula Derm: no unusual rashes/lesions, warm Head: atraumatic, normocephalic, symmetric Eyes: EOMI, anicteric sclera, pupils equal round reactive to light, conjunctival pallor ENT: Nose and ears atraumatic Neck: No cervical lymphadenopathy, trachea midline, supple Mouth: no lip lesion, mucus membranes moist Cardiovascular: S1S2 reg, no murmur Lungs: CTA bilateral, no rhonchi, no rales, no accessory muscle use Abdominal: soft, nondistended, nontender to palpation, no guarding Ext: muscle strength 5 out of 5 in all 4 extremities grossly, no gross muscle atrophy, no contractures, positive dorsalis pedis pulse bilateral, bilateral +2 lower extremity pitting edema to mid-bull Neuro: CN II-XI grossly intact, no gross focal neuro deficits Psych: Alert and oriented x 3, appropriate affect and mood Assessment/Plan: #. Severe microcytic anemia due to chronic blood loss from hematuria in setting of bladder cancer Hemoglobin decreased at 4.3. Patient has hematuria due to bladder cancer. D- dimer elevated at 4.68. Lactic acid elevated at 2.8 -Status post 2 units packed RBCs in the ED. Total of 5 units ordered. -Urology consulted #. Elevated D-dimer rule out VTE and PE D-dimer elevated at 4.6. Patient has leg swelling that is worse than usual. Patient has active cancer. -VQ scan ordered #. Community-acquired pneumonia Chest x-ray shows left lower lobe opacities. Patient has leukocytosis of 15.3 and subjective fevers. -Rocephin 2 g IVPB daily -Zithromax 500 mg p.o. daily -Blood cultures -CBC at a.m. -Check procalcitonin levels #. Kidney injury, acute vs chronic Creatinine elevated at 2.59. BUN elevated at 54 -Avoid nephrotoxic agents for now -Hold antihypertensives for now -BMP at a.m. # Abdominal aortic aneurysm 4.8cm x 3.1 cm PET scan in 08/11/2023 showed infrarenal aortic aneurysmal dilation up to 4.8 x 3.1 cm. Patient has not been evaluated for AAA -Monitor BP -Abdominal ultrasound -Consult vascular surgery # Lower extremity edema, elevated proBNP, r/o CHF - Obtain Echocardiogram - Cardiac monitoring # Lactic acidosis - Resolved #. Hypocalcemia Calcium at 8.3. Albumin at 2.5. Corrected calcium 9.5 -Cardiac monitoring Chronic conditions: #. Hypertension: Hold home antihypertensives for now #. Hyperlipidemia: C/w Lipitor 40 mg p.o. daily #. COPD: Ventolin inhaler as needed, Trelegy Ellipta daily #. A-fib, controlled: Amiodarone 200 mg p.o. daily -Resume home medications once reconciled DVT prophylaxis: IPCDs The patient is admitted with an anticipated greater than 2 midnight stay for evaluation of anemia, hypocalcemia and pneumonia CODE STATUS: Full Discussed with: Patient and patient's son Anticipated discharge place: Home Past Medical History Past Medical History: Cancer, COPD, Hyperlipidemia, Hypertension, Musculoskeletal Disorder Additional Past Medical History / Comment(s): Scoliosis, varicose veins. History of Any Multi-Drug Resistant Organisms: None Reported Past Surgical History: Appendectomy, Heart Catheterization With Stent Additional Past Surgical History / Comment(s): Eye surgery X5. Past Anesthesia/Blood Transfusion Reactions: No Reported Reaction Additional Past Anesthesia/Blood Transfusion Reaction / Comment(s): Patient states had blood transfusion in May 2023 with no problem. Date of Last Stent Placement:: Unknown Past Psychological History: No Psychological Hx Reported Smoking Status: Current every day smoker Past Alcohol Use History: None Reported Past Drug Use History: Marijuana - Past Family History Father Family Medical History: No Reported History Medications and Allergies Home Medications Medication Instructions Recorded Confirmed Type Ipratropium-Albuterol Nebulize 3 ml INHALATION RT-QID 01/19/23 03/31/24 History [Duoneb 0.5 mg-3 mg/3 ml Soln] Fluticasone/Umeclidin/Vilanter 1 puff INHALATION RT-DAILY 05/26/23 03/31/24 History [Trelegy Ellipta 100-62.5-25] Metoprolol Tartrate [Lopressor] 50 mg PO BID 30 Days #60 tab 06/03/23 03/31/24 Rx Tamsulosin [Flomax] 0.4 mg PO PC-BRKFST 30 Days #30 cap 06/03/23 03/31/24 Rx Albuterol Sulfate [Ventolin HFA] 2 puff INHALATION RT-Q4H PRN 07/22/23 03/31/24 History Amiodarone [Cordarone] 200 mg PO DAILY 07/22/23 03/31/24 History Furosemide [Lasix] 20 mg PO BID 07/22/23 03/31/24 History Atorvastatin [Lipitor] 40 mg PO DAILY 03/31/24 03/31/24 History traMADol HCL 50 mg PO Q6H PRN 03/31/24 03/31/24 History Allergies Allergy/AdvReac Type Severity Reaction Status Date / Time sulfamethoxazole Allergy Rash/Hives Verified 03/31/24 18:40 [From Bactrim] trimethoprim [From Bactrim] Allergy Rash/Hives Verified 03/31/24 18:40 Physical Exam Vitals: Vital Signs Temp Pulse Resp BP Pulse Ox 03/31/24 21:00 97 18 127/62 96 03/31/24 20:43 91 03/31/24 20:29 90 03/31/24 18:46 98.5 F 97 19 117/106 99 03/31/24 18:12 24 03/31/24 18:08 99.5 F 109 H 24 129/70 94 L Intake and Output 03/31/24 03/31/24 03/31/24 06:59 14:59 22:59 Other: Weight 59.874 kg Results CBC & Chem 7: 03/31/24 21:11 03/31/24 21:11 Labs: Abnormal Lab Results - Last 24 Hours (Table) 03/31/24 03/31/24 03/31/24 Range/Units 18:51 18:51 18:51 WBC 15.3 H (3.8-10.6) k/uL RBC 1.89 L (4.30-5.90) m/uL Hgb 4.3 L* (13.0-17.5) gm/dL Hct 14.4 L* (39.0-53.0) % MCV 76.5 L (80.0-100.0) fL MCH 22.8 L (25.0-35.0) pg MCHC 29.8 L (31.0-37.0) g/dL RDW 17.7 H (11.5-15.5) % Plt Count 459 H (150-450) k/uL INR 1.2 H (<1.2) D-Dimer 4.68 H (<0.60) mg/L FEU BUN 54 H (9-20) mg/dL Creatinine 2.59 H (0.66-1.25) mg/dL Glucose 136 H (74-99) mg/dL Plasma Lactic Acid Tera (0.7-2.0) mmol/L Calcium 8.3 L (8.4-10.2) mg/dL Albumin 2.5 L (3.5-5.0) g/dL Urine Protein (Negative) Urine Blood (Negative) Ur Leukocyte Esterase (Negative) Urine RBC (0-5) /hpf Urine WBC (0-5) /hpf Urine Bacteria (None) /hpf Urine Mucus (None) /hpf Urine Yeast (Budding) (None) /hpf 03/31/24 03/31/24 Range/Units 18:51 19:56 WBC (3.8-10.6) k/uL RBC (4.30-5.90) m/uL Hgb (13.0-17.5) gm/dL Hct (39.0-53.0) % MCV (80.0-100.0) fL MCH (25.0-35.0) pg MCHC (31.0-37.0) g/dL RDW (11.5-15.5) % Plt Count (150-450) k/uL INR (<1.2) D-Dimer (<0.60) mg/L FEU BUN (9-20) mg/dL Creatinine (0.66-1.25) mg/dL Glucose (74-99) mg/dL Plasma Lactic Acid Tera 2.8 H* (0.7-2.0) mmol/L Calcium (8.4-10.2) mg/dL Albumin (3.5-5.0) g/dL Urine Protein 1+ H (Negative) Urine Blood Large H (Negative) Ur Leukocyte Esterase Moderate H (Negative) Urine RBC 70 H (0-5) /hpf Urine WBC 13 H (0-5) /hpf Urine Bacteria Rare H (None) /hpf Urine Mucus Rare H (None) /hpf Urine Yeast (Budding) Rare H (None) /hpf
[2024-03-31 22:13] LABS: Anisocytosis Slight; Basophils % (A) 0 %; Eosinophils % (A) 0 %; Hypochromasia Marked; Lymphocytes # (A) 0.3 k/uL (1.0-4.8); Lymphocytes % (A) 2 %; MCH 22.4 pg (25.0-35.0); MCHC 29.7 g/dL (31.0-37.0); MCV 75.2 fL (80.0-100.0); Mean Platelet Volume 7.1; Microcytosis Slight; Monocytes # (A) 0.5 k/uL (0-1.0); Monocytes % (A) 4 %; Neutrophils # (A) 13.6 k/uL (1.3-7.7); Neutrophils % (A) 94 %; Platelet Count 466 k/uL (150-450); Poikilocytosis Moderate; RBC 1.89 m/uL (4.30-5.90); RDW 17.6 % (11.5-15.5); WBC 14.5 k/uL (3.8-10.6)
[2024-03-31] MEDS ORDERED: ALBUTEROL NEBULIZED 2.5 MG/3 ML INHALATION PRN (22:18)
[2024-03-31 22:23] LABS: HCT 14.2 % (39.0-53.0); HGB 4.2 gm/dL (13.0-17.5)
--- NOTE | 2024-04-01 01:45 | US ---
EXAMINATION TYPE: US duplex aorta DATE OF EXAM: 04/01/2024 COMPARISON: Prior aortic ultrasound 2017 CLINICAL INDICATION: Male, 78 years old with history of abdominal aortic aneurysm; AAA TECHNIQUE: Multiple sonographic images of the abdominal aorta are obtained with grayscale and color D oppler imaging. with grayscale and color Doppler imaging FINDINGS: EXAM MEASUREMENTS: Abdominal Aorta: Proximal: 2.4 x 2.4cm Mid: 1.9 x 2.1cm Distal: 3.8 x 5.1cm Bifurcation: Right Iliac: 1.2 x 1.5cm Left Iliac: 1.4 x 1.5cm PERMIT TECHNICIAN NOTES: AAA distally. *incidental finding: heterogeneous liver IMPRESSION: There is now 5.1 cm aneurysm of the distal abdominal aorta. Advise and minimum imaging wan rveillance every 3-6 months. Consider endovascular surgical referral or evaluation. [facility], , 04/01/2024 1:42 AM
[2024-04-01 07:31] LABS: Anisocytosis Slight; Basophils % (A) 0 %; Eosinophils % (A) 0 %; Hypochromasia Marked; Lymphocytes # (A) 0.5 k/uL (1.0-4.8); Lymphocytes % (A) 3 %; MCH 21.8 pg (25.0-35.0); MCHC 28.2 g/dL (31.0-37.0); MCV 77.4 fL (80.0-100.0); Mean Platelet Volume 7.1; Microcytosis Slight; Monocytes # (A) 0.3 k/uL (0-1.0); Monocytes % (A) 2 %; Neutrophils # (A) 14.5 k/uL (1.3-7.7); Neutrophils % (A) 94 %; Platelet Count 461 k/uL (150-450); Poikilocytosis Slight; RBC 1.85 m/uL (4.30-5.90); RDW 17.6 % (11.5-15.5); WBC 15.4 k/uL (3.8-10.6)
[2024-04-01 07:35] LABS: HCT 14.3 % (39.0-53.0)
[2024-04-01] MEDS: IPRATROPIUM-ALBUTEROL 3 ML NEB INHALATION SCH (07:54)
[2024-04-01] MEDS: SYMBICORT 80-4.5 MCG INHALER INHALATION SCH (07:54)
[2024-04-01] MEDS: AMIODARONE 200 MG TAB PO SCH (08:47)
[2024-04-01] MEDS: FUROSEMIDE 20 MG TAB PO SCH (08:47)
[2024-04-01] MEDS: ATORVASTATIN 40 MG TAB PO SCH (08:47)
--- NOTE | 2024-04-01 09:28 | P.PN ---
Subjective Progress Note Date: 04/01/24 No new complaints today. Patient is awaiting blood transfusion, which has been delayed due to crossmatching concerns from patient's antibodies Gen: In NAD, non-toxic HEENT: normocephalic, atraumatic, hearing acuity is intant, mucous membranes moist CVS: perfusing all extremities well, no pitting edema, Respiratory: symmetric chest expansion, no accessory muscle use, GI: soft, NTTP, ND, : no suprapubic tenderness, no CVA tenderness MSK/Derm: no rashes, cyanosis Neuro: CN II-XII intact, no motor weakness, Psych: cooperative, euthymic mood, judgment and insight is intact Hospital course: Patient is a 78-year-old male with COPD (5 L nasal cannula at home. Managed by Dr. Harrison), A-fib (not on anticoagulation due to hematuria), hypertension, hyperlipidemia, bladder cancer (patient previously saw Oncology, refused chemotherapy, s/p TURBT 07/2023, has not followed up, not undergo any treatments at this time), who came in for shortness of breath. In the ED, EKG showed sinus rhythm with a rate of 100. Prolonged QRS at 155 MS no ectopy no ST-T changes. Chest x-ray showed left lower lobe opacities and COPD changes that were noted from prior chest x-rays. WBC 15.3, hemoglobin 4.3, hematocrit 14.4, MCV 76.5, platelet 149, PT 12.3, INR 1.2, PTT 24.7, D-dimer 4.68, sodium 139, potassium 3.7, chloride 106, bicarb 26, BUN 54, creatinine 2.59, glucose 136, lactic acid 2.8, calcium 8.3, troponin less than 0.0 12, BNP 3650, albumin 2.5. Urinalysis showed large amount of blood, moderate leukocyte esterase +1 protein, 70 urine RBC, WBC 13. Negative for influenza, RSV, and COVID-19 On admission, patient afebrile at 99.5 pulse rate tachycardic at 109 respiratory rate elevated at 24 blood pressure 129/70 oxygen saturation 94% on 6 L nasal cannula ED documentation reviewed. Agree to admit this patient for microcytic anemia and ANH. Assessment/Plan: #. Severe microcytic anemia due to chronic blood loss from hematuria in setting of bladder cancer -2U PRBCs were ordered, and blood transfusion is pending due to +ROSCOE -Pt will like need approximately 3U PRBC total, pending ability to obtain blood -Urology consulted #. Elevated D-dimer rule out VTE and PE D-dimer elevation likely from malignancy. However will rule out with imaging below. -VQ scan ordered, but may be difficult to interpret in setting of severe COPD. -b/l LE US Duplex #. Community-acquired pneumonia Chest x-ray shows left lower lobe opacities. Patient has leukocytosis of 15.3 and subjective fevers. -Rocephin 2 g IVPB daily -Zithromax 500 mg p.o. daily -Blood cultures -CBC at a.m. -Check procalcitonin levels, will de-escalate abx if low; increased lung markings and opacities may be due to high output HF. #. Kidney injury, acute vs chronic Creatinine elevated at 2.59. BUN elevated at 54 -Avoid nephrotoxic agents for now -Hold antihypertensives for now -BMP at a.m. # Abdominal aortic aneurysm 4.8cm x 3.1 cm PET scan in 08/11/2023 showed infrarenal aortic aneurysmal dilation up to 4.8 x 3.1 cm. Patient has not been evaluated for AAA -Monitor BP -Abdominal ultrasound, results noted -Consult vascular surgery # Lower extremity edema, elevated proBNP, r/o CHF - Obtain Echocardiogram - Cardiac monitoring # Lactic acidosis - Resolved Chronic conditions: #. Hypertension: Hold home antihypertensives for now #. Hyperlipidemia: C/w Lipitor 40 mg p.o. daily #. COPD: Ventolin inhaler as needed, Trelegy Ellipta daily #. A-fib, controlled: Amiodarone 200 mg p.o. daily -Resume home medications once reconciled DVT prophylaxis: IPCDs The patient is admitted with an anticipated greater than 2 midnight stay for evaluation of anemia, hypocalcemia and pneumonia CODE STATUS: Full code with instructions Discussed with: Patient and patient's son Anticipated discharge place: Home Objective - Vital Signs Vital signs: Vital Signs Temp 98.5 F 03/31/24 18:46 Pulse 97 04/01/24 08:22 Resp 18 04/01/24 08:22 BP 104/67 04/01/24 08:22 Pulse Ox 95 04/01/24 08:22 FiO2 Intake & Output 03/31/24 04/01/24 04/01/24 18:59 06:59 18:59 Weight 59.874 kg - Labs CBC & Chem 7: 04/01/24 06:29 03/31/24 21:11 Labs: Abnormal Lab Results - Last 24 Hours (Table) 03/31/24 03/31/24 03/31/24 Range/Units 18:51 18:51 18:51 WBC 15.3 H (3.8-10.6) k/uL RBC 1.89 L (4.30-5.90) m/uL Hgb 4.3 L* (13.0-17.5) gm/dL Hct 14.4 L* (39.0-53.0) % MCV 76.5 L (80.0-100.0) fL MCH 22.8 L (25.0-35.0) pg MCHC 29.8 L (31.0-37.0) g/dL RDW 17.7 H (11.5-15.5) % Plt Count 459 H (150-450) k/uL Neutrophils # 14.0 H (1.3-7.7) k/uL Lymphocytes # 0.4 L (1.0-4.8) k/uL INR 1.2 H (<1.2) D-Dimer 4.68 H (<0.60) mg/L FEU BUN 54 H (9-20) mg/dL Creatinine 2.59 H (0.66-1.25) mg/dL Glucose 136 H (74-99) mg/dL Plasma Lactic Acid Tera (0.7-2.0) mmol/L Calcium 8.3 L (8.4-10.2) mg/dL Albumin 2.5 L (3.5-5.0) g/dL Urine Protein (Negative) Urine Blood (Negative) Ur Leukocyte Esterase (Negative) Urine RBC (0-5) /hpf Urine WBC (0-5) /hpf Urine Bacteria (None) /hpf Urine Mucus (None) /hpf Urine Yeast (Budding) (None) /hpf Crossmatch Blood Bank Comment 03/31/24 03/31/24 03/31/24 Range/Units 18:51 19:56 20:00 WBC (3.8-10.6) k/uL RBC (4.30-5.90) m/uL Hgb (13.0-17.5) gm/dL Hct (39.0-53.0) % MCV (80.0-100.0) fL MCH (25.0-35.0) pg MCHC (31.0-37.0) g/dL RDW (11.5-15.5) % Plt Count (150-450) k/uL Neutrophils # (1.3-7.7) k/uL Lymphocytes # (1.0-4.8) k/uL INR (<1.2) D-Dimer (<0.60) mg/L FEU BUN (9-20) mg/dL Creatinine (0.66-1.25) mg/dL Glucose (74-99) mg/dL Plasma Lactic Acid Tera 2.8 H* (0.7-2.0) mmol/L Calcium (8.4-10.2) mg/dL Albumin (3.5-5.0) g/dL Urine Protein 1+ H (Negative) Urine Blood Large H (Negative) Ur Leukocyte Esterase Moderate H (Negative) Urine RBC 70 H (0-5) /hpf Urine WBC 13 H (0-5) /hpf Urine Bacteria Rare H (None) /hpf Urine Mucus Rare H (None) /hpf Urine Yeast (Budding) Rare H (None) /hpf Crossmatch See Detail Blood Bank Comment Sent to [facility] 03/31/24 03/31/24 04/01/24 Range/Units 21:11 21:11 06:29 WBC 14.5 H 15.4 H (3.8-10.6) k/uL RBC 1.89 L 1.85 L (4.30-5.90) m/uL Hgb 4.2 L* 4.0 L* (13.0-17.5) gm/dL Hct 14.2 L* 14.3 L* (39.0-53.0) % MCV 75.2 L 77.4 L (80.0-100.0) fL MCH 22.4 L 21.8 L (25.0-35.0) pg MCHC 29.7 L 28.2 L (31.0-37.0) g/dL RDW 17.6 H 17.6 H (11.5-15.5) % Plt Count 466 H 461 H (150-450) k/uL Neutrophils # 13.6 H 14.5 H (1.3-7.7) k/uL Lymphocytes # 0.3 L 0.5 L (1.0-4.8) k/uL INR (<1.2) D-Dimer (<0.60) mg/L FEU BUN 53 H (9-20) mg/dL Creatinine 2.65 H (0.66-1.25) mg/dL Glucose 141 H (74-99) mg/dL Plasma Lactic Acid Tera (0.7-2.0) mmol/L Calcium 8.2 L (8.4-10.2) mg/dL Albumin 2.5 L (3.5-5.0) g/dL Urine Protein (Negative) Urine Blood (Negative) Ur Leukocyte Esterase (Negative) Urine RBC (0-5) /hpf Urine WBC (0-5) /hpf Urine Bacteria (None) /hpf Urine Mucus (None) /hpf Urine Yeast (Budding) (None) /hpf Crossmatch Blood Bank Comment
[2024-04-01 10:12] LABS: ALT 17 U/L (10-49); AST 23 U/L (14-35); Albumin 2.5 g/dL (3.8-4.9); Albumin/Globulin Ratio 0.61 Ratio (1.60-3.17); Alkaline Phosphatase 107 U/L (41-126); BUN/Creat Ratio 22.33 Ratio (12.00-20.00); Blood Urea Nitrogen 53.6 mg/dL (9.0-27.0); Calcium 8.3 mg/dL (8.7-10.3); Carbon Dioxide 22.7 mmol/L (21.6-31.8); Chloride 105 mmol/L (96-109); Globulin 4.1 g/dL (1.6-3.3); Glucose 176 mg/dL (70-110); Potassium 3.8 mmol/L (3.5-5.5); Sodium 141 mmol/L (135-145); Total Bilirubin 0.2 mg/dL (0.3-1.2); Total Protein 6.6 g/dL (6.2-8.2)
--- NOTE | 2024-04-01 10:15 | NM ---
EXAMINATION TYPE: NM pul vent and perfuse DATE OF EXAM: 04/01/2024 CLINICAL INDICATION: Male, 78 years old with history of elevated d-dimer, dyspnea; COMPARISON: NONE TECHNIQUE: Utilizing inhalation of 39.9 mCi Tc 99m DTPA aerosol and intravenous injection of 5.6 mCi of Tc 99m MAA, ventilation and perfusion images are acquired post injection in multiple projections. FINDINGS: There are multiple large predominantly matched ventilation and perfusion defects. There are no defini te mismatch perfusion defects. IMPRESSION: Indeterminate for pulmonary embolism. [facility], , 04/01/2024 10:13 AM
[2024-04-01] MEDS: AZITHROMYCIN 500 MG in SODIUM CHLORIDE 0.9% 250 ML IVPB SCH (10:40)
--- NOTE | 2024-04-01 12:11 | US ---
EXAMINATION TYPE: US venous doppler duplex LE BI DATE OF EXAM: 04/01/2024 9:25 AM COMPARISON: NONE CLINICAL INDICATION: Male, 78 years old with history of r/o DVT; TECHNIQUE: The lower extremity deep venous system is examined utilizing real time linear array sonog kunal with graded compression, color doppler sonography, and spectral doppler. SIDE PERFORMED: Bilateral FINDINGS: VESSELS IMAGED: Common Femoral Vein Deep Femoral Vein Greater Saphenous Vein * Femoral Vein Popliteal Vein Small Saphenous Vein * Proximal Calf Veins (* superficial vessels) Grayscale, color doppler, spectral doppler imaging performed of the deep veins of the lower extremiti es. The deep venous systems of both lower extremities from the common femoral remains to the proximal vega f veins are patent and compressible with augmentable flow and with normal waveforms. IMPRESSION: No evidence of bilateral lower extremity DVT from the common femoral veins to the proximal calf veins [facility], , 04/01/2024 12:09 PM
[2024-04-01] MEDS: MORPHINE SULFATE 4 MG/ML SYRINGE IVP STA (18:31)
[2024-04-02 01:18] LABS: Anisocytosis Slight; Basophils % (A) 0 %; Eosinophils % (A) 0 %; Hypochromasia Marked; Lymphocytes # (A) 0.7 k/uL (1.0-4.8); Lymphocytes % (A) 5 %; MCH 24.8 pg (25.0-35.0); MCHC 30.8 g/dL (31.0-37.0); MCV 80.5 fL (80.0-100.0); Mean Platelet Volume 7.7; Microcytosis Slight; Monocytes # (A) 0.5 k/uL (0-1.0); Monocytes % (A) 4 %; Neutrophils # (A) 12.4 k/uL (1.3-7.7); Neutrophils % (A) 90 %; Platelet Count 369 k/uL (150-450); Poikilocytosis Marked; RBC 2.08 m/uL (4.30-5.90); WBC 13.8 k/uL (3.8-10.6)
[2024-04-02 01:23] LABS: HCT 16.8 % (39.0-53.0); HGB 5.2 gm/dL (13.0-17.5)
[2024-04-02 01:31] LABS: African American GFR (CKD) 30 (>60 ml/min/1.73 sqM); Anion Gap 3 mmol/L; Blood Urea Nitrogen 59 mg/dL (9-20); Calcium 8.1 mg/dL (8.4-10.2); Carbon Dioxide 25 mmol/L (22-30); Chloride 111 mmol/L (98-107); Glucose 116 mg/dL (74-99); Non-African American GFR(CKD) 26 (>60 ml/min/1.73 sqM); Potassium 3.9 mmol/L (3.5-5.1); Sodium 139 mmol/L (137-145)
--- NOTE | 2024-04-02 07:32 | P.GSCN ---
History of Present Illness Consult date: 04/01/24 History of present illness: 78 yo male admitted with anemia, hgb 4.2. 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 He has seen Dr cornejo. He was not a candidate for a cystectomy due to poor health. He was recommended to have radiation ot the bladder wall. He declined that. He had a resection of recurrent muscle invasive tumor in 07/2023.. He has been weak and sob. He is a no code. He has acute on crf. He has right hydro due to the invasive tumor. He had a right stent placed His urine shows 70 rbc/hpf. He had a pet scan in 08/2023 showing the disease had progressed to pelvic lymph nodes. in the progressive nature and incurable nature of this disease the hematuria is expected. Review of Systems All systems: negative - Constitutional Denies fever, Denies weight loss - EENT Eyes: denies blurred vision Ears, nose, mouth and throat: Denies dysphagia - Cardiovascular Denies chest pain, Denies shortness of breath - Respiratory Denies cough, Denies 7 - Gastrointestinal Reports as per HPI - Genitourinary Denies dysuria, Denies hematuria - Integumentary Denies rash, Denies unusual bruising - Neurological Denies headaches, Denies syncope - Hematologic/Lymphatic Denies easy bleeding, Denies easy bruising Past Medical History Past Medical History: Cancer, COPD, Hyperlipidemia, Hypertension, Musculoskeletal Disorder Additional Past Medical History / Comment(s): Scoliosis, varicose veins. History of Any Multi-Drug Resistant Organisms: None Reported Past Surgical History: Appendectomy, Heart Catheterization With Stent Additional Past Surgical History / Comment(s): Eye surgery X5. Past Anesthesia/Blood Transfusion Reactions: No Reported Reaction Additional Past Anesthesia/Blood Transfusion Reaction / Comm: Patient states had blood transfusion in May 2023 with no problem. Date of Last Stent Placement:: Unknown Past Psychological History: No Psychological Hx Reported Smoking Status: Current every day smoker Past Alcohol Use History: None Reported Past Drug Use History: Marijuana - Past Family History Father Family Medical History: No Reported History Medications and Allergies Home Medications Medication Instructions Recorded Confirmed Type Ipratropium-Albuterol Nebulize 3 ml INHALATION RT-QID 01/19/23 03/31/24 History [Duoneb 0.5 mg-3 mg/3 ml Soln] Fluticasone/Umeclidin/Vilanter 1 puff INHALATION RT-DAILY 05/26/23 03/31/24 History [Trelegy Ellipta 100-62.5-25] Metoprolol Tartrate [Lopressor] 50 mg PO BID 30 Days #60 tab 06/03/23 03/31/24 Rx Tamsulosin [Flomax] 0.4 mg PO PC-BRKFST 30 Days #30 cap 06/03/23 03/31/24 Rx Albuterol Sulfate [Ventolin HFA] 2 puff INHALATION RT-Q4H PRN 07/22/23 03/31/24 History Amiodarone [Cordarone] 200 mg PO DAILY 07/22/23 03/31/24 History Furosemide [Lasix] 20 mg PO BID 07/22/23 03/31/24 History Atorvastatin [Lipitor] 40 mg PO DAILY 03/31/24 03/31/24 History traMADol HCL 50 mg PO Q6H PRN 03/31/24 03/31/24 History Allergies Allergy/AdvReac Type Severity Reaction Status Date / Time sulfamethoxazole Allergy Rash/Hives Verified 03/31/24 18:40 [From Bactrim] trimethoprim [From Bactrim] Allergy Rash/Hives Verified 03/31/24 18:40 Surgical - Exam Vital Signs Temp Pulse Resp BP Pulse Ox 99.5 F 109 H 24 129/70 94 L 03/31/24 18:08 03/31/24 18:08 03/31/24 18:08 03/31/24 18:08 03/31/24 18:08 - General disheveled cachectic - Eyes PERRL - ENT no hearing loss - Neck no masses - Respiratory normal respiratory effort - Abdomen Abdomen: soft, non tender - Genitourinary normal penis with no external lesions, testicles present - Neurologic normal sensation - Musculoskeletal normal posture - Psychiatric oriented to time, oriented to person, oriented to place, speech is normal, memory intact Results - Labs 04/02/24 01:05 04/02/24 01:05 Abnormal Lab Results - Last 24 Hours (Table) 03/31/24 03/31/24 03/31/24 Range/Units 18:51 18:51 18:51 WBC 15.3 H (3.8-10.6) k/uL RBC 1.89 L (4.30-5.90) m/uL Hgb 4.3 L* (13.0-17.5) gm/dL Hct 14.4 L* (39.0-53.0) % MCV 76.5 L (80.0-100.0) fL MCH 22.8 L (25.0-35.0) pg MCHC 29.8 L (31.0-37.0) g/dL RDW 17.7 H (11.5-15.5) % Plt Count 459 H (150-450) k/uL Neutrophils # 14.0 H (1.3-7.7) k/uL Lymphocytes # 0.4 L (1.0-4.8) k/uL INR 1.2 H (<1.2) D-Dimer 4.68 H (<0.60) mg/L FEU BUN 54 H (9-20) mg/dL Creatinine 2.59 H (0.66-1.25) mg/dL Glucose 136 H (74-99) mg/dL Plasma Lactic Acid Tera (0.7-2.0) mmol/L Calcium 8.3 L (8.4-10.2) mg/dL Albumin 2.5 L (3.5-5.0) g/dL Urine Protein (Negative) Urine Blood (Negative) Ur Leukocyte Esterase (Negative) Urine RBC (0-5) /hpf Urine WBC (0-5) /hpf Urine Bacteria (None) /hpf Urine Mucus (None) /hpf Urine Yeast (Budding) (None) /hpf Crossmatch Blood Bank Comment 03/31/24 03/31/24 03/31/24 Range/Units 18:51 19:56 20:00 WBC (3.8-10.6) k/uL RBC (4.30-5.90) m/uL Hgb (13.0-17.5) gm/dL Hct (39.0-53.0) % MCV (80.0-100.0) fL MCH (25.0-35.0) pg MCHC (31.0-37.0) g/dL RDW (11.5-15.5) % Plt Count (150-450) k/uL Neutrophils # (1.3-7.7) k/uL Lymphocytes # (1.0-4.8) k/uL INR (<1.2) D-Dimer (<0.60) mg/L FEU BUN (9-20) mg/dL Creatinine (0.66-1.25) mg/dL Glucose (74-99) mg/dL Plasma Lactic Acid Tera 2.8 H* (0.7-2.0) mmol/L Calcium (8.4-10.2) mg/dL Albumin (3.5-5.0) g/dL Urine Protein 1+ H (Negative) Urine Blood Large H (Negative) Ur Leukocyte Esterase Moderate H (Negative) Urine RBC 70 H (0-5) /hpf Urine WBC 13 H (0-5) /hpf Urine Bacteria Rare H (None) /hpf Urine Mucus Rare H (None) /hpf Urine Yeast (Budding) Rare H (None) /hpf Crossmatch See Detail Blood Bank Comment Sent to [facility] A 03/31/24 03/31/24 Range/Units 21:11 21:11 WBC 14.5 H (3.8-10.6) k/uL RBC 1.89 L (4.30-5.90) m/uL Hgb 4.2 L* (13.0-17.5) gm/dL Hct 14.2 L* (39.0-53.0) % MCV 75.2 L (80.0-100.0) fL MCH 22.4 L (25.0-35.0) pg MCHC 29.7 L (31.0-37.0) g/dL RDW 17.6 H (11.5-15.5) % Plt Count 466 H (150-450) k/uL Neutrophils # 13.6 H (1.3-7.7) k/uL Lymphocytes # 0.3 L (1.0-4.8) k/uL INR (<1.2) D-Dimer (<0.60) mg/L FEU BUN 53 H (9-20) mg/dL Creatinine 2.65 H (0.66-1.25) mg/dL Glucose 141 H (74-99) mg/dL Plasma Lactic Acid Tera (0.7-2.0) mmol/L Calcium 8.2 L (8.4-10.2) mg/dL Albumin 2.5 L (3.5-5.0) g/dL Urine Protein (Negative) Urine Blood (Negative) Ur Leukocyte Esterase (Negative) Urine RBC (0-5) /hpf Urine WBC (0-5) /hpf Urine Bacteria (None) /hpf Urine Mucus (None) /hpf Urine Yeast (Budding) (None) /hpf Crossmatch Blood Bank Comment Diabetes panel 03/31/24 03/31/24 Range/Units 18:51 21:11 Sodium 139 139 (137-145) mmol/L Potassium 3.7 3.9 (3.5-5.1) mmol/L Chloride 106 107 (98-107) mmol/L Carbon Dioxide 26 24 (22-30) mmol/L BUN 54 H 53 H (9-20) mg/dL Creatinine 2.59 H 2.65 H (0.66-1.25) mg/dL Glucose 136 H 141 H (74-99) mg/dL Calcium 8.3 L 8.2 L (8.4-10.2) mg/dL AST 26 25 (17-59) U/L ALT 21 19 (4-49) U/L Alkaline Phosphatase 114 112 (38-126) U/L Total Protein 6.4 6.3 (6.3-8.2) g/dL Albumin 2.5 L 2.5 L (3.5-5.0) g/dL Calcium panel 03/31/24 03/31/24 Range/Units 18:51 21:11 Calcium 8.3 L 8.2 L (8.4-10.2) mg/dL Albumin 2.5 L 2.5 L (3.5-5.0) g/dL Pituitary panel 03/31/24 03/31/24 Range/Units 18:51 21:11 Sodium 139 139 (137-145) mmol/L Potassium 3.7 3.9 (3.5-5.1) mmol/L Chloride 106 107 (98-107) mmol/L Carbon Dioxide 26 24 (22-30) mmol/L BUN 54 H 53 H (9-20) mg/dL Creatinine 2.59 H 2.65 H (0.66-1.25) mg/dL Glucose 136 H 141 H (74-99) mg/dL Calcium 8.3 L 8.2 L (8.4-10.2) mg/dL Adrenal panel 03/31/24 03/31/24 Range/Units 18:51 21:11 Sodium 139 139 (137-145) mmol/L Potassium 3.7 3.9 (3.5-5.1) mmol/L Chloride 106 107 (98-107) mmol/L Carbon Dioxide 26 24 (22-30) mmol/L BUN 54 H 53 H (9-20) mg/dL Creatinine 2.59 H 2.65 H (0.66-1.25) mg/dL Glucose 136 H 141 H (74-99) mg/dL Calcium 8.3 L 8.2 L (8.4-10.2) mg/dL Total Bilirubin 0.4 0.5 (0.2-1.3) mg/dL AST 26 25 (17-59) U/L ALT 21 19 (4-49) U/L Alkaline Phosphatase 114 112 (38-126) U/L Total Protein 6.4 6.3 (6.3-8.2) g/dL Albumin 2.5 L 2.5 L (3.5-5.0) g/dL Assessment and Plan Assessment: Impression: metastatic bladder cancer. anemia due to metastatic disease aggravated by gross hematuria. arf and crf due to ca bladder , hematuria and poor oral intake. recommendations; unfortunately the patient was not a candidate for a cystectomy and refused radiation. The bleeding is as expected given the progression of disease At this point we do not plan any urological procedures unless he cant void or the bleeding turn into clots. His prognosis is poor.
[2024-04-02 11:20] LABS: HCT 19.9 % (39.6-50.0); HGB 6.3 g/dL (13.0-17.0); MCH 25.6 pg (27.0-32.0); MCHC 31.7 g/dL (32.0-37.0); MCV 80.9 FL (80.0-97.0); Mean Platelet Volume 10.3 FL (9.5-12.2); NRBC Per 100 WBC 0.02 X 10*3/uL (0.00-0.01); Platelet Count 355 X 10*3/uL (140-440); RBC 2.46 X 10*6/uL (4.40-5.60); RDW 17.3 % (11.5-14.5); WBC 15.22 X 10*3/uL (4.50-10.00)
[2024-04-02 11:30] LABS: BUN/Creat Ratio 23.38 Ratio (12.00-20.00); Blood Urea Nitrogen 56.1 mg/dL (9.0-27.0); Calcium 8.4 mg/dL (8.7-10.3); Chloride 108 mmol/L (96-109); Glucose 95 mg/dL (70-110); Magnesium 1.9 mg/dL (1.5-2.4); Potassium 4.1 mmol/L (3.5-5.5); Sodium 142 mmol/L (135-145)
[2024-04-02 11:56] LABS: Basophils # (A) 0.01 X 10*3/uL (0.00-0.10); Basophils % (A) 0.1 %; Eosinophils # (A) 0.01 X 10*3/uL (0.04-0.35); Eosinophils % (A) 0.1 %; Hypochromasia (M) 2+; Lymphocytes # (A) 0.99 X 10*3/uL (0.90-5.00); Lymphocytes % (A) 6.5 %; Microcytosis (M) 2+; Monocytes # (A) 0.75 X 10*3/uL (0.20-1.00); Monocytes % (A) 4.9 %; Neutrophils # (A) 13.36 X 10*3/uL (1.80-7.70); Neutrophils % (A) 87.7 %
--- NOTE | 2024-04-02 12:07 | P.GSCN ---
History of Present Illness Consult date: 04/02/24 Reason for Consult: Abdominal aortic aneurysm Requesting physician: Valeria Andersen History of present illness: This pleasant 78-year-old male who presented to the emergency department with complaints of shortness of breath and generalized weakness. He has a history of muscle invasive metastatic bladder cancer, hematuria second to previous, abdominal aortic aneurysm, COPD 5 L home oxygen, atrial fibrillation, hypert ension, and hyperlipidemia. Patient has undergone TURB in July 2023, has declined any radiation therapy. He has chronic hematuria secondary to bladder cancer and presented with severe anemia. Hemoglobin in the fours and is now status post 3 units of PRBC. As part of his emergency room evaluation he had a aortic iliac vascular ultrasound reporting a 5.1 cm abdominal aortic aneurysmFor which vascular surgery was consulted. Patient denies any abdominal pain, no back pain, no nausea or vomiting. Denies chest pain does have chronic shortness of breath with some increased likely secondary to severe anemia. He has known AAA, follows with Dr. Pugh. Review of Systems A 14 point review systems was completed all pertinent positives and negatives as stated in the HPI. Past Medical History Past Medical History: Cancer, COPD, Hyperlipidemia, Hypertension, Musculoskeletal Disorder Additional Past Medical History / Comment(s): Scoliosis, varicose veins. History of Any Multi-Drug Resistant Organisms: None Reported Past Surgical History: Appendectomy, Heart Catheterization With Stent Additional Past Surgical History / Comment(s): Eye surgery X5. Past Anesthesia/Blood Transfusion Reactions: No Reported Reaction Additional Past Anesthesia/Blood Transfusion Reaction / Comm: Patient states had blood transfusion in May 2023 with no problem. Date of Last Stent Placement:: Unknown Past Psychological History: No Psychological Hx Reported Smoking Status: Current every day smoker Past Alcohol Use History: None Reported Past Drug Use History: Marijuana - Past Family History Father Family Medical History: No Reported History Medications and Allergies Home Medications Medication Instructions Recorded Confirmed Type Ipratropium-Albuterol Nebulize 3 ml INHALATION RT-QID 01/19/23 03/31/24 History [Duoneb 0.5 mg-3 mg/3 ml Soln] Fluticasone/Umeclidin/Vilanter 1 puff INHALATION RT-DAILY 05/26/23 03/31/24 History [Trelegy Ellipta 100-62.5-25] Metoprolol Tartrate [Lopressor] 50 mg PO BID 30 Days #60 tab 06/03/23 03/31/24 Rx Tamsulosin [Flomax] 0.4 mg PO PC-BRKFST 30 Days #30 cap 06/03/23 03/31/24 Rx Albuterol Sulfate [Ventolin HFA] 2 puff INHALATION RT-Q4H PRN 07/22/23 03/31/24 History Amiodarone [Cordarone] 200 mg PO DAILY 07/22/23 03/31/24 History Furosemide [Lasix] 20 mg PO BID 07/22/23 03/31/24 History Atorvastatin [Lipitor] 40 mg PO DAILY 03/31/24 03/31/24 History traMADol HCL 50 mg PO Q6H PRN 03/31/24 03/31/24 History Allergies Allergy/AdvReac Type Severity Reaction Status Date / Time sulfamethoxazole Allergy Rash/Hives Verified 03/31/24 18:40 [From Bactrim] trimethoprim [From Bactrim] Allergy Rash/Hives Verified 03/31/24 18:40 Surgical - Exam Vital Signs Temp Pulse Resp BP Pulse Ox 99.5 F 109 H 24 129/70 94 L 03/31/24 18:08 03/31/24 18:08 03/31/24 18:08 03/31/24 18:08 03/31/24 18:08 General appearance: The patient is alert, oriented, appears in no acute distress. HET: Head is normocephalic and atraumatic. Pupils are equal and reactive. Neck: Supple. Heart: Regular. Lungs: Equal expansion, normal respiratory effort. Abdomen: Soft, nontender, nondistended. Extremities: Normal skin color and turgor. Neurological: No focal deficits. Strength and sensation are grossly intact. Results - Labs 04/02/24 07:27 04/02/24 07:27 Abnormal Lab Results - Last 24 Hours (Table) 03/31/24 04/01/24 04/01/24 Range/Units 20:00 06:29 06:29 WBC (3.8-10.6) k/uL RBC (4.30-5.90) m/uL Hgb (13.0-17.5) gm/dL Hct (39.0-53.0) % MCH (25.0-35.0) pg MCHC (31.0-37.0) g/dL RDW (11.5-15.5) % Neutrophils # (1.3-7.7) k/uL Lymphocytes # (1.0-4.8) k/uL Chloride (98-107) mmol/L Anion Gap 13.30 H (4.00-12.00) mmol/L BUN 53.6 H (9.0-27.0) mg/dL Creatinine 2.4 H (0.6-1.5) mg/dL Est GFR (CKD-EPI) 27 L (>=60) BUN/Creatinine Ratio 22.33 H (12.00-20.00) Ratio Glucose 176 H (70-110) mg/dL Calcium 8.3 L (8.7-10.3) mg/dL Total Bilirubin 0.2 L (0.3-1.2) mg/dL Albumin 2.5 L (3.8-4.9) g/dL Globulin 4.1 H (1.6-3.3) g/dL Albumin/Globulin Ratio 0.61 L (1.60-3.17) Ratio Procalcitonin 1.18 H (0.02-0.50) ng/mL Crossmatch See Detail Blood Bank Comment Sent to [facility] A Reference Lab Result See BBK REF Reports A 04/02/24 04/02/24 Range/Units 01:05 01:05 WBC 13.8 H (3.8-10.6) k/uL RBC 2.08 L (4.30-5.90) m/uL Hgb 5.2 L* (13.0-17.5) gm/dL Hct 16.8 L* (39.0-53.0) % MCH 24.8 L (25.0-35.0) pg MCHC 30.8 L (31.0-37.0) g/dL RDW 18.0 H (11.5-15.5) % Neutrophils # 12.4 H (1.3-7.7) k/uL Lymphocytes # 0.7 L (1.0-4.8) k/uL Chloride 111 H (98-107) mmol/L Anion Gap (4.00-12.00) mmol/L BUN 59 H (9.0-27.0) mg/dL Creatinine 2.34 H (0.6-1.5) mg/dL Est GFR (CKD-EPI) (>=60) BUN/Creatinine Ratio (12.00-20.00) Ratio Glucose 116 H (70-110) mg/dL Calcium 8.1 L (8.7-10.3) mg/dL Total Bilirubin (0.3-1.2) mg/dL Albumin (3.8-4.9) g/dL Globulin (1.6-3.3) g/dL Albumin/Globulin Ratio (1.60-3.17) Ratio Procalcitonin (0.02-0.50) ng/mL Crossmatch Blood Bank Comment Reference Lab Result Diabetes panel 04/01/24 04/02/24 Range/Units 06:29 01:05 Sodium 141 139 (135-145) mmol/L Potassium 3.8 3.9 (3.5-5.5) mmol/L Chloride 105 111 H (96-109) mmol/L Carbon Dioxide 22.7 25 (21.6-31.8) mmol/L BUN 53.6 H 59 H (9.0-27.0) mg/dL Creatinine 2.4 H 2.34 H (0.6-1.5) mg/dL Glucose 176 H 116 H (70-110) mg/dL Calcium 8.3 L 8.1 L (8.7-10.3) mg/dL AST 23 (14-35) U/L ALT 17 (10-49) U/L Alkaline Phosphatase 107 (41-126) U/L Total Protein 6.6 (6.2-8.2) g/dL Albumin 2.5 L (3.8-4.9) g/dL Calcium panel 04/01/24 04/02/24 Range/Units 06:29 01:05 Calcium 8.3 L 8.1 L (8.7-10.3) mg/dL Albumin 2.5 L (3.8-4.9) g/dL Pituitary panel 04/01/24 04/02/24 Range/Units 06:29 01:05 Sodium 141 139 (135-145) mmol/L Potassium 3.8 3.9 (3.5-5.5) mmol/L Chloride 105 111 H (96-109) mmol/L Carbon Dioxide 22.7 25 (21.6-31.8) mmol/L BUN 53.6 H 59 H (9.0-27.0) mg/dL Creatinine 2.4 H 2.34 H (0.6-1.5) mg/dL Glucose 176 H 116 H (70-110) mg/dL Calcium 8.3 L 8.1 L (8.7-10.3) mg/dL Adrenal panel 04/01/24 04/02/24 Range/Units 06:29 01:05 Sodium 141 139 (135-145) mmol/L Potassium 3.8 3.9 (3.5-5.5) mmol/L Chloride 105 111 H (96-109) mmol/L Carbon Dioxide 22.7 25 (21.6-31.8) mmol/L BUN 53.6 H 59 H (9.0-27.0) mg/dL Creatinine 2.4 H 2.34 H (0.6-1.5) mg/dL Glucose 176 H 116 H (70-110) mg/dL Calcium 8.3 L 8.1 L (8.7-10.3) mg/dL Total Bilirubin 0.2 L (0.3-1.2) mg/dL AST 23 (14-35) U/L ALT 17 (10-49) U/L Alkaline Phosphatase 107 (41-126) U/L Total Protein 6.6 (6.2-8.2) g/dL Albumin 2.5 L (3.8-4.9) g/dL - Imaging Comments: Ultrasound duplex aorta reports 5.1 cm aneurysm of the distal abdominal aorta. Advise and minimum imaging surveillance every 3 to 6 months. Consider endovascular surgical referral or evaluation. Assessment and Plan Assessment: 1. Symptomatic anemia 2. Known asymptomatic abdominal aortic aneurysm 3. Chronic hematuria 4. Bladder cancer Plan: Patient is known to vascular surgery and has been having surveillance in office. There is no need for any further vascular surgical workup at this time. Patient is asymptomatic and can follow-up in the office as previously scheduled. Thank you for this consultation, we will sign off at this time. The impression and plan of care has been dictated as directed. I performed a history and examination of this patient, discussed the same with the dictator. I agree with the dictator's note ,documented as a scribe. Any additional findings or plans will be noted.
--- NOTE | 2024-04-02 13:07 | CA ---
Transthoracic Echo Report Name: Nomi Peng Age: 78 Gender: M : 1945 Exam Date: 04/02/2024 10:22 Exam Location: [place] [facility] Ht (in): 72 Wt (lb): 132 Ordering Physician: Valeria Andersen MD Attending/Referring Phys: Spring Tester Marika Sterling RDCS Procedure CPT: Indications: bilateral lower extremity edema Cardiac Hx: COPD, Bladder Cancer, HTN Technical Quality: Good Contrast 1: Total Dose (mL): Contrast 2: Total Dose (mL): MEASUREMENTS (Male / Female) Normal Values 2D ECHO LV Diastolic Diameter PLAX 5.1 cm 4.2 - 5.9 / 3.9 - 5.3 cm LV Systolic Diameter PLAX 2.0 cm IVS Diastolic Thickness 1.3 cm 0.6 - 1.0 / 0.6 - 0.9 cm LVPW Diastolic Thickness 1.5 cm 0.6 - 1.0 / 0.6 - 0.9 cm LV Relative Wall Thickness 0.6 RV Internal Dim ED PLAX 2.5 cm LA Systolic Diameter LX 4.2 cm 3.0 - 4.0 / 2.7 - 3.8 cm LV Diastolic Volume MOD BP 103.1 cm??? 67 - 155 / 56 - 104 cm??? LV Systolic Volume MOD BP 26.3 cm??? 22 - 58 / 19 - 49 cm??? LV Ejection Fraction MOD BP 74.5 % >= 55 % LV Cardiac Index MOD BP 3201.5 cm???/min???m??? LV Diastolic Volume MOD 4C 100.1 cm??? LV Systolic Volume MOD 4C 31.4 cm??? LV Ejection Fraction MOD 4C 68.6 % LV Cardiac Index MOD 4C 2863.4 cm???/min???m??? LV Diastolic Length 4C 8.7 cm LV Systolic Length 4C 7.5 cm LV Diastolic Volume MOD 2C 106.6 cm??? LV Systolic Volume MOD 2C 17.3 cm??? LV Ejection Fraction MOD 2C 83.8 % LV Cardiac Index MOD 2C 3723.7 cm???/min???m??? LV Diastolic Length 2C 8.8 cm LV Systolic Length 2C 5.7 cm LA Volume 57.1 cm??? 18 - 58 / 22 - 52 cm??? LA Volume Index 33.0 cm???/m??? 16 - 28 cm???/m??? M-MODE Aortic Root Diameter MM 4.0 cm LA Systolic Diameter MM 4.5 cm LA Ao Ratio MM 1.1 AV Cusp Separation MM 1.8 cm DOPPLER MV Area PHT 3.2 cm??? Mitral E Point Velocity 132.2 cm/s Mitral A Point Velocity 123.5 cm/s Mitral E to A Ratio 1.1 MV Deceleration Time 239.6 ms TR Peak Velocity 347.3 cm/s TR Peak Gradient 48.2 mmHg Right Ventricular Systolic Press 53.2 mmHg FINDINGS Left Ventricle Left ventricular ejection fraction is estimated at 60-65 %. Mildly increased septal wall thickness. Left ventricular cavity size normal. Normal left ventricular systolic function with no obvious regional wall motion abnormalities. Right Ventricle Mild right ventricular dilatation. Moderate pulmonary hypertension. Right Atrium Mild right atrial dilatation. Left Atrium Mildly increased left atrial diameter. Mildly increased left atrial volume. Mitral Valve Structurally normal mitral valve. Mild mitral regurgitation. No mitral stenosis. Aortic Valve Trileaflet aortic valve. No aortic stenosis. No aortic regurgitation. Tricuspid Valve Structurally normal tricuspid valve. Moderate tricuspid regurgitation. No tricuspid stenosis. Pulmonic Valve Structurally normal pulmonic valve. Trace pulmonic regurgitation. No pulmonic stenosis. Pericardium Minimal pericardial effusion (normal variant). Aorta Mild aortic dilatation at the level of the sinuses of valsalva (root). CONCLUSIONS Normal LV size and normal left ventricular systolic function. There is mild right went to enlargement. Mild mitral and moderate tricuspid regurgitation with moderate pulmonary hypertension. Aortic valve sclerosis noted no restriction. Mild/small pericardial effusion Previewed by: Dr. Sam Stewart MD (Electronically Signed) Final Date: 02 April 2024 13:06
--- NOTE | 2024-04-02 15:19 | P.PN ---
Subjective Progress Note Date: 04/02/24 Rec'd PRBCs (3U) and hgb is 6.3. Will rec 2 more units. Gen: In NAD, non-toxic HEENT: normocephalic, atraumatic, hearing acuity is intant, mucous membranes moist CVS: perfusing all extremities well, no pitting edema, Respiratory: symmetric chest expansion, no accessory muscle use, GI: soft, NTTP, ND, : no suprapubic tenderness, no CVA tenderness MSK/Derm: no rashes, cyanosis Neuro: CN II-XII intact, no motor weakness, Psych: cooperative, euthymic mood, judgment and insight is intact Hospital course: Patient is a 78-year-old male with COPD (5 L nasal cannula at home. Managed by Dr. Harrison), A-fib (not on anticoagulation due to hematuria), hypertension, hyperlipidemia, bladder cancer (patient previously saw Oncology, refused chemotherapy, s/p TURBT 07/2023, has not followed up, not undergo any treatments at this time), who came in for shortness of breath. In the ED, EKG showed sinus rhythm with a rate of 100. Prolonged QRS at 155 MS no ectopy no ST-T changes. Chest x-ray showed left lower lobe opacities and COPD changes that were noted from prior chest x-rays. WBC 15.3, hemoglobin 4.3, hematocrit 14.4, MCV 76.5, platelet 149, PT 12.3, INR 1.2, PTT 24.7, D-dimer 4.68, sodium 139, potassium 3.7, chloride 106, bicarb 26, BUN 54, creatinine 2.59, glucose 136, lactic acid 2.8, calcium 8.3, troponin less than 0.0 12, BNP 3650, albumin 2.5. Urinalysis showed large amount of b lood, moderate leukocyte esterase +1 protein, 70 urine RBC, WBC 13. Negative for influenza, RSV, and COVID-19 On admission, patient afebrile at 99.5 pulse rate tachycardic at 109 respiratory rate elevated at 24 blood pressure 129/70 oxygen saturation 94% on 6 L nasal cannula ED documentation reviewed. Agree to admit this patient for microcytic anemia and ANH. Assessment/Plan: #. Severe microcytic anemia due to chronic blood loss from hematuria in setting of bladder cancer -2U PRBCs were ordered, and blood transfusion is pending due to +ROSCOE -s/p 3U PRBCs, pending 2 more U PRBC transfusion -Urology consulted #. Elevated D-dimer rule out VTE and PE D-dimer elevation likely from malignancy. However will rule out with imaging below. -VQ scan ordered, but may be difficult to interpret in setting of severe COPD, was indeterminate -b/l LE US Duplex, negative for VTE #. Community-acquired pneumonia Chest x-ray shows left lower lobe opacities. Patient has leukocytosis of 15.3 and subjective fevers. -Rocephin 2 g IVPB daily -Zithromax 500 mg p.o. daily -Blood cultures -CBC at a.m. -Check procalcitonin levels, will de-escalate abx if low; increased lung markings and opacities may be due to high output HF. #. Kidney injury, acute vs chronic Creatinine elevated at 2.59. BUN elevated at 54 -Avoid nephrotoxic agents for now -Hold antihypertensives for now -BMP at a.m. # Abdominal aortic aneurysm 4.8cm x 3.1 cm PET scan in 08/11/2023 showed infrarenal aortic aneurysmal dilation up to 4.8 x 3.1 cm. Patient has not been evaluated for AAA -Monitor BP -Abdominal ultrasound, results noted -Consult vascular surgery # Lower extremity edema, elevated proBNP, r/o CHF - Obtain Echocardiogram - Cardiac monitoring # Lactic acidosis - Resolved Chronic conditions: #. Hypertension: Hold home antihypertensives for now #. Hyperlipidemia: C/w Lipitor 40 mg p.o. daily #. COPD: Ventolin inhaler as needed, Trelegy Ellipta daily #. A-fib, controlled: Amiodarone 200 mg p.o. daily -Resume home medications once reconciled DVT prophylaxis: IPCDs The patient is admitted with an anticipated greater than 2 midnight stay for evaluation of anemia, hypocalcemia and pneumonia CODE STATUS: Full code with instructions Discussed with: Patient and patient's son Anticipated discharge place: Home Objective - Vital Signs Vital signs: Vital Signs Temp 98.1 F 04/02/24 14:37 Pulse 74 04/02/24 15:10 Resp 18 04/02/24 14:37 BP 136/70 04/02/24 14:37 Pulse Ox 96 10/21/24 14:37 FiO2 Intake & Output 04/01/24 04/02/24 04/02/24 18:59 06:59 18:59 Intake Total 620 310 0 Balance 620 310 0 Intake: Blood Product 620 310 0 Rc As-1 Unit 310 [id number] Rc As-1 Unit 310 [id number] Rc As-1 Unit 0 [id number] Rc As-1 Unit 310 [id number] - Labs CBC & Chem 7: 04/02/24 07:27 04/02/24 07:27 Labs: Abnormal Lab Results - Last 24 Hours (Table) 03/31/24 04/02/24 04/02/24 Range/Units 20:00 01:05 01:05 WBC 13.8 H (3.8-10.6) k/uL RBC 2.08 L (4.30-5.90) m/uL Hgb 5.2 L* (13.0-17.5) gm/dL Hct 16.8 L* (39.0-53.0) % MCH 24.8 L (25.0-35.0) pg MCHC 30.8 L (31.0-37.0) g/dL RDW 18.0 H (11.5-15.5) % Immature Gran # (0.00-0.04) X 10*3/uL Neutrophils # 12.4 H (1.3-7.7) k/uL Lymphocytes # 0.7 L (1.0-4.8) k/uL Eosinophils # (0.04-0.35) X 10*3/uL NRBC/100 WBC Diff (0.00-0.01) X 10*3/uL Hypochromasia (manual) Microcytosis (manual) Chloride 111 H (98-107) mmol/L Carbon Dioxide (21.6-31.8) mmol/L Anion Gap (4.00-12.00) mmol/L BUN 59 H (9-20) mg/dL Creatinine 2.34 H (0.66-1.25) mg/dL Est GFR (CKD-EPI) (>=60) BUN/Creatinine Ratio (12.00-20.00) Ratio Glucose 116 H (74-99) mg/dL Calcium 8.1 L (8.4-10.2) mg/dL Crossmatch See Detail Blood Bank Comment Sent to [facility] A Reference Lab Result See BBK REF Reports A 04/02/24 04/02/24 04/02/24 Range/Units 07:27 07:27 08:44 WBC 15.22 H (3.8-10.6) k/uL RBC 2.46 L (4.30-5.90) m/uL Hgb 6.3 A* (13.0-17.5) gm/dL Hct 19.9 A* (39.0-53.0) % MCH 25.6 L (25.0-35.0) pg MCHC 31.7 L (31.0-37.0) g/dL RDW 17.3 H (11.5-15.5) % Immature Gran # 0.10 H (0.00-0.04) X 10*3/uL Neutrophils # 13.36 H (1.3-7.7) k/uL Lymphocytes # (1.0-4.8) k/uL Eosinophils # 0.01 L (0.04-0.35) X 10*3/uL NRBC/100 WBC Diff 0.02 H (0.00-0.01) X 10*3/uL Hypochromasia (manual) 2+ A Microcytosis (manual) 2+ A Chloride (98-107) mmol/L Carbon Dioxide 18.0 L (21.6-31.8) mmol/L Anion Gap 16.00 H (4.00-12.00) mmol/L BUN 56.1 H (9-20) mg/dL Creatinine 2.4 H (0.66-1.25) mg/dL Est GFR (CKD-EPI) 27 L (>=60) BUN/Creatinine Ratio 23.38 H (12.00-20.00) Ratio Glucose (74-99) mg/dL Calcium 8.4 L (8.4-10.2) mg/dL Crossmatch See Detail Blood Bank Comment Reference Lab Result Microbiology - Last 24 Hours (Table) 03/31/24 21:11 Blood Culture - Preliminary Blood
[2024-04-02] MEDS: HYDROcodone/APAP 5-325MG 1 EACH TAB PO PRN (18:04)
[2024-04-02] MEDS: INFLUENZA VACC HIGH-DOSE (65+) 180 MCG/0.5 ML SYRINGE IM ONE (22:29)
[2024-04-02 23:27] LABS: Anisocytosis Slight; Basophils % (A) 0 %; Eosinophils # (A) 0.1 k/uL (0-0.7); Eosinophils % (A) 1 %; HCT 28.4 % (39.0-53.0); Hypochromasia Marked; Lymphocytes # (A) 0.8 k/uL (1.0-4.8); Lymphocytes % (A) 6 %; MCH 27.1 pg (25.0-35.0); MCV 84.7 fL (80.0-100.0); Mean Platelet Volume 7.5; Monocytes # (A) 0.6 k/uL (0-1.0); Monocytes % (A) 5 %; Neutrophils # (A) 11.6 k/uL (1.3-7.7); Neutrophils % (A) 87 %; Platelet Count 356 k/uL (150-450); Poikilocytosis Marked; RBC 3.36 m/uL (4.30-5.90); RDW 17.3 % (11.5-15.5); WBC 13.2 k/uL (3.8-10.6)
[2024-04-02 23:45] LABS: HGB 9.1 gm/dL (13.0-17.5)
[2024-04-03 10:18] LABS: Anisocytosis Slight; HCT 32.7 % (39.0-53.0); HGB 9.9 gm/dL (13.0-17.5); Hypochromasia Marked; MCH 26.9 pg (25.0-35.0); MCHC 30.4 g/dL (31.0-37.0); MCV 88.4 fL (80.0-100.0); Mean Platelet Volume 7.7; Platelet Count 350 k/uL (150-450); Poikilocytosis Marked; RBC 3.69 m/uL (4.30-5.90); RDW 17.4 % (11.5-15.5); WBC 12.2 k/uL (3.8-10.6)
[2024-04-03 10:30] LABS: African American GFR (CKD) 28 (>60 ml/min/1.73 sqM); Anion Gap 6 mmol/L; Blood Urea Nitrogen 58 mg/dL (9-20); Calcium 8.5 mg/dL (8.4-10.2); Carbon Dioxide 23 mmol/L (22-30); Chloride 113 mmol/L (98-107); Glucose 97 mg/dL (74-99); Non-African American GFR(CKD) 25 (>60 ml/min/1.73 sqM); Potassium 3.6 mmol/L (3.5-5.1); Sodium 142 mmol/L (137-145)
--- NOTE | 2024-04-03 12:06 | P.PN ---
Subjective Progress Note Date: 04/03/24 78-year-old male with COPD on 5L NC, A-fib not on AC, hypertension, hyperlipidemia, bladder cancer presented to the ED for shortness of breath. In the ED, EKG showed sinus rhythm with a rate of 100. Prolonged QRS at 155 MS no ectopy no ST-T changes. Chest x-ray showed left lower lobe opacities and COPD changes that were noted from prior chest x-rays. Vital signs in the ED BP 129/70, HR 109, T 99.5, RR 24, 94% on 6L NC. CBC, Coag panel, CMP significant or WBC 15.3, RBC 1.89, Hg 4.3, Hct 14.3, Plt 4 59, INR 1.2, BUN 54, Cr 2.59, glu 136, Ca 8.3, alb 2.5. Lactic acid 2.8. BNP 650. Troponin < 0.012. UA large blood with mod LE. Stool occult negative. COVID, RSV, Flu neg. D-Dimer 4.68. Patient was admitted for symptomatic anemia. Transfused 5 unit PRBCs. Urology consulted, he has refused radiation therapy in the past, not a candidate for cystectomy, recommended no surgical intervention unless unable to urinate. Aortic US shows AAA 5.1 cm. Vascular surgery consulted, recommended outpatient followup for routine surveillance. For elevated D-Dimer VQ scan showed intermediate for PE. Venous doppler negative for DVT. Likely related to malignancy. 04/03 Patient was seen and examined. Feeling much better. Coughing up sputum. Currently on 5L NC. CBC and BMP significant for WBC 12.2, RBC 3.69, Hg 9.9, Hct 32.7, Cl 113, BUN 58, Cr 2.46. Procal was 1.18. General: non toxic, no distress, appears at stated age Derm: warm, dry Head: atraumatic, normocephalic, symmetric Eyes: EOMI, no lid lag, anicteric sclera Mouth: no lip lesion, mucus membranes moist Cardiovascular: S1S2 irreg, no murmur, positive posterior tibial pulse bilateral Lungs: Decreased BS bilateral, no rhonchi, no rales, no accessory muscle use Ext: no gross muscle atrophy, no edema, no contractures Neuro: no focal neuro deficits Psych: Alert, oriented, appropriate affect Based on my assessment of this patient, this patient meets a high complexity level of care. Severe microcytic anemia due to chronic blood loss from hematuria in setting of bladder cancer: Repeat CBC tomorrow AM. Urology on board. Sepsis due to Community-acquired pneumonia: CXR LLL opacities. Procal elevated. Initially met sepsis criteria with leukocytosis, tachycardia and + source of infection. Continue Rocephin 2g IV QD and Azithromycin 500 mg PO QD. Elevated D-dimer: Likely related to malignancy. VQ indeterminate. BL LE duplex negative. ANH on CKD: Stop Lasix. Start NS at 50 cc/hr. Echo shows EF 60-65%. Obtain renal bladder US. Abdominal aortic aneurysm: Outpatient Vascular Sx follow up for routine surveillance. HTN: Restart Metoprolol 50 mg PO BID. HLD: Lipitor 40 mg PO QD. COPD: Albuterol neb Q4H PRN. Symbicort 2 INH BID. A-Fib: Amiodarone 200 mg PO QD. Metoprolol as above. Resolved: Lactic acidosis. CODE STATUS: FULL CODE DVT Prophylaxis: SCD GI Prophylaxis: Designated medical POA if patient is not able to make medical decisions for themselves: I have reviewed the following mergers and acquisitions consultant notes: Vascular Sx. I have reviewed the results of the following tests: CBC, BMP, Procal. I have ordered the following tests: Renal US I have discussed the care of this patient with the following independent historian: Family at bedside. I have independently interpreted the following test below: I have discussed the management of this patient with the following physician: Objective - Vital Signs Vital signs: Vital Signs Temp 98.6 F 04/03/24 08:00 Pulse 78 04/03/24 09:19 Resp 20 04/03/24 08:00 BP 157/86 04/03/24 08:00 Pulse Ox 96 04/03/24 09:11 FiO2 Intake & Output 04/02/24 04/03/24 04/03/24 18:59 06:59 18:59 Intake Total 550 310 480 Output Total 750 200 Balance 550 -440 280 Weight 59.874 kg Intake: Oral 240 480 Blood Product 310 310 Rc As-1 Unit 0 310 [id number] Rc As-1 Unit 310 [id number] Output: Urine 750 200 Other: Voiding Method Urinal Urinal # Voids 1 1 - Labs CBC & Chem 7: 04/03/24 09:16 04/03/24 09:16 Labs: Abnormal Lab Results - Last 24 Hours (Table) 04/02/24 04/02/24 04/02/24 Range/Units 07:27 08:44 22:30 WBC 13.2 H (3.8-10.6) k/uL RBC 3.36 L (4.30-5.90) m/uL Hgb 9.1 L D (13.0-17.5) gm/dL Hct 28.4 L (39.0-53.0) % MCHC (31.0-37.0) g/dL RDW 17.3 H (11.5-15.5) % Immature Gran # 0.10 H (0.00-0.04) X 10*3/uL Neutrophils # 13.36 H 11.6 H (1.80-7.70) X 10*3/uL Lymphocytes # 0.8 L (1.0-4.8) k/uL Eosinophils # 0.01 L (0.04-0.35) X 10*3/uL Hypochromasia (manual) 2+ A Microcytosis (manual) 2+ A Chloride (98-107) mmol/L BUN (9-20) mg/dL Creatinine (0.66-1.25) mg/dL Crossmatch See Detail 04/03/24 04/03/24 Range/Units 09:16 09:16 WBC 12.2 H (3.8-10.6) k/uL RBC 3.69 L (4.30-5.90) m/uL Hgb 9.9 L (13.0-17.5) gm/dL Hct 32.7 L (39.0-53.0) % MCHC 30.4 L (31.0-37.0) g/dL RDW 17.4 H (11.5-15.5) % Immature Gran # (0.00-0.04) X 10*3/uL Neutrophils # (1.80-7.70) X 10*3/uL Lymphocytes # (1.0-4.8) k/uL Eosinophils # (0.04-0.35) X 10*3/uL Hypochromasia (manual) Microcytosis (manual) Chloride 113 H (98-107) mmol/L BUN 58 H (9-20) mg/dL Creatinine 2.46 H (0.66-1.25) mg/dL Crossmatch Microbiology - Last 24 Hours (Table) 03/31/24 21:11 Blood Culture - Preliminary Blood
[2024-04-03] MEDS: SODIUM CHLORIDE 0.9% 1,000 ML IV SCH (12:58)
[2024-04-03] MEDS: TAMSULOSIN 0.4 MG CAP.ER.24H PO SCH (12:58)
[2024-04-03] MEDS: METOPROLOL TARTRATE 50 MG TAB PO SCH (12:58)
[2024-04-03 13:40] VITALS: BMI 18.3
--- NOTE | 2024-04-03 16:01 | US ---
EXAMINATION TYPE: US renals and bladder DATE OF EXAM: 04/03/2024 COMPARISON: CT 2023, US 2022 CLINICAL INDICATION: Male, 78 years old with history of hematuria; Hematuria. Hx bladder CA. TECHNIQUE: Grayscale and color Doppler imaging of the bilateral kidneys and urinary bladder: FINDINGS: EXAM MEASUREMENTS: Right Kidney: 10.7 x 5.4 x 4.9 cm Left Kidney: 11.6 x 7.0 x 6.4 cm Right Kidney: *Great amount of hydronephrosis seen. Appearance of a stent within dilated ureter- prob able dilated ureter with stent seen near bladder as well in bladder images. Left Kidney: *Hydronephrosis seen Bladder: Solid, hypoechoic area with hyperechoic shadowing components seen within the bladder: 5.3 x 6.2 x 4.6 cm. Bladder wall thickened at 6 mm. Bilateral Jets seen: No, unable to properly evaluate Incidental findings: -Liver appears very heterogeneous, there appear to be 2 isoechoic lesions with hypoechoic borders in the right lobe, larger area = 3.9 x 4.6 x 3.7 cm. -Appearance of right pleural effusion -Free fluid seen in the RUQ, LUQ, and near the bladder IMPRESSION: 1. Right ureteral stent with tip in the right renal pelvis. There remains dilation of the right julian ecting system. 2. Left moderate hydronephrosis. 3. Abnormal appearance of bladder with solid mass like area present correlate with history of malign orlin consider follow-up cross-sectional imaging with PET/CT. 4. Heterogenous liver with liver lesions. Attention follow-up PET/CT. 5. Small free fluid in the pelvis. [facility], Workstation: [id number], 04/03/2024 3:59 PM
[2024-04-04 08:08] LABS: Anisocytosis Slight; Basophils % (A) 0 %; Eosinophils # (A) 0.1 k/uL (0-0.7); Eosinophils % (A) 1 %; HCT 30.3 % (39.0-53.0); HGB 9.5 gm/dL (13.0-17.5); Hypochromasia Marked; Lymphocytes # (A) 0.7 k/uL (1.0-4.8); Lymphocytes % (A) 6 %; MCH 26.8 pg (25.0-35.0); MCHC 31.3 g/dL (31.0-37.0); MCV 85.6 fL (80.0-100.0); Mean Platelet Volume 7.6; Monocytes # (A) 0.5 k/uL (0-1.0); Monocytes % (A) 5 %; Neutrophils # (A) 9.8 k/uL (1.3-7.7); Neutrophils % (A) 87 %; Platelet Count 334 k/uL (150-450); Poikilocytosis Marked; RBC 3.54 m/uL (4.30-5.90); RDW 17.5 % (11.5-15.5); WBC 11.3 k/uL (3.8-10.6)
[2024-04-04 08:11] VITALS: BP 155/75; TEMP 98
[2024-04-04 08:21] LABS: African American GFR (CKD) 27 (>60 ml/min/1.73 sqM); Anion Gap 7 mmol/L; Blood Urea Nitrogen 55 mg/dL (9-20); Calcium 8.2 mg/dL (8.4-10.2); Carbon Dioxide 24 mmol/L (22-30); Chloride 110 mmol/L (98-107); Glucose 74 mg/dL (74-99); Non-African American GFR(CKD) 23 (>60 ml/min/1.73 sqM); Potassium 3.5 mmol/L (3.5-5.1); Sodium 141 mmol/L (137-145)
[2024-04-04 08:49] VITALS: RESP 22
[2024-04-04 10:25] VITALS: PULSE 69
--- NOTE | 2024-04-04 11:48 | P.DS ---
Providers Date of admission: 03/31/24 20:37 Expected date of discharge: 04/04/24 Attending physician: Leonardo Higgins MD Consults: 03/31/24 20:29 Consult Physician Urgent Consulting Provider: Neptali Hobbs Consult Reason/Comments: hematuria, anemia, history of bladder cancer Do you want consulting provider notified?: Already Contacted Primary care physician: Maik Goss [facility] Hospital Course: 78-year-old male with COPD on 5L NC, A-fib not on AC, hypertension, hyperlipidemia, bladder cancer presented to the ED for shortness of breath. In the ED, EKG showed sinus rhythm with a rate of 100. Prolonged QRS at 155 MS no ectopy no ST-T changes. Chest x-ray showed left lower lobe opacities and COPD changes that were noted from prior chest x-rays. Vital signs in the ED BP 129/70, HR 109, T 99.5, RR 24, 94% on 6L NC. CBC, Coag panel, CMP significant or WBC 15.3, RBC 1.89, Hg 4.3, Hct 14.3, Plt 459, INR 1.2, BUN 54, Cr 2.59, glu 136, Ca 8.3, alb 2.5. Lactic acid 2.8. BNP 650. Troponin < 0.012. UA large blood with mod LE. Stool occult negative. COVID, RSV, Flu neg. D-Dimer 4.68. Patient was admitted for symptomatic anemia. Transfused 5 unit PRBCs. Urology consulted, he has refused radiation therapy in the past, not a candidate for cystectomy, recommended no surgical intervention unless unable to urinate. Aortic US shows AAA 5.1 cm. Vascular surgery consulted, recommended outpatient followup for routine surveillance. For elevated D-Dimer VQ scan showed intermediate for PE. Venous doppler negative for DVT. Likely related to malignancy. 04/04 Patient was seen and examined. Feeling much better. Coughing up sputum. Currently on 5L NC. CBC and BMP significant for WBC 11.3, RBC 3.54, Hg 9.5, Hct 30.3, Cl 110, BUN 55, C 2.58. Renal US shows right ureteral stent with tip in the right renal pelvis, left moderate hydronephrosis, abnormal mass within the bladder, liver lesions. Plans for discharge home today. Advised to follow up with PCP within 1 week of repeat CBC. Outpatient follow up with Urology within 1 week of discharge. Augmentin x 1 day to complete total 5 days antibiotics. General: non toxic, no distress, appears at stated age Derm: warm, dry Head: atraumatic, normocephalic, symmetric Eyes: EOMI, no lid lag, anicteric sclera Mouth: no lip lesion, mucus membranes moist Cardiovascular: S1S2 irreg, no murmur Lungs: Decreased BS bilateral, no rhonchi, no rales, no accessory muscle use Ext: no gross muscle atrophy, no edema, no contractures Neuro: no focal neuro deficits Psych: Alert, oriented, appropriate affect Discharge Diagnosis: Severe microcytic anemia due to chronic blood loss from hematuria in setting of bladder cancer Sepsis due to Community-acquired pneumonia Elevated D-dimer ANH on CKD Abdominal aortic aneurysm HTN HLD COPD A-Fib Resolved: Lactic acidosis. This complex discharge took 35 minutes to complete. Patient Condition at Discharge: Stable Plan - Discharge Summary New Discharge Prescriptions: New Amoxic-Pot Clav 875-125Mg [Augmentin 875-125] 1 tab PO Q12HR 1 Days #2 tab Continue Ipratropium-Albuterol Nebulize [Duoneb 0.5 mg-3 mg/3 ml Soln] 3 ml INHALATION RT-QID Tamsulosin [Flomax] 0.4 mg PO PC-BRKFST 30 Days #30 cap Metoprolol Tartrate [Lopressor] 50 mg PO BID 30 Days #60 tab Furosemide [Lasix] 20 mg PO BID Amiodarone [Cordarone] 200 mg PO DAILY Albuterol Sulfate [Ventolin HFA] 2 puff INHALATION RT-Q4H PRN PRN Reason: Shortness Of Breath Fluticasone/Umeclidin/Vilanter [Trelegy Ellipta 100-62.5-25] 1 puff INHALATION RT-DAILY traMADol HCL 50 mg PO Q6H PRN PRN Reason: Pain Atorvastatin [Lipitor] 40 mg PO DAILY Discharge Medication List Ipratropium-Albuterol Nebulize [Duoneb 0.5 mg-3 mg/3 ml Soln] 3 ml INHALATION RT-QID 01/19/23 [History] Fluticasone/Umeclidin/Vilanter [Trelegy Ellipta 100-62.5-25] 1 puff INHALATION RT-DAILY 05/26/23 [History] Metoprolol Tartrate [Lopressor] 50 mg PO BID 30 Days #60 tab 06/03/23 [Rx] Tamsulosin [Flomax] 0.4 mg PO PC-BRKFST 30 Days #30 cap 06/03/23 [Rx] Albuterol Sulfate [Ventolin HFA] 2 puff INHALATION RT-Q4H PRN 07/22/23 [History] Amiodarone [Cordarone] 200 mg PO DAILY 07/22/23 [History] Furosemide [Lasix] 20 mg PO BID 07/22/23 [History] Atorvastatin [Lipitor] 40 mg PO DAILY 03/31/24 [History] traMADol HCL 50 mg PO Q6H PRN 03/31/24 [History] Amoxic-Pot Clav 875-125Mg [Augmentin 875-125] 1 tab PO Q12HR 1 Days #2 tab 04/04/24 [Rx] Follow up Appointment(s)/Referral(s): Renato Crowley MD [STAFF PHYSICIAN] - 04/16/24 1:00 pm (Appt with Dr. Borrego) Maik Miranda MD [Primary Care Provider] - 04/13/24 11:30 am Patient Instructions/Handouts: Anemia (DC) Activity/Diet/Wound Care/Special Instructions: [facility] [phone] Follow up with your PCP within 1 week of discharge and re-check your hemoglobin. Discharge Disposition: HOME SELF-CARE
--- NOTE | 2024-04-15 13:08 | CDI ---
Documentation Clarification Form Date: 04/15/2024 12:50:01 PM From: Ivy Thompson Phone: Admit Date: 03/31/2024 08:37:00 PM Patient Name: Nomi Peng Visit Number: [id number] Discharge Date: 04/04/2024 12:14:00 PM ATTENTION: The Clinical Documentation Specialists (CDI) and [facility] Coding Staff appreciate your assistance in clarifying documentation. Please respond to the clarification below the line at the bottom and electronically sign. The CDI & [facility] Coding staff will review the response and follow-up if needed. Please note: Queries are made part of the Legal Health Record. If you have any questions, please contact the author of this message via ITS. Doctor/Provider: Vania Maddox Unspecified CKD is documented per Consult and Progress Notes. Additional clarification regarding the stage of CKD is requested. History/Risk Factors: 78yo F, severemicrocytic anemiadue to chronicblood lossfromhematuriain setting of bladder cancer, Sepsisd/t CAP, AKIonCKD, AAA, HTN, HLD, COPD, A Fib, lactic acidosis, smoker Patients Historical BUN/CR/GFR Clinical Indicators: BUN: 03/31 54 04/02 53.6- 56.1 04/09 58 CR: 03/31 2.59 04/01 2.65 04/02 2.34- 2.4 04/03 2.46 eGFR: 03/31 23-27 Treatment: Stop Lasix. Start NS at 50 cc/hr. Echo shows EF 60-65%.Obtain renal bladder US. Please clarify the stage of the CKD, if known: [ ] CKD Stage 3b [ x ] CKD Stage 4 [ ] Other, please specify [ ] Unable to determine Reference: National Kidney Foundation Stage 1 eGFR = 90 and kidney damage for =3 months Stage 2 eGFR 60-89 and kidney damage for =3 months Stage 3a eGFR 45-59 and kidney damage for =3 months Stage 3b eGFR 30-44 and kidney damage for =3 months Stage 4 eGFR 15-29 r and kidney damage for =3 months Stage 5 eGFR <15 and kidney damage for =3 months (Template last revised: June 2023) MTDD
== END 2024-04-04 12:14 | disposition home or self-care (01) | DRG 871 ==
LOC: EC 18:07 → 4SSUR 20:37 → 3SCARD 04-02 02:49
PROVIDERS: ADMIT Internal Medicine; ATTEND Internal Medicine
PROC: 30233N1 Transfusion of Nonautologous Red Blood Cells into Peripheral Vein, Percutaneous Approach (ICD-10-PCS; principal; 2024-03-31)
DX: A41.9 Sepsis, unspecified organism (principal); J18.9 Pneumonia, unspecified organism; J44.0 Chronic obstructive pulmonary disease with (acute) lower respiratory infection; J96.11 Chronic respiratory failure with hypoxia; N17.9 Acute kidney failure, unspecified; N13.30 Unspecified hydronephrosis; N18.4 Chronic kidney disease, stage 4 (severe); C67.9 Malignant neoplasm of bladder, unspecified; E83.51 Hypocalcemia; K76.89 Other specified diseases of liver; Z99.81 Dependence on supplemental oxygen; I71.40 Abdominal aortic aneurysm, without rupture, unspecified; I48.91 Unspecified atrial fibrillation; D50.0 Iron deficiency anemia secondary to blood loss (chronic); I12.9 Hypertensive chronic kidney disease with stage 1 through stage 4 chronic kidney disease, or unspecified chronic kidney disease; D63.0 Anemia in neoplastic disease; R31.0 Gross hematuria; E78.5 Hyperlipidemia, unspecified; F17.210 Nicotine dependence, cigarettes, uncomplicated; R68.2 Dry mouth, unspecified; R54 Age-related physical debility; R60.0 Localized edema; Z91.198 Patient's noncompliance with other medical treatment and regimen for other reason; Z79.51 Long term (current) use of inhaled steroids; Z79.899 Other long term (current) drug therapy; Z11.52 Encounter for screening for COVID-19; Z97.8 Presence of other specified devices
CPT/HCPCS: 36415; 36430; 71045; 76770; 78582; 80048; 80053; 81001; 82272; 83605; 83735; 83880; 84145; 84484; 85025; 85027; 85379; 85610; 85730; 86850; 86860; 86870; 86880; 86900; 86901; 86902; 86920; 86970; 87040; 87636; 90662; 93005; 93306; 93970; 93979; 94640; 94760; 96365; 99283; 99285

== ENCOUNTER 2024-04-11 14:26 | Inpatient (IN) | payer MEDICARE ==
--- NOTE | 2024-04-11 14:28 | ED ---
SOB HPI - General Stated Complaint: SOB Time Seen by Provider: 04/11/24 14:27 Source: RN notes reviewed, old records reviewed Mode of arrival: EMS Limitations: no limitations, altered mental status - History of Present Illness Initial Comments: This is a 78-year-old male coming in for evaluation of shortness of breath. Patient comes in for evaluation of difficulty breathing no chest pain he does feel like he is body aches pains and chills. Fevers with recent hospital admiss ion for pneumonia MD Complaint: shortness of breath, cough -: days(s) Severity: severe Severity scale (1-10): 10 Consistency: constant Worsens With: nothing Known History Of: COPD, asthma, recurrent pneumonia, aspiration pneumonia Context: recent URI, anxiety, recent illness Associated Symptoms: fever, cough, sputum production Treatments Prior to Arrival: oxygen - Related Data Home Medications Medication Instructions Recorded Confirmed Ipratropium-Albuterol Nebulize 3 ml INHALATION RT-QID 01/19/23 04/11/24 [Duoneb 0.5 mg-3 mg/3 ml Soln] Fluticasone/Umeclidin/Vilanter 1 puff INHALATION RT-DAILY 05/26/23 04/11/24 [Trelegy Ellipta 100-62.5-25] Albuterol Sulfate [Ventolin HFA] 2 puff INHALATION RT-Q4H PRN 07/22/23 04/11/24 Amiodarone [Cordarone] 200 mg PO DAILY 07/22/23 04/11/24 Furosemide [Lasix] 20 mg PO BID 07/22/23 04/11/24 Atorvastatin [Lipitor] 40 mg PO DAILY 03/31/24 04/11/24 Cholecalciferol [Vitamin D3 (25 25 mcg PO DAILY 04/11/24 04/11/24 Mcg = 1000 Iu)] Multivitamins, Thera [Multivitamin 1 tab PO DAILY 04/11/24 04/11/24 (formulary)] Previous Rx's Medication Instructions Recorded Metoprolol Tartrate [Lopressor] 50 mg PO BID 30 Days #60 tab 06/03/23 Tamsulosin [Flomax] 0.4 mg PO PC-[id number] 30 Days #30 cap 06/03/23 Ferrous Gluconate 324 mg PO DAILY #30 tablet 04/16/24 Levofloxacin [Levaquin] 750 mg PO DAILY #4 tab 04/16/24 traMADol HCL 50 mg PO Q6H PRN #3 tab 04/16/24 Allergies Allergy/AdvReac Type Severity Reaction Status Date / Time sulfamethoxazole Allergy Rash/Hives Verified 04/11/24 16:44 [From Bactrim] trimethoprim [From Bactrim] Allergy Rash/Hives Verified 04/11/24 16:44 Review of Systems ROS Statement: Those systems with pertinent positive or pertinent negative responses have been documented in the HPI. ROS Other: All systems not noted in ROS Statement are negative. Past Medical History Past Medical History: Blood Disorder, Cancer, COPD, Hyperlipidemia, Hypertension, Musculoskeletal Disorder Additional Past Medical History / Comment(s): Scoliosis, varicose veins, Bladder cancer, Anemia History of Any Multi-Drug Resistant Organisms: None Reported Past Surgical History: Appendectomy, Heart Catheterization With Stent Additional Past Surgical History / Comment(s): Eye surgery X5. Past Anesthesia/Blood Transfusion Reactions: No Reported Reaction Additional Past Anesthesia/Blood Transfusion Reaction / Comment(s): Patient states had blood transfusion in May 2023 with no problem. Date of Last Stent Placement:: Unknown Past Psychological History: No Psychological Hx Reported Smoking Status: Current every day smoker Past Alcohol Use History: None Reported Additional Past Alcohol Use History / Comment(s): Smokes 3-4 cigarettes per day, has been a smoker since 19. Past Drug Use History: Marijuana Additional Drug Use History / Comment(s): Marijuana use daily. Aware to refrain for 24 hours prior to procedure. - Past Family History Father Family Medical History: No Reported History General Exam Limitations: altered mental status General appearance: alert, anxious, in distress Head exam: Present: atraumatic, normocephalic, normal inspection Eye exam: Present: normal appearance, PERRL, EOMI. Absent: scleral icterus, conjunctival injection, periorbital swelling ENT exam: Present: normal exam, mucous membranes dry Neck exam: Present: normal inspection. Absent: tenderness, meningismus, l ymphadenopathy Respiratory exam: Present: respiratory distress, wheezes, accessory muscle use, decreased breath sounds, prolonged expiratory. Absent: rales, rhonchi, stridor Cardiovascular Exam: Present: tachycardia, normal heart sounds. Absent: sy stolic murmur, diastolic murmur, rubs, gallop, clicks GI/Abdominal exam: Present: soft, normal bowel sounds. Absent: distended, tenderness, guarding, rebound, rigid Extremities exam: Present: normal inspection, full ROM, normal capillary refill. Absent: tenderness, pedal edema, joint swelling, calf tenderness Back exam: Present: normal inspection Neurological exam: Present: alert, oriented X3, CN II-XII intact Psychiatric exam: Present: normal affect, normal mood Skin exam: Present: warm, dry, intact, normal color. Absent: rash Course Vital Signs 04/11/24 04/11/24 04/11/24 14:27 14:29 14:30 Temperature 100.8 F H 100.8 F H Pulse Rate 106 H 105 H Respiratory 36 H 36 H 32 H Rate Blood Pressure 146/73 140/89 O2 Sat by Pulse 86 L 94 L Oximetry 04/11/24 04/11/24 04/11/24 15:29 15:36 15:49 Temperature 99.9 F H Pulse Rate 100 92 90 Respiratory 20 Rate Blood Pressure 130/68 O2 Sat by Pulse 94 L Oximetry 04/11/24 04/11/24 04/11/24 16:00 16:55 18:00 Temperature 98.5 F Pulse Rate 89 87 86 Respiratory 20 20 20 Rate Blood Pressure 138/69 138/69 120/60 O2 Sat by Pulse 96 98 98 Oximetry 04/11/24 04/11/24 04/11/24 19:37 19:44 20:51 Temperature Pulse Rate 80 82 81 Respiratory 20 20 18 Rate Blood Pressure 137/62 O2 Sat by Pulse 95 Oximetry 04/11/24 21:49 Temperature Pulse Rate 75 Respiratory 18 Rate Blood Pressure 138/68 O2 Sat by Pulse 98 Oximetry - Reevaluation(s) Reevaluation #1: 04/11/24 15:05 Medical records reviewed Reevaluation #2: 04/11/24 15:05 Patient is improving with supplemental oxygen although still is very short of breath Reevaluation #3: 04/11/24 15:05 Patient informed of results and questions answered Reevaluation #4: Was pt. sent in by a medical professional or institution (, PA, [employer] MACHINE OPERATOR, urgent care, hospital, or skilled nursing...) When possible be specific @ -no Did you speak to anyone other than the patient for history (EMS, parent, family, police, friend...)? What history was obtained from this source @ -no Did you review nursing and triage notes (agree or disagree)? Why? @ -agree Are old charts reviewed (outside hosp., previous admission, EMS record, old EKG, old radiological studies, urgent care reports/EKG's, skilled nursing records)? Report findings @ -yes Differential Diagnosis (chest pain, altered mental status, abdominal pain women, abdominal pain men, vaginal bleeding, weakness, fever, dyspnea, syncope, headache, dizziness, GI bleed, back pain, seizure, CVA, palpatations, mental health, musculoskeletal)? @ -prior EKG interpreted by me (3pts min.). @ -yes X-rays interpreted by me (1pt min.). @ -yes negative for acute disease CT interpreted by me (1pt min.). @ -no U/S interpreted by me (1pt. min.). @ -no What testing was considered but not performed or refused? (CT, X-rays, U/S, labs)? Why? @ -none What meds were considered but not given or refused? Why? @ -none Did you discuss the management of the patient with other professionals (professionals i.e. , PA, [employer]PERATOR, lab, RT, psych nurse, social and political studies professor, windows system admin, teacher, chief program officer, case management social worker)? Give summary @ -no Was smoking cessation discussed for >3mins.? @ -no Was critical care preformed (if so, how long)? @ -yes31 Were there social determinants of health that impacted care today? How? (Homeles sness, low income, unemployed, alcoholism, drug addiction, transportation, low edu. Level, literacy, decrease access to med. care, prison, rehab)? @ -none Was there de-escalation of care discussed even if they declined (Discuss DNR or withdrawal of care, Hospice)? DNR status @ -no What co-morbidities impacted this encounter? (DM, HTN, Smoking, COPD, CAD, Cancer, CVA, ARF, Chemo, Hep., AIDS, mental health diagnosis, sleep apnea, morbid obesity)? @ -none Was patient admitted / discharged? Hospital course, mention meds given and route, prescriptions, significant lab abnormalities, going to OR and other pertinent info. @ - 78 male to the ER for evaluation of severe shortness of breath COPD dyspnea hypoxia found to have fever pneumonia. Patient admitted for IV antibiotics and supportive care Admitted Undiagnosed new problem with uncertain prognosis? @ -no Drug Therapy requiring intensive monitoring for toxicity (Heparin, Nitro, Insulin, Cardizem)? @ -no Were any procedures done? @ -no Diagnosis/symptom? @ -Severe COPD with hypoxia Acute, or Chronic, or Acute on Chronic? @ -Acute Uncomplicated (without systemic symptoms) or Complicated (systemic symptoms)? @ -Complicated Side effects of treatment? @ -no Exacerbation, Progression, or Severe Exacerbation? @ -exacerbation Poses a threat to life or bodily function? How? (Chest pain, USA, DC, pneumonia, PE, COPD, DKA, ARF, appy, cholecystitis, CVA, Diverticulitis, Homicidal, Suicidal, threat to staff... and all critical care pts) @ -yes extremes of age Reevaluation #5: Differential Fever: Pneumonia, viral URI, endocarditis, myocarditis, pericarditis, otitis, sinusitis, peritonsillar Abscess, retropharyngeal Abscess, epiglottitis, peritonitis, appendicitis, Safia cystitis, diverticulitis, hepatitis, colitis, UTI, PID, TOA, pyelonephritis, prostatitis, epididymitis, meningitis, encephalitis, pulmonary embolism, CVA, thyroid storm, pancreatitis, adrenal crisis, cavernous sinus thrombosis, this is not meant to be an all-inclusive list. Differential Dyspnea: Coronary syndrome, arrhythmia, tamponade, asthma, COPD, pulmonary embolism, pneumonia, pneumothorax, pulmonary effusion, anaphylaxis, diabetic ketoacidosis, flailed chest, pulmonary contusion, diaphragmatic rupture, anemia, neuromus cular, this is not meant to be an all-inclusive list. - Consultations Consultation #1: Spoke with janette who agrees to admit this patient Medical Decision Making - Medical Decision Making 78 male to the ER for evaluation of severe shortness of breath COPD dyspnea hypoxia found to have fever pneumonia. Patient admitted for IV antibiotics and supportive care - Lab Data Result diagrams: 04/15/24 08:57 04/15/24 08:57 Lab Results 04/11/24 04/11/24 04/11/24 Range/Units 14:27 14:27 14:27 WBC 21.5 H (3.8-10.6) k/uL RBC 3.47 L (4.30-5.90) m/uL Hgb 9.2 L (13.0-17.5) gm/dL Hct 29.5 L (39.0-53.0) % MCV 84.9 (80.0-100.0) fL MCH 26.5 (25.0-35.0) pg MCHC 31.2 (31.0-37.0) g/dL RDW 18.5 H (11.5-15.5) % Plt Count 307 (150-450) k/uL MPV 7.6 Neutrophils % 89 % Lymphocytes % 3 % Monocytes % 6 % Eosinophils % 0 % Basophils % 0 % Neutrophils # 19.1 H (1.3-7.7) k/uL Lymphocytes # 0.7 L (1.0-4.8) k/uL Monocytes # 1.3 H (0-1.0) k/uL Eosinophils # 0.0 (0-0.7) k/uL Basophils # 0.0 (0-0.2) k/uL Hypochromasia Marked Poikilocytosis Slight Anisocytosis Slight Microcytosis Slight PT 12.0 (10.0-12.5) sec INR 1.1 (<1.2) APTT 25.9 (22.0-30.0) sec VBG pH (7.31-7.41) VBG pCO2 (37-51) mmHg VBG HCO3 (24-28) mmol/L Sodium 139 (137-145) mmol/L Potassium 4.2 (3.5-5.1) mmol/L Chloride 107 (98-107) mmol/L Carbon Dioxide 26 (22-30) mmol/L Anion Gap 6 mmol/L BUN 66 H (9-20) mg/dL Creatinine 3.87 H (0.66-1.25) mg/dL Est GFR (CKD-EPI)AfAm 16 (>60 ml/min/1.73 sqM) Est GFR (CKD-EPI)NonAf 14 (>60 ml/min/1.73 sqM) Glucose 107 H (74-99) mg/dL Plasma Lactic Acid Tera (0.7-2.0) mmol/L Calcium 8.5 (8.4-10.2) mg/dL Magnesium 1.6 (1.6-2.3) mg/dL Total Bilirubin 0.5 (0.2-1.3) mg/dL AST 85 H (17-59) U/L ALT 22 (4-49) U/L Alkaline Phosphatase 164 H (38-126) U/L Troponin I (0.000-0.034) ng/mL NT-Pro-B Natriuret Pep 5890 pg/mL Total Protein 6.1 L (6.3-8.2) g/dL Albumin 2.4 L (3.5-5.0) g/dL Procalcitonin (0.02-0.50) ng/mL Urine Legionella Ag (Negative) 04/11/24 04/11/24 04/11/24 Range/Units 14:27 14:27 14:27 WBC (3.8-10.6) k/uL RBC (4.30-5.90) m/uL Hgb (13.0-17.5) gm/dL Hct (39.0-53.0) % MCV (80.0-100.0) fL MCH (25.0-35.0) pg MCHC (31.0-37.0) g/dL RDW (11.5-15.5) % Plt Count (150-450) k/uL MPV Neutrophils % % Lymphocytes % % Monocytes % % Eosinophils % % Basophils % % Neutrophils # (1.3-7.7) k/uL Lymphocytes # (1.0-4.8) k/uL Monocytes # (0-1.0) k/uL Eosinophils # (0-0.7) k/uL Basophils # (0-0.2) k/uL Hypochromasia Poikilocytosis Anisocytosis Microcytosis PT (10.0-12.5) sec INR (<1.2) APTT (22.0-30.0) sec VBG pH 7.45 H (7.31-7.41) VBG pCO2 36 L (37-51) mmHg VBG HCO3 25 (24-28) mmol/L Sodium (137-145) mmol/L Potassium (3.5-5.1) mmol/L Chloride (98-107) mmol/L Carbon Dioxide (22-30) mmol/L Anion Gap mmol/L BUN (9-20) mg/dL Creatinine (0.66-1.25) mg/dL Est GFR (CKD-EPI)AfAm (>60 ml/min/1.73 sqM) Est GFR (CKD-EPI)NonAf (>60 ml/min/1.73 sqM) Glucose (74-99) mg/dL Plasma Lactic Acid Tera 1.0 (0.7-2.0) mmol/L Calcium (8.4-10.2) mg/dL Magnesium (1.6-2.3) mg/dL Total Bilirubin (0.2-1.3) mg/dL AST (17-59) U/L ALT (4-49) U/L Alkaline Phosphatase (38-126) U/L Troponin I 0.020 (0.000-0.034) ng/mL NT-Pro-B Natriuret Pep pg/mL Total Protein (6.3-8.2) g/dL Albumin (3.5-5.0) g/dL Procalcitonin (0.02-0.50) ng/mL Urine Legionella Ag (Negative) 04/11/24 04/11/24 Range/Units 14:27 15:03 WBC (3.8-10.6) k/uL RBC (4.30-5.90) m/uL Hgb (13.0-17.5) gm/dL Hct (39.0-53.0) % MCV (80.0-100.0) fL MCH (25.0-35.0) pg MCHC (31.0-37.0) g/dL RDW (11.5-15.5) % Plt Count (150-450) k/uL MPV Neutrophils % % Lymphocytes % % Monocytes % % Eosinophils % % Basophils % % Neutrophils # (1.3-7.7) k/uL Lymphocytes # (1.0-4.8) k/uL Monocytes # (0-1.0) k/uL Eosinophils # (0-0.7) k/uL Basophils # (0-0.2) k/uL Hypochromasia Poikilocytosis Anisocytosis Microcytosis PT (10.0-12.5) sec INR (<1.2) APTT (22.0-30.0) sec VBG pH (7.31-7.41) VBG pCO2 (37-51) mmHg VBG HCO3 (24-28) mmol/L Sodium (137-145) mmol/L Potassium (3.5-5.1) mmol/L Chloride (98-107) mmol/L Carbon Dioxide (22-30) mmol/L Anion Gap mmol/L BUN (9-20) mg/dL Creatinine (0.66-1.25) mg/dL Est GFR (CKD-EPI)AfAm (>60 ml/min/1.73 sqM) Est GFR (CKD-EPI)NonAf (>60 ml/min/1.73 sqM) Glucose (74-99) mg/dL Plasma Lactic Acid Tera (0.7-2.0) mmol/L Calcium (8.4-10.2) mg/dL Magnesium (1.6-2.3) mg/dL Total Bilirubin (0.2-1.3) mg/dL AST (17-59) U/L ALT (4-49) U/L Alkaline Phosphatase (38-126) U/L Troponin I (0.000-0.034) ng/mL NT-Pro-B Natriuret Pep pg/mL Total Protein (6.3-8.2) g/dL Albumin (3.5-5.0) g/dL Procalcitonin 1.23 H (0.02-0.50) ng/mL Urine Legionella Ag Negative (Negative) - EKG Data -: EKG Interpreted by Me (EKG sinus tachycardia 106 CO 150 QRS 124 QTc 415) - Radiology Data Radiology results: report reviewed (Chest x-ray is positive for pneumonia), i mage reviewed Critical Care Time Critical Care Time: Yes Total Critical Care Time: 31 Disposition Clinical Impression: COPD (chronic obstructive pulmonary disease), Acute exacerbation of chronic obstructive pulmonary disease, Acute respiratory failure, Dyspnea, Community acquired pneumonia, Fever, Sepsis Disposition: ADMITTED IP TO THIS HOSP Condition: Serious Is patient prescribed a controlled substance at d/c from ED?: No Time of Disposition: 15:00
[2024-04-11] MEDS: methylPREDNISolone SOD SUCCI 125 MG/2 ML VIAL IV STA (14:44)
[2024-04-11] MEDS: ACETAMINOPHEN TAB 500 MG TAB PO STA (14:44)
[2024-04-11] MEDS: IBUPROFEN 800 MG TAB PO STA (14:44)
[2024-04-11] MEDS: SODIUM CHLORIDE 0.9% 1,000 ML IV STA ×3 (14:46→15:47)
[2024-04-11] MEDS: AZITHROMYCIN 500 MG in SODIUM CHLORIDE 0.9% 250 ML IVPB STA (14:49)
[2024-04-11 14:51] LABS: Anisocytosis Slight; Basophils % (A) 0 %; Eosinophils % (A) 0 %; HCT 29.5 % (39.0-53.0); HGB 9.2 gm/dL (13.0-17.5); Hypochromasia Marked; Lymphocytes # (A) 0.7 k/uL (1.0-4.8); Lymphocytes % (A) 3 %; MCH 26.5 pg (25.0-35.0); MCHC 31.2 g/dL (31.0-37.0); MCV 84.9 fL (80.0-100.0); Mean Platelet Volume 7.6; Microcytosis Slight; Monocytes # (A) 1.3 k/uL (0-1.0); Monocytes % (A) 6 %; Neutrophils # (A) 19.1 k/uL (1.3-7.7); Neutrophils % (A) 89 %; Platelet Count 307 k/uL (150-450); Poikilocytosis Slight; RBC 3.47 m/uL (4.30-5.90); RDW 18.5 % (11.5-15.5); VBG PH 7.45 (7.31-7.41); WBC 21.5 k/uL (3.8-10.6)
[2024-04-11] MEDS ORDERED: PNEUMONIA PROTOCOL UTILIZED 1 EACH MISC PO PRN (15:03)
[2024-04-11 15:04] LABS: INR 1.1 (<1.2); Partial Thromboplastin Time 25.9 sec (22.0-30.0)
[2024-04-11 15:05] LABS: ALT 22 U/L (4-49); AST 85 U/L (17-59); African American GFR (CKD) 16 (>60 ml/min/1.73 sqM); Albumin 2.4 g/dL (3.5-5.0); Alkaline Phosphatase 164 U/L (38-126); Anion Gap 6 mmol/L; Blood Urea Nitrogen 66 mg/dL (9-20); Calcium 8.5 mg/dL (8.4-10.2); Carbon Dioxide 26 mmol/L (22-30); Chloride 107 mmol/L (98-107); Glucose 107 mg/dL (74-99); Magnesium 1.6 mg/dL (1.6-2.3); Non-African American GFR(CKD) 14 (>60 ml/min/1.73 sqM); Potassium 4.2 mmol/L (3.5-5.1); Sodium 139 mmol/L (137-145); Total Bilirubin 0.5 mg/dL (0.2-1.3); Total Protein 6.1 g/dL (6.3-8.2)
[2024-04-11 15:11] LABS: NT-Pro-B-Type Natriuretic Pept 5890 pg/mL
--- NOTE | 2024-04-11 15:16 | XR ---
EXAMINATION TYPE: XR chest 1V portable DATE OF EXAM: 04/11/2024 Comparison: 03/31/2024 Clinical History: 78-year-old male COPD, shortness of breath Findings: Patient is rotated towards the left altering the normal cardiomediastinal contours. Heart borderline in size. Hyperinflation. Mild interstitial density may be slightly increased. Suspect small bilateral pleural effusions. Worsening bibasilar opacities. Impression: COPD. Correlate for superimposed pulmonary vascular congestion. Small pleural effusions with adjacent atelectasis and/or consolidation. Underlying basilar pneumonia can be excluded on a clinical basis. [facility], , 04/11/2024 3:14 PM
[2024-04-11] MEDS: IPRATROPIUM-ALBUTEROL 3 ML NEB INHALATION STA ×2 (15:33)
[2024-04-11] MEDS: ALBUTEROL NEBULIZED 2.5 MG/3 ML INHALATION SCH (15:34)
[2024-04-11] MEDS ORDERED: ALBUTEROL NEBULIZED 2.5 MG/3 ML INHALATION PRN (16:59)
[2024-04-11] MEDS ORDERED: IPRATROPIUM-ALBUTEROL 3 ML NEB INHALATION PRN (17:00)
--- NOTE | 2024-04-11 17:54 | P.HPIM ---
History of Present Illness H&P Date: 04/11/24 Patient is a 78-year-old male with PMH of A-fib (not on anticoagulation), COPD, chronic approximate respiratory failure(on 5 L of continuous home oxygen), hypertension, hyperlipidemia, bladder cancer status post TURPT on July 2023 presents to the ER with mild confusion and shortness of breath. Patient states that he woke up not feeling well associated with mild confusion and feeling short of breath. Additionally, patient was assessed by visiting nurse this morning and found patient to be febrile and suggested him to come to the ER for further evaluation. Patient was recently hospitalized for community-acquired pneumonia and was discharged on 04/03/2024. He states that he was doing well until this morning. Patient denies cough, increased sputum production, chest pain, orthopnea and PND. Patient denies any recent travel. Patient also have bilateral leg swelling which is chronic. Patient admits to coming in contact with his grandkids who have been endorsing flulike symptoms for the past 1 to 2 weeks. At the time of interview, patient states that he is feeling a lot better and not confused anymore and also not complaining of any shortness of breath. Laboratory evaluation in the ER is significant for WBC 21.5, hemoglobin 9.2, sodium 139, potassium 4.2, BUN 66, creatinine 3.87, AST 85, ALT 22, ALP 164. pH 7.45, pCO2 36. Vital signs on arrival: 100.8 Fahrenheit, pulse rate 105, Respiration 36, blood pressure 146/73, oxygen saturation, 94% on 6 L Chest x-ray independently interpreted in the ER shows bilateral patchy infiltrates more on the right with bilateral small pleural effusions. EKG independently interpreted shows sinus tachycardia with a right bundle branch block. Nonspecific ST-T wave changes. Case discussed with the ER doctor. Patient admitted to internal medicine service. Review of systems: Pertinent positives and negatives as discussed in HPI, a complete review of systems was performed and all other systems are negative. Social history: Tobacco: Current smoker smoking 1 pack a day since he was 19 years old Physical examination: Vital signs reviewed General: non toxic, no distress, appears at stated age, normal weight Derm: no unusual rashes/lesions, warm Head: atraumatic, normocephalic, symmetric Eyes: EOMI, no lid lag, anicteric sclera, pupils equal round reactive to light ENT: Nose and ears atraumatic Neck: No cervical lymphadenopathy, trachea midline, supple Mouth: no lip lesion, mucus membranes moist Cardiovascular: S1S2 reg, no murmur, positive dorsalis pedis pulse bilateral, bilateral 2+ pitting edema Lungs: Decreased breath sound bilaterally, no wheezing, no rhonchi, no rales, no accessory muscle use, on 5 L oxygen by nasal cannula Abdominal: soft, nontender to palpation, no guarding Ext: muscle strength 5 out of 5 in all 4 extremities grossly, no gross muscle atrophy, no contractures, Neuro: CN II-XI grossly intact, no gross focal neuro deficits Psych: Alert, oriented, appropriate affect Assessment/Plan: 78-year-old patient with history of COPD, chronic hypoxemic respiratory failure, hypertension, hyperlipidemia, bladder cancer presents to the ER is admitted to the hospital for further evaluation and treatment for community-acquired pneumonia. #Sepsis secondary to community-acquired pneumonia #Acute on chronic hypoxic respiratory failure #Bilateral lower extremity edema #Acute metabolic encephalopathy, resolved WBC 21.5 Vital signs on arrival: 100.8 Fahrenheit, pulse rate 105, Respiration 36, blood pressure 146/73, oxygen saturation, 94% on 6 L Patient is given 2 L of IV normal saline in the ER Continue with IV normal saline at 130 cc/h IV Rocephin 2 g IVPB every 24 hour and Zithromax 500 mg p.o. daily DuoNebs as scheduled and [id number] Blood culture, sputum culture, Legionella antigen Procalcitonin Patient is status post 125 mg IV Solu-Medrol once in ER Patient currently stable on 5 L oxygen via nasal cannula Continue oxygen therapy Echo on 04/02/2024 shows LVEF 60 to 65% with mild left atrial dilatation, mild MR/TR with Pulm HTN Cardiology consulted Continue cardiac telemetry -proBNP similar to prior, lower extremity edema not worsening. Patient likely euvolemic #Prerenal acute kidney injury secondary to above Baseline creatinine is 2.4 Creatinine 3.87 Continue IV fluids as above Continue monitor BMP, strict I's and O's -Patient does have history of HFpEF, judicious use of IV fluids. #Transaminitis #Elevated ALP Secondary to above AST 85, ALP 164 Chronic condition: A-fib: Resume Mu on 200 mg p.o. daily Hypertension: Resume Lopressor 50 mg p.o. twice daily BPH: Resume Flomax 0.4 mg p.o. daily Hyperlipidemia: Resume Lipitor 40 mg p.o. daily COPD, not in exacerbation - Home Trelegy resumed DVT prophylaxis: Subcu heparin The patient is admitted with an anticipated more than 2 midnight stay for evaluation of community-acquired pneumonia CODE STATUS: Full code Discussed with: Patient Anticipated discharge place: Pending clinical course A total of 65 minutes was spent on the care of this complex patient more than 50% of the time was spent in counseling and care coordination. I have seen and evaluated the patient today. Discussed with the resident and agree with the residents finding and plan as documented in the resident's note. Changes highlighted in blue font. Past Medical History Past Medical History: Blood Disorder, Cancer, COPD, Hyperlipidemia, H ypertension, Musculoskeletal Disorder Additional Past Medical History / Comment(s): Scoliosis, varicose veins, Bladder cancer, Anemia History of Any Multi-Drug Resistant Organisms: None Reported Past Surgical History: Appendectomy, Heart Catheterization With Stent Additional Past Surgical History / Comment(s): Eye surgery X5. Past Anesthesia/Blood Transfusion Reactions: No Reported Reaction Additional Past Anesthesia/Blood Transfusion Reaction / Comment(s): Patient states had blood transfusion in May 2023 with no problem. Date of Last Stent Placement:: Unknown Past Psychological History: No Psychological Hx Reported Smoking Status: Current every day smoker Past Alcohol Use History: None Reported Additional Past Alcohol Use History / Comment(s): Smokes 3-4 cigarettes per day, has been a smoker since 19. Past Drug Use History: Marijuana Additional Drug Use History / Comment(s): Marijuana use daily. Aware to refrain for 24 hours prior to procedure. - Past Family History Father Family Medical History: No Reported History Medications and Allergies Home Medications Medication Instructions Recorded Confirmed Type Ipratropium-Albuterol Nebulize 3 ml INHALATION RT-QID 01/19/23 04/11/24 History [Duoneb 0.5 mg-3 mg/3 ml Soln] Fluticasone/Umeclidin/Vilanter 1 puff INHALATION RT-DAILY 05/26/23 04/11/24 History [Trelegy Ellipta 100-62.5-25] Metoprolol Tartrate [Lopressor] 50 mg PO BID 30 Days #60 tab 06/03/23 04/11/24 Rx Tamsulosin [Flomax] 0.4 mg PO PC-BRKFST 30 Days #30 cap 06/03/23 04/11/24 Rx Albuterol Sulfate [Ventolin HFA] 2 puff INHALATION RT-Q4H PRN 07/22/23 04/11/24 History Amiodarone [Cordarone] 200 mg PO DAILY 07/22/23 04/11/24 History Furosemide [Lasix] 20 mg PO BID 07/22/23 04/11/24 History Atorvastatin [Lipitor] 40 mg PO DAILY 03/31/24 04/11/24 History traMADol HCL 50 mg PO Q6H PRN 03/31/24 04/11/24 History Cholecalciferol [Vitamin D3 (25 25 mcg PO DAILY 04/11/24 04/11/24 History Mcg = 1000 Iu)] Multivitamins, Thera [Multivitamin 1 tab PO DAILY 04/11/24 04/11/24 History (formulary)] Nicotine Patch (Unknown Dose) 1 patch TRANSDERM DAILY 04/11/24 04/11/24 History Vitamin B12 (Unknown Dose) 1 tab PO DAILY 04/11/24 04/11/24 History Allergies Allergy/AdvReac Type Severity Reaction Status Date / Time sulfamethoxazole Allergy Rash/Hives Verified 04/11/24 16:44 [From Bactrim] trimethoprim [From Bactrim] Allergy Rash/Hives Verified 04/11/24 16:44 Physical Exam Vitals: Vital Signs Temp Pulse Resp BP Pulse Ox 04/11/24 16:55 87 20 138/69 98 04/11/24 16:00 98.5 F 89 20 138/69 96 04/11/24 15:49 90 04/11/24 15:36 92 04/11/24 15:29 99.9 F H 100 20 130/68 94 L 04/11/24 14:30 32 H 04/11/24 14:29 100.8 F H 105 H 36 H 140/89 94 L 04/11/24 14:27 100.8 F H 106 H 36 H 146/73 86 L Intake and Output 04/11/24 04/11/24 04/11/24 06:59 14:59 22:59 Other: Weight 59.874 kg Results CBC & Chem 7: 04/11/24 14:27 04/11/24 14:27 Labs: Abnormal Lab Results - Last 24 Hours (Table) 04/11/24 04/11/24 04/11/24 Range/Units 14:27 14:27 14:27 WBC 21.5 H (3.8-10.6) k/uL RBC 3.47 L (4.30-5.90) m/uL Hgb 9.2 L (13.0-17.5) gm/dL Hct 29.5 L (39.0-53.0) % RDW 18.5 H (11.5-15.5) % Neutrophils # 19.1 H (1.3-7.7) k/uL Lymphocytes # 0.7 L (1.0-4.8) k/uL Monocytes # 1.3 H (0-1.0) k/uL VBG pH 7.45 H (7.31-7.41) VBG pCO2 36 L (37-51) mmHg BUN 66 H (9-20) mg/dL Creatinine 3.87 H (0.66-1.25) mg/dL Glucose 107 H (74-99) mg/dL AST 85 H (17-59) U/L Alkaline Phosphatase 164 H (38-126) U/L Total Protein 6.1 L (6.3-8.2) g/dL Albumin 2.4 L (3.5-5.0) g/dL
[2024-04-11] MEDS: ENOXAPARIN 40 MG/0.4 ML SYRINGE SQ SCH (18:43)
[2024-04-11] MEDS: IPRATROPIUM-ALBUTEROL 3 ML NEB INHALATION SCH (19:37)
[2024-04-11] MEDS: METOPROLOL TARTRATE 50 MG TAB PO SCH (20:07)
--- NOTE | 2024-04-12 04:46 | P.CNPUL ---
History of Present Illness Consult date: 04/12/24 Requesting physician: Christiano Guillaume Reason for consult: other (Dyspnea) Chief complaint: Confusion and fevers History of present illness: Patient is a 78-year-old male with past medical history significant for very severe COPD with an FEV1 22% of predicted, chronic hypoxemic respiratory failure normally on 5 L/min home O2, former tobacco dependence quitting approximately 1 month ago, coronary artery disease, hypertension, hyperlipidemia, aortic aneurysm, bladder cancer, hydronephrosis with previous stents, DVT, atrial fibrillation. Primary care provider is Dr. Miranda. He does follow in the pulmonary office with Dr. Harrison for management of his severe COPD. Uses a Trelegy maintenance inhaler, DuoNebs [id number], and albuterol HFA inhaler as needed. Of note, recent admitted for community-acquired pneumonia earlier this month; pulmonary was not consulted. Discharged on April 04 with home care. Patient's states that he is been feeling relatively well up to the last 24 hours. He lives with his adult grandchildren and great grandkids who have reportedly been sick with URI symptoms. Noted to be confused with high fevers during nurse visit, and advised to come to the ER. Chest x-ray on arrival showing stable cardiac silhouette, coarsened interstitial densities, possible small bilateral pleural effusions,and bibasilar atelectasis versus developing infiltrates. Does state that his shortness of breath has been slightly worse than baseline. Denies any productive cough, chest pain, hemoptysis, wheezing. He does have significant lower extremity edema, which he states that is actually better than baseline. Takes Lasix on an outpatient basis. He does have bladder cancer, recently underwent transurethral bladder tumor resection and right ureteral stent placement, on July,. Pathology positive for invasive high-grade urothelial carcinoma. Renal function is worse than baseline. Patient denies any dysuria, hematuria, urinary frequency, flank pain. CBC: WBC count 21.5, hemoglobin 9.2, hematocrit 29.5, platelets 307. CMP: Sodium 139, potassium 4.2, chloride 107, serum bicarb 26, BUN 3066, creatinine 3.87, glucose 107. LFTs mildly elevated. NT proBNP 5000 890. EKG: Sinus tachycardia, rate 106 bpm, RBB pattern. Procalcitonin 1.23. Negative for influenza, RSV, COVID. Patient is currently being evaluated on the general medical floor. Mentation is improved. Currently on 5 L/min nasal cannula. SpO2 100%. No acute respiratory distress. Review of Systems Constitutional: Reports chills, Reports fever, Denies poor appetite, Denies weight gain, Denies weight loss Ears, nose, mouth and throat: Denies headache, Denies nasal congestion, Denies nasal discharge, Denies post-nasal drip, Denies sinus pain, Denies sinus pressure, Denies sore throat Cardiovascular: Reports decreased exercise tolerance, Reports leg edema, Denies chest pain, Denies lightheadedness, Denies orthopnea, Denies palpitations, Denies paroxysmal nocturnal dyspnea, Denies syncope Respiratory: Reports as per HPI Gastrointestinal: Reports nausea, Denies abdominal pain, Denies change in bowel habits, Denies vomiting Genitourinary: Denies dysuria, Denies flank pain, Denies hematuria, Denies ur inary frequency Musculoskeletal: Denies limitation of motion Integumentary: Denies rash Neurological: Reports confusion, Denies seizures, Denies syncope Psychiatric: Denies anxiety, Denies depression Past Medical History Past Medical History: Blood Disorder, Cancer, COPD, Hyperlipidemia, Hypertension, Musculoskeletal Disorder Additional Past Medical History / Comment(s): Scoliosis, varicose veins, Bladder cancer, Anemia History of Any Multi-Drug Resistant Organisms: None Reported Past Surgical History: Appendectomy, Heart Catheterization With Stent Additional Past Surgical History / Comment(s): Eye surgery X5. Past Anesthesia/Blood Transfusion Reactions: No Reported Reaction Additional Past Anesthesia/Blood Transfusion Reaction / Comment(s): Patient states had blood transfusion in May 2023 with no problem. Date of Last Stent Placement:: Unknown Past Psychological History: No Psychological Hx Reported Smoking Status: Current every day smoker Past Alcohol Use History: None Reported Additional Past Alcohol Use History / Comment(s): Smokes 3-4 cigarettes per day, has been a smoker since 19. Past Drug Use History: Marijuana Additional Drug Use History / Comment(s): Marijuana use daily. Aware to refrain for 24 hours prior to procedure. - Past Family History Father Family Medical History: No Reported History Medications and Allergies Home Medications Medication Instructions Recorded Confirmed Type Ipratropium-Albuterol Nebulize 3 ml INHALATION RT-QID 01/19/23 04/11/24 History [Duoneb 0.5 mg-3 mg/3 ml Soln] Fluticasone/Umeclidin/Vilanter 1 puff INHALATION RT-DAILY 05/26/23 04/11/24 History [Trelepennie Ellipta 100-62.5-25] Metoprolol Tartrate [Lopressor] 50 mg PO BID 30 Days #60 tab 06/03/23 04/11/24 Rx Tamsulosin [Flomax] 0.4 mg PO PC-BRKFST 30 Days #30 cap 06/03/23 04/11/24 Rx Albuterol Sulfate [Ventolin HFA] 2 puff INHALATION RT-Q4H PRN 07/22/23 04/11/24 History Amiodarone [Cordarone] 200 mg PO DAILY 07/22/23 04/11/24 History Furosemide [Lasix] 20 mg PO BID 07/22/23 04/11/24 History Atorvastatin [Lipitor] 40 mg PO DAILY 03/31/24 04/11/24 History traMADol HCL 50 mg PO Q6H PRN 03/31/24 04/11/24 History Cholecalciferol [Vitamin D3 (25 25 mcg PO DAILY 04/11/24 04/11/24 History Mcg = 1000 Iu)] Multivitamins, Thera [Multivitamin 1 tab PO DAILY 04/11/24 04/11/24 History (formulary)] Nicotine Patch (Unknown Dose) 1 patch TRANSDERM DAILY 04/11/24 04/11/24 History Vitamin B12 (Unknown Dose) 1 tab PO DAILY 04/11/24 04/11/24 History Allergies Allergy/AdvReac Type Severity Reaction Status Date / Time sulfamethoxazole Allergy Rash/Hives Verified 04/11/24 16:44 [From Bactrim] trimethoprim [From Bactrim] Allergy Rash/Hives Verified 04/11/24 16:44 Physical Exam Vitals: Vital Signs Temp Pulse Pulse Resp BP BP Pulse Ox 04/12/24 01:10 97.7 F 62 20 155/78 100 04/11/24 21:49 75 18 138/68 98 04/11/24 20:51 81 18 137/62 95 04/11/24 19:44 82 20 04/11/24 19:37 80 20 04/11/24 18:00 86 20 120/60 98 04/11/24 16:55 87 20 138/69 98 04/11/24 16:00 98.5 F 89 20 138/69 96 04/11/24 15:49 90 04/11/24 15:36 92 04/11/24 15:29 99.9 F H 100 20 130/68 94 L 04/11/24 14:30 32 H 04/11/24 14:29 100.8 F H 105 H 36 H 140/89 94 L 04/11/24 14:27 100.8 F H 106 H 36 H 146/73 86 L Intake and Output 04/11/24 04/11/24 04/12/24 14:59 22:59 06:59 Other: Weight 59.874 kg 59.874 kg GENERAL EXAM: Alert and fully oriented, 78-year-old male, comfortable in no apparent distress. HEAD: Normocephalic and atraumatic EYES: Normal reaction of pupils, equal size. NOSE: Clear with pink turbinates. THROAT: No erythema or exudates. NECK: No masses, no JVD. CHEST: No chest wall deformity. LUNGS: Equal air entry with diminished right basilar lung sounds. No crackles, wheezing, rhonchi. On 5 L/min nasal cannula. No conversational dyspnea or accessory muscle use.. CVS: S1 and S2 normal with no audible murmur, regular rhythm. No extra heart sounds ABDOMEN: No hepatosplenomegaly, active bowel sounds, no guarding or rigidity. SPINE: No scoliosis or deformity SKIN: No rashes CENTRAL NERVOUS SYSTEM: No focal deficits, tone is normal in all 4 extremities. EXTREMITIES: There is 3+ bilateral lower extremity pitting edema. No clubbing or cyanosis. Peripheral pulses are intact. Results - Laboratory Findings CBC and BMP: 04/11/24 14:27 04/11/24 14:27 PT/INR, D-dimer PT 12.0 sec (10.0-12.5) 04/11/24 14: INR 1.1 (<1.2) 04/11/24 14:27 Abnormal lab findings: Abnormal Labs 04/11/24 04/11/24 04/11/24 14:27 14:27 14:27 WBC 21.5 H RBC 3.47 L Hgb 9.2 L Hct 29.5 L RDW 18.5 H Neutrophils # 19.1 H Lymphocytes # 0.7 L Monocytes # 1.3 H VBG pH 7.45 H VBG pCO2 36 L BUN 66 H Creatinine 3.87 H Glucose 107 H AST 85 H Alkaline Phosphatase 164 H Total Protein 6.1 L Albumin 2.4 L Procalcitonin 04/11/24 14:27 WBC RBC Hgb Hct RDW Neutrophils # Lymphocytes # Monocytes # VBG pH VBG pCO2 BUN Creatinine Glucose AST Alkaline Phosphatase Total Protein Albumin Procalcitonin 1.23 H - Diagnostic Findings Chest x-ray: image reviewed Assessment and Plan Assessment: Acute on chronic dyspnea Recent inpatient treatment for community acquired pneumonia; repeat chest x-ray showing stable cardiac silhouette, coarsened interstitium, possible small bilateral pleural effusions,and worsening bibasilar opacities Acute febrile illness Acute leukocytosis Acute on chronic kidney disease Anemia of chronic disease Very severe chronic obstructive pulmonary disease, with an FEV1 22% of predicted; normally maintained on Trelegy maintenance inhaler, DuoNebs [id number], and as needed albuterol HFA inhaler. Appears stable Chronic hypoxemic respiratory failure, normally maintained on 5 L/min nasal cannula Former tobacco dependence, reportedly quit smoking approximately 1 month ago, prior to that very heavy smoking history greater than 50 pack years History of hypertension History of hyperlipidemia History of coronary artery disease Infrarenal aortic aneurysm, monitored by vascular surgeon outpatient History of paroxysmal atrial fibrillation Bilateral lower extremity edema Echocardiogram, 04/02/2024, estimating left ventricular ejection fraction of 60 to 65%, mild mitral regurgitation, moderate pulmonary hypertension, moderate tricuspid regurgitation, and a small pericardial effusion Bladder cancer status post transurethral resection of bladder tumor July,, pathology positive invasive high-grade urothelial carcinoma. PET scan done in August showing some FDG avid retroperitoneal lymph nodes History of bilateral hydronephrosis with right ureteral stent placement Plan: Patient's medications, labs, chest x-ray reviewed Continue supplemental oxygen, may wean to FiO2 to maintain oxygen saturation of 90% or greater Empiric antibiotics for community acquired pneumonia resumed COPD does not better particularly active on my evaluation; continue Symbicort inhaler and DuoNebs [id number]. May substitute Trelegy inhaler if available Viral screen negative for influenza, RSV, COVID Procalcitonin level elevated in the setting of ARF Check urinalysis Blood cultures pending DVT prophylaxis: Lovenox We will continue to follow Statement I have personally seen and examined the patient, performed the documentation and the assessment and plan as written. Number of minutes spent on the visit:20 Time with Patient: Greater than 30
[2024-04-12 06:17] LABS: Appearance,Urine Cloudy (Clear); Bilirubin,Urine Negative (Negative); Blood,Urine Large (Negative); Color,Urine Yellow; Glucose,Urine (UA) Negative (Negative); Ketones,Urine Negative (Negative); Leukocyte Esterase,Urine Trace (Negative); Mucus,Urine Rare /hpf; Nitrite,Urine Negative (Negative); PH, Urine 5.5 (5.0-8.0); Protein,Urine 1+ (Negative); RBC,Urine >182 /hpf (0-5); Squamous Epithelial Cell,Urine 2 /hpf (0-4); Urobilinogen,Urine <2.0 mg/dL (<2.0); WBC,Urine 16 /hpf (0-5)
[2024-04-12] MEDS: traMADol 50 MG TAB PO PRN (06:36)
--- NOTE | 2024-04-12 07:18 | XR ---
EXAMINATION TYPE: XR chest 1V portable DATE OF EXAM: 04/12/2024 6:57 AM COMPARISON: 04/11/2024 CLINICAL INDICATION: Male, 78 years old with history of pneumonia, , FINDINGS: Heart borderline in size. Hyperinflation. Diffuse interstitial and vascular density persists with sli ght worsening. Patchy bibasilar opacities persist as well similar to slightly worsened. Blunted costo phrenic angles. IMPRESSION: 1. COPD. Correlate for superimposed CHF with pulmonary vascular congestion with slight interval worse isabel. 2. Patchy bibasilar opacities with trace pleural effusions are similar to slightly worsened as well. [facility], , 04/12/2024 7:16 AM
[2024-04-12] MEDS: SYMBICORT 80-4.5 MCG INHALER INHALATION SCH (08:08)
[2024-04-12 08:44] LABS: Basophils # (A) 0.01 X 10*3/uL (0.00-0.10); Basophils % (A) 0.1 %; Eosinophils # (A) 0 X 10*3/uL (0.04-0.35); Eosinophils % (A) 0 %; HCT 25.7 % (39.6-50.0); HGB 7.7 g/dL (13.0-17.0); Lymphocytes # (A) 0.53 X 10*3/uL (0.90-5.00); Lymphocytes % (A) 3.1 %; MCH 25.8 pg (27.0-32.0); Mean Platelet Volume 10.6 FL (9.5-12.2); Monocytes # (A) 0.38 X 10*3/uL (0.20-1.00); Monocytes % (A) 2.2 %; NRBC Per 100 WBC 0 X 10*3/uL (0.00-0.01); Neutrophils # (A) 16.19 X 10*3/uL (1.80-7.70); Platelet Count 257 X 10*3/uL (140-440); RBC 2.99 X 10*6/uL (4.40-5.60); RDW 19.8 % (11.5-14.5); WBC 17.21 X 10*3/uL (4.50-10.00)
[2024-04-12 08:48] LABS: BUN/Creat Ratio 17.08 Ratio (12.00-20.00); Blood Urea Nitrogen 66.6 mg/dL (9.0-27.0); Calcium 7.9 mg/dL (8.7-10.3); Carbon Dioxide 22.2 mmol/L (21.6-31.8); Chloride 109 mmol/L (96-109); Glucose 123 mg/dL (70-110); Potassium 4.7 mmol/L (3.5-5.5); Sodium 142 mmol/L (135-145)
[2024-04-12] MEDS: TAMSULOSIN 0.4 MG CAP.ER.24H PO SCH (08:52)
[2024-04-12] MEDS: ATORVASTATIN 40 MG TAB PO SCH (08:52)
[2024-04-12] MEDS: AMIODARONE 200 MG TAB PO SCH (08:52)
[2024-04-12] MEDS: AZITHROMYCIN 500 MG TAB PO SCH (08:52)
[2024-04-12] MEDS: FUROSEMIDE 10 MG/ML 10 ML VIAL IV STA (10:35)
[2024-04-12 10:54] LABS: LDH 1063 U/L (120-246)
[2024-04-12 10:58] LABS: Reticulocyte % 1.1 % (0.5-2.0)
--- NOTE | 2024-04-12 11:19 | US ---
EXAMINATION TYPE: US kidneys/renal and bladder DATE OF EXAM: 04/12/2024 COMPARISON: 04/03/24 CLINICAL INDICATION: Male, 78 years old with history of ANH. Hx of hydro TECHNIQUE: Grayscale and color Doppler imaging of the bilateral kidneys and urinary bladder: FINDINGS: EXAM MEASUREMENTS: Right Kidney: 11.9 x 5.8 x 5.9 cm Left Kidney: 11.0 x 5.5 x 6.0 cm Right Kidney: Moderate to severe hydronephrosis seen. Stent seen in place Left Kidney: moderate hydronephrosis seen Bladder: Incompletely distention limited evaluation. Irregular lobulated hypoechoic mass within the b ladder lumen measuring 3.0 x 3.3 x 2.9cm Bilateral Jets seen: No Trace abdominal ascites in the right side of the abdomen. IMPRESSION: 1. A 3.3 cm irregular mass projecting into the lumen of the bladder. 2. Moderate to severe right and moderate left hydronephrosis persists. 3. Similar positioning to the proximal end of the right ureteral stent within the right renal pelvis. [facility], , 04/12/2024 11:17 AM
[2024-04-12] MEDS: FUROSEMIDE 10 MG/ML 4 ML VIAL IV SCH (11:54)
[2024-04-12] MEDS: methylPREDNISolone SOD SUCCI 125 MG/2 ML VIAL IV SCH (13:16)
--- NOTE | 2024-04-12 13:23 | P.CRDCN ---
History of Present Illness Consult date: 04/12/24 Consult reason: congestive heart failure History of present illness: This is a 78-year-old male patient of Dr. Leroy with past medical history of bladder cancer, COPD, chronic hypoxic respiratory failure on home O2, CAD with prior stenting, hypertension, hyperlipidemia, tobacco use and dependence, paroxysmal atrial fibrillation. We have been asked to evaluate the patient for CHF. Blood pressure 137/72, heart rate in the 70s and 80s, pulse ox 98% on 5 L nasal cannula. Patient states that he quit smoking 1 month ago. He denies any alc ohol use or drug use. EKG: Sinus rhythm with right bundle branch block Chest x-ray: COPD. Correlate for superimposed pulmonary vascular congestion. Small pleural effusions with adjacent atelectasis and/or consolidation. Underlying basilar pneumonia cannot be excluded on a clinical basis. Repeat chest x-ray: COPD. Correlate for superimposed CHF and pulmonary vascular congestion with slight interval worsening. Patchy bibasilar opacities with trace pleural effusions slightly worsened. Renal ultrasound: 3.3 cm irregular mass projecting into the lumen of the bladder. Moderate to severe right and moderate left hydronephrosis Laboratory studies: WBC initially 21.5 now 17.1, hemoglobin 7.7. Sodium 142, potassium 4.7, BUN 66 and creatinine 3.9. Alkaline phosphatase 164, AST 85. Troponin negative x 1. proBNP 5890. Procalcitonin 1.23. Urinalysis blood large, RBCs greater than 182, WBC 16. Influenza A, influenza B, RSV, COVID-19 not detected. Home cardiac medications: Amiodarone 200 mg daily, atorvastatin 40 mg daily, Lasix 20 mg twice daily, Lopressor 50 mg twice daily. Echocardiogram performed on 04/01/2024 reveals EF of 60 to 65%. Mild mitral and moderate tricuspid regurgitation with moderate pulmonary hypertension. Aortic valve sclerosis noted no restriction. Mild to small pericardial effusion. Review Of Systems: At the time of my exam: CONSTITUTIONAL: Denies fever or chills. HEENT: Denies blurred vision, vision changes, or eye pain. Denies hemoptysis CARDIOVASCULAR: Denies chest pain. Denies orthopnea. Denies PND. Denies palpitations RESPIRATORY: Denies shortness of breath. GASTROINTESTINAL: Denies abdominal pain. Denies nausea or vomiting. HEMATOLOGIC: Denies bleeding disorders. GENITOURINARY: Denies any blood in urine. SKIN: Denies puritis. Denies rash. Physical examination: Gen: This is a disheveled appearing 78-year-old male in no acute distress VS: reviewed HEENT: Head is atraumatic, normocephalic. Pupils equal, round. Sclerae is anicteric. NECK: Supple. No JVD. LUNGS: Clear to auscultation. No wheezes or rhonchi. No intercostal retractions . HEART: Regular rate and rhythm. No murmur. ABDOMEN: Soft No tenderness. EXTREMITIES: Mild bilateral lower extremity edema. No calf tenderness. NEUROLOGICAL: Patient is awake, alert and oriented x3. Assessment: Acute dyspnea secondary to a combination of COPD exacerbation and acute diastolic heart failure Chronic hypoxic respiratory failure on home O2 at 5 L nasal cannula Acute kidney injury and chronic kidney disease stage IV Anemia Leukocytosis Bilateral hydronephrosis Bladder mass with history of bladder cancer Chronic hypoxic respiratory failure Paroxysmal atrial fibrillation CAD with prior stenting Infrarenal aortic aneurysm monitored by vascular surgery Valvular heart disease with mild mitral regurgitation and moderate tricuspid regurgitation, moderate pulmonary hypertension Tobacco use and dependence, patient quit 1 month ago Plan: Resume patient's home cardiac medications Start patient on IV Lasix 40 mg daily Monitor MAINE, daily weights, electrolytes and renal function No need to repeat echocardiogram Further recommendations to follow based upon clinical course Thank you kindly for this consultation. Nurse practitioner note has been reviewed, I agree with documented findings and plan of care. Patient was seen and examined. Past Medical History Past Medical History: Blood Disorder, Cancer, COPD, Hyperlipidemia, Hypertension , Musculoskeletal Disorder Additional Past Medical History / Comment(s): Scoliosis, varicose veins, Bladder cancer, Anemia History of Any Multi-Drug Resistant Organisms: None Reported Past Surgical History: Appendectomy, Heart Catheterization With Stent Additional Past Surgical History / Comment(s): Eye surgery X5. Past Anesthesia/Blood Transfusion Reactions: No Reported Reaction Additional Past Anesthesia/Blood Transfusion Reaction / Comment(s): Patient states had blood transfusion in May 2023 with no problem. Date of Last Stent Placement:: Unknown Past Psychological History: No Psychological Hx Reported Smoking Status: Current every day smoker Past Alcohol Use History: None Reported Additional Past Alcohol Use History / Comment(s): Smokes 3-4 cigarettes per day, has been a smoker since 19. Past Drug Use History: Marijuana Additional Drug Use History / Comment(s): Marijuana use daily. Aware to refrain for 24 hours prior to procedure. - Past Family History Father Family Medical History: No Reported History Medications and Allergies Home Medications Medication Instructions Recorded Confirmed Type Ipratropium-Albuterol Nebulize 3 ml INHALATION RT-QID 01/19/23 04/11/24 History [Duoneb 0.5 mg-3 mg/3 ml Soln] Fluticasone/Umeclidin/Vilanter 1 puff INHALATION RT-DAILY 05/26/23 04/11/24 History [Trelegy Ellipta 100-62.5-25] Metoprolol Tartrate [Lopressor] 50 mg PO BID 30 Days #60 tab 06/03/23 04/11/24 Rx Tamsulosin [Flomax] 0.4 mg PO PC-BRKFST 30 Days #30 cap 06/03/23 04/11/24 Rx Albuterol Sulfate [Ventolin HFA] 2 puff INHALATION RT-Q4H PRN 07/22/23 04/11/24 History Amiodarone [Cordarone] 200 mg PO DAILY 07/22/23 04/11/24 History Furosemide [Lasix] 20 mg PO BID 07/22/23 04/11/24 History Atorvastatin [Lipitor] 40 mg PO DAILY 03/31/24 04/11/24 History traMADol HCL 50 mg PO Q6H PRN 03/31/24 04/11/24 History Cholecalciferol [Vitamin D3 (25 25 mcg PO DAILY 04/11/24 04/11/24 History Mcg = 1000 Iu)] Multivitamins, Thera [Multivitamin 1 tab PO DAILY 04/11/24 04/11/24 History (formulary)] Nicotine Patch (Unknown Dose) 1 patch TRANSDERM DAILY 04/11/24 04/11/24 History Vitamin B12 (Unknown Dose) 1 tab PO DAILY 04/11/24 04/11/24 History Allergies Allergy/AdvReac Type Severity Reaction Status Date / Time sulfamethoxazole Allergy Rash/Hives Verified 04/11/24 16:44 [From Bactrim] trimethoprim [From Bactrim] Allergy Rash/Hives Verified 04/11/24 16:44 Physical Exam Vitals: Vital Signs Temp Pulse Pulse Resp BP BP Pulse Ox 04/12/24 08:20 80 18 04/12/24 08:08 78 18 98 04/12/24 07:00 98.7 F 65 18 137/72 93 L 04/12/24 01:10 97.7 F 62 20 155/78 100 04/11/24 21:49 75 18 138/68 98 04/11/24 20:51 81 18 137/62 95 04/11/24 19:44 82 20 04/11/24 19:37 80 20 04/11/24 18:00 86 20 120/60 98 04/11/24 16:55 87 20 138/69 98 04/11/24 16:00 98.5 F 89 20 138/69 96 04/11/24 15:49 90 04/11/24 15:36 92 04/11/24 15:29 99.9 F H 100 20 130/68 94 L 04/11/24 14:30 32 H 04/11/24 14:29 100.8 F H 105 H 36 H 140/89 94 L 04/11/24 14:27 100.8 F H 106 H 36 H 146/73 86 L Intake and Output 04/11/24 04/12/24 04/12/24 22:59 06:59 14:59 Other: Weight 59.874 kg Results 04/12/24 03:26 04/12/24 03:26 Cardiac Enzymes 04/11/24 04/11/24 Range/Units 14:27 14:27 AST 85 H (17-59) U/L Troponin I 0.020 (0.000-0.034) ng/mL Coagulation 04/11/24 Range/Units 14:27 PT 12.0 (10.0-12.5) sec APTT 25.9 (22.0-30.0) sec CBC 04/11/24 04/12/24 Range/Units 14:27 03:26 WBC 21.5 H 17.21 H (3.8-10.6) k/uL RBC 3.47 L 2.99 L (4.30-5.90) m/uL Hgb 9.2 L 7.7 L (13.0-17.5) gm/dL Hct 29.5 L 25.7 L (39.0-53.0) % Plt Count 307 257 (150-450) k/uL Comprehensive Metabolic Panel 04/11/24 04/12/24 Range/Units 14:27 03:26 Sodium 139 142 (137-145) mmol/L Potassium 4.2 4.7 (3.5-5.1) mmol/L Chloride 107 109 (98-107) mmol/L Carbon Dioxide 26 22.2 (22-30) mmol/L BUN 66 H 66.6 H (9-20) mg/dL Creatinine 3.87 H 3.9 H (0.66-1.25) mg/dL Glucose 107 H 123 H (74-99) mg/dL Calcium 8.5 7.9 L (8.4-10.2) mg/dL AST 85 H (17-59) U/L ALT 22 (4-49) U/L Alkaline Phosphatase 164 H (38-126) U/L Total Protein 6.1 L (6.3-8.2) g/dL Albumin 2.4 L (3.5-5.0) g/dL Current Medications Generic Name Dose Route Start Last Admin Trade Name Freq PRN Reason Stop Dose Admin Albuterol/Ipratropium 3 ml 04/11/24 17:00 Ipratropium-Albuterol 3 Ml Neb INHALATION RT-Q2H PRN Shortness Of Breath Or Wheezing Albuterol/Ipratropium 3 ml 04/11/24 20:00 04/12/24 08:08 Ipratropium-Albuterol 3 Ml Neb INHALATION 3 ml RT-QID VISH Administration Amiodarone HCl 200 mg 04/12/24 09:00 04/12/24 08:52 Amiodarone 200 Mg Tab PO 200 mg DAILY VISH Administration Atorvastatin Calcium 40 mg 04/12/24 09:00 04/12/24 08:52 Atorvastatin 40 Mg Tab PO 40 mg DAILY VISH Administration Azithromycin 500 mg 04/12/24 09:00 04/12/24 08:52 Azithromycin 500 Mg Tab PO 04/14/24 09:01 500 mg DAILY VISH Administration Protocol Budesonide/Formoterol Fumarate 2 puff 04/12/24 20:00 Symbicort 160-4.5 Mcg Inhaler INHALATION RT-BID VISH Heparin Sodium (Porcine) 5,000 unit 04/12/24 16:00 Heparin Sodium,Porcine 5,000 Unit/Ml 1 Ml Vial SQ Q8HR [facility] Ceftriaxone Sodium 2 gm/ 50 mls @ 100 mls/hr 04/12/24 09:00 04/12/24 09:35 Sodium Chloride IVPB 100 mls/hr Q24HR VISH Administration Protocol Methylprednisolone Sodium Succinate 60 mg 04/12/24 12:00 Methylprednisolone Sod Succi 125 Mg/2 Ml Vial IV Q6HR VISH Metoprolol Tartrate 50 mg 04/11/24 21:00 04/12/24 08:52 Metoprolol Tartrate 50 Mg Tab PO 50 mg BID VISH Administration Miscellaneous Information 1 each 04/11/24 15:03 Pneumonia Protocol Utilized 1 Each Misc PO ONCE PRN Per Protocol Tamsulosin HCl 0.4 mg 04/12/24 08:30 04/12/24 08:52 Tamsulosin 0.4 Mg Cap.Er.24h PO 0.4 mg PC-BRKFST VISH Administration Tramadol HCl 50 mg 04/12/24 02:00 04/12/24 06:36 Tramadol 50 Mg Tab PO 50 mg Q6HR PRN Administration Pain Intake and Output 04/11/24 04/12/24 04/12/24 22:59 06:59 14:59 Other: Weight 59.874 kg 04/12/24 03:26 04/12/24 03:26
--- NOTE | 2024-04-12 15:46 | P.PN ---
Subjective Progress Note Date: 04/12/24 Subjective: Patient seen and examined at the bedside. No acute events overnight. All Systems reviewed and pertinent positives and negatives noted in HPI, all other symptoms are negative Objective: Vital signs reviewed. General: non toxic, no distress, appears at stated age, normal weight Derm: no unusual rashes/lesions, warm Head: atraumatic, normocephalic, symmetric Eyes: EOMI, no lid lag, anicteric sclera, pupils equal round reactive to light ENT: Nose and ears atraumatic Neck: No cervical lymphadenopathy, trachea midline, supple Mouth: no lip lesion, mucus membranes moist Cardiovascular: S1S2 reg, no murmur, positive dorsalis pedis pulse bilateral, bilateral 2+ pitting edema Lungs: Decreased breath sound bilaterally, no wheezing, no rhonchi, no rales, no accessory muscle use, on 5 L oxygen by nasal cannula Abdominal: soft, nontender to palpation, no guarding Ext: muscle strength 5 out of 5 in all 4 extremities grossly, no gross muscle atrophy, no contractures, Neuro: CN II-XI grossly intact, no gross focal neuro deficits Psych: Alert, oriented, appropriate affect Data reviewed today: Labs: Hemoglobin 7.7, hematocrit 25.7, sodium 142, potassium 4.0, chloride 109, bicarb 22.2, BUN 66.5 creatinine 3.9, EGFR 15, glucose 123, calcium 7.9, lactate dehydrogenase 1063, NT proBNP 5890 Images: Chest x-ray independently interpreted shows diffuse interstitial infiltrate with bibasilar pleural effusion Renal and bladder ultrasound shows moderate to severe hydronephrosis of the right kidney with stent in place and moderate hydronephrosis and left kidney Assessment and Plan: 78-year-old patient with history of COPD, chronic hypoxemic respiratory failure, hypertension, hyperlipidemia, bladder cancer presents to the ER is admitted to the hospital for further evaluation and treatment for community-acquired pneumonia and HFpEF #Sepsis secondary to community-acquired pneumonia #Chronic hypoxic respiratory failure #COPD exacerbation #Bilateral lower extremity edema #Heart failure with preserved ejection fraction, not in exacerbation #Acute metabolic encephalopathy, resolved IV fluids discontinued Continue with IV Rocephin 2 g IVPB every 24 hour and Zithromax 500 mg p.o. daily DuoNebs as scheduled and [id number] Blood culture, sputum culture, Legionella antigen, results pending Procalcitonin 1.23 Discussed management with pulmonology, patient started on IV Solu-Medrol 60 mg every 6 hour Continue with oxygen therapy, currently at baseline, stable on 5 L oxygen via nasal cannula Echo on 04/02/2024 shows LVEF 60 to 65% with mild left atrial dilatation, mild MR/TR with Pulm HTN Cardiology consulted, note reviewed: Patient started on IV Lasix 40 mg daily Continue cardiac telemetry Strict I's and O's Daily weights #Oliguric acute kidney injury secondary to above Renal and bladder ultrasound shows persisting moderate to severe right and moderate left hydronephrosis with similar findings from 04/03/2024 Baseline creatinine is 2.4 Creatinine worsening 3.87 to 3.9 Discontinue IV fluids IV Lasix as above Repeat BMP in afternoon Continue with strict I's and O's Avoid nephrotoxins -If no improvement, consider nephrology consult #Normocytic anemia Hemodilution versus intravascular versus extravascular hemolysis Hemoglobin dropped from 9.2--->7.7 No active bleeding Order iron studies, reticulocyte count, LDH Order vitamin B12 and RBC folate #Transaminitis #Elevated ALP Secondary to above AST 85, ALP 164 Chronic condition: A-fib: Resume amiodarone 200 mg p.o. daily Hypertension: Resume Lopressor 50 mg p.o. twice daily BPH: Resume Flomax 0.4 mg p.o. daily Hyperlipidemia: Resume Lipitor 40 mg p.o. daily DVT prophylaxis: Subcu heparin CODE STATUS: Full code Discussed with: Patient Anticipated discharge place: Pending clinical course I have seen and evaluated the patient today. Discussed with the resident and agree with the residents finding and plan as documented in the resident's note. Changes highlighted in blue font. Objective - Vital Signs Vital signs: Vital Signs Temp 97.7 F 04/12/24 13:34 Pulse 88 04/12/24 15:10 Resp 18 04/12/24 15:10 BP 133/74 04/12/24 13:34 Pulse Ox 99 04/12/24 13:34 FiO2 Intake & Output 04/11/24 04/12/24 04/12/24 18:59 06:59 18:59 Weight 59.874 kg 59.874 kg Other: Voiding Method Urinal - Labs CBC & Chem 7: 04/12/24 03:26 04/12/24 03:26 Labs: Abnormal Lab Results - Last 24 Hours (Table) 04/11/24 04/12/24 04/12/24 Range/Units 14:27 03:26 03:26 WBC 17.21 H (4.50-10.00) X 10*3/uL RBC 2.99 L (4.40-5.60) X 10*6/uL Hgb 7.7 L (13.0-17.0) g/dL Hct 25.7 L (39.6-50.0) % MCH 25.8 L (27.0-32.0) pg MCHC 30.0 L (32.0-37.0) g/dL RDW 19.8 H (11.5-14.5) % Immature Gran # 0.10 H (0.00-0.04) X 10*3/uL Neutrophils # 16.19 H (1.80-7.70) X 10*3/uL Lymphocytes # 0.53 L (0.90-5.00) X 10*3/uL Eosinophils # 0 L (0.04-0.35) X 10*3/uL BUN 66.6 H (9.0-27.0) mg/dL Creatinine 3.9 H (0.6-1.5) mg/dL Est GFR (CKD-EPI) 15 L (>=60) Glucose 123 H (70-110) mg/dL Calcium 7.9 L (8.7-10.3) mg/dL Lactate Dehydrogenase (120-246) U/L Procalcitonin 1.23 H (0.02-0.50) ng/mL Urine Protein (Negative) Urine Blood (Negative) Ur Leukocyte Esterase (Negative) Urine RBC (0-5) /hpf Urine WBC (0-5) /hpf Urine Mucus (None) /hpf 04/12/24 04/12/24 Range/Units 05:56 10:19 WBC (4.50-10.00) X 10*3/uL RBC (4.40-5.60) X 10*6/uL Hgb (13.0-17.0) g/dL Hct (39.6-50.0) % MCH (27.0-32.0) pg MCHC (32.0-37.0) g/dL RDW (11.5-14.5) % Immature Gran # (0.00-0.04) X 10*3/uL Neutrophils # (1.80-7.70) X 10*3/uL Lymphocytes # (0.90-5.00) X 10*3/uL Eosinophils # (0.04-0.35) X 10*3/uL BUN (9.0-27.0) mg/dL Creatinine (0.6-1.5) mg/dL Est GFR (CKD-EPI) (>=60) Glucose (70-110) mg/dL Calcium (8.7-10.3) mg/dL Lactate Dehydrogenase 1063 H (120-246) U/L Procalcitonin (0.02-0.50) ng/mL Urine Protein 1+ H (Negative) Urine Blood Large H (Negative) Ur Leukocyte Esterase Trace H (Negative) Urine RBC >182 H (0-5) /hpf Urine WBC 16 H (0-5) /hpf Urine Mucus Rare H (None) /hpf
[2024-04-12] MEDS: HEPARIN SODIUM,PORCINE 5,000 UNIT/ML 1 ML VIAL SQ SCH (16:44)
[2024-04-12 16:48] LABS: African American GFR (CKD) 19 (>60 ml/min/1.73 sqM); Anion Gap 6 mmol/L; Blood Urea Nitrogen 74 mg/dL (9-20); Calcium 7.8 mg/dL (8.4-10.2); Carbon Dioxide 22 mmol/L (22-30); Chloride 110 mmol/L (98-107); Glucose 119 mg/dL (74-99); Non-African American GFR(CKD) 16 (>60 ml/min/1.73 sqM); Potassium 4.4 mmol/L (3.5-5.1); Sodium 138 mmol/L (137-145)
[2024-04-12] MEDS: SYMBICORT 160-4.5 MCG INHALER INHALATION SCH (20:22)
[2024-04-12 23:09] LABS: % Iron Saturation 5.41 (15.00-50.00); Iron 8 UG/DL (65-175); Total Iron Binding Capacity 148 UG/DL (228-460)
[2024-04-13 00:16] LABS: Vitamin B12 >3600.0 pg/mL (200.0-944.0)
[2024-04-13 08:21] LABS: HCT 27.6 % (39.6-50.0); HGB 8.4 g/dL (13.0-17.0); MCHC 30.4 g/dL (32.0-37.0); MCV 85.4 FL (80.0-97.0); Mean Platelet Volume 10.6 FL (9.5-12.2); NRBC Per 100 WBC 0 X 10*3/uL (0.00-0.01); Platelet Count 305 X 10*3/uL (140-440); RBC 3.23 X 10*6/uL (4.40-5.60); RDW 19.8 % (11.5-14.5); WBC 24.49 X 10*3/uL (4.50-10.00)
[2024-04-13 09:09] LABS: BUN/Creat Ratio 18.33 Ratio (12.00-20.00); Blood Urea Nitrogen 71.5 mg/dL (9.0-27.0); Calcium 8.1 mg/dL (8.7-10.3); Carbon Dioxide 19.3 mmol/L (21.6-31.8); Chloride 106 mmol/L (96-109); Glucose 136 mg/dL (70-110); Magnesium 1.7 mg/dL (1.5-2.4); Potassium 4.6 mmol/L (3.5-5.5); Sodium 138 mmol/L (135-145)
[2024-04-13 09:45] LABS: Basophils # (A) 0.03 X 10*3/uL (0.00-0.10); Basophils % (A) 0.1 %; Eosinophils # (A) 0 X 10*3/uL (0.04-0.35); Eosinophils % (A) 0 %; Hypochromasia (M) 2+; Lymphocytes # (A) 0.64 X 10*3/uL (0.90-5.00); Lymphocytes % (A) 2.6 %; Monocytes # (A) 0.63 X 10*3/uL (0.20-1.00); Monocytes % (A) 2.6 %; Neutrophils # (A) 22.91 X 10*3/uL (1.80-7.70); Neutrophils % (A) 93.6 %
--- NOTE | 2024-04-13 12:43 | P.PN ---
Subjective Progress Note Date: 04/13/24 This is a 78-year-old male patient of Dr. Leroy with past medical history of bladder cancer, COPD, chronic hypoxic respiratory failure on home O2, CAD with prior stenting, hypertension, hyperlipidemia, tobacco use and dependence, paroxysmal atrial fibrillation. We have been asked to evaluate the patient for CHF. Patient states that he came to the hospital because his mental status was in and out. He presented to the ER with mild confusion as well as shortness of breath. Apparently his home care nurse visited him and found the patient was febrile and sent him in the emergency center for evaluation. Patient was recently hospitalized in earlier March for pneumonia and was discharged on 04/03. Patient's mental status appears to be back to baseline. He does have some chronic shortness of breath which also appears to be almost back to baseline. He has had some mild lower extremity edema. Blood pressure 137/72, heart rate in the 70s and 80s, pulse ox 98% on 5 L nasal cannula. Patient states that he quit smoking 1 month ago. He denies any alcohol use or drug use. EKG: Sinus rhythm with right bundle branch block Chest x-ray: COPD. Correlate for superimposed pulmonary vascular congestion. Small pleural effusions with adjacent atelectasis and/or consolidation. Underlying basilar pneumonia cannot be excluded on a clinical basis. Repeat chest x-ray: COPD. Correlate for superimposed CHF and pulmonary vascular congestion with slight interval worsening. Patchy bibasilar opacities with trace pleural effusions slightly worsened. Renal ultrasound: 3.3 cm irregular mass projecting into the lumen of the bladder. Moderate to severe right and moderate left hydronephrosis Laboratory studies: WBC initially 21.5 now 17.1, hemoglobin 7.7. Sodium 142, potassium 4.7, BUN 66 and creatinine 3.9. Alkaline phosphatase 164, AST 85. Troponin negative x 1. proBNP 5890. Procalcitonin 1.23. Urinalysis blood large, RBCs greater than 182, WBC 16. Influenza A, influenza B, RSV, COVID-19 not detected. Home cardiac medications: Amiodarone 200 mg daily, atorvastatin 40 mg daily, Lasix 20 mg twice daily, Lopressor 50 mg twice daily. Echocardiogram performed on 04/01/2024 reveals EF of 60 to 65%. Mild mitral and moderate tricuspid regurgitation with moderate pulmonary hypertension. Aortic valve sclerosis noted no restriction. Mild to small pericardial effusion. 04/13 Patient is seen and examined. Patient has been started on his home cardiac medications as well as IV antibiotics and IV Solu-Medrol for pneumonia and COPD exacerbation. Patient is currently on IV Lasix 40 mg daily. He has a negative fluid balance and documented weight gain. Repeat blood work reveals WBC 24.4, hemoglobin 8.4. Sodium 138, potassium 4.6, CO2 19, BUN 71 creatinine 3.9. Patient states that his breathing is better today and that he feels he is ready to go home. Physical examination: Gen: This is a disheveled appearing 78-year-old male in no acute distress VS: reviewed HEENT: Head is atraumatic, normocephalic. Pupils equal, round. Sclerae is anicteric. NECK: Supple. No JVD. LUNGS: Decreased breath sounds. No wheezes or rhonchi. No intercostal retractions. HEART: Regular rate and rhythm. No murmur. ABDOMEN: Soft No tenderness. EXTREMITIES: Mild bilateral lower extremity edema. No calf tenderness. NEUROLOGICAL: Patient is awake, alert and oriented x3. Assessment: Acute dyspnea secondary to a combination of COPD exacerbation and acute diastolic heart failure Chronic hypoxic respiratory failure on home O2 at 5 L nasal cannula Acute kidney injury and chronic kidney disease stage IV Anemia Leukocytosis Bilateral hydronephrosis Bladder mass with history of bladder cancer Chronic hypoxic respiratory failure Paroxysmal atrial fibrillation CAD with prior stenting Infrarenal aortic aneurysm monitored by vascular surgery Valvular heart disease with mild mitral regurgitation and moderate tricuspid regurgitation, moderate pulmonary hypertension Tobacco use and dependence, patient quit 1 month ago Plan: Continue patient's home cardiac medications Transition IV Lasix to oral 20 mg twice daily Monitor MAINE, daily weights, electrolytes and renal function No need to repeat echocardiogram Patient is cleared for discharge from a cardiology perspective. He may follow- up with Dr. Leroy in 1 week. Nurse practitioner note has been reviewed, I agree with documented findings and plan of care. Patient was seen and examined. Objective - Vital Signs Vital signs: Vital Signs Temp 97.8 F 04/13/24 07:30 Pulse 66 04/13/24 09:12 Resp 18 04/13/24 09:12 BP 153/75 04/13/24 07:30 Pulse Ox 97 04/13/24 08:59 FiO2 Intake & Output 04/12/24 04/13/24 04/13/24 18:59 06:59 18:59 Output Total 1100 Balance -1100 Weight 67 kg Output: Urine 1100 Other: Voiding Method Urinal # Voids 2 1 # Bowel Movements 1 1 - Labs CBC & Chem 7: 04/13/24 05:32 04/13/24 05:32 Labs: Abnormal Lab Results - Last 24 Hours (Table) 04/12/24 04/12/24 04/12/24 Range/Units 10:19 10:19 16:19 WBC (4.50-10.00) X 10*3/uL RBC (4.40-5.60) X 10*6/uL Hgb (13.0-17.0) g/dL Hct (39.6-50.0) % MCH (27.0-32.0) pg MCHC (32.0-37.0) g/dL RDW (11.5-14.5) % Immature Gran # (0.00-0.04) X 10*3/uL Neutrophils # (1.80-7.70) X 10*3/uL Lymphocytes # (0.90-5.00) X 10*3/uL Eosinophils # (0.04-0.35) X 10*3/uL Hypochromasia (manual) Haptoglobin 242.0 H (31.2-198.0) mg/dL Chloride 110 H (98-107) mmol/L Carbon Dioxide (21.6-31.8) mmol/L Anion Gap (4.00-12.00) mmol/L BUN 74 H (9-20) mg/dL Creatinine 3.47 H (0.66-1.25) mg/dL Est GFR (CKD-EPI) (>=60) Glucose 119 H (74-99) mg/dL Calcium 7.8 L (8.4-10.2) mg/dL Iron 8 L (65-175) UG/DL TIBC 148 L (228-460) UG/DL % Saturation 5.41 L (15.00-50.00) Transferrin 106.0 L 103.0 L (204.0-354.0) mg/dL Ferritin 680.0 H (22.0-322.0) ng/mL Lactate Dehydrogenase 1063 H (120-246) U/L Vitamin B12 >3600.0 H (200.0-944.0) pg/mL 04/13/24 04/13/24 Range/Units 05:32 05:32 WBC 24.49 H (4.50-10.00) X 10*3/uL RBC 3.23 L (4.40-5.60) X 10*6/uL Hgb 8.4 L (13.0-17.0) g/dL Hct 27.6 L (39.6-50.0) % MCH 26.0 L (27.0-32.0) pg MCHC 30.4 L (32.0-37.0) g/dL RDW 19.8 H (11.5-14.5) % Immature Gran # 0.28 H (0.00-0.04) X 10*3/uL Neutrophils # 22.91 H (1.80-7.70) X 10*3/uL Lymphocytes # 0.64 L (0.90-5.00) X 10*3/uL Eosinophils # 0 L (0.04-0.35) X 10*3/uL Hypochromasia (manual) 2+ A Haptoglobin (31.2-198.0) mg/dL Chloride (98-107) mmol/L Carbon Dioxide 19.3 L (21.6-31.8) mmol/L Anion Gap 12.70 H (4.00-12.00) mmol/L BUN 71.5 H (9-20) mg/dL Creatinine 3.9 H (0.66-1.25) mg/dL Est GFR (CKD-EPI) 15 L (>=60) Glucose 136 H (74-99) mg/dL Calcium 8.1 L (8.4-10.2) mg/dL Iron (65-175) UG/DL TIBC (228-460) UG/DL % Saturation (15.00-50.00) Transferrin (204.0-354.0) mg/dL Ferritin (22.0-322.0) ng/mL Lactate Dehydrogenase (120-246) U/L Vitamin B12 (200.0-944.0) pg/mL Microbiology - Last 24 Hours (Table) 04/12/24 05:56 Urine Culture - Final Urine,Voided 04/12/24 06:39 Gram Stain - Preliminary Sputum 04/11/24 15:18 Blood Culture - Preliminary Blood
--- NOTE | 2024-04-13 14:35 | P.PN ---
Subjective Progress Note Date: 04/13/24 Patient is a 78-year-old male with past medical history significant for very severe COPD with an FEV1 22% of predicted, chronic hypoxemic respiratory failure normally on 5 L/min home O2, former tobacco dependence quitting approximately 1 month ago, coronary artery disease, hypertension, hyperlipidemia, aortic aneurysm, bladder cancer, hydronephrosis with previous stents, DVT, atrial fibrillation. Primary care provider is Dr. Miranda. He does follow in the pulmonary office with Dr. Harrison for management of his severe COPD. Uses a Trelegy maintenance inhaler, DuoNebs [id number], and albuterol HFA inhaler as needed. Of note, recent admitted for community-acquired pneumonia earlier this month; pulmonary was not consulted. Discharged on April 04 with home care. Patient's states that he is been feeling relatively well up to the last 24 hours. He lives with his adult grandchildren and great grandkids who have reportedly been sick with URI symptoms. Noted to be confused with high fevers during nurse visit, and advised to come to the ER. Chest x-ray on arrival showing stable cardiac silhouette, coarsened interstitial densities, possible small bilateral pleural effusions,and bibasilar atelectasis versus developing infiltrates. Does state that his shortness of breath has been slightly worse than baseline. Denies any productive cough, chest pain, hemoptysis, wheezing. He does have significant lower extremity edema, which he states that is actually better than baseline. Takes Lasix on an outpatient basis. He does have bladder cancer, recently underwent transurethral bladder tumor resection and right ureteral stent placement, on July,. Pathology positive for invasive high-grade urothelial carcinoma. Renal function is worse than baseline. Patient denies any dysuria, hematuria, urinary frequency, flank pain. CBC: WBC count 21.5, hemoglobin 9.2, hematocrit 29.5, platelets 307. CMP: Sodium 139, potassium 4.2, chloride 107, serum bicarb 26, BUN 3066, creatinine 3.87, glucose 107. LFTs mildly elevated. NT proBNP 5000 890. EKG: Sinus tachycardia, rate 106 bpm, RBB pattern. Procalcitonin 1.23. Negative for influenza, RSV, COVID. Patient is currently being evaluated on the general medical floor. Mentation is improved. Currently on 5 L/min nasal cannula. SpO2 100%. No acute respiratory distress. The patient is seen today April 13, 2024 in follow-up on the regular medical floor. He is currently resting in bed. Awake and alert in no acute distress. He is maintaining good O2 saturations in the 90s on 5 L/min per nasal cannula. His procalcitonin was 1.23. He is continued on ceftriaxone and azithromycin. Blood, urine and sputum cultures revealing no growth. White count 24.5. Hemoglobin 8.4. Platelets 305. Sodium 138. Potassium 4.6. Bicarb 19. BUN 72. Creatinine 3.9. Glucose 136. He remains on DuoNeb and elations, Symbic ort, Solu-Medrol. Heparin for DVT prophylaxis. Objective - Vital Signs Vital signs: Vital Signs Temp 97.5 F L 04/13/24 13:07 Pulse 63 04/13/24 13:07 Resp 16 04/13/24 13:07 BP 133/77 04/13/24 13:07 Pulse Ox 100 04/13/24 13:07 FiO2 Intake & Output 04/12/24 04/13/24 04/13/24 18:59 06:59 18:59 Output Total 1100 650 Balance -1100 -650 Weight 67 kg Output: Urine 1100 650 Other: Voiding Method Urinal Urinal # Voids 2 1 # Bowel Movements 1 1 - Exam GENERAL EXAM: Alert, 78-year-old male, on 5 L nasal cannula, comfortable in no apparent distress. HEAD: Normocephalic. EYES: Normal reaction of pupils, equal size. NOSE: Clear with pink turbinates. THROAT: No erythema or exudates. NECK: No masses, no JVD. CHEST: No chest wall deformity. LUNGS: Equal air entry with no crackles, wheeze, rhonchi or dullness. CVS: S1 and S2 normal with no audible murmur, regular rhythm. ABDOMEN: No hepatosplenomegaly, normal bowel sounds, no guarding or rigidity. SPINE: No scoliosis or deformity SKIN: No rashes CENTRAL NERVOUS SYSTEM: No focal deficits, tone is normal in all 4 extremities. EXTREMITIES: There is no peripheral edema. No clubbing, no cyanosis. Peripheral pulses are intact. - Labs CBC & Chem 7: 04/13/24 05:32 04/13/24 05:32 Labs: Abnormal Lab Results - Last 24 Hours (Table) 04/12/24 04/12/24 04/12/24 Range/Units 10:19 10:19 10:19 WBC (4.50-10.00) X 10*3/uL RBC (4.40-5.60) X 10*6/uL Hgb (13.0-17.0) g/dL Hct (39.6-50.0) % MCH (27.0-32.0) pg MCHC (32.0-37.0) g/dL RDW (11.5-14.5) % Immature Gran # (0.00-0.04) X 10*3/uL Neutrophils # (1.80-7.70) X 10*3/uL Lymphocytes # (0.90-5.00) X 10*3/uL Eosinophils # (0.04-0.35) X 10*3/uL Hypochromasia (manual) Haptoglobin 242.0 H (31.2-198.0) mg/dL Chloride (98-107) mmol/L Carbon Dioxide (21.6-31.8) mmol/L Anion Gap (4.00-12.00) mmol/L BUN (9-20) mg/dL Creatinine (0.66-1.25) mg/dL Est GFR (CKD-EPI) (>=60) Glucose (74-99) mg/dL Calcium (8.4-10.2) mg/dL Iron 8 L (65-175) UG/DL TIBC 148 L (228-460) UG/DL % Saturation 5.41 L (15.00-50.00) Transferrin 106.0 L 103.0 L (204.0-354.0) mg/dL Ferritin 680.0 H (22.0-322.0) ng/mL Vitamin B12 >3600.0 H (200.0-944.0) pg/mL RBC Folate 1,006 H (280 - 791) ng/mL 04/12/24 04/13/24 04/13/24 Range/Units 16:19 05:32 05:32 WBC 24.49 H (4.50-10.00) X 10*3/uL RBC 3.23 L (4.40-5.60) X 10*6/uL Hgb 8.4 L (13.0-17.0) g/dL Hct 27.6 L (39.6-50.0) % MCH 26.0 L (27.0-32.0) pg MCHC 30.4 L (32.0-37.0) g/dL RDW 19.8 H (11.5-14.5) % Immature Gran # 0.28 H (0.00-0.04) X 10*3/uL Neutrophils # 22.91 H (1.80-7.70) X 10*3/uL Lymphocytes # 0.64 L (0.90-5.00) X 10*3/uL Eosinophils # 0 L (0.04-0.35) X 10*3/uL Hypochromasia (manual) 2+ A Haptoglobin (31.2-198.0) mg/dL Chloride 110 H (98-107) mmol/L Carbon Dioxide 19.3 L (21.6-31.8) mmol/L Anion Gap 12.70 H (4.00-12.00) mmol/L BUN 74 H 71.5 H (9-20) mg/dL Creatinine 3.47 H 3.9 H (0.66-1.25) mg/dL Est GFR (CKD-EPI) 15 L (>=60) Glucose 119 H 136 H (74-99) mg/dL Calcium 7.8 L 8.1 L (8.4-10.2) mg/dL Iron (65-175) UG/DL TIBC (228-460) UG/DL % Saturation (15.00-50.00) Transferrin (204.0-354.0) mg/dL Ferritin (22.0-322.0) ng/mL Vitamin B12 (200.0-944.0) pg/mL RBC Folate (280 - 791) ng/mL Microbiology - Last 24 Hours (Table) 04/12/24 06:39 Gram Stain - Preliminary Sputum Sputum Culture - Preliminary 04/12/24 05:56 Urine Culture - Final Urine,Voided 04/11/24 15:18 Blood Culture - Preliminary Blood Assessment and Plan Assessment: Acute on chronic dyspnea Recent inpatient treatment for community acquired pneumonia; repeat chest x-ray showing stable cardiac silhouette, coarsened interstitium, possible small bilateral pleural effusions,and worsening bibasilar opacities Acute febrile illness Acute leukocytosis Acute on chronic kidney disease Anemia of chronic disease Very severe chronic obstructive pulmonary disease, with an FEV1 22% of predicted; normally maintained on Trelegy maintenance inhaler, DuoNebs [id number], and as needed albuterol HFA inhaler. Appears stable Chronic hypoxemic respiratory failure, normally maintained on 5 L/min nasal cannula Former tobacco dependence, reportedly quit smoking approximately 1 month ago, prior to that very heavy smoking history greater than 50 pack years History of hypertension History of hyperlipidemia History of coronary artery disease Infrarenal aortic aneurysm, monitored by vascular surgeon outpatient History of paroxysmal atrial fibrillation Bilateral lower extremity edema Echocardiogram, 04/02/2024, estimating left ventricular ejection fraction of 60 to 65%, mild mitral regurgitation, moderate pulmonary hypertension, moderate tricuspid regurgitation, and a small pericardial effusion Bladder cancer status post transurethral resection of bladder tumor July,, pathology positive invasive high-grade urothelial carcinoma. PET scan done in August showing some FDG avid retroperitoneal lymph nodes History of bilateral hydronephrosis with right ureteral stent placement Plan: The patient was seen and evaluated Labs and medications reviewed Continue the current treatment plan Titrate down the FiO2 as tolerated Follow-up chest x-ray in a.m. We will continue to follow I have personally seen and examined the patient, performed the documentation and the assessment and plan as written. Number of minutes spent on the visit: 10 Dictation was produced using [employer] dictation software. Please excuse any grammatical, word or spelling errors.
--- NOTE | 2024-04-13 16:03 | CDI ---
Documentation Clarification Form Date: 04/13/2024 04:02:49 PM From: Andreia Baldwin RN, CCDS Phone: [phone] Admit Date: 04/11/2024 03:05:00 PM Patient Name: Nomi Peng Visit Number: [id number] Discharge Date: ATTENTION: The Clinical Documentation Specialists (CDI) and [facility] Coding Staff appreciate your assistance in clarifying documentation. Please respond to the clarification below the line at the bottom and electronically sign. The CDI & [facility] Coding staff will review the response and follow-up if needed. Please note: Queries are made part of the Legal Health Record. If you have any questions, please contact the author of this message via ITS. Doctor/Provider: Sher Diggs Conflicting documentation has been found in the medical record. As attending physician, please provide clarification. 04/12 Cardiology consult and subsequent progress note: Acute dyspnea secondary to a combination of COPD exacerbation and acute diastolic heart failure EKG: Sinus rhythm with right bundle branch block 04/12 Attending progress note: Heart failure with preserved ejection fraction, not in exacerbation History/Risk Factors: COPD, chronic hypoxic respiratory failure on home O2, CAD, hypertension, hyperlipidemia, paroxysmal atrial fibrillation Clinical Indicators: 78-year-old male presented to the ER with mild as well as shortness of breath. Recent treatment for pneumonia. He has had some mild lower extremity edema. 04/11 VS: 146/73 106 36 100.8 86 % RA 04/11 Lab: WBC 21.5 Neutrophils 19.1 BUN 55 CR 3/87 BNP 5980, Troponin 0.020 04/11 CXR: Superimposed pulmonary vascular congestion. small pleural effusion with adjacent atelectasis and/or consolidation. Underlying basilar pneumonia can be excluded on a clinical basis 04/12 CXR: Correlate for superimposed CHF with pulmonary vascular congestion with slight interval worsening Treatment: Cardiac Telemetry monitoring Lasix 40 MG IV Daily 04/12-04/13 Lasix 20 MG PO BID 04/13 Daily weights, Monitor I/O Electrolyte and renal function Cordarone 200 MG PO Daily Lipitor 40 MG PO Daily Lopressor 50MG PO BID Please clarify which diagnosis is most appropriate: [ x ] Acute diastolic heart failure [ ] Heart failure with preserved ejection fraction, not in exacerbation [ ] Other (please specify) [ ] Unable to determine (Template Last Revised: August 2020) MTDD
[2024-04-13] MEDS: FUROSEMIDE 20 MG TAB PO SCH (16:16)
--- NOTE | 2024-04-13 16:30 | P.PN ---
Subjective Progress Note Date: 04/13/24 Subjective: Patient seen and examined at the bedside. No acute events overnight. All Systems reviewed and pertinent positives and negatives noted in HPI, all other symptoms are negative Objective: Vital signs reviewed. General: non toxic, no distress, appears at stated age, normal weight Derm: no unusual rashes/lesions, warm Head: atraumatic, normocephalic, symmetric Eyes: EOMI, no lid lag, anicteric sclera, pupils equal round reactive to light ENT: Nose and ears atraumatic Neck: No cervical lymphadenopathy, trachea midline, supple Mouth: no lip lesion, mucus membranes moist Cardiovascular: S1S2 reg, no murmur, positive dorsalis pedis pulse bilateral, bilateral 1+ pitting edema Lungs: Mild bilateral expiratory wheezing, no rhonchi, no rales, no accessory muscle use, on 5 L oxygen by nasal cannula Abdominal: soft, nontender to palpation, no guarding Ext: muscle strength 5 out of 5 in all 4 extremities grossly, no gross muscle atrophy, no contractures, Neuro: CN II-XI grossly intact, no gross focal neuro deficits Psych: Alert, oriented, appropriate affect Data reviewed today: Labs: WBC 24.49, hemoglobin 8.4, platelet count 305, reticulocyte count 1.1, haptoglobin 242, sodium 138, potassium 4.6, chloride 106, bicarb 19.3, BUN 71.5, creatinine 3.9, calcium 8.1, magnesium 1.7 Images: No new imaging Assessment and Plan: 78-year-old patient with history of COPD, chronic hypoxemic respiratory failure, hypertension, hyperlipidemia, bladder cancer presents to the ER is admitted to the hospital for further evaluation and treatment for community-acquired pneumonia and HFpEF #Sepsis secondary to community-acquired pneumonia #Chronic hypoxic respiratory failure #COPD exacerbation #Bilateral lower extremity edema #Heart failure with preserved ejection fraction, not in exacerbation #Acute metabolic encephalopathy, resolved #Leukocytosis secondary to glucocorticoid Continue with IV Rocephin 2 g IVPB every 24 hour and Zithromax 500 mg p.o. daily for 7-day course DuoNebs as scheduled and [id number] Blood culture negative, Sputum culture and Legionella antigen are pending Procalcitonin 1.23 Pulmonary note reviewed; continue IV Solu-Medrol 60 mg every 6 hour Continue with oxygen therapy, currently at baseline, stable on 5 L oxygen via n jaxson cannula Echo on 04/02/2024 shows LVEF 60 to 65% with mild left atrial dilatation, mild MR/TR with Pulm HTN Cardiology note reviewed: IV Lasix transition to oral Lasix 20 mg p.o. daily Cardiology signed off Continue cardiac telemetry Strict I's and O's Daily weights #Oliguric acute kidney injury secondary to above Renal and bladder ultrasound shows persisting moderate to severe right and moderate left hydronephrosis with similar findings from 04/03/2024 Baseline creatinine is 2.4 Creatinine worsening 3.47 to 3.9 Oral Lasix 20 mg p.o. daily Repeat BMP tomorrow morning Continue with strict I's and O's Avoid nephrotoxins Nephrology consulted #Normocytic anemia in the setting of chronic disease and iron deficiency #Hypoproliferation #Low absolute reticulocyte count Hemoglobin dropped from 9.2--->7.7 No active bleeding Ferritin 630, transferrin 103, TIBC 148, iron 8 Reticulocyte 1.1, absolute reticulocyte count 0.7 with an index of 0.44 indicating hypoproliferation #Transaminitis #Elevated ALP Secondary to above AST 85, ALP 164 Chronic condition: A-fib: Resume amiodarone 200 mg p.o. daily Hypertension: Lopressor 50 mg p.o. twice daily BPH: Resume Flomax 0.4 mg p.o. daily Hyperlipidemia: Resume Lipitor 40 mg p.o. daily DVT prophylaxis: Subcu heparin CODE STATUS: Full code Discussed with: Patient Anticipated discharge place: Pending clinical course I saw and evaluated the patient during the black and critical portions of this encounter, and discussed the case in detail with the resident author of this note, I agree with the Assessment and Plan, and my changes, if any, are highlighted in blue. Objective - Vital Signs Vital signs: Vital Signs Temp 97.9 F 04/13/24 15:12 Pulse 68 04/13/24 15:48 Resp 18 04/13/24 15:48 BP 153/84 04/13/24 15:12 Pulse Ox 98 04/13/24 15:12 FiO2 Intake & Output 04/12/24 04/13/24 04/13/24 18:59 06:59 18:59 Output Total 1100 800 Balance -1100 -800 Weight 67 kg Output: Urine 1100 800 Other: Voiding Method Urinal Urinal # Voids 2 1 # Bowel Movements 1 1 - Labs CBC & Chem 7: 04/13/24 05:32 04/13/24 05:32 Labs: Abnormal Lab Results - Last 24 Hours (Table) 04/12/24 04/12/24 04/12/24 Range/Units 10:19 10:19 16:19 WBC (4.50-10.00) X 10*3/uL RBC (4.40-5.60) X 10*6/uL Hgb (13.0-17.0) g/dL Hct (39.6-50.0) % MCH (27.0-32.0) pg MCHC (32.0-37.0) g/dL RDW (11.5-14.5) % Immature Gran # (0.00-0.04) X 10*3/uL Neutrophils # (1.80-7.70) X 10*3/uL Lymphocytes # (0.90-5.00) X 10*3/uL Eosinophils # (0.04-0.35) X 10*3/uL Hypochromasia (manual) Chloride 110 H (98-107) mmol/L Carbon Dioxide (21.6-31.8) mmol/L Anion Gap (4.00-12.00) mmol/L BUN 74 H (9-20) mg/dL Creatinine 3.47 H (0.66-1.25) mg/dL Est GFR (CKD-EPI) (>=60) Glucose 119 H (74-99) mg/dL Calcium 7.8 L (8.4-10.2) mg/dL Iron 8 L (65-175) UG/DL TIBC 148 L (228-460) UG/DL % Saturation 5.41 L (15.00-50.00) Transferrin 106.0 L (204.0-354.0) mg/dL Ferritin 680.0 H (22.0-322.0) ng/mL Vitamin B12 >3600.0 H (200.0-944.0) pg/mL RBC Folate 1,006 H (280 - 791) ng/mL 04/13/24 04/13/24 Range/Units 05:32 05:32 WBC 24.49 H (4.50-10.00) X 10*3/uL RBC 3.23 L (4.40-5.60) X 10*6/uL Hgb 8.4 L (13.0-17.0) g/dL Hct 27.6 L (39.6-50.0) % MCH 26.0 L (27.0-32.0) pg MCHC 30.4 L (32.0-37.0) g/dL RDW 19.8 H (11.5-14.5) % Immature Gran # 0.28 H (0.00-0.04) X 10*3/uL Neutrophils # 22.91 H (1.80-7.70) X 10*3/uL Lymphocytes # 0.64 L (0.90-5.00) X 10*3/uL Eosinophils # 0 L (0.04-0.35) X 10*3/uL Hypochromasia (manual) 2+ A Chloride (98-107) mmol/L Carbon Dioxide 19.3 L (21.6-31.8) mmol/L Anion Gap 12.70 H (4.00-12.00) mmol/L BUN 71.5 H (9-20) mg/dL Creatinine 3.9 H (0.66-1.25) mg/dL Est GFR (CKD-EPI) 15 L (>=60) Glucose 136 H (74-99) mg/dL Calcium 8.1 L (8.4-10.2) mg/dL Iron (65-175) UG/DL TIBC (228-460) UG/DL % Saturation (15.00-50.00) Transferrin (204.0-354.0) mg/dL Ferritin (22.0-322.0) ng/mL Vitamin B12 (200.0-944.0) pg/mL RBC Folate (280 - 791) ng/mL Microbiology - Last 24 Hours (Table) 04/12/24 06:39 Gram Stain - Preliminary Sputum Sputum Culture - Preliminary 04/12/24 05:56 Urine Culture - Final Urine,Voided 04/11/24 15:18 Blood Culture - Preliminary Blood
--- NOTE | 2024-04-14 07:19 | XR ---
EXAMINATION TYPE: XR chest 1V portable DATE OF EXAM: 04/14/2024 6:54 AM COMPARISON: Chest radiographs from 04/12/2024 CLINICAL INDICATION: Male, 78 years old with history of Pneumonia; [facility] TECHNIQUE: XR chest 1V portable Frontal view of the chest. FINDINGS: Lungs/Pleura: Scattered subtle reticular and hazy opacities. No evidence of pneumothorax, focal conso lidation or pleural effusion. Basilar atelectasis. Blunting of the costophrenic angles. Increased lovely ency along apices. Pulmonary vascularity: Unremarkable. Heart/mediastinum: Cardiomediastinal silhouette is enlarged. Musculoskeletal: No acute osseous pathology. Other findings: None Lines/Tubes: IMPRESSION: 1. COPD. Correlate for superimposed CHF with pulmonary vascular congestion similar. 2. Patchy bibasilar opacities with trace pleural effusions are similar. [facility], , 04/14/2024 7:17 AM
[2024-04-14 09:22] LABS: BUN/Creat Ratio 21.11 Ratio (12.00-20.00); Blood Urea Nitrogen 78.1 mg/dL (9.0-27.0); Chloride 105 mmol/L (96-109); Glucose 123 mg/dL (70-110); Magnesium 1.7 mg/dL (1.5-2.4); Potassium 4.4 mmol/L (3.5-5.5); Sodium 140 mmol/L (135-145)
[2024-04-14 09:23] LABS: Calcium 8.2 mg/dL (8.7-10.3)
--- NOTE | 2024-04-14 12:07 | P.NPCON ---
History of Present Illness - Reason for Consult Consult date: 04/14/24 - Chief Complaint Shortness of Breath - History of Present Illness Patient admitted for AMS, shortness of breath and fevers. Was found to have pneumonia and admitted for treatment. His history includes invasive bladder cancer that is incurable per urology pervious notes. He has persistent bilateral hydronephrosis due to tumor burden and underwent resection of muscle due to tumor invasion in July. He has declined radiation in past and not a candidate for cystectomy. Noted to have worsening kidney function and nephrology was consulted. Examined today patient doing well and no new complaints. Breathing has improved. Had long discussion about his goal of care and patient would consider hospice if he continues to functionally decline. Understand he has kidney failure which will likely continue to progress given underlying cancer and obstruction. Denies any other complaints at this time. Patient is awake, comfortable, no acute distress. Examination of the heart S1 and S2 Examination of the lungs diminished breath sounds Abdomen is soft obese nontender Examination of lower extremity shows chronic skin changes and chronic discoloration. 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 Past Anesthesia/Blood Transfusion Reactions: No Reported Reaction Additional Past Anesthesia/Blood Transfusion Reaction / Comment(s): Patient states had blood transfusion in May 2023 with no problem. Date of Last Stent Placement:: Unknown Past Psychological History: No Psychological Hx Reported Smoking Status: Current every day smoker Past Alcohol Use History: None Reported Additional Past Alcohol Use History / Comment(s): Smokes 3-4 cigarettes per day, has been a smoker since 19. Past Drug Use History: Marijuana Additional Drug Use History / Comment(s): Marijuana use daily. Aware to refrain for 24 hours prior to procedure. - Past Family History Father Family Medical History: No Reported History Medications and Allergies Home Medications Medication Instructions Recorded Confirmed Type Ipratropium-Albuterol Nebulize 3 ml INHALATION RT-QID 01/19/23 04/11/24 History [Duoneb 0.5 mg-3 mg/3 ml Soln] Fluticasone/Umeclidin/Vilanter 1 puff INHALATION RT-DAILY 05/26/23 04/11/24 History [Trelepennie Ellipta 100-62.5-25] Metoprolol Tartrate [Lopressor] 50 mg PO BID 30 Days #60 tab 06/03/23 04/11/24 Rx Tamsulosin [Flomax] 0.4 mg PO PC-BRKFST 30 Days #30 cap 06/03/23 04/11/24 Rx Albuterol Sulfate [Ventolin HFA] 2 puff INHALATION RT-Q4H PRN 07/22/23 04/11/24 History Amiodarone [Cordarone] 200 mg PO DAILY 07/22/23 04/11/24 History Furosemide [Lasix] 20 mg PO BID 07/22/23 04/11/24 History Atorvastatin [Lipitor] 40 mg PO DAILY 03/31/24 04/11/24 History traMADol HCL 50 mg PO Q6H PRN 03/31/24 04/11/24 History Cholecalciferol [Vitamin D3 (25 25 mcg PO DAILY 04/11/24 04/11/24 History Mcg = 1000 Iu)] Multivitamins, Thera [Multivitamin 1 tab PO DAILY 04/11/24 04/11/24 History (formulary)] Nicotine Patch (Unknown Dose) 1 patch TRANSDERM DAILY 04/11/24 04/11/24 History Vitamin B12 (Unknown Dose) 1 tab PO DAILY 04/11/24 04/11/24 History Allergies Allergy/AdvReac Type Severity Reaction Status Date / Time sulfamethoxazole Allergy Rash/Hives Verified 04/11/24 16:44 [From Bactrim] trimethoprim [From Bactrim] Allergy Rash/Hives Verified 04/11/24 16:44 Physical Exam Vitals: Vital Signs Temp Pulse Pulse Resp BP Pulse Ox 04/14/24 08:08 97.8 F 64 17 165/79 94 L 04/14/24 02:44 97.7 F 66 17 138/72 98 04/13/24 20:37 68 04/13/24 20:25 66 04/13/24 19:14 73 18 04/13/24 19:08 97.8 F 98 18 144/74 04/13/24 15:48 68 18 04/13/24 15:40 66 18 04/13/24 15:12 97.9 F 61 18 153/84 98 04/13/24 13:07 97.5 F L 63 16 133/77 100 04/13/24 11:52 68 16 04/13/24 10:38 64 Intake and Output 04/13/24 04/14/24 04/14/24 22:59 06:59 14:59 Output Total 450 200 Balance -450 -200 Output: Urine 450 200 Other: Voiding Method Urinal Toilet # Bowel Movements 1 Weight 67 kg Results - Lab Results Most recent lab results Calcium 8.2 mg/dL (8.7-10.3) L 04/14/24 04:48 Magnesium 1.7 mg/dL (1.5-2.4) 04/14/24 04:48 04/13/24 05:32 04/14/24 04:48 Assessment and Plan Assessment: 1. Non-oliguric ANH due to chronic obstructive uropathy and ATN. Basleine creatinine was around 1.2-1.5 in past. Creatinine now elevated 3.7. No uremic symptoms. 2. Chronic obstuctive uropathy with bilateral hydronephrosis related to metastatic bladder cancer. N surgical candidate for cystectomy. Right stent placed in past. 3. Metastatic invasive bladder cancer. Not candidate for treatment. Per urology incurable in nature. 4. Dyspnea related to CAP 5. CHF 6. Anemia of chronic disease Plan: Patient progressive and worsening renal function likely related to progressive obstructive nephropathy. Given uroogy previous note that his invasive bladder cancer in incurable he will likely continue to progress in renal failure Given his advanced cancer he is not a candidate for hemodialysis. Consider urology consult if he develops decreased urine output. UA consistent with infection but likely chronic given hisotr of bladder cancer and stent, Supportive care, would suggest addressing goals of care. Patient opent o hospice in future
--- NOTE | 2024-04-14 12:24 | P.PN ---
Subjective Progress Note Date: 04/14/24 Patient is a 78-year-old male with past medical history significant for very severe COPD with an FEV1 22% of predicted, chronic hypoxemic respiratory failure normally on 5 L/min home O2, former tobacco dependence quitting approximately 1 month ago, coronary artery disease, hypertension, hyperlipidemia, aortic aneurysm, bladder cancer, hydronephrosis with previous stents, DVT, atrial fibrillation. Primary care provider is Dr. Miranda. He does follow in the pulmonary office with Dr. Harrison for management of his severe COPD. Uses a Trelegy maintenance inhaler, DuoNebs [id number], and albuterol HFA inhaler as needed. Of note, recent admitted for community-acquired pneumonia earlier this month; pulmonary was not consulted. Discharged on April 04 with home care. Patient's states that he is been feeling relatively well up to the last 24 hours. He lives with his adult grandchildren and great grandkids who have reportedly been sick with URI symptoms. Noted to be confused with high fevers during nurse visit, and advised to come to the ER. Chest x-ray on arrival showing stable cardiac silhouette, coarsened interstitial densities, possible small bilateral pleural effusions,and bibasilar atelectasis versus developing infiltrates. Does state that his shortness of breath has been slightly worse than baseline. Denies any productive cough, chest pain, hemoptysis, wheezing. He does have significant lower extremity edema, which he states that is actually better than baseline. Takes Lasix on an outpatient basis. He does have bladder cancer, recently underwent transurethral bladder tumor resection and right ureteral stent placement, on July,. Pathology positive for invasive high-grade urothelial carcinoma. Renal function is worse than baseline. Patient denies any dysuria, hematuria, urinary frequency, flank pain. CBC: WBC count 21.5, hemoglobin 9.2, hematocrit 29.5, platelets 307. CMP: Sodium 139, potassium 4.2, chloride 107, serum bicarb 26, BUN 3066, creatinine 3.87, glucose 107. LFTs mildly elevated. NT proBNP 5000 890. EKG: Sinus tachycardia, rate 106 bpm, RBB pattern. Procalcitonin 1.23. Negative for influenza, RSV, COVID. Patient is currently being evaluated on the general medical floor. Mentation is improved. Currently on 5 L/min nasal cannula. SpO2 100%. No acute respiratory distress. The patient is seen today April 13, 2024 in follow-up on the regular medical floor. He is currently resting in bed. Awake and alert in no acute distress. He is maintaining good O2 saturations in the 90s on 5 L/min per nasal cannula. His procalcitonin was 1.23. He is continued on ceftriaxone and azithromycin. Blood, urine and sputum cultures revealing no growth. White count 24.5. Hemoglobin 8.4. Platelets 305. Sodium 138. Potassium 4.6. Bicarb 19. BUN 72. Creatinine 3.9. Glucose 136. He remains on DuoNeb and elations, Symbic ort, Solu-Medrol. Heparin for DVT prophylaxis. The patient is seen today April 14, 2024 in follow-up on the regular medical floor. He is currently sitting up in a chair at the bedside. Awake and alert in no acute distress. Breathing easier today compared to yesterday. Currently on 3 L nasal cannula with O2 saturation in the low 90s. He is continued on Symbicort, DuoNeb and elations, Solu-Medrol. Heparin for DVT prophylaxis. Antibiotics in the form of ceftriaxone. Sodium 140. Potassium 4.4. Bicarb 22. BUN 78. Creatinine 3.7. Glucose 123. Blood, urine and sputum cultures eric josue Objective - Vital Signs Vital signs: Vital Signs Temp 97.8 F 04/14/24 08:08 Pulse 64 04/14/24 09:35 Resp 17 04/14/24 08:08 BP 165/79 04/14/24 08:08 Pulse Ox 94 L 04/14/24 08:08 FiO2 Intake & Output 04/13/24 04/14/24 04/14/24 18:59 06:59 18:59 Output Total 1250 350 Balance -1250 -350 Weight 67 kg Output: Urine 1250 350 Other: Voiding Method Urinal Urinal Toilet # Bowel Movements 1 - Exam GENERAL EXAM: Alert, 78-year-old male, up in a chair, on 3 L nasal cannula, comfortable in no apparent distress. HEAD: Normocephalic. EYES: Normal reaction of pupils, equal size. NOSE: Clear with pink turbinates. THROAT: No erythema or exudates. NECK: No masses, no JVD. CHEST: No chest wall deformity. LUNGS: Equal air entry with no crackles, wheeze, rhonchi or dullness. CVS: S1 and S2 normal with no audible murmur, regular rhythm. ABDOMEN: No hepatosplenomegaly, normal bowel sounds, no guarding or rigidity. SPINE: No scoliosis or deformity SKIN: No rashes CENTRAL NERVOUS SYSTEM: No focal deficits, tone is normal in all 4 extremities. EXTREMITIES: There is no peripheral edema. No clubbing, no cyanosis. Peripheral pulses are intact. - Labs CBC & Chem 7: 04/13/24 05:32 04/14/24 04:48 Labs: Abnormal Lab Results - Last 24 Hours (Table) 04/14/24 Range/Units 04:48 Anion Gap 13.00 H (4.00-12.00) mmol/L BUN 78.1 H (9.0-27.0) mg/dL Creatinine 3.7 H (0.6-1.5) mg/dL Est GFR (CKD-EPI) 16 L (>=60) BUN/Creatinine Ratio 21.11 H (12.00-20.00) Ratio Glucose 123 H (70-110) mg/dL Calcium 8.2 L (8.7-10.3) mg/dL Microbiology - Last 24 Hours (Table) 04/12/24 06:39 Gram Stain - Preliminary Sputum Sputum Culture - Preliminary 04/11/24 15:18 Blood Culture - Preliminary Blood 04/12/24 05:56 Urine Culture - Final Urine,Voided Assessment and Plan Assessment: Acute on chronic dyspnea. Chest x-ray reveals evidence of COPD. Superimposed CHF with pulmonary vascular congestion and patchy basilar opacities. Procalcitonin was positive. Currently on ceftriaxone Recent inpatient treatment for community acquired pneumonia; repeat chest x-ray showing stable cardiac silhouette, coarsened interstitium, possible small bilateral pleural effusions,and worsening bibasilar opacities Acute febrile illness, recovered Acute leukocytosis Acute on chronic kidney disease Anemia of chronic disease Very severe chronic obstructive pulmonary disease, with an FEV1 22% of predicted; normally maintained on Trelegy maintenance inhaler, DuoNebs [id number], and as needed albuterol HFA inhaler. Appears stable Chronic hypoxemic respiratory failure, normally maintained on 5 L/min nasal cannula Former tobacco dependence, reportedly quit smoking approximately 1 month ago, prior to that very heavy smoking history greater than 50 pack years History of hypertension History of hyperlipidemia History of coronary artery disease Infrarenal aortic aneurysm, monitored by vascular surgeon outpatient History of paroxysmal atrial fibrillation Bilateral lower extremity edema Echocardiogram, 04/02/2024, estimating left ventricular ejection fraction of 60 to 65%, mild mitral regurgitation, moderate pulmonary hypertension, moderate tricuspid regurgitation, and a small pericardial effusion Bladder cancer status post transurethral resection of bladder tumor July,, pathology positive invasive high-grade urothelial carcinoma. PET scan done in August showing some FDG avid retroperitoneal lymph nodes History of bilateral hydronephrosis with right ureteral stent placement Plan: The patient was seen and evaluated Labs and medications reviewed Continued on bronchodilators, steroids Continued on antibiotics We will continue to follow I have personally seen and examined the patient, performed the documentation and the assessment and plan as written. Number of minutes spent on the visit: 10 Dictation was produced using edulio dictation software. Please excuse any grammatical, word or spelling errors.
--- NOTE | 2024-04-14 15:24 | P.PN ---
Subjective Progress Note Date: 04/14/24 Subjective: Patient seen and examined at the bedside. No acute events overnight. All Systems reviewed and pertinent positives and negatives noted in HPI, all other symptoms are negative Objective: Vital signs reviewed. General: non toxic, no distress, appears at stated age, normal weight Derm: no unusual rashes/lesions, warm Head: atraumatic, normocephalic, symmetric Eyes: EOMI, no lid lag, anicteric sclera, pupils equal round reactive to light ENT: Nose and ears atraumatic Neck: No cervical lymphadenopathy, trachea midline, supple Mouth: no lip lesion, mucus membranes moist Cardiovascular: S1S2 reg, no murmur, positive dorsalis pedis pulse bilateral, bilateral 1+ pitting edema Lungs: Mild bilateral expiratory wheezing, no rhonchi, no rales, no accessory muscle use, on 5 L oxygen by nasal cannula Abdominal: soft, nontender to palpation, no guarding Ext: muscle strength 5 out of 5 in all 4 extremities grossly, no gross muscle atrophy, no contractures, Neuro: CN II-XI grossly intact, no gross focal neuro deficits Psych: Alert, oriented, appropriate affect Data reviewed today: Labs: Sodium 140, potassium 4.4, chloride 105, bicarb 22, BUN 78.1, creatinine 3.7, calcium 8.2, magnesium 1.7 Images: Chest x-ray shows bilateral small pleural effusion with diffuse reticular opacities in both lungs. Assessment and Plan: 78-year-old patient with history of COPD, chronic hypoxemic respiratory failure, hypertension, hyperlipidemia, bladder cancer presents to the ER is admitted to the hospital for further evaluation and treatment for community-acquired pneumonia and HFpEF #Sepsis secondary to community-acquired pneumonia #Chronic hypoxic respiratory failure #COPD exacerbation #Bilateral lower extremity edema #Heart failure with preserved ejection fraction, not in exacerbation #Acute metabolic encephalopathy, resolved #Leukocytosis secondary to glucocorticoid Continue with IV Rocephin 2 g IVPB every 24 hour and Zithromax 500 mg p.o. daily for 7-day course (day 4) DuoNebs as scheduled and [id number] Blood culture negative, Sputum culture and Legionella antigen are pending Procalcitonin 1.23 Pulmonary note reviewed; continue IV Solu-Medrol 60 mg every 6 hour Continue with oxygen therapy, currently at baseline, stable on 5 L oxygen via nasal cannula Echo on 04/02/2024 shows LVEF 60 to 65% with mild left atrial dilatation, mild MR/TR with Pulm HTN Cardiology note reviewed: IV Lasix transition to oral Lasix 20 mg p.o. daily Cardiology signed off Continue cardiac telemetry Strict I's and O's Daily weights #Nonoliguric acute kidney injury secondary to above #Chronic obstructive uropathy in the setting of metastatic bladder cancer Renal and bladder ultrasound shows persisting moderate to severe right and m oderate left hydronephrosis with similar findings from 04/03/2024 Baseline creatinine is 2.4 Creatinine improving to 3.7 Oral Lasix 20 mg p.o. daily Repeat BMP tomorrow morning Continue with strict I's and O's Avoid nephrotoxins Nephrology consulted, note reviewed #Normocytic anemia in the setting of chronic disease and iron deficiency #Hypoproliferation #Low absolute reticulocyte count Hemoglobin dropped from 9.2--->7.7 No active bleeding Ferritin 630, transferrin 103, TIBC 148, iron 8 Reticulocyte 1.1, absolute reticulocyte count 0.7 with an index of 0.44 indicating hypoproliferation Consider iron infusions and starting patient on EPO #Transaminitis #Elevated ALP Secondary to above AST 85, ALP 164 Chronic condition: A-fib: Resume amiodarone 200 mg p.o. daily Hypertension: Lopressor 50 mg p.o. twice daily BPH: Resume Flomax 0.4 mg p.o. daily Hyperlipidemia: Resume Lipitor 40 mg p.o. daily DVT prophylaxis: Subcu heparin CODE STATUS: Full code Discussed with: Patient Anticipated discharge place: Pending clinical course I saw and evaluated the patient during the black and critical portions of this encounter, and discussed the case in detail with the resident author of this note, I agree with the Assessment and Plan, and my changes, if any, are highlighted in blue. Objective - Vital Signs Vital signs: Vital Signs Temp 97.8 F 04/14/24 08:08 Pulse 68 04/14/24 12:46 Resp 17 04/14/24 08:08 BP 165/79 04/14/24 08:08 Pulse Ox 94 L 04/14/24 08:08 FiO2 Intake & Output 04/13/24 04/14/24 04/14/24 18:59 06:59 18:59 Output Total 1250 500 Balance -1250 -500 Weight 67 kg Output: Urine 1250 500 Other: Voiding Method Urinal Urinal Toilet # Bowel Movements 1 - Labs CBC & Chem 7: 04/13/24 05:32 04/14/24 04:48 Labs: Abnormal Lab Results - Last 24 Hours (Table) 04/14/24 Range/Units 04:48 Anion Gap 13.00 H (4.00-12.00) mmol/L BUN 78.1 H (9.0-27.0) mg/dL Creatinine 3.7 H (0.6-1.5) mg/dL Est GFR (CKD-EPI) 16 L (>=60) BUN/Creatinine Ratio 21.11 H (12.00-20.00) Ratio Glucose 123 H (70-110) mg/dL Calcium 8.2 L (8.7-10.3) mg/dL Microbiology - Last 24 Hours (Table) 04/12/24 06:39 Gram Stain - Preliminary Sputum Sputum Culture - Preliminary 04/11/24 15:18 Blood Culture - Preliminary Blood
[2024-04-15] MEDS: AZITHROMYCIN 500 MG TAB PO SCH (09:04)
[2024-04-15 09:57] LABS: African American GFR (CKD) 21 (>60 ml/min/1.73 sqM); Anion Gap 6 mmol/L; Blood Urea Nitrogen 87 mg/dL (9-20); Calcium 8.1 mg/dL (8.4-10.2); Carbon Dioxide 22 mmol/L (22-30); Chloride 110 mmol/L (98-107); Glucose 115 mg/dL (74-99); Magnesium 1.7 mg/dL (1.6-2.3); Non-African American GFR(CKD) 18 (>60 ml/min/1.73 sqM); Potassium 3.9 mmol/L (3.5-5.1); Sodium 138 mmol/L (137-145)
[2024-04-15 10:03] LABS: Anisocytosis Slight; Basophils % (A) 0 %; Eosinophils % (A) 0 %; HCT 30.7 % (39.0-53.0); HGB 9.1 gm/dL (13.0-17.5); Hypochromasia Marked; Lymphocytes # (A) 0.4 k/uL (1.0-4.8); Lymphocytes % (A) 3 %; MCH 25.9 pg (25.0-35.0); MCHC 29.7 g/dL (31.0-37.0); MCV 87.2 fL (80.0-100.0); Mean Platelet Volume 8.1; Monocytes # (A) 0.7 k/uL (0-1.0); Monocytes % (A) 5 %; Neutrophils # (A) 13.3 k/uL (1.3-7.7); Neutrophils % (A) 92 %; Platelet Count 281 k/uL (150-450); Poikilocytosis Slight; RBC 3.52 m/uL (4.30-5.90); RDW 18.4 % (11.5-15.5); WBC 14.5 k/uL (3.8-10.6)
--- NOTE | 2024-04-15 11:08 | P.PN ---
Subjective Progress Note Date: 04/15/24 Patient seen in followup for ANH on CKD. No new complaints. Breathing improving. Patient is awake, comfortable, no acute distress. Examination of the heart S1 and S2 Examination of the lungs diminished breath sounds Abdomen is soft, nontender Examination no edema CERTIFIED NURSE [employer]WIFE exam grossly intact Objective - Vital Signs Vital signs: Vital Signs Temp 97.1 F L 04/15/24 07:10 Pulse 65 04/15/24 09:26 Resp 17 04/15/24 07:10 BP 173/72 04/15/24 07:10 Pulse Ox 100 04/15/24 09:18 FiO2 Intake & Output 04/14/24 04/15/24 04/15/24 19:59 06:59 18:59 Output Total 150 Balance -150 Weight Output: Urine 150 Other: Voiding Method Urinal # Voids # Bowel Movements - Labs CBC & Chem 7: 04/13/24 05:32 04/14/24 04:48 Labs: Microbiology - Last 24 Hours (Table) 04/11/24 15:18 Blood Culture - Preliminary Blood 04/12/24 06:39 Gram Stain - Preliminary Sputum Sputum Culture - Preliminary Assessment and Plan Assessment: 1. Non-oliguric ANH due to chronic obstructive uropathy and ATN. Basleine creatinine was around 1.2-1.5 in past. Creatinine now elevated 3.7. No uremic symptoms. 2. Chronic obstuctive uropathy with bilateral hydronephrosis related to metastatic bladder cancer. N surgical candidate for cystectomy. Right stent placed in past. 3. Metastatic invasive bladder cancer. Not candidate for treatment. Per urology incurable in nature. 4. Dyspnea related to CAP 5. CHF 6. Anemia of chronic disease Plan: Patient progressive and worsening renal function likely related to progressive obstructive nephropathy. Given uroogy previous note that his invasive bladder cancer in incurable he will likely continue to progress in renal failure Given his advanced cancer he is not a candidate for hemodialysis. Consider urology consult if he develops decreased urine output. UA consistent with infection but likely chronic given history of bladder cancer and stent, Supportive care, would suggest addressing goals of care. Patient open to hospice in future
--- NOTE | 2024-04-15 12:09 | P.PN ---
Subjective Progress Note Date: 04/15/24 Subjective: Patient seen and examined at the bedside. No acute events overnight. Objective: Vital signs reviewed. Gen: In NAD, non-toxic HEENT: normocephalic, atraumatic, hearing acuity is intant, mucous membranes moist CVS: perfusing all extremities well, no pitting edema, Respiratory: symmetric chest expansion, no accessory muscle use, GI: soft, NTTP, ND, : no suprapubic tenderness, no CVA tenderness MSK/Derm: no rashes, cyanosis Neuro: CN II-XII intact, no motor weakness, Psych: cooperative, euthymic mood, judgment and insight is intact Assessment and Plan: 78-year-old patient with history of COPD, chronic hypoxemic respiratory failure, hypertension, hyperlipidemia, bladder cancer presents to the ER is admitted to the hospital for further evaluation and treatment for community-acquired pneumonia and HFpEF #Sepsis secondary to community-acquired pneumonia #Chronic hypoxic respiratory failure #COPD exacerbation #Bilateral lower extremity edema #Heart failure with preserved ejection fraction, not in exacerbation #Acute metabolic encephalopathy, resolved #Leukocytosis secondary to glucocorticoid Continue with IV Rocephin 2 g IVPB every 24 hour for 7-day course (day 5), completed 5 days of zithromax DuoNebs as scheduled and [id number] Blood culture NGTD, Legionella Urine Ag is negative Pulmonary note reviewed; continue IV Solu-Medrol 60 mg every 6 hour Continue with oxygen therapy, currently at baseline, stable on 5 L oxygen via nasal cannula Echo on 04/02/2024 shows LVEF 60 to 65% with mild left atrial dilatation, mild MR/TR with Pulm HTN Cardiology note reviewed: IV Lasix transition to oral Lasix 20 mg p.o. daily Cardiology signed off Continue cardiac telemetry Strict I's and O's Daily weights #Nonoliguric acute kidney injury secondary to above #Chronic obstructive uropathy in the setting of metastatic bladder cancer Renal and bladder ultrasound shows persisting moderate to severe right and mode rate left hydronephrosis with similar findings from 04/03/2024 Baseline creatinine is 2.4 Creatinine improving to 3.7 Oral Lasix 20 mg p.o. daily Repeat BMP tomorrow morning Continue with strict I's and O's Avoid nephrotoxins Nephrology consulted, note reviewed #Normocytic anemia in the setting of chronic disease and iron deficiency #Hypoproliferation #Low absolute reticulocyte count Hemoglobin dropped from 9.2--->7.7 No active bleeding Ferritin 630, transferrin 103, TIBC 148, iron 8 Reticulocyte 1.1, absolute reticulocyte count 0.7 with an index of 0.44 indicating hypoproliferation Consider iron infusions and starting patient on EPO #Transaminitis #Elevated ALP Secondary to above AST 85, ALP 164 Chronic condition: A-fib: Resume amiodarone 200 mg p.o. daily Hypertension: Lopressor 50 mg p.o. twice daily BPH: Resume Flomax 0.4 mg p.o. daily Hyperlipidemia: Resume Lipitor 40 mg p.o. daily DVT prophylaxis: Subcu heparin CODE STATUS: Full code Discussed with: Patient Anticipated discharge place: Pending clinical course I saw and evaluated the patient during the black and critical portions of this encounter, and discussed the case in detail with the resident author of this note, I agree with the Assessment and Plan, and my changes, if any, are highlighted in blue. Objective - Vital Signs Vital signs: Vital Signs Temp 97.1 F L 04/15/24 07:10 Pulse 65 04/15/24 09:26 Resp 17 04/15/24 07:10 BP 173/72 04/15/24 07:10 Pulse Ox 100 04/15/24 09:18 FiO2 Intake & Output 04/14/24 04/15/24 04/15/24 19:59 06:59 18:59 Output Total 150 Balance -150 Weight Output: Urine 150 Other: Voiding Method Urinal # Voids # Bowel Movements - Labs CBC & Chem 7: 04/15/24 08:57 04/15/24 08:57 Labs: Abnormal Lab Results - Last 24 Hours (Table) 04/15/24 04/15/24 Range/Units 08:57 08:57 WBC 14.5 H (3.8-10.6) k/uL RBC 3.52 L (4.30-5.90) m/uL Hgb 9.1 L (13.0-17.5) gm/dL Hct 30.7 L (39.0-53.0) % MCHC 29.7 L (31.0-37.0) g/dL RDW 18.4 H (11.5-15.5) % Neutrophils # 13.3 H (1.3-7.7) k/uL Lymphocytes # 0.4 L (1.0-4.8) k/uL Chloride 110 H (98-107) mmol/L BUN 87 H (9-20) mg/dL Creatinine 3.13 H (0.66-1.25) mg/dL Glucose 115 H (74-99) mg/dL Calcium 8.1 L (8.4-10.2) mg/dL Microbiology - Last 24 Hours (Table) 04/11/24 15:18 Blood Culture - Preliminary Blood 04/12/24 06:39 Gram Stain - Preliminary Sputum Sputum Culture - Preliminary
--- NOTE | 2024-04-15 12:34 | P.PN ---
Subjective Progress Note Date: 04/15/24 Patient is a 78-year-old male with past medical history significant for very severe COPD with an FEV1 22% of predicted, chronic hypoxemic respiratory failure normally on 5 L/min home O2, former tobacco dependence quitting approximately 1 month ago, coronary artery disease, hypertension, hyperlipidemia, aortic aneurysm, bladder cancer, hydronephrosis with previous stents, DVT, atrial fibrillation. Primary care provider is Dr. Miranda. He does follow in the pulmonary office with Dr. Harrison for management of his severe COPD. Uses a Trelegy maintenance inhaler, DuoNebs [id number], and albuterol HFA inhaler as needed. Of note, recent admitted for community-acquired pneumonia earlier this month; pulmonary was not consulted. Discharged on April 04 with home care. Patient's states that he is been feeling relatively well up to the last 24 hours. He lives with his adult grandchildren and great grandkids who have reportedly been sick with URI symptoms. Noted to be confused with high fevers during nurse visit, and advised to come to the ER. Chest x-ray on arrival showing stable cardiac silhouette, coarsened interstitial densities, possible small bilateral pleural effusions,and bibasilar atelectasis versus developing infiltrates. Does state that his shortness of breath has been slightly worse than baseline. Denies any productive cough, chest pain, hemoptysis, wheezing. He does have significant lower extremity edema, which he states that is actually better than baseline. Takes Lasix on an outpatient basis. He does have bladder cancer, recently underwent transurethral bladder tumor resection and right ureteral stent placement, on July,. Pathology positive for invasive high-grade urothelial carcinoma. Renal function is worse than baseline. Patient denies any dysuria, hematuria, urinary frequency, flank pain. CBC: WBC count 21.5, hemoglobin 9.2, hematocrit 29.5, platelets 307. CMP: Sodium 139, potassium 4.2, chloride 107, serum bicarb 26, BUN 3066, creatinine 3.87, glucose 107. LFTs mildly elevated. NT proBNP 5000 890. EKG: Sinus tachycardia, rate 106 bpm, RBB pattern. Procalcitonin 1.23. Negative for influenza, RSV, COVID. Patient is currently being evaluated on the general medical floor. Mentation is improved. Currently on 5 L/min nasal cannula. SpO2 100%. No acute respiratory distress. The patient is seen today April 13, 2024 in follow-up on the regular medical floor. He is currently resting in bed. Awake and alert in no acute distress. He is maintaining good O2 saturations in the 90s on 5 L/min per nasal cannula. His procalcitonin was 1.23. He is continued on ceftriaxone and azithromycin. Blood, urine and sputum cultures revealing no growth. White count 24.5. Hemoglobin 8.4. Platelets 305. Sodium 138. Potassium 4.6. Bicarb 19. BUN 72. Creatinine 3.9. Glucose 136. He remains on DuoNeb and elations, Symbic ort, Solu-Medrol. Heparin for DVT prophylaxis. The patient is seen today April 14, 2024 in follow-up on the regular medical floor. He is currently sitting up in a chair at the bedside. Awake and alert in no acute distress. Breathing easier today compared to yesterday. Currently on 3 L nasal cannula with O2 saturation in the low 90s. He is continued on Symbicort, DuoNeb and elations, Solu-Medrol. Heparin for DVT prophylaxis. Antibiotics in the form of ceftriaxone. Sodium 140. Potassium 4.4. Bicarb 22. BUN 78. Creatinine 3.7. Glucose 123. Blood, urine and sputum cultures pendin g. The patient is seen today April 15, 2024 in follow-up on the regular medical floor. He is awake and alert in no acute distress. Sitting up in bed. Maintaining O2 saturations up to 100% on 5 L/min per nasal cannula. Feeling quite a bit better today compared to yesterday. No worsening shortness of breath, cough or congestion. He remains on DuoNeb inhalations, Symbicort, Solu- Medrol. Remains on oral diuretics. Antibiotics in the form of ceftriaxone. White count 14.5. Hemoglobin 9.1. Platelets 281. Sodium 138. Potassium 3.9. Bicarb 22. BUN 87. Creatinine 3.13. Glucose 115. Objective - Vital Signs Vital signs: Vital Signs Temp 97.1 F L 04/15/24 07:10 Pulse 67 04/15/24 12:27 Resp 17 04/15/24 07:10 BP 173/72 04/15/24 07:10 Pulse Ox 100 04/15/24 09:18 FiO2 Intake & Output 04/14/24 04/15/24 04/15/24 19:59 06:59 18:59 Output Total 150 Balance -150 Weight Output: Urine 150 Other: Voiding Method Urinal # Voids # Bowel Movements - Exam GENERAL EXAM: Alert, 78-year-old male, on 5 L nasal cannula, in no apparent distress. HEAD: Normocephalic. EYES: Normal reaction of pupils, equal size. NOSE: Clear with pink turbinates. THROAT: No erythema or exudates. NECK: No masses, no JVD. CHEST: No chest wall deformity. LUNGS: Equal air entry with no crackles, wheeze, rhonchi or dullness. CVS: S1 and S2 normal with no audible murmur, regular rhythm. ABDOMEN: No hepatosplenomegaly, normal bowel sounds, no guarding or rigidity. SPINE: No scoliosis or deformity SKIN: No rashes CENTRAL NERVOUS SYSTEM: No focal deficits, tone is normal in all 4 extremities. EXTREMITIES: There is no peripheral edema. No clubbing, no cyanosis. Peripheral pulses are intact. - Labs CBC & Chem 7: 04/15/24 08:57 04/15/24 08:57 Labs: Abnormal Lab Results - Last 24 Hours (Table) 04/15/24 04/15/24 Range/Units 08:57 08:57 WBC 14.5 H (3.8-10.6) k/uL RBC 3.52 L (4.30-5.90) m/uL Hgb 9.1 L (13.0-17.5) gm/dL Hct 30.7 L (39.0-53.0) % MCHC 29.7 L (31.0-37.0) g/dL RDW 18.4 H (11.5-15.5) % Neutrophils # 13.3 H (1.3-7.7) k/uL Lymphocytes # 0.4 L (1.0-4.8) k/uL Chloride 110 H (98-107) mmol/L BUN 87 H (9-20) mg/dL Creatinine 3.13 H (0.66-1.25) mg/dL Glucose 115 H (74-99) mg/dL Calcium 8.1 L (8.4-10.2) mg/dL Microbiology - Last 24 Hours (Table) 04/11/24 15:18 Blood Culture - Preliminary Blood 04/12/24 06:39 Gram Stain - Preliminary Sputum Sputum Culture - Preliminary Assessment and Plan Assessment: Acute on chronic dyspnea. Chest x-ray reveals evidence of COPD. Superimposed CHF with pulmonary vascular congestion and patchy basilar opacities. Procalcitonin was positive. Currently on ceftriaxone Recent inpatient treatment for community acquired pneumonia; repeat chest x-ray showing stable cardiac silhouette, coarsened interstitium, possible small bilateral pleural effusions,and worsening bibasilar opacities Acute febrile illness, recovered Acute leukocytosis Acute on chronic kidney disease Anemia of chronic disease Very severe chronic obstructive pulmonary disease, with an FEV1 22% of predicted; normally maintained on Trelegy maintenance inhaler, DuoNebs [id number], and as needed albuterol HFA inhaler. Appears stable Chronic hypoxemic respiratory failure, normally maintained on 5 L/min nasal cannula Former tobacco dependence, reportedly quit smoking approximately 1 month ago, prior to that very heavy smoking history greater than 50 pack years History of hypertension History of hyperlipidemia History of coronary artery disease Infrarenal aortic aneurysm, monitored by vascular surgeon outpatient History of paroxysmal atrial fibrillation Bilateral lower extremity edema Echocardiogram, 04/02/2024, estimating left ventricular ejection fraction of 60 to 65%, mild mitral regurgitation, moderate pulmonary hypertension, moderate t ricuspid regurgitation, and a small pericardial effusion Bladder cancer status post transurethral resection of bladder tumor July,, pathology positive invasive high-grade urothelial carcinoma. PET scan done in August showing some FDG avid retroperitoneal lymph nodes History of bilateral hydronephrosis with right ureteral stent placement Plan: The patient was seen and evaluated Labs and medications reviewed Titrate down the FiO2 as tolerated Continue the current treatment plan We will continue to follow I have personally seen and examined the patient, performed the documentation and the assessment and plan as written. Number of minutes spent on the visit: 10 Dictation was produced using [employer] dictation software. Please excuse any grammatical, word or spelling errors.
[2024-04-16] MEDS: cloNIDine HCL 0.2 MG TAB PO STA (01:12)
[2024-04-16 01:39] VITALS: RESP 18
--- NOTE | 2024-04-16 10:47 | P.PN ---
Subjective Patient is seen in follow-up for acute kidney injury on chronic kidney disease. Renal function improving. On oral Lasix. Has been voiding. Son present at bedside. Vital signs are stable. Blood pressure high. General: No acute distress. HEENT: Head exam is unremarkable. On nasal cannula. LUNGS: No audible rhonchi or wheezes. HEART: Rate and Rhythm are regular. ABDOMEN: Nontender. EXTREMITITES: No edema. Objective - Vital Signs Vital signs: Vital Signs Temp 97.8 F 04/16/24 06:45 Pulse 80 04/16/24 07:42 Resp 18 04/16/24 06:45 BP 170/78 04/16/24 06:45 Pulse Ox 97 04/16/24 07:31 FiO2 Intake & Output 04/15/24 04/16/24 04/16/24 18:59 06:59 18:59 Output Total 750 1950 Balance -750 -1950 Weight 65.5 kg Output: Urine 750 1950 Other: Voiding Method Urinal Urinal # Voids 4 2 - Labs CBC & Chem 7: 04/15/24 08:57 04/15/24 08:57 Labs: Microbiology - Last 24 Hours (Table) 04/12/24 06:39 Gram Stain - Final Sputum Sputum Culture - Final Achromobacter xylos/denitrif Assessment and Plan Plan: Assessment: 1. Acute kidney injury secondary to ATN and worsening obstructive uropathy. Creatinine peaked at 3.9 this admission and was 3.13 yesterday. 2. Chronic kidney disease stage IIIb with baseline creatinine 1.3-1.5. 3. Metastatic bladder cancer. 4. Pneumonia maintained on antibiotics. Plan: Maintain oral Lasix. Maintain Flomax. Avoid nephrotoxins. Consult urology. Prognosis guarded. With advanced malignancy, not a candidate for renal replacement therapy unless malignancy will be treated.
[2024-04-16] MEDS: LEVOFLOXACIN 750 MG TAB PO SCH (12:18)
--- NOTE | 2024-04-16 12:42 | P.GSCN ---
History of Present Illness Consult date: 04/16/24 History of present illness: 78 yo male with a history of muscle invasive bladder cancer diagnosed by Dr Borrego 01/2023. He was not deemed a candidate for a cystectomy and refused radiation therapy. Dr borrego reresected tumor in july of 2023 and the same diagnosis was present. He had a pet scan in 2023 that found the disease had progressed into the lymph nodes. He was seen in march of this year and had anemia as well as crf.. He had an us 04/03 that showed bilateral hydronephrosis however due to his poor prognosis nothing was recommended. His repeat us on 04/12 shows the same.he was in the hospital recently only to return today. He was supposed to be seen in our office today but ended up in the hospital.the patient has not been having any more hematuria. He urinates freely but frequently. Review of Systems All systems: negative - Constitutional Denies fever, Denies weight loss - EENT Eyes: denies blurred vision Ears, nose, mouth and throat: Denies dysphagia - Cardiovascular Denies chest pain, Denies shortness of breath - Respiratory Denies cough, Denies 7 - Gastrointestinal Reports as per HPI - Genitourinary Denies dysuria, Denies hematuria - Integumentary Denies rash, Denies unusual bruising - Neurological Denies headaches, Denies syncope - Hematologic/Lymphatic Denies easy bleeding, Denies easy bruising Past Medical History Past Medical History: Blood Disorder, Cancer, COPD, Hyperlipidemia, Hypertension, Musculoskeletal Disorder Additional Past Medical History / Comment(s): Scoliosis, varicose veins, Bladder cancer, Anemia History of Any Multi-Drug Resistant Organisms: None Reported Past Surgical History: Appendectomy, Heart Catheterization With Stent Additional Past Surgical History / Comment(s): Eye surgery X5. Past Anesthesia/Blood Transfusion Reactions: No Reported Reaction Additional Past Anesthesia/Blood Transfusion Reaction / Comm: Patient states had blood transfusion in May 2023 with no problem. Date of Last Stent Placement:: Unknown Past Psychological History: No Psychological Hx Reported Smoking Status: Current every day smoker Past Alcohol Use History: None Reported Additional Past Alcohol Use History / Comment(s): Smokes 3-4 cigarettes per day, has been a smoker since 19. Past Drug Use History: Marijuana Additional Drug Use History / Comment(s): Marijuana use daily. Aware to refrain for 24 hours prior to procedure. - Past Family History Father Family Medical History: No Reported History Medications and Allergies Home Medications Medication Instructions Recorded Confirmed Type Ipratropium-Albuterol Nebulize 3 ml INHALATION RT-QID 01/19/23 04/11/24 History [Duoneb 0.5 mg-3 mg/3 ml Soln] Fluticasone/Umeclidin/Vilanter 1 puff INHALATION RT-DAILY 05/26/23 04/11/24 History [Trelegy Ellipta 100-62.5-25] Metoprolol Tartrate [Lopressor] 50 mg PO BID 30 Days #60 tab 06/03/23 04/11/24 Rx Tamsulosin [Flomax] 0.4 mg PO [id number]-[id number] 30 Days #30 cap 06/03/23 04/11/24 Rx Albuterol Sulfate [Ventolin HFA] 2 puff INHALATION RT-Q4H PRN 07/22/23 04/11/24 History Amiodarone [Cordarone] 200 mg PO DAILY 07/22/23 04/11/24 History Furosemide [Lasix] 20 mg PO BID 07/22/23 04/11/24 History Atorvastatin [Lipitor] 40 mg PO DAILY 03/31/24 04/11/24 History traMADol HCL 50 mg PO Q6H PRN 03/31/24 04/11/24 History Cholecalciferol [Vitamin D3 (25 25 mcg PO DAILY 04/11/24 04/11/24 History Mcg = 1000 Iu)] Multivitamins, Thera [Multivitamin 1 tab PO DAILY 04/11/24 04/11/24 History (formulary)] Nicotine Patch (Unknown Dose) 1 patch TRANSDERM DAILY 04/11/24 04/11/24 History Vitamin B12 (Unknown Dose) 1 tab PO DAILY 04/11/24 04/11/24 History Allergies Allergy/AdvReac Type Severity Reaction Status Date / Time sulfamethoxazole Allergy Rash/Hives Verified 04/11/24 16:44 [From Bactrim] trimethoprim [From Bactrim] Allergy Rash/Hives Verified 04/11/24 16:44 Surgical - Exam Vital Signs Temp Pulse Resp BP Pulse Ox 100.8 F H 106 H 36 H 146/73 86 L 04/11/24 14:27 04/11/24 14:27 04/11/24 14:27 04/11/24 14:27 04/11/24 14:27 - General chronically ill - Eyes PERRL - ENT no hearing loss - Neck no masses - Respiratory normal respiratory effort - Cardiovascular Rhythm: regular - Abdomen Abdomen: soft, non tender - Neurologic normal sensation - Musculoskeletal normal posture - Psychiatric oriented to time, oriented to person, oriented to place, speech is normal, memory intact Results - Labs 04/15/24 08:57 04/15/24 08:57 Microbiology - Last 24 Hours (Table) 04/12/24 06:39 Gram Stain - Final Sputum Sputum Culture - Final Achromobacter xylos/denitrif - Imaging US - kidney/bladder: report reviewed, image reviewed Assessment and Plan Assessment: Impression: metastatic and muscle invasive bladder cancer with expected bi lateral hydronephrosis.anemia of chronic disease. Recommendations: The patient is aware and accepts the status of his metastatic disease. He really is not interested in any treatment. Probably is not a great candidate for nephrostomy tubes as he would have to be sent to a larger facility where this can be done. Unfortunately his prognosis is poor and there is nothing further that I recommend at this point in time.
--- NOTE | 2024-04-16 14:11 | P.DS ---
Providers Date of admission: 04/11/24 15:05 Attending physician: Rdaha Valentine MD Consults: 04/11/24 15:03 Consult Physician Routine Consulting Provider: Nomi Mata Consult Reason/Comments: hypoxia Do you want consulting provider notified?: Yes 04/11/24 16:05 Consult Physician Routine Consulting Provider: Richi Garcia Consult Reason/Comments: chf Do you want consulting provider notified?: Yes 04/13/24 10:46 Consult Physician Urgent Consulting Provider: Rosina Stark Consult Reason/Comments: ANH Do you want consulting provider notified?: Yes 04/16/24 10:46 Consult Physician Routine Consulting Provider: Keny Borrego Consult Reason/Comments: hydro, bladder ca Do you want consulting provider notified?: Yes Primary care physician: Maik Miranda Hospital Course: Discharge Diagnosis: #Sepsis secondary to community-acquired pneumonia #Chronic hypoxic respiratory failure #COPD exacerbation #Bilateral lower extremity edema #Heart failure with preserved ejection fraction, not in exacerbation #Acute metabolic encephalopathy, resolved #Leukocytosis secondary to glucocorticoid #Nonoliguric acute kidney injury secondary to above #Chronic obstructive uropathy in the setting of metastatic bladder cancer #Normocytic anemia in the setting of chronic disease and iron deficiency #Hypoproliferation #Low absolute reticulocyte count #Transaminitis #Elevated ALP Hospital Course: Patient is a 78-year-old male with PMH of A-fib (not on anticoagulation), COPD, chronic approximate respiratory failure(on 5 L of continuous home oxygen), hypertension, hyperlipidemia, bladder cancer status post TURPT on July 2023 presents to the ER with mild confusion and shortness of breath. Laboratory evaluation in the ER is significant for WBC 21.5, hemoglobin 9.2, sodium 139, potassium 4.2, BUN 66, creatinine 3.87, AST 85, ALT 22, ALP 164. pH 7.45, pCO2 36. Vital signs on arrival: 100.8 Fahrenheit, pulse rate 105, Respiration 36, blood pressure 146/73, oxygen saturation, 94% on 6 L. Chest x-ray independently interpreted in the ER shows bilateral patchy infiltrates more on the right with bilateral small pleural effusions. EKG independently interpreted shows sinus tachycardia with a right bundle branch block. Nonspecific ST-T wave changes. Patient admitted to hospital for sepsis secondary to community-acquired pneumonia and acute metabolic encephalopathy. Patient was started on IV Rocephin and oral Zithromax. Sputum cultures were obtained and sent for culture and sensitivity. Pulmonology was consulted. Patient continues seeing improvement in his symptoms. Patient also had ANH during the course of this admission. Nephrology was consulted. Renal bladder ultrasound showed persistent moderate to severe bilateral hydronephrosis with a similar finding to previous bladder scan. Creatinine levels trending downward and improving. ANH resolved. Acute metabolic encephalopathy resolved. Sputum culture was positive for Achromabacter xylos. Based on culture and sensitivity report patient is started on levofloxacin and ceftriaxone is discontinued. Patient completed the course of Zithromax for total of 5 days. Patient stable and medically optimized for discharge. Patient is discharged to [facility] subacute rehab. Patient to complete the course of levofloxacin with total of 5 doses. Discharge instruction: Levofloxacin 750 mg p.o. daily for 4 days Patient to continue with home medication as directed Patient provided instructions on community-acquired pneumonia, shortness of breath and acute kidney injury Vital signs reviewed. Gen: in no apparent distress, resting comfortably in bed Eyes: PERRL, no scleral injection or icterus HENT: normocephalic, atraumatic, good hearing acuity, moist mucous membranes Neck: full range of motion Resp: CTAB, no rales, rhonchi, or wheezes CVS: normal S1 and S2, no murmurs, rubs or gallops, no edema GI: soft, NTTP, ND, no hepatosplenomegaly : no suprapubic tenderness, no CVAT, archer catheter is not present MSK: no clubbing, no cyanosis, no noted contractures of extremities Skin: no noted rashes, petechiae; temperature of skin is appropriate Neuro: moving all extremities without signs of weakness, CN II-XII intact Psych: cooperative, euthymic mood, insight and judgment intact I saw and evaluated the patient during the black and critical portions of this encounter, and discussed the case in detail with the resident author of this note, I agree with the Assessment and Plan, and my changes, if any, are highlighted in blue. Additional addendum: Antibiotic course was extended to 10 days for 2 reasons: 1, patient has significant underlying lung disease, 2, sputum culture demonstrated findings of resistance to cephalosporins which patient had been on for 4 days. Patient did have clinical improvement on cephalosporins, however, antibiotics were appropriately switched to levofloxacin for outpatient course, and extended to a total of 10 days. Patient Condition at Discharge: Serious Plan - Discharge Summary Discharge Rx Participant: No New Discharge Prescriptions: New Levofloxacin [Levaquin] 750 mg PO DAILY #4 tab Ferrous Gluconate 324 mg PO DAILY #30 tablet Continue Ipratropium-Albuterol Nebulize [Duoneb 0.5 mg-3 mg/3 ml Soln] 3 ml INHALATION RT-QID Tamsulosin [Flomax] 0.4 mg PO PC-BRKFST 30 Days #30 cap Metoprolol Tartrate [Lopressor] 50 mg PO BID 30 Days #60 tab Furosemide [Lasix] 20 mg PO BID Amiodarone [Cordarone] 200 mg PO DAILY Albuterol Sulfate [Ventolin HFA] 2 puff INHALATION RT-Q4H PRN PRN Reason: Shortness Of Breath Cholecalciferol [Vitamin D3 (25 Mcg = 1000 Iu)] 25 mcg PO DAILY Multivitamins, Thera [Multivitamin (formulary)] 1 tab PO DAILY Fluticasone/Umeclidin/Vilanter [Trelegy Ellipta 100-62.5-25] 1 puff INHALATION RT-DAILY Atorvastatin [Lipitor] 40 mg PO DAILY traMADol HCL 50 mg PO Q6H PRN #3 tab PRN Reason: Pain Discontinued Vitamin B12 (Unknown Dose) 1 tab PO DAILY Nicotine Patch (Unknown Dose) 1 patch TRANSDERM DAILY Discharge Medication List Ipratropium-Albuterol Nebulize [Duoneb 0.5 mg-3 mg/3 ml Soln] 3 ml INHALATION RT-QID 01/19/23 [History] Fluticasone/Umeclidin/Vilanter [Trelegy Ellipta 100-62.5-25] 1 puff INHALATION RT-DAILY 05/26/23 [History] Metoprolol Tartrate [Lopressor] 50 mg PO BID 30 Days #60 tab 06/03/23 [Rx] Tamsulosin [Flomax] 0.4 mg PO PC-BRKFST 30 Days #30 cap 06/03/23 [Rx] Albuterol Sulfate [Ventolin HFA] 2 puff INHALATION RT-Q4H PRN 07/22/23 [History] Amiodarone [Cordarone] 200 mg PO DAILY 07/22/23 [History] Furosemide [Lasix] 20 mg PO BID 07/22/23 [History] Atorvastatin [Lipitor] 40 mg PO DAILY 03/31/24 [History] Cholecalciferol [Vitamin D3 (25 Mcg = 1000 Iu)] 25 mcg PO DAILY 04/11/24 [History] Multivitamins, Thera [Multivitamin (formulary)] 1 tab PO DAILY 04/11/24 [History] Ferrous Gluconate 324 mg PO DAILY #30 tablet 04/16/24 [Rx] Levofloxacin [Levaquin] 750 mg PO DAILY #4 tab 04/16/24 [Rx] traMADol HCL 50 mg PO Q6H PRN #3 tab 04/16/24 [Rx] Follow up Appointment(s)/Referral(s): Maik Miranda MD [Primary Care Provider] - 1-2 days Nomi Mata DO [Doctor of Osteopathic Medicine] - 1 Week Rosina Stark MD [STAFF PHYSICIAN] - 1 Week Patient Instructions/Handouts: Acute Kidney Injury (DC), Community Acquired Pneumonia (DC), Shortness of Breath (DC) Activity/Diet/Wound Care/Special Instructions: Please complete 4-day course of levofloxacin 1 tablet daily. Please follow-up with your PCP, pulmonology and nephrology. Discharge Disposition: HOME SELF-CARE
[2024-04-16 15:06] VITALS: BP 153/74; TEMP 97.7
[2024-04-16 15:26] VITALS: PULSE 64
--- NOTE | 2024-04-16 16:36 | P.PN ---
Subjective Progress Note Date: 04/16/24 Patient is a 78-year-old male with past medical history significant for very severe COPD with an FEV1 22% of predicted, chronic hypoxemic respiratory failure normally on 5 L/min home O2, former tobacco dependence quitting approximately 1 month ago, coronary artery disease, hypertension, hyperlipidemia, aortic aneurysm, bladder cancer, hydronephrosis with previous stents, DVT, atrial fibrillation. Primary care provider is Dr. Miranda. He does follow in the pulmonary office with Dr. Harrison for management of his severe COPD. Uses a Trelegy maintenance inhaler, DuoNebs [id number], and albuterol HFA inhaler as needed. Of note, recent admitted for community-acquired pneumonia earlier this month; pulmonary was not consulted. Discharged on April 04 with home care. Patient's states that he is been feeling relatively well up to the last 24 hours. He lives with his adult grandchildren and great grandkids who have reportedly been sick with URI symptoms. Noted to be confused with high fevers during nurse visit, and advised to come to the ER. Chest x-ray on arrival showing stable cardiac silhouette, coarsened interstitial densities, possible small bilateral pleural effusions,and bibasilar atelectasis versus developing infiltrates. Does state that his shortness of breath has been slightly worse than baseline. Denies any productive cough, chest pain, hemoptysis, wheezing. He does have significant lower extremity edema, which he states that is actually better than baseline. Takes Lasix on an outpatient basis. He does have bladder cancer, recently underwent transurethral bladder tumor resection and right ureteral stent placement, on July,. Pathology positive for invasive high-grade urothelial carcinoma. Renal function is worse than baseline. Patient denies any dysuria, hematuria, urinary frequency, flank pain. CBC: WBC count 21.5, hemoglobin 9.2, hematocrit 29.5, platelets 307. CMP: Sodium 139, potassium 4.2, chloride 107, serum bicarb 26, BUN 3066, creatinine 3.87, glucose 107. LFTs mildly elevated. NT proBNP 5000 890. EKG: Sinus tachycardia, rate 106 bpm, RBB pattern. Procalcitonin 1.23. Negative for influenza, RSV, COVID. Patient is currently being evaluated on the general medical floor. Mentation is improved. Currently on 5 L/min nasal cannula. SpO2 100%. No acute respiratory distress. The patient is seen today April 13, 2024 in follow-up on the regular medical floor. He is currently resting in bed. Awake and alert in no acute distress. He is maintaining good O2 saturations in the 90s on 5 L/min per nasal cannula. His procalcitonin was 1.23. He is continued on ceftriaxone and azithromycin. Blood, urine and sputum cultures revealing no growth. White count 24.5. Hemoglobin 8.4. Platelets 305. Sodium 138. Potassium 4.6. Bicarb 19. BUN 72. Creatinine 3.9. Glucose 136. He remains on DuoNeb and elations, Symbi nura, Solu-Medrol. Heparin for DVT prophylaxis. The patient is seen today April 14, 2024 in follow-up on the regular medical floor. He is currently sitting up in a chair at the bedside. Awake and alert in no acute distress. Breathing easier today compared to yesterday. Currently on 3 L nasal cannula with O2 saturation in the low 90s. He is continued on Symbicort, DuoNeb and elations, Solu-Medrol. Heparin for DVT prophylaxis. Antibiotics in the form of ceftriaxone. Sodium 140. Potassium 4.4. Bicarb 22. BUN 78. Creatinine 3.7. Glucose 123. Blood, urine and sputum cultures pendi ng. The patient is seen today April 15, 2024 in follow-up on the regular medical floor. He is awake and alert in no acute distress. Sitting up in bed. Maintaining O2 saturations up to 100% on 5 L/min per nasal cannula. Feeling quite a bit better today compared to yesterday. No worsening shortness of breath, cough or congestion. He remains on DuoNeb inhalations, Symbicort, Solu- Medrol. Remains on oral diuretics. Antibiotics in the form of ceftriaxone. White count 14.5. Hemoglobin 9.1. Platelets 281. Sodium 138. Potassium 3.9. Bicarb 22. BUN 87. Creatinine 3.13. Glucose 115. On 04/16/2024, the patient is for a follow-up. The patient is feeling slightly better. No significant complaints. No chest pain. No angina. No palpitations. He is known to have advanced COPD with an FEV1 of 22% of predicted. He is oxygen dependent and uses oxygen at 5 L/min nasal cannula on outpatient basis. He is also known to have CAD, hypertension hyperlipidemia and previous history of bladder cancer and the patient is also known to have previous history of DVT and atrial fibrillation. On today's evaluation, the patient is on DuoNeb nebulized treatments [id number]. Is on Symbicort as maintenance. He is on oral Lasix 20 mg p.o. twice a day. He is also completing course of Levaquin. The patient hest x-ray from 04/14/2024 showed COPD with a component of CHF on top and bibasilar pulmonary opacities in the lung bases and small effusions. There was Achromobacter that was cultured in the sputum. His white cell count is 14.5 with a hemoglobin 9.1 and a platelet count of 281. BUN is 87 with a creatinine of 3.13 and the patient's creatinine is gradually improving. Sodium levels at 138. Potassium is at 3.9. He remains on 5 L of oxygen by nasal cannula. Objective - Vital Signs Vital signs: Vital Signs Temp 97.8 F 04/16/24 06:45 Pulse 72 04/16/24 11:18 Resp 18 04/16/24 06:45 BP 170/78 04/16/24 06:45 Pulse Ox 97 04/16/24 07:31 FiO2 Intake & Output 04/15/24 04/16/24 04/16/24 18:59 06:59 18:59 Output Total 750 1950 Balance -750 -1950 Weight 65.5 kg Output: Urine 750 1950 Other: Voiding Method Urinal Urinal # Voids 4 2 - Exam GENERAL EXAM: Alert, 78-year-old male, up in a chair, on 5 L nasal cannula, comfortable in no apparent distress. HEAD: Normocephalic. EYES: Normal reaction of pupils, equal size. NOSE: Clear with pink turbinates. THROAT: No erythema or exudates. NECK: No masses, no JVD. CHEST: No chest wall deformity. LUNGS: Equal air entry with no crackles, wheeze, rhonchi or dullness. CVS: S1 and S2 normal with no audible murmur, regular rhythm. ABDOMEN: No hepatosplenomegaly, normal bowel sounds, no guarding or rigidity. SPINE: No scoliosis or deformity SKIN: No rashes CENTRAL NERVOUS SYSTEM: No focal deficits, tone is normal in all 4 extremities. EXTREMITIES: There is no peripheral edema. No clubbing, no cyanosis. Peripheral pulses are intact. - Labs CBC & Chem 7: 04/15/24 08:57 04/15/24 08:57 Labs: Microbiology - Last 24 Hours (Table) 04/12/24 06:39 Gram Stain - Final Sputum Sputum Culture - Final Achromobacter xylos/denitrif Assessment and Plan Plan: Acute on chronic dyspnea. Chest x-ray reveals evidence of COPD. Superimposed CHF with pulmonary vascular congestion and patchy basilar opacities. P rocalcitonin was positive. The patient has lower lobe pulm infiltrates and effusions and the sputum that showing Achromobacter. Recent inpatient treatment for community acquired pneumonia; repeat chest x-ray showing stable cardiac silhouette, coarsened interstitium, possible small bilateral pleural effusions,and worsening bibasilar opacities Acute febrile illness, recovered Acute leukocytosis, improving Acute on chronic kidney disease, improving Anemia of chronic disease Very severe chronic obstructive pulmonary disease, with an FEV1 22% of predicted; normally maintained on Trelegy maintenance inhaler, DuoNebs [id number], and as needed albuterol HFA inhaler. Appears stable Chronic hypoxemic respiratory failure, normally maintained on 5 L/min nasal cannula Former tobacco dependence, reportedly quit smoking approximately 1 month ago, prior to that very heavy smoking history greater than 50 pack years History of hypertension History of hyperlipidemia History of coronary artery disease Infrarenal aortic aneurysm, monitored by vascular surgeon outpatient History of paroxysmal atrial fibrillation Bilateral lower extremity edema Echocardiogram, 04/02/2024, estimating left ventricular ejection fraction of 60 to 65%, mild mitral regurgitation, moderate pulmonary hypertension, moderate tricuspid regurgitation, and a small pericardial effusion Bladder cancer status post transurethral resection of bladder tumor July,, pathology positive invasive high-grade urothelial carcinoma. PET scan done in August showing some FDG avid retroperitoneal lymph nodes History of bilateral hydronephrosis with right ureteral stent placement Plan: Titrate down the FiO2 as tolerated, currently on 5 L of oxygen by nasal cannula Continue the current treatment plan Continue bronchodilators Continue Levaquin Monitor white cell count which is improving Monitor renal function Repeat chest x-ray in the morning We will continue to follow
== END 2024-04-16 16:48 | DRG 871 ==
LOC: EC 14:26 → 4SSUR 15:05
PROVIDERS: ADMIT Internal Medicine; ATTEND Internal Medicine
DX: A41.9 Sepsis, unspecified organism (principal); G93.41 Metabolic encephalopathy; J18.9 Pneumonia, unspecified organism; J96.21 Acute and chronic respiratory failure with hypoxia; I50.31 Acute diastolic (congestive) heart failure; N17.0 Acute kidney failure with tubular necrosis; J44.0 Chronic obstructive pulmonary disease with (acute) lower respiratory infection; J44.1 Chronic obstructive pulmonary disease with (acute) exacerbation; I13.0 Hypertensive heart and chronic kidney disease with heart failure and stage 1 through stage 4 chronic kidney disease, or unspecified chronic kidney disease; I31.39 Other pericardial effusion (noninflammatory); N18.4 Chronic kidney disease, stage 4 (severe); N13.8 Other obstructive and reflux uropathy; C79.9 Secondary malignant neoplasm of unspecified site; I27.20 Pulmonary hypertension, unspecified; D63.8 Anemia in other chronic diseases classified elsewhere; D63.1 Anemia in chronic kidney disease; Z99.81 Dependence on supplemental oxygen; C67.9 Malignant neoplasm of bladder, unspecified; E78.5 Hyperlipidemia, unspecified; I48.0 Paroxysmal atrial fibrillation; I08.3 Combined rheumatic disorders of mitral, aortic and tricuspid valves; F17.210 Nicotine dependence, cigarettes, uncomplicated; I25.10 Atherosclerotic heart disease of native coronary artery without angina pectoris; I45.10 Unspecified right bundle-branch block; I71.43 Infrarenal abdominal aortic aneurysm, without rupture; M41.9 Scoliosis, unspecified; N40.0 Benign prostatic hyperplasia without lower urinary tract symptoms; F41.9 Anxiety disorder, unspecified; D50.9 Iron deficiency anemia, unspecified; D72.829 Elevated white blood cell count, unspecified; T38.0X5A Adverse effect of glucocorticoids and synthetic analogues, initial encounter; Z79.51 Long term (current) use of inhaled steroids; Z79.899 Other long term (current) drug therapy; Z86.718 Personal history of other venous thrombosis and embolism; Z87.01 Personal history of pneumonia (recurrent); Z95.5 Presence of coronary angioplasty implant and graft; Z88.2 Allergy status to sulfonamides
CPT/HCPCS: 36415; 71045; 76770; 80048; 80053; 81001; 82607; 82728; 82747; 82803; 83010; 83540; 83550; 83605; 83615; 83735; 83880; 84145; 84466; 84484; 85025; 85045; 85610; 85730; 87040; 87070; 87077; 87086; 87186; 87205; 87449; 87636; 93005; 94640; 94760; 96365; 96367; 96372; 96375; 99291